=== PATIENT | male | born 1965 | race Caucasian/White ===

== ENCOUNTER 2020-04-14 08:56 | Emergency (ER) | payer BC, SELFPAY ==
[2020-04-14 08:56] VITALS: BP 153/114; PULSE 94; RESP 18; TEMP 36.4; O2SAT 100; BMI 37.0
--- NOTE | 2020-04-14 09:44 | ED.VISSUMM ---
- ER Visit Summary Date of Service: 04/14/20 Chief Complaint: Left thumb pain and swelling History of Present Illness: The patient is a 55 M who presents with left thumb pain and swelling that has been getting worse over the last week. Patient thinks he may have smashed it between carts while at work 1 week ago. Patient states he noted increasing swelling and throbbing yesterday. Patient denies any paresthesias or weakness. Patient states his pain is worse with any movement. Patient denies any discharge or drainage. Patient denies any fevers or chills. Physical Examination: Vital signs are stable. Patient is afebrile. Patient is in no acute distress. Skin is warm dry. There is an abscess noted over the left thumb along the nail margin. There is some mild fluctuance. There is edema and tenderness. Range of motion was limited in the IP joint secondary to pain. Sensation was intact light touch in all digits. There is no tenderness along the flexor tendon. Capillary refill was less than 2 seconds in all digits. Radial pulses are equal bilaterally. Test Results: X-rays of the left thumb were obtained. There is no acute fracture or evidence of osteomyelitis. This was interpreted by the radiologist and reviewed by myself. Emergency Department Course and Treatment: The area was cleaned with chlorhexidine prep. A small linear incision was made using the tip of an 18-gauge needle. A moderate amount of purulent drainage was expressed. The wound was left open. Bacitracin dressing was applied. Patient tolerated the procedure well. Patient was given a dose of Keflex here and was given a prescription for Keflex. Patient was instructed to use warm compresses. Patient was instructed to follow-up with his primary care physician in 5 to 7 days. Patient understood and was agreeable with the plan. All questions were answered. Disposition: Discharge home Impression: Paronychia left thumb This note was generated with [employer] dictation software. It may contain incorrect words, spelling, and punctuation that were not noted in review of the chart prior to signing ED Disposition - Plan for ED Patient: Disposition: Home or Assisted Living Diagnosis: Paronychia of left thumb Instructions: ED FINGERNAIL INFECTION Prescriptions: Cephalexin [Keflex] 500 mg PO Q6 #40 cap Prescription Printed Referrals: Lou Davis [employer], [employer] [NON-STAFF] - 5-7 Days
--- NOTE | 2020-04-14 09:55 | RAD_ITS ---
STUDY: X-RAY - LEFT HAND, ATTENTION LEFT THUMB. REASON FOR EXAM: Male, 55 years old. Wound to Left Thumb x several weeks. Unknown injury. Swelling around nail bed. Distal Thumb. TECHNIQUE: 3 view(s) of the finger were obtained. COMPARISON: None. FINDINGS: Normal metacarpal head. Normal metacarpophalangeal joint. Normal proximal phalanx. Normal distal phalanx. Normal distal interphalangeal joint. RAD/Finger(s) Min 2 Views IMPRESSION: Normal x-ray examination of the finger. Electronically Signed: Dominik Rai, at 10:10 EDT , Service support ,
[2020-04-14 11:28] VITALS: PULSE 81; RESP 18; O2SAT 98
[2020-04-14] MEDS: Cephalexin 500 MG Capsule PO (11:28)
[2020-04-14] MEDS: BACITRACIN 15 GM Tube 1 APPLIC TOPICAL (11:28)
--- NOTE | 2020-04-14 11:29 | ED.RN ---
THIS NURSE REVIEWED D/C INSTRUCTIONS WITH PT. PT VERBALIZED UNDERSTANDING OF INSTRUCTIONS. PT DENIES FURTHER NEEDS OR QUESTIONS AT THIS TIME. PT AMBULATES FROM ROOM ON OWN WITHOUT ASSISTANCE FROM STAFF
== END 2020-04-14 11:30 | disposition home or self-care (01) ==
PROVIDERS: Emergency Provider Emergency Medicine
DX: L03.012 Cellulitis of left finger (principal)
CPT/HCPCS: 73140; 99283

== ENCOUNTER 2021-01-16 21:25 | Emergency (ER) | payer BC, SELFPAY ==
[2021-01-16 21:26] VITALS: BP 132/84; PULSE 107; RESP 18; TEMP 36.7; O2SAT 91; BMI 35.4
--- NOTE | 2021-01-16 22:12 | CT_ITS ---
STUDY: CT ABDOMEN AND PELVIS WITHOUT CONTRAST REASON FOR EXAM: Male, 55 years old. Pain RADIATION DOSAGE (If Supplied By Facility): CTDIvol = ( 21.60 ) mGy, DLP = ( 1073.81 ) mGycm TECHNIQUE: Transaxial images were obtained from the dome of the diaphragm to the symphysis pubis without oral contrast, and without intravenous contrast. Sagittal and coronal images were reconstructed. Individualized dose optimization techniques were used for this CT. COMPARISON: None. FINDINGS: The visualized lung bases are unremarkable. The visualized portions of the heart are within normal limits. There is decreased attenuation of the liver consistent with steatosis. Normal gallbladder and extrahepatic biliary system. Normal spleen. Normal pancreas. Normal bilateral adrenal glands. Normal right kidney. Normal left kidney. Normal visualized stomach. Normal small intestine. There are multiple colonic diverticula consistent with diverticulosis. There is non-visualization of the appendix. Normal abdominal aorta. Normal inferior vena cava. Normal retroperitoneum. Normal urinary bladder. There are prostatic calcifications. There is a small umbilical hernia containing fat. There are diffuse degenerative changes of the visualized lumbar spine. CT/Abdomen/Pelvis without Cont IMPRESSION: No acute findings. Small fat-containing umbilical hernia. Significant fatty steatosis of the liver Electronically Signed: Kyler Tiwari DO at 0:27 EDT Tel , Service support ,
[2021-01-16] MEDS: Ondansetron 4 MG/2 ML Vial IV (22:29)
[2021-01-16] MEDS: Dicyclomine 20 MG/2 ML Vial IM (22:29)
[2021-01-16] MEDS: 0.9% Normal Saline 1,000 ML 1000 ML IV (22:29)
[2021-01-16 22:33] LABS: Absolute Lymphocyte Count 1.53 X10^3/uL (0.83-4.51); Absolute Neutrophil Count 3.9 X10^3/uL (2.0-7.7); Basophil# 0.08 X10^3/uL; Basophil% 1.2 % (0-1); Eosinophils% 3.1 % (0-5); Hematocrit 46.2 % (40-54); Hemoglobin 15.3 g/dL (13.0-16.5); Lymphocyte # 1.53 X10^3/ul (0.83-4.51); Lymphocyte % 23.7 % (19-41); Mean Corp Hgb Conc 33.1 g/dL (32-36); Mean Corpuscular Hgb 28.5 pg (27.0-32.0); Mean Platelet Vol. 11.1 fl (6.2-12.0); Monocyte# 0.71 X10^3/uL; NRBC Flagged by Analyzer 0 % (0-5); Neutrophil # 3.91 X10^3/uL (2.7-7.7); Neutrophil % 60.7 % (47-70); Platelet Count 186 K/mm3 (150-450); RBC Distribution Width CV 12.7 % (11.6-14.6); RBC Distribution Width SD 39.6 fl (35.1-43.9); Red Blood Count 5.37 M/mm3 (4.6-6.2); White Blood Count 6.5 K/mm3 (4.4-11.0)
[2021-01-16 22:34] LABS: Bacteria 0 SEEN /hpf (None Seen); Mucous, Urine 0 SEEN /hpf (<or=2+); Red Blood Cells-Urine 0 SEEN /hpf (0-5); Squamous Epithelial Cells - UA 0 SEEN /hpf (0-5); White Blood Cells 0 SEEN /hpf (0-5)
[2021-01-16 22:35] LABS: Color, Urine Yellow (Yellow); Glucose, Dipstick 1000 mg/dl (Normal); Ketone-Dipstick 5 mg/dl (Negative); Leukocyte Esterase-Dipstick Negative /ul (Negative); Nitrite-Dipstick Negative (Negative); Occult Blood-Urine Negative /ul (Negative); Protein-Dipstick Negative (Negative); Specific Gravity, Urine 1.015 (1.002-1.030); Urine Bilirubin Dipstick Negative (Negative); Urine Clarity Sl. Cloudy (Clear); Urine Urobilinogen Normal (Normal)
[2021-01-16 22:41] LABS: Amorphous Sediment 1+
[2021-01-16 22:46] LABS: ALB/GLOB Ratio 0.8 RATIO (0.9-2.4); AST(SGOT) 19 U/L (15-37); Alanine Aminotransfer ALT/SGPT 60 U/L (16-61); Albumin, Serum 3.4 g/dL (3.2-5.0); Alkaline Phosphatase 67 U/L (45-117); Anion Gap 3 (5-15); BUN 22 mg/dL (7-18); BUN/Creat Ratio 22.4 RATIO (10-20); Calcium,Total 9.1 mg/dL (8.5-10.1); Chloride 99 mmol/L (98-107); Creatinine, Serum 0.98 mg/dL (0.70-1.30); EST Glomerular Filtration Rate 85 mL/min (>60); Est Glom Filt Rate - Afr Amer 102 mL/min (>60); Estimated Creatinine Clearance 84.34 ml/min; Glucose 372 mg/dL (74-106); Protein, Total 7.4 g/dL (6.4-8.2); Sodium Level 134 mmol/L (136-145)
[2021-01-16 23:03] LABS: Lactic Acid 2.1 mmol/L (0.4-1.9)
--- NOTE | 2021-01-16 23:33 | ED.VIS.GI ---
HPI HPI - GI History of Present Illness Chief Complaint: Abd Pain Narrative Narrative: Patient presenting for evaluation secondary abdominal pain. Patient states that since yesterday evening he has been dealing with abdominal pain. He states that it predominantly is in his lower abdomen and occasionally predicate to the left side. Patient states that its been a relatively continuous pain and has been associated with some loose watery diarrhea over the course that time. He does endorse some nausea and some dry heaves but no vomiting. He denies any objective fevers associated with this. He is status post appendectomy in the past. He does state that when he wipes occasionally there will be a small amount of blood but he denies that there is any mucus associated with this. States that he is never really had any prior similar episodes in the past he denies any sick contacts. Review of systems otherwise negative. [facility] Medical History Asthma Diabetes HTN (hypertension) Hyperlipemia Home Medications gabapentin 600 mg PO BID 01/16/21 [History Last Taken Unknown] hydrochlorothiazide 25 mg PO DAILY 01/16/21 [History Last Taken Unknown] insulin glargine [Basaglar KwikPen U-100 Insulin] 25 unit SUBCUT BID 01/16/21 [History Last Taken Unknown] lovastatin 20 mg PO QHS 01/16/21 [History Last Taken Unknown] metformin 1,000 mg PO BID 01/16/21 [History Last Taken Unknown] dicyclomine 20 mg PO TID #14 tab 01/17/21 [Rx Last Taken Unknown] ondansetron 4 mg PO Q8H PRN PRN #10 tab 01/17/21 [Rx Last Taken Unknown] Allergy/AdvReac Type Severity Reaction Status Date / Time No Known Allergies Allergy Verified 01/16/21 21:27 Social History Smoking Status: Never smoker ROS ROS ED Constitutional Constitutional ED: Denies chills or fever(s) ENT ENT ED: Denies sore throat Cardiovascular Cardiovascular: Denies chest pain Respiratory/Chest Respiratory/Chest: Denies cough or dyspnea Gastrointestinal Gastrointestinal: Reports abdominal pain, diarrhea and nausea; Denies vomiting Genitourinary Genitourinary ED: Denies dysuria, hematuria or urinary frequency Musculoskeletal Musculoskeletal: Denies myalgias Integumentary Denies rash Neurologic Neurologic: Denies paresthesias or weakness Psychiatric Psychiatric: Denies depression Endocrine Endocrinology: Denies polyuria Hematologic/Lymphatic Hematologic/Lymphatic: Denies easy bleeding or easy bruising Allergic/Immunologic Allergic/Immunologic ED: Denies urticaria EXAM Physical Exam Const Vital Signs: 01/16/21 21:26 01/17/21 00:45 Temperature 98.1 F Temperature Source Temporal Pulse Rate 107 H Respiratory Rate 18 16 Blood Pressure 132/84 H Blood Pressure Mean 100 Pulse Ox 91 Oxygen Delivery Method Room Air Positive well nourished and well developed General Appearance ED: well developed and NAD HEENT normocephalic and atraumatic Eyes EOMs intact bilaterally General Eye ED: Negative for pale conjunctiva or scleral icterus Neck no lymphadenopathy and supple Resp normal respiratory effort and clear to auscultation bilaterally Cardio regular rate, regular rhythm, no murmurs and peripheral pulses 2+ throughout GI non-tender, non-distended and no masses GI Narrative: Patient does report some abdominal pain in the lower abdomen it seems more reproducible in the left upper quadrant and epigastrium there is no guarding or rebound tenderness noted Palpation: soft and tender; Negative for guarding, rigid or rebound tenderness present Back/Spine no CVA tenderness Extremity full ROM General Extremety ED: Negative for edema General Extremity: Negative for edema Neuro moves all extremities and no sensory deficits noted Sensorium / Orientation: alert, oriented to person, oriented to place and oriented to time Motor Exam: strength 5/5 throughout Psych mental status grossly normal Skin Rashes: no rashes MDM MDM MDM Narrative Medical decision making narrative: Patient presented with abdominal pain and diarrhea. IV was established laboratory studies were obtained patient was given Zofran and Bentyl and a liter of fluid. He was noted to have a modest elevation of his lactic acid likely secondary to a mild dehydration. CBC was unremarkable, chemistry shows no significant electrolyte derangements or dehydration liver panel was also found to be unremarkable. Urinalysis shows no signs of infection. CT abdomen and pelvis was performed and per radiology shows a fatty liver, small hernia, but no evidence of acute intra-abdominal process. Repeat evaluation of the patient at 0045 shows him to have symptomatic improvement. Patient's symptoms likely are secondary to an element of enteritis. Patient will be discharged with a course of Zofran and Bentyl for symptom control. He was recommended other conservative management measures. Patient was discharged in stable condition. Lab Data Labs: Laboratory Results - last 24 hr 01/16/21 01/16/21 01/16/21 21:35 21:35 22:05 WBC 6.5 RBC 5.37 Hgb 15.3 Hct 46.2 MCV 86.0 MCH 28.5 MCHC 33.1 RDW Std Deviation 39.6 RDW Coeff of Yanira 12.7 Plt Count 186 MPV 11.1 Immature Gran % (Auto) 0.300 Neut % (Auto) 60.7 Lymph % (Auto) 23.7 [place] % (Auto) 11.0 H Eos % (Auto) 3.1 Baso % (Auto) 1.2 H Absolute Neuts (auto) 3.9 Absolute Lymphs (auto) 1.53 Nucleated RBC % 0 Sodium 134 L Potassium 4.0 Chloride 99 Carbon Dioxide 32.0 Anion Gap 3 L BUN 22 H Creatinine 0.98 Estim Creat Clear Calc 84.34 Est GFR (MDRD) Af Amer 102 Est GFR (MDRD) Non-Af 85 BUN/Creatinine Ratio 22.4 H Glucose 372 H Lactic Acid Calcium 9.1 Total Bilirubin 0.30 AST 19 ALT 60 Alkaline Phosphatase 67 Total Protein 7.4 Albumin 3.4 Globulin 4.0 Albumin/Globulin Ratio 0.8 L Urine Color Yellow Urine Clarity Sl. Cloudy Urine pH 8.0 Ur Specific [place] 1.015 Urine Protein Negative Urine Glucose (UA) 1000 H Urine Ketones 5 H Urine Occult Blood Negative Urine Nitrite Negative Urine Bilirubin Negative Urine Urobilinogen Normal Ur Leukocyte Esterase Negative Urine RBC 0 SEEN Urine WBC 0 SEEN Ur Squamous Epith Cells 0 SEEN Amorphous Sediment 1+ Urine Bacteria 0 SEEN Urine Mucus 0 SEEN 01/16/21 22:25 WBC RBC Hgb Hct MCV MCH MCHC RDW Std Deviation RDW Coeff of Yanira Plt Count MPV Immature Gran % (Auto) Neut % (Auto) Lymph % (Auto) [place] % (Auto) Eos % (Auto) Baso % (Auto) Absolute Neuts (auto) Absolute Lymphs (auto) Nucleated RBC % Sodium Potassium Chloride Carbon Dioxide Anion Gap BUN Creatinine Estim Creat Clear Calc Est GFR (MDRD) Af Amer Est GFR (MDRD) Non-Af BUN/Creatinine Ratio Glucose Lactic Acid 2.1 H* Calcium Total Bilirubin AST ALT Alkaline Phosphatase Total Protein Albumin Globulin Albumin/Globulin Ratio Urine Color Urine Clarity Urine pH Ur Specific [place] Urine Protein Urine Glucose (UA) Urine Ketones Urine Occult Blood Urine Nitrite Urine Bilirubin Urine Urobilinogen Ur Leukocyte Esterase Urine RBC Urine WBC Ur Squamous Epith Cells Amorphous Sediment Urine Bacteria Urine Mucus Radiography Diagnostic Testing: Radiology Impression Abdomen/Pelvis CT 01/16/21 22:12 IMPRESSION: No acute findings. Small fat-containing umbilical hernia. Significant fatty steatosis of the liver Electronically Signed: Kyler Tiwari DO at 0:27 EDT Tel , Service support , Discharge Plan Triage Chief Complaint: Abd Pain ED Provider: Rodolfo Eid Dx/Rx/DC Orders Clinical Impression: Enteritis Instructions: ED Diarrhea, Viral (Adult) Prescriptions: New dicyclomine 20 mg tablet 20 mg PO TID Qty: 14 RF: 0 ondansetron 4 mg tablet,disintegrating 4 mg PO Q8H PRN PRN (Reason: Nausea) Qty: 10 RF: 0 No Action metformin 1,000 mg tablet 1,000 mg PO BID RF: 0 gabapentin 300 mg capsule 600 mg PO BID RF: 0 hydrochlorothiazide 25 mg tablet 25 mg PO DAILY RF: 0 lovastatin 20 mg tablet 20 mg PO QHS RF: 0 Basaglar KwikPen U-100 Insulin 100 unit/mL (3 mL) Insulin Pen 25 unit SUBCUT BID RF: 0 Primary Care Provider: Care Physician,No Primary Referrals: Care Physician,No Primary [Primary Care Provider] - Disposition Disposition: Home, Self Care
[2021-01-17 00:45] VITALS: RESP 16
[2021-01-17 00:59] VITALS: BP 118/74; PULSE 85; RESP 16
[2021-01-17 02:29] LABS: Reflex Lactate? Y
== END 2021-01-17 00:59 | disposition home or self-care (01) ==
PROVIDERS: Emergency Provider Emergency Medicine
DX: K52.9 Noninfective gastroenteritis and colitis, unspecified (principal); E11.9 Type 2 diabetes mellitus without complications; E78.5 Hyperlipidemia, unspecified; Z79.4 Long term (current) use of insulin; Z79.899 Other long term (current) drug therapy
CPT/HCPCS: 74176; 80053; 81001; 83605; 85025; 96372; 96374; 99284; J7030; A4216; J2405

== ENCOUNTER 2023-03-15 13:52 | Emergency (ER) | payer BC, SELFPAY ==
[2023-03-15 13:53] VITALS: BP 170/121; PULSE 95; RESP 14; TEMP 36.6; O2SAT 98; BMI 36.1
--- NOTE | 2023-03-15 14:07 | EDS_ITS ---
<Statement entered by Chacho Nichols MD - 03/15/23 14:55> I have personally performed a face to face assessment of the patient and have reviewed the CARMEN Note. Dr. Nichols: I have personally performed a face to face assessment of the patient and have reviewed the CARMEN Note. I performed a substantive portion of the visit including all aspects of the following. My klein findings include: History is right lower jaw swelling. Exam is afebrile. Vital signs noted. Poor dentition with large cavity in right lower jaw. Positive swelling of face. No gingival swelling. No drooling or trismus. No Jm angina. Medical Decision Making: I do not feel that any imaging or laboratory work is indicated. Patient will be placed on antibiotics and follow-up with a dentist as soon as possible. I do not feel he requires narcotic pain medication or observation. Disposition is discharged home in stable condition. Other additions or changes: [None] HPI <MC Pruett - Last Filed: 03/15/23 15:23> History of Present Illness Chief Complaint: Dental Narrative Narrative: Patient presenting today with swelling to his right lower mandible that he has had since waking up this morning. He reports that he has had right mandibular dental pain for the past 2 months. He did try to see a dentist who told him that he could not be seen until he had his A1c checked by his PCP. He saw his PCP yesterday who prescribed him naproxen but did not put him on an antibiotic. He does not currently have a dentist that he sees regularly. He denies any fever and chills. [facility] <MC Pruett - Last Filed: 03/15/23 15:23> [facility] Medical History Asthma Diabetes HTN (hypertension) Hyperlipemia Home Medications gabapentin 300 mg capsule 600 mg PO BID 01/16/21 [History Last Taken Unknown] hydrochlorothiazide 25 mg tablet 25 mg PO DAILY 01/16/21 [History Last Taken Unknown] insulin glargine 100 unit/mL (3 mL) subcutaneous pen (Basaglar KwikPen U-100 Insulin) 25 unit subcut BID 01/16/21 [History Last Taken Unknown] lovastatin 20 mg tablet 20 mg PO QHS 01/16/21 [History Last Taken Unknown] metformin 1,000 mg tablet 1,000 mg PO BID 01/16/21 [History Last Taken Unknown] dicyclomine 20 mg tablet 20 mg PO TID Abdominal cramping #14 tabs 01/17/21 [Rx Last Taken Unknown] ondansetron 4 mg disintegrating tablet 4 mg PO Q8H PRN PRN Nausea #10 tabs 01/17/21 [Rx Last Taken Unknown] penicillin V potassium 500 mg tablet 500 mg PO 4X/DAY #39 tabs 03/15/23 [Rx Last Taken Unknown] Allergy/AdvReac Type Severity Reaction Status Date / Time No Known Allergies Allergy Verified 03/15/23 13:52 Social History Smoking Status: Never smoker ROS <MC Pruett - Last Filed: 03/15/23 15:23> ROS ED Constitutional Constitutional ED: Denies chills or fever(s) Cardiovascular Cardiovascular: Denies chest pain Respiratory/Chest Respiratory/Chest: Denies cough or dyspnea Gastrointestinal Gastrointestinal: Denies abdominal pain, nausea or vomiting Musculoskeletal Musculoskeletal: Denies arthralgias or myalgias Integumentary Denies rash Neurologic Neurologic: Denies weakness Allergic/Immunologic Allergic/Immunologic ED: Denies lip swelling or tongue swelling EXAM <MC Pruett - Last Filed: 03/15/23 15:23> Physical Exam Const Vital Signs: 03/15/23 13:53 03/15/23 14:38 Temperature 98 F Temperature Source Temporal Pulse Rate 95 101 H Respiratory Rate 14 Blood Pressure 170/121 H 166/98 H Blood Pressure Mean 137 Pulse Ox 98 95 Oxygen Delivery Method Room Air Positive well nourished, well developed and no apparent distress General Appearance ED: well developed HEENT Reports normocephalic and head/scalp atraumatic HEENT Narrative: Right-sided facial swelling to the lower mandible. Multiple dental caries with pain to the right first and second molars. No dental abscess. Patient is tolerating secretions, no trismus, no drooling, no evidence of Ludewig's angina. Mouth ED: Yes moist mucous membranes normal Throat: posterior oropharynx normal Eyes PERRL and EOMs intact bilaterally Neck full ROM and supple Chest Wall inspection of chest normal Resp normal respiratory effort and clear to auscultation bilaterally Cardio regular rate and regular rhythm GI soft to palpation, non-tender, non-distended and no masses Back/Spine normal ROM and normal to inspection Extremity normal to inspection and full ROM Neuro oriented x3, CN's II-XII intact bilaterally, moves all extremities, no focal motor deficits and no sensory deficits noted Sensorium / Orientation: awake and alert Psych mental status grossly normal and thought process normal Skin no rashes or lesions noted and no wounds <Chacho Nichols MD - Last Filed: 03/15/23 16:01> Physical Exam Const Vital Signs: 03/15/23 13:53 03/15/23 14:38 Temperature 98 F Temperature Source Temporal Pulse Rate 95 101 H Respiratory Rate 14 Blood Pressure 170/121 H 166/98 H Blood Pressure Mean 137 Pulse Ox 98 95 Oxygen Delivery Method Room Air MDM <MC Pruett - Last Filed: 03/15/23 15:23> [facility] Narrative Medical decision making narrative: Patient presenting today with right-sided facial swelling to the right mandible that he has had since waking up this morning. He is well-appearing and in no acute distress, vitals are unremarkable aside from elevated blood pressure. Patient has had dental pain for the past 2 months but was told by dentist that he could not be seen until he saw his PCP, he then saw his PCP yesterday who prescribed him naproxen without any antibiotic. Patient does have multiple dental caries and pain to the right mandibular first and second molar. There are no signs of dental abscess, no signs of Ludewig's angina. Patient does not have any trismus or stridor and is tolerating secretions. He will be started on penicillin with first dose here. He will be given a dental referral sheet. He has been given return instructions and will be discharged home in stable condition. He is comfortable with plan. <Chacho Nichols MD - Last Filed: 03/15/23 16:01> [facility] Narrative Medical decision making narrative: Patient presenting today with right-sided facial swelling to the right mandible that he has had since waking up this morning. He is well-appearing and in no acute distress, vitals are unremarkable aside from elevated blood pressure. Patient has had dental pain for the past 2 months but was told by dentist that he could not be seen until he saw his PCP, he then saw his PCP yesterday who prescribed him naproxen without any antibiotic. Patient does have multiple dental caries and pain to the right mandibular first and second molar. There are no signs of dental abscess, no signs of Ludewig's angina. Patient does not have any trismus or stridor and is tolerating secretions. He will be started on penicillin with first dose here. He will be given a dental referral sheet. He has been given return instructions and will be discharged home in stable condition. He is comfortable with plan. Discharge Plan Triage Chief Complaint: Dental ED Midlevel Provider: Chelsi Harris ED Provider: Chacho Nichols Dx/Rx/DC Orders Clinical Impression: Dental caries, Right facial swelling, Pain, dental Instructions: ED Dental Pain Prescriptions: New penicillin V potassium 500 mg tablet 500 mg PO 4X/DAY Qty: 39 0RF No Action metformin 1,000 mg tablet 1,000 mg PO BID gabapentin 300 mg capsule 600 mg PO BID hydrochlorothiazide 25 mg tablet 25 mg PO DAILY lovastatin 20 mg tablet 20 mg PO QHS Nadiragldionicio Cohen U-100 Insulin 100 unit/mL (3 mL) Insulin Pen 25 unit SUBCUT BID dicyclomine 20 mg tablet 20 mg PO TID Qty: 14 0RF ondansetron 4 mg tablet,disintegrating 4 mg PO Q8H PRN PRN (Reason: Nausea) Qty: 10 0RF Primary Care Provider: Care Physician,No Primary Referrals: Care Physician,No Primary [Primary Care Provider] - Activity Restrictions/Additional Instructions: Take antibiotics as directed, please follow-up with one of the dentist I have referred you to. Return for any worsening of your symptoms. Disposition Disposition: Home, Self Care Discharge Date/Time: 03/15/23 14:42
[2023-03-15 14:38] VITALS: BP 166/98; PULSE 101; O2SAT 95
--- NOTE | 2023-03-15 14:40 | ED.RN ---
Patient d/c by cellars supervisor, Alessandro, patient states to him that he is hungry and will get prescription filled prior to medication being given by his nurse.
== END 2023-03-15 14:42 | disposition home or self-care (01) ==
LOC: ED 14:21
PROVIDERS: Emergency Provider Emergency Medicine; Visit Provider Emergency Medicine
DX: K02.9 Dental caries, unspecified (principal); K08.89 Other specified disorders of teeth and supporting structures
CPT/HCPCS: 99282

== ENCOUNTER 2023-03-18 10:14 | Emergency (ER) | payer BC, SELFPAY ==
--- NOTE | 2023-03-18 10:17 | ED.RN ---
I CAN'T MISS ANY MORE WORK OR I'LL GET FIRED, THEN WHO'S GONNA PAY MY BILLS!
[2023-03-18 10:20] VITALS: BP 154/99; PULSE 97; RESP 16; TEMP 36.8; O2SAT 97; BMI 35.1
[2023-03-18 10:21] VITALS: BP 152/90; PULSE 95; RESP 16; TEMP 36.6; O2SAT 98
--- NOTE | 2023-03-18 11:24 | EDS_ITS ---
HPI History of Present Illness Chief Complaint: Dental Informant: patient and spouse/S.O. Narrative Narrative: Persistent right lower jaw swelling. History of dental caries. Was seen few days ago in the ED. Put on penicillin. After taking it he came nauseated having headache. He stopped taking it 3 days ago. Called [facility] today. Wait for callback. He is concerned for reaction to penicillin therefore stopped taking it. Prior similar symptoms: Yes PFSH PFSH Medical History Asthma Diabetes HTN (hypertension) Hyperlipemia Home Medications gabapentin 300 mg capsule 600 mg PO BID 01/16/21 [History Last Taken Unknown] hydrochlorothiazide 25 mg tablet 25 mg PO DAILY 01/16/21 [History Last Taken Unknown] insulin glargine 100 unit/mL (3 mL) subcutaneous pen (Basaglar KwikPen U-100 Insulin) 25 unit subcut BID 01/16/21 [History Last Taken Unknown] lovastatin 20 mg tablet 20 mg PO QHS 01/16/21 [History Last Taken Unknown] metformin 1,000 mg tablet 1,000 mg PO BID 01/16/21 [History Last Taken Unknown] dicyclomine 20 mg tablet 20 mg PO TID Abdominal cramping #14 tabs 01/17/21 [Rx Last Taken Unknown] ondansetron 4 mg disintegrating tablet 4 mg PO Q8H PRN PRN Nausea #10 tabs 01/17/21 [Rx Last Taken Unknown] penicillin V potassium 500 mg tablet 500 mg PO 4X/DAY #39 tabs 03/15/23 [Rx Last Taken Unknown] clindamycin HCl 300 mg capsule 300 mg PO TID #30 caps 03/18/23 [Rx Last Taken Unknown] ondansetron 4 mg disintegrating tablet 4 mg PO Q8H PRN PRN Nausea #10 tabs 03/18/23 [Rx Last Taken Unknown] Allergy/AdvReac Type Severity Reaction Status Date / Time No Known Allergies Allergy Verified 03/18/23 10:19 Social History Smoking Status: Never smoker ROS ROS ED Constitutional Constitutional ED: Denies chills, fever(s) or sweats Eyes Eyes: Denies change in vision ENT ENT ED: Reports other Details: Dental cavity with facial swelling ; Denies dysphagia or sore throat Cardiovascular Cardiovascular: Denies chest pain, leg edema, palpitations or racing heartbeat Respiratory/Chest Respiratory/Chest: Denies cough, dyspnea or dyspnea on exertion Gastrointestinal Gastrointestinal: Denies abdominal pain, diarrhea, nausea or vomiting Genitourinary Genitourinary ED: Denies dysuria, hematuria or urinary frequency Musculoskeletal Musculoskeletal: Denies back pain, extremity pain or neck pain Integumentary Denies rash or wounds Neurologic Neurologic: Denies headache(s), paresthesias or weakness EXAM Physical Exam Const Vital Signs: 03/18/23 10:20 03/18/23 10:21 Temperature 98.3 F 98 F Temperature Source Temporal Temporal Pulse Rate 97 95 Respiratory Rate 16 16 Blood Pressure 154/99 H 152/90 H Blood Pressure Mean 117 110 Pulse Ox 97 98 Oxygen Delivery Method Room Air Room Air Positive well nourished and well developed General Appearance ED: well developed and NAD HEENT Reports moist mucous membranes HEENT Narrative: Dental cavity tooth #29 and the lower canine. No sublingual edema. No fluctuance of the gumline. There is swelling at the right mandibular. No crepitus at the neck. normocephalic and atraumatic Eyes PERRL, EOMs intact bilaterally and conjunctivae normal General Eye ED: Yes normal appearance of both eyes Neck no lymphadenopathy and supple General: Negative for tenderness Chest Wall Chest: Negative for tenderness Resp normal respiratory effort and normal air movement Effort and Inspection: symmetric chest movement; Negative for respiratory distress Cardio regular rate, regular rhythm and no murmurs Peripheral Pulses: pulses 2+ throughout GI normal to inspection, nondistended, normoactive bowel sounds and non-tender Palpation: Negative for guarding or rebound tenderness present Back/Spine no CVA tenderness and no thoracic nor lumbar tenderness Extremity normal to inspection General Extremety ED: Negative for edema or tenderness General Extremity: Negative for edema Neuro oriented x3 and no sensory deficits noted Sensorium / Orientation: awake and alert Skin no rashes or lesions noted and no wounds MDM MDM MDM Narrative Medical decision making narrative: Interventions / MDM: Differential diagnosis: Dental cavity, dental abscess Diagnosis considered but do not suspect: No clinical Jm's angina My EKG interpretation: N/A Imaging independently reviewed and interpreted by myself: N/A External documents reviewed: N/A Test considered but not ordered:N/A ED course: Patient presents with swelling right lower jaw. Nontoxic. He stopped penicillin due to concerning reactions. He started on clindamycin and additional prescription for Zofran to use as needed. Dental list given along with discussing dental follow-up needed for definitive treatment. All questions were answered. Re-evaluation: stable Disposition discussed with patient/family/significant other: Patient and significant other Case discussed with consulting clinician: N/A This note was generated with [employer] dictation software. It may contain incorrect words, spelling, and punctuation that were not noted in checking the note before signing. Discharge Plan Triage Chief Complaint: Dental ED Provider: Jules Chu Dx/Rx/DC Orders Clinical Impression: Dental caries, Right facial swelling Instructions: Dental Abscess Prescriptions: New clindamycin HCl 300 mg capsule 300 mg PO TID Qty: 30 0RF ondansetron [ondansetron] 4 mg tablet,disintegrating 4 mg PO Q8H PRN PRN (Reason: Nausea) Qty: 10 0RF No Action metformin 1,000 mg tablet 1,000 mg PO BID gabapentin 300 mg capsule 600 mg PO BID hydrochlorothiazide 25 mg tablet 25 mg PO DAILY lovastatin 20 mg tablet 20 mg PO QHS Basaglar KwikPen U-100 Insulin 100 unit/mL (3 mL) Insulin Pen 25 unit SUBCUT BID dicyclomine 20 mg tablet 20 mg PO TID Qty: 14 0RF ondansetron 4 mg tablet,disintegrating 4 mg PO Q8H PRN PRN (Reason: Nausea) Qty: 10 0RF penicillin V potassium 500 mg tablet 500 mg PO 4X/DAY Qty: 39 0RF Stand Alone Forms: ED Work / School Excuse Primary Care Provider: Shahana Murray COLLISION TECHNICIAN Referrals: Care Physician,No Primary [Non-Staff] - Activity Restrictions/Additional Instructions: Take anabiotic as prescribed nausea medicine as needed. Follow-up with your dentist or dental list for outpatient evaluation for definitive treatment. Disposition Disposition: Home, Self Care Discharge Date/Time: 03/18/23 11:47
[2023-03-18] MEDS: Clindamycin HCl 150 MG Capsule 300 MG PO (11:25)
== END 2023-03-18 11:47 | disposition home or self-care (01) ==
LOC: ED 11:33
PROVIDERS: Emergency Provider Emergency Medicine; PCP Nurse Practitioner; Visit Provider Emergency Medicine
DX: E11.638 Type 2 diabetes mellitus with other oral complications (principal)
CPT/HCPCS: 99283

== ENCOUNTER 2023-03-30 19:28 | Emergency (ER) | payer BC, SELFPAY ==
[2023-03-30 19:32] VITALS: BP 128/87; PULSE 104; RESP 18; TEMP 35.8; O2SAT 95; BMI 35.0
[2023-03-30 19:35] VITALS: BP 128/87; PULSE 104; RESP 18; TEMP 35.8; O2SAT 95
[2023-03-30 19:41] VITALS: O2SAT 91
--- NOTE | 2023-03-30 20:10 | EDS_ITS ---
HPI History of Present Illness Chief Complaint: Shortness of Breath Onset/Context/Timing Onset: Days (3) Context: sudden Timing: Continuous Quality: Positive for Dyspnea on exertion Worsened by: Nothing Relieved by: Nothing Associated Symptoms Chest Pain: Positive for None Narrative Narrative: Patient presents with shortness of breath, cough, headache, dizziness, and weakness that has been getting worse over the past 3 days. Patient describes his dizziness as a spinning sensation. Patient states he started with a headache in his occipital area 3 days ago. Patient states this has been constant. Patient admits to some subjective chills. Patient admits to inte rmittent blurred vision. Patient also admits to a sore throat. Patient states nothing makes his symptoms better and nothing makes them worse. Patient denies any fevers. PE Risk Factors: Negative for Cancer, OCP + Smoking + > 35, Prior DVT or PE, Recent immobilization, Recent surgery or Recent travel [facility] Medical History Asthma Diabetes HTN (hypertension) Hyperlipemia Home Medications gabapentin 300 mg capsule 600 mg PO BID 01/16/21 [History Last Taken Unknown] hydrochlorothiazide 25 mg tablet 25 mg PO DAILY 01/16/21 [History Last Taken Unknown] insulin glargine 100 unit/mL (3 mL) subcutaneous pen (Basaglar KwikPen U-100 Insulin) 25 unit subcut BID 01/16/21 [History Last Taken Unknown] lovastatin 20 mg tablet 20 mg PO QHS 01/16/21 [History Last Taken Unknown] metformin 1,000 mg tablet 1,000 mg PO BID 01/16/21 [History Last Taken Unknown] dicyclomine 20 mg tablet 20 mg PO TID Abdominal cramping #14 tabs 01/17/21 [Rx Last Taken Unknown] ondansetron 4 mg disintegrating tablet 4 mg PO Q8H PRN PRN Nausea #10 tabs 01/17/21 [Rx Last Taken Unknown] penicillin V potassium 500 mg tablet 500 mg PO 4X/DAY #39 tabs 03/15/23 [Rx Last Taken Unknown] clindamycin HCl 300 mg capsule 300 mg PO TID #30 caps 03/18/23 [Rx Last Taken Unknown] ondansetron 4 mg disintegrating tablet 4 mg PO Q8H PRN PRN Nausea #10 tabs 03/18/23 [Rx Last Taken Unknown] Allergy/AdvReac Type Severity Reaction Status Date / Time PCN AdvReac Intermediate FACE Uncoded 03/30/23 19:32 TURNED RED Surgical History no surgical history no surgical history Social History Smoking Status: Never smoker ROS ROS ED Constitutional Constitutional ED: Reports chills; Denies fever(s) Eyes Eyes: Reports blurry vision; Denies diplopia ENT ENT ED: Reports sore throat; Denies rhinorrhea Cardiovascular Cardiovascular: Reports racing heartbeat; Denies chest pain Respiratory/Chest Respiratory/Chest: Reports cough and dyspnea Gastrointestinal Gastrointestinal: Reports nausea; Denies vomiting Genitourinary Genitourinary ED: Denies dysuria or hematuria Musculoskeletal Musculoskeletal: Reports back pain; Denies neck pain Integumentary Denies abscess or rash Neurologic Neurologic: Reports headache(s); Denies weakness Allergic/Immunologic Allergic/Immunologic ED: Denies mouth swelling or urticaria EXAM Physical Exam Const Vital Signs: 03/30/23 19:32 03/30/23 19:35 03/30/23 19:41 Temperature 96.4 F L 96.4 F L Temperature Source Temporal Temporal Pulse Rate 104 H 104 H Pulse Rate [Lying] Pulse Rate [Sitting (for 1 minute prior to obtaining)] Pulse Rate [Standing (for 1 minute prior to obtaining)] Respiratory Rate 18 18 Respiratory Effort Short of Breath Respiratory Depth Normal Respiratory Pattern Normal Blood Pressure 128/87 H 128/87 H Blood Pressure [Lying] Blood Pressure [Sitting (for 1 minute prior to obtaining)] Blood Pressure [Standing (for 1 minute prior to obtaining)] Blood Pressure Mean 100 100 Blood Pressure Mean [Lying] Blood Pressure Mean [Sitting (for 1 minute prior to obtaining)] Blood Pressure Mean [Standing (for 1 minute prior to obtaining)] Pulse Ox 95 95 Oxygen Delivery Method Room Air Room Air Nasal Cannula Oxygen Flow Rate (L/min) 2 03/30/23 20:24 03/30/23 21:45 Temperature Temperature Source Pulse Rate 94 Pulse Rate [Lying] 85 Pulse Rate [Sitting (for 1 minute prior to obtaining)] 90 Pulse Rate [Standing (for 1 minute prior to obtaining)] 98 Respiratory Rate 12 Respiratory Effort Respiratory Depth Respiratory Pattern Blood Pressure Blood Pressure [Lying] 151/85 H Blood Pressure [Sitting (for 1 minute prior to obtaining)] 134/87 H Blood Pressure [Standing (for 1 minute prior to obtaining)] 125/91 H Blood Pressure Mean Blood Pressure Mean [Lying] 107 Blood Pressure Mean [Sitting (for 1 minute prior to obtaining)] 102 Blood Pressure Mean [Standing (for 1 minute prior to obtaining)] 102 Pulse Ox Oxygen Delivery Method Oxygen Flow Rate (L/min) Positive well nourished and well developed General Appearance ED: well developed and NAD HEENT Reports moist mucous membranes Neck supple and no JVD Resp normal respiratory effort Auscultation: wheezes expiratory wheezes and throughout Cardio regular rate and regular rhythm GI normal to inspection, nondistended, normoactive bowel sounds and non-tender Palpation: soft Extremity normal to inspection General Extremety ED: Negative for edema or tenderness General Extremity: Negative for edema Neuro oriented x3, CN's II-XII intact bilaterally and no sensory deficits noted Sensorium / Orientation: alert Motor Exam: strength 5/5 throughout Psych mental status grossly normal Skin no rashes or lesions noted MDM MDM MDM Narrative Medical decision making narrative: Differential diagnosis includes pneumonia, pneumothorax, viral upper respiratory infection, COVID-19 infection, vertigo, labyrinthitis, stroke, intracranial bleeding, COPD exacerbation, and anxiety. CT scan of the brain will be obtained to assess for intracranial bleeding. Chest x-ray will be obtained to assess for pneumonia and pneumothorax. CBC will be obtained to assess for leukocytosis and anemia. Basic metabolic profile will be obtained to assess for electrolyte abnormality and renal function. COVID-19 rapid antigen will be obtained to assess for COVID-19 infection. Influenza A and influenza B antigens will be obtained to assess for influenza infection. Lab Data Attestation: I reviewed the patient's lab results. Lab results narrative: CBC was reviewed and was within normal limits. Basic metabolic profile was reviewed. Glucose was slightly elevated at 268. Anion gap was normal. Influenza A and influenza B antigens were reviewed and were negative. COVID-19 rapid antigen was reviewed and was positive. Labs: Laboratory Results - last 24 hr 03/30/23 20:01 WBC 5.2 RBC 5.49 Hgb 15.5 Hct 47.5 MCV 86.5 MCH 28.2 MCHC 32.6 RDW Std Deviation 39.8 RDW Coeff of Yanira 12.5 Plt Count 155 MPV 10.8 Immature Gran % (Auto) 0.200 Neut % (Auto) 57.6 Lymph % (Auto) 26.8 Letcher % (Auto) 9.2 Eos % (Auto) 5.2 H Baso % (Auto) 1.0 Absolute Neuts (auto) 3.0 Absolute Lymphs (auto) 1.40 Nucleated RBC % 0 Sodium 136 Potassium 3.7 Chloride 104 Carbon Dioxide 29.0 Anion Gap 3 L BUN 16 Creatinine 0.93 Estim Creat Clear Calc 85.81 Est GFR (MDRD) Af Amer 108 Est GFR (MDRD) Non-Af 89 BUN/Creatinine Ratio 17.2 Glucose 260 H Calcium 8.1 L Radiography Chest X-Ray - ED: 2 View, Read by ED Physician, Read by Radiologist and No Acute Disease Diagnostic Testing: Clinical Impression(s) from Imaging Studies Brain CT 03/30/23 20:16 IMPRESSION: Normal unenhanced CT scan of the brain. Electronically Signed: Sofia Elam MD at 20:54 EDT Reading Location ID and State: [email or web address] , Service support , Chest X-Ray 03/30/23 20:42 IMPRESSION: No acute cardiopulmonary disease. Electronically Signed: Sofia Elam MD at 20:55 EDT , CT scan of the brain was obtained. There is no acute intracranial abnormality. This was interpreted by the radiologist and was also independently reviewed by myself. PA and lateral chest x-ray was obtained. There are 2 views. On my independent interpretation, lung wayne are clear. There is normal cardiac silhouette. Bony thorax is normal. There is no acute process noted. Radiologist also interpreted the x-ray and agrees. Treatment and Re-Evaluation :: Patient was given a DuoNeb aerosol here. Patient was feeling better on reevaluation. Patient was advised of his findings. Patient was instructed to drink plenty of fluids. Patient was instructed to take Tylenol or ibuprofen as needed for any fevers. Patient was instructed to follow-up with his primary care physician in 5 to 7 days. Patient was given a note for work. Patient understood and was agreeable with the plan. All questions were answered. Discharge Plan Triage Chief Complaint: Shortness of Breath ED Provider: Vimal Wang Dx/Rx/DC Orders Clinical Impression: COVID-19, Viral illness Instructions: Coronavirus Disease 2019 (COVID-19): Caring for Yourself or Others Prescriptions: No Action metformin 1,000 mg tablet 1,000 mg PO BID gabapentin 300 mg capsule 600 mg PO BID hydrochlorothiazide 25 mg tablet 25 mg PO DAILY lovastatin 20 mg tablet 20 mg PO QHS Basaglar NidhiikPen U-100 Insulin 100 unit/mL (3 mL) Insulin Pen 25 unit SUBCUT BID dicyclomine 20 mg tablet 20 mg PO TID Qty: 14 0RF ondansetron 4 mg tablet,disintegrating 4 mg PO Q8H PRN PRN (Reason: Nausea) Qty: 10 0RF penicillin V potassium 500 mg tablet 500 mg PO 4X/DAY Qty: 39 0RF clindamycin HCl 300 mg capsule 300 mg PO TID Qty: 30 0RF ondansetron [ondansetron] 4 mg tablet,disintegrating 4 mg PO Q8H PRN PRN (Reason: Nausea) Qty: 10 0RF Stand Alone Forms: ED Work / School Excuse Primary Care Provider: Shahana Murray PARENT PARTNER Referrals: Shahana Murray PARENT PARTNER, PARENT PARTNER-C [Primary Care Provider] - 3-5 Days Disposition Disposition: Home, Self Care
--- NOTE | 2023-03-30 20:16 | CT_ITS ---
STUDY: CT BRAIN WITHOUT CONTRAST REASON FOR EXAM: Male, 58 years old. Headache RADIATION DOSAGE (If Supplied By Facility): CTDIvol = ( 44.99 ) mGy, DLP = ( 796.11 ) mGycm TECHNIQUE: Transaxial CT imaging of the brain was performed without administration of intravenous contrast material. Individualized dose optimization techniques were used for this CT. COMPARISON: No relevant priors. FINDINGS: Small fatty attenuation overlying the right anterolateral frontal bone measuring approximately 4.6 mm in thickness, most compatible with right scalp lipoma. Otherwise normal soft tissue structures. Normal calvarium. Normal size ventricles and extra-axial spaces for the patient''s age. Normal white matter tracts of the cerebral hemispheres. Normal basal ganglia and thalami. Normal brainstem. Normal cerebellum. There is no intracranial hemorrhage. There are no findings of an acute ischemic infarction. Mild mucosal thickening of the bilateral maxillary sinuses, sphenoid, ethmoid and frontal sinuses, most compatible with sequela of chronic sinusitis. Otherwise remainder of the visualized paranasal sinuses and bilateral mastoids are clear. CT/Brain/Head without Contrast IMPRESSION: Normal unenhanced CT scan of the brain. Electronically Signed: Sofia Elam MD at 20:54 EDT ,
[2023-03-30] MEDS: Ipratropium/Albuterol Sulfate 3 ML AMPUL.NEB INHALATION (20:23)
[2023-03-30 20:24] VITALS: PULSE 94; RESP 12
[2023-03-30] MEDS: 0.9% Normal Saline (1000mL) 1,000 ML 1000 ML IV (20:30)
[2023-03-30 20:40] LABS: Basophil# 0.05 X10^3/uL; Eosinophil# 0.27 X10^3/uL; Eosinophils% 5.2 % (0-5); Hematocrit 47.5 % (40-54); Hemoglobin 15.5 g/dL (13.0-16.5); Lymphocyte % 26.8 % (19-41); Mean Corp Hgb Conc 32.6 g/dL (32-36); Mean Corpuscular Hgb 28.2 pg (27.0-32.0); Mean Corpuscular Volume 86.5 fL (80-94); Mean Platelet Vol. 10.8 fl (6.2-12.0); Monocyte# 0.48 X10^3/uL; Monocyte% 9.2 % (0-10); NRBC Flagged by Analyzer 0 % (0-5); Neutrophil # 3.01 X10^3/uL (2.7-7.7); Neutrophil % 57.6 % (47-70); Platelet Count 155 K/mm3 (150-450); RBC Distribution Width CV 12.5 % (11.6-14.6); RBC Distribution Width SD 39.8 fl (35.1-43.9); Red Blood Count 5.49 M/mm3 (4.6-6.2); White Blood Count 5.2 K/mm3 (4.4-11.0)
--- NOTE | 2023-03-30 20:42 | RAD_ITS ---
STUDY: X-RAY CHEST REASON FOR EXAM: Male, 58 years old. Cough TECHNIQUE: PA and lateral views of the chest. COMPARISON: None. FINDINGS: The lungs are clear and expanded. There is no demonstrated pleural abnormality. Normal size heart. Normal mediastinum and alicja. Normal visualized pulmonary arteries. Normal visualized aortic arch and descending thoracic aorta. There is an increased kyphosis of the thoracic spine. Normal visualized ribs, clavicles, and shoulders. There is no demonstrated abnormality of the visualized soft tissue structures of the upper abdomen. RAD/Chest PA and Lateral IMPRESSION: No acute cardiopulmonary disease. Electronically Signed: Sofia Elam MD at 20:55 EDT ,
[2023-03-30 20:55] LABS: Anion Gap 3 (5-15); BUN 16 mg/dL (7-18); BUN/Creat Ratio 17.2 RATIO (10-20); Calcium,Total 8.1 mg/dL (8.5-10.1); Chloride 104 mmol/L (98-107); Creatinine, Serum 0.93 mg/dL (0.70-1.30); EST Glomerular Filtration Rate 89 mL/min (>60); Est Glom Filt Rate - Afr Amer 108 mL/min (>60); Estimated Creatinine Clearance 85.81 ml/min; Glucose 260 mg/dL (74-106); Potassium 3.7 mmol/L (3.5-5.1); Sodium Level 136 mmol/L (136-145)
[2023-03-30 21:45] VITALS: BP 125/91; BP 134/87; BP 151/85; PULSE 85; PULSE 90; PULSE 98
[2023-03-30 22:41] VITALS: PULSE 90; RESP 18; O2SAT 96
== END 2023-03-30 22:47 | disposition home or self-care (01) ==
PROVIDERS: Emergency Provider Emergency Medicine; PCP Nurse Practitioner; Visit Provider Emergency Medicine
DX: U07.1 COVID-19 (principal); B34.9 Viral infection, unspecified
CPT/HCPCS: 70450; 71046; 80048; 85025; 87428; 94640; 96360; 99285; J7030; A4216

== ENCOUNTER 2024-02-06 21:26 | Emergency (ER) | payer BC, SELFPAY ==
[2024-02-06 21:26] VITALS: BP 188/115; BP 190/120; PULSE 111; PULSE 120; RESP 14; RESP 16; TEMP 36.4; O2SAT 94; O2SAT 98; BMI 35.0
--- NOTE | 2024-02-06 22:14 | EX.ED.DYSGE1 ---
HPI History of Present Illness Chief Complaint: Other, Pain/Inj Informant: patient Narrative Narrative: . Patient is a 58-year-old male with past medical history of hypertension hyperlipidemia asthma and diabetes. He states that he lifts objects at work repeatedly. He states over the past week he has noticed pain in the right side of his neck that is worse if he tries to turn his head. He denies any trauma. He states has been no fevers or chills he denies any change in vision or headache he denies any difficulty breathing or swallowing. He states however he is tried [id number] medications with minimal symptom improvement and secondary to this comes in for evaluation. [facility] Medical History HTN (hypertension) Hyperlipemia Diabetes Asthma Home Medications ?Medication ?Instructions ?Recorded ?Last Taken ?Type gabapentin 300 mg capsule 600 mg PO BID 01/16/21 Unknown History hydrochlorothiazide 25 mg tablet 25 mg PO DAILY 01/16/21 Unknown History insulin glargine 100 unit/mL (3 25 unit subcut BID 01/16/21 Unknown History mL) subcutaneous pen (Basaglar KwikPen U-100 Insulin) lovastatin 20 mg tablet 20 mg PO QHS 01/16/21 Unknown History metformin 1,000 mg tablet 1,000 mg PO BID 01/16/21 Unknown History dicyclomine 20 mg tablet 20 mg PO TID Abdominal cramping 01/17/21 Unknown Rx #14 tabs ondansetron 4 mg disintegrating 4 mg PO Q8H PRN PRN Nausea #10 tabs 01/17/21 Unknown Rx tablet penicillin V potassium 500 mg 500 mg PO 4X/DAY #39 tabs 03/15/23 Unknown Rx tablet clindamycin HCl 300 mg capsule 300 mg PO TID #30 caps 03/18/23 Unknown Rx ondansetron 4 mg disintegrating 4 mg PO Q8H PRN PRN Nausea #10 tabs 03/18/23 Unknown Rx tablet diazepam 5 mg tablet (Valium) 5 mg PO TID PRN muscle spasm 5 02/06/24 Unknown Rx days #15 tabs oxycodone-acetaminophen 5 mg-325 1 tab PO Q6H PRN pain 3 days #12 02/06/24 Unknown Rx mg tablet (Percocet) tabs Allergy/AdvReac Type Severity Reaction Status Date / Time No Known Allergies Allergy Verified 02/06/24 21:27 Social History Smoking Status: Never smoker ROS ROS ED Constitutional Constitutional ED: Denies chills or fever(s) Eyes Eyes: Denies blurry vision or change in vision ENT ENT ED: Denies ear pain or sore throat Cardiovascular Cardiovascular: Denies chest pain Respiratory/Chest Respiratory/Chest: Denies cough or dyspnea Gastrointestinal Gastrointestinal: Denies abdominal pain, diarrhea, nausea or vomiting Genitourinary Genitourinary ED: Denies dysuria Musculoskeletal Musculoskeletal: Reports neck pain Integumentary Denies Abrasions or rash Neurologic Neurologic: Denies headache(s), paresthesias or weakness Hematologic/Lymphatic Hematologic/Lymphatic: Denies easy bleeding or easy bruising EXAM Physical Exam Const Vital Signs: 02/06/24 21:26 02/06/24 21:26 Temperature 97.6 F L Temperature Source Temporal Pulse Rate 111 H 120 H Respiratory Rate 16 14 Blood Pressure 188/115 H 190/120 H Blood Pressure Mean 139 143 Pulse Ox 94 98 Oxygen Delivery Method Room Air Room Air Positive well nourished and well developed General Appearance ED: well developed; Negative for pallor HEENT Reports moist mucous membranes HEENT Narrative: No tongue or lip swelling no oral lesions no airway edema or compromise No signs of infection noted in the posterior pharynx Eyes PERRL and EOMs intact bilaterally General Eye ED: Negative for scleral icterus Neck Neck Narrative: No bony deformity or step-off of the cervical spine no midline tenderness to palpation Patient has right-sided paracervical tenderness and muscular spasm mainly over top of the SCM that worsens with sidebending and rotation No carotid bruit Resp normal respiratory effort and clear to auscultation bilaterally Cardio regular rhythm Rate: tachycardic and other Other Details: Tachycardic rate with regular rhythm No murmurs rubs or gallops Radial and carotid pulses are equal and symmetric GI normal to inspection, nondistended, normoactive bowel sounds, non-tender, non-distended and no masses GI Narrative: No pulsatile mass Auscultation: normoactive bowel sounds Palpation: soft Back/Spine Back/Spine Narrative: No bony deformity or step-off of the thoracic or lumbar spine no midline tenderness to palpation Extremity normal to inspection Extremity Narrative: No asymmetric edema no pitting edema negative Homans' sign bilaterally Neuro oriented x3, CN's II-XII intact bilaterally and no sensory deficits noted Sensorium / Orientation: alert Motor Exam: strength 5/5 throughout Psych mental status grossly normal Skin no rashes or lesions noted and no wounds General Skin Exam: Negative for jaundice or pallor MDM MDM MDM Narrative Medical decision making narrative: Patient arrived to ER hypertensive but has a past medical history of this and does report being in pain. He denied any recent trauma and this goes against cervical compression fracture or spondylolisthesis. Patient also has no midline pain which goes against bony injury. He denies any recent sick symptoms such as fevers chills sore throat or difficulty breathing or swallowing and on physical exam there is no signs of infection of the posterior pharynx such as strep throat or peritonsillar abscess. Also he does have tenderness and spasm over top of the sternocleidomastoid muscle that worsens with sidebending and rotation which does indicate this is musculoskeletal in nature. There is no swelling or pain over top of the insertion of the mastoid going against mastoiditis. Also he does not have any neurologic findings going against cervical radiculopathy and he does not have any true nuchal rigidity going against meningitis. We discussed potential x-ray or CT scan of the neck but as his exam and history indicates this is most likely musculoskeletal we will simply treat the muscular spasm at this time and patient be discharged home and agrees to return if symptoms fail to improve or worsen. History & Record Review Discussion w/independent historian: Patient Discharge Plan Triage Chief Complaint: Other, Pain/Inj ED Provider: Ramon Smith Dx/Rx/DC Orders Clinical Impression: Spasm of cervical paraspinous muscle, Hypertension, Type 2 diabetes mellitus, Asthma Instructions: ED Neck Spasm, No Trauma Prescriptions: New diazepam [Valium] 5 mg tablet 5 mg PO TID PRN (Reason: muscle spasm) 5 Days Qty: 15 0RF oxycodone-acetaminophen [Percocet] 5-325 mg tablet 1 tab PO Q6H PRN (Reason: pain) 3 Days Qty: 12 0RF No Action metformin 1,000 mg tablet 1,000 mg PO BID gabapentin 300 mg capsule 600 mg PO BID hydrochlorothiazide 25 mg tablet 25 mg PO DAILY lovastatin 20 mg tablet 20 mg PO QHS Basaglar KwikPen U-100 Insulin 100 unit/mL (3 mL) Insulin Pen 25 unit SUBCUT BID dicyclomine 20 mg tablet 20 mg PO TID Qty: 14 0RF ondansetron 4 mg tablet,disintegrating 4 mg PO Q8H PRN PRN (Reason: Nausea) Qty: 10 0RF penicillin V potassium 500 mg tablet 500 mg PO 4X/DAY Qty: 39 0RF clindamycin HCl 300 mg capsule 300 mg PO TID Qty: 30 0RF ondansetron [ondansetron] 4 mg tablet,disintegrating 4 mg PO Q8H PRN PRN (Reason: Nausea) Qty: 10 0RF Primary Care Provider: Shahana Ge NP Referrals: Shahana Ge NP, [facility] [Primary Care Provider] - Activity Restrictions/Additional Instructions: Your exam and history is consistent with a spasm and strain to your sternocleidomastoid muscle. Continue to stretch and heat the area to reduce pain and speed healing. Take the prescribed medication as directed to control symptoms and return to the ER should you have any further concerns. Print Language: Iranian Disposition Disposition: Home, Self Care
[2024-02-06] MEDS: Orphenadrine 60 MG/2 ML Ampul IM (22:36)
[2024-02-06] MEDS: Ketorolac 30 MG/ML Syringe IM (22:36)
== END 2024-02-06 23:01 | disposition home or self-care (01) ==
PROVIDERS: Emergency Provider Emergency Medicine; PCP Nurse Practitioner; Visit Provider Emergency Medicine
DX: M62.838 Other muscle spasm (principal); E11.9 Type 2 diabetes mellitus without complications; M54.2 Cervicalgia; J45.909 Unspecified asthma, uncomplicated; I10 Essential (primary) hypertension
CPT/HCPCS: 96372; 99282

== ENCOUNTER 2024-04-05 09:33 | Observation (INO) | payer BC, SELFPAY ==
[2024-04-05] VITALS (9 sets, daily range): BP systolic 88–142; BP diastolic 54–96; PULSE 70–110; RESP 16–18; TEMP 36.1–36.8; O2SAT 93–97; BMI 33.4; BMI 34.0
--- NOTE | 2024-04-05 10:50 | ED.RN ---
checked glucose in waiting room. 309
[2024-04-05 11:13] LABS: Bedside Glucose 309 mg/dL (74-106)
--- NOTE | 2024-04-05 11:15 | RAD_ITS ---
STUDY: X-RAY CHEST REASON FOR EXAM: Male, 59 years old. Stroke TECHNIQUE: Single AP portable view of the chest. COMPARISON: Comparison is made with prior study March 30, 2023. FINDINGS: The lungs are clear and expanded. There is no demonstrated pleural abnormality. Normal size heart. Normal mediastinum and alicja. Normal visualized pulmonary arteries. Normal visualized aortic arch and descending thoracic aorta. There are diffuse degenerative changes of the visualized thoracic spine. Normal visualized ribs, clavicles, and shoulders. There is no demonstrated abnormality of the visualized soft tissue structures of the upper abdomen. RAD/Chest 1 View (Portable) IMPRESSION: No acute abnormality is seen. Electronically Signed: Dominik Rai MD at 11:27 EDT ,
--- NOTE | 2024-04-05 11:16 | EKG12_ITS ---
Test Reason : Blood Pressure : / mmHG Vent. Rate : 093 BPM Atrial Rate : 093 BPM P-R Int : 162 ms QRS Dur : 120 ms QT Int : 408 ms P-R-T Axes : 056 -36 078 degrees QTc Int : 507 ms Normal sinus rhythm Left axis deviation Right bundle branch block Abnormal ECG Confirmed by Rodolfo Barcenas ([id number]), legal editor ANAMARIA MCDUFFIE ([id number]) on 04/06/2024 10:11:58 AM Referred By: Confirmed By:Rodolfo Barcenas
--- NOTE | 2024-04-05 11:18 | NURSING ---
NO OLD EKGS
[2024-04-05 11:26] LABS: Absolute Lymphocyte Count 1.31 X10^3/uL (0.83-4.51); Absolute Neutrophil Count 5.1 X10^3/uL (2.0-7.7); Basophil# 0.11 X10^3/uL; Basophil% 1.5 % (0-1); Eosinophil# 0.15 X10^3/uL; Eosinophils% 2.1 % (0-5); Hematocrit 55.4 % (40-54); Lymphocyte # 1.31 X10^3/ul (0.83-4.51); Lymphocyte % 18.1 % (19-41); Mean Corpuscular Hgb 28.3 pg (27.0-32.0); Mean Corpuscular Volume 85.6 fL (80-94); Mean Platelet Vol. 10.2 fl (6.2-12.0); Monocyte# 0.56 X10^3/uL; Monocyte% 7.7 % (0-10); NRBC Flagged by Analyzer 0 % (0-5); Neutrophil % 70.3 % (47-70); Platelet Count 197 K/mm3 (150-450); RBC Distribution Width CV 13.1 % (11.6-14.6); RBC Distribution Width SD 40.1 fl (35.1-43.9); Red Blood Count 6.47 M/mm3 (4.6-6.2); White Blood Count 7.3 K/mm3 (4.4-11.0)
[2024-04-05 11:30] LABS: Differential Indicated SCAN CRITERIA MET
[2024-04-05 11:31] LABS: Hemoglobin 18.3 g/dL (13.0-16.5)
[2024-04-05 11:38] LABS: International Normalized Ratio 1.3; Prothrombin Time (Protime)PT. 15.8 SECONDS (11.7-14.9)
[2024-04-05 11:39] LABS: Partial Thromboplast Time 25.7 Seconds (24.1-36.2)
[2024-04-05 11:40] LABS: Anion Gap 6 (5-15); BUN 21 mg/dL (7-18); BUN/Creat Ratio 19.8 RATIO (10-20); Calcium,Total 9.5 mg/dL (8.5-10.1); Chloride 99 mmol/L (98-107); Creatinine, Serum 1.06 mg/dL (0.70-1.30); EST Glomerular Filtration Rate 77 mL/min (>60); Est Glom Filt Rate - Afr Amer 93 mL/min (>60); Estimated Creatinine Clearance 88.06 ml/min; Glucose 328 mg/dL (74-106); Potassium 4.2 mmol/L (3.5-5.1); Sodium Level 136 mmol/L (136-145)
--- NOTE | 2024-04-05 13:52 | EX.ED.DYSGE1 ---
HPI History of Present Illness Chief Complaint: Fatigue Narrative Narrative: Patient is a 59-year-old male past medical history of diabetes, hypertension, asthma who presented to the emergency department the chief complaint of fatigue and generalized not feeling well. According to his family member at bedside they noted that he is not compliant with his diabetes medication and takes that more as needed when he is not feeling well. He states that he will take his medication and start to feel well then he will discontinue this again. Yesterday per the family member at bedside noted that he slept all day and did not eat or drink anything and was hard to arouse she figured that his glucose was elevated and gave him insulin. She noted that his glucose was elevated again and gave him more insulin today prior to him coming here further evaluation management. Patient states that he just does not feel well overall denies any infectious type symptoms. [facility] Medical History HTN (hypertension) Hyperlipemia Diabetes Asthma Home Medications ?Medication ?Instructions ?Recorded ?Last Taken ?Type gabapentin 300 mg capsule 600 mg PO BID 01/16/21 Unknown History hydrochlorothiazide 25 mg tablet 25 mg PO DAILY 01/16/21 Unknown History insulin glargine 100 unit/mL (3 25 unit subcut BID 01/16/21 Unknown History mL) subcutaneous pen (Basaglar KwikPen U-100 Insulin) lovastatin 20 mg tablet 20 mg PO QHS 01/16/21 Unknown History metformin 1,000 mg tablet 1,000 mg PO BID 01/16/21 Unknown History dicyclomine 20 mg tablet 20 mg PO TID Abdominal cramping 01/17/21 Unknown Rx #14 tabs diazepam 5 mg tablet (Valium) 5 mg PO TID PRN muscle spasm 5 02/06/24 Unknown Rx days #15 tabs Allergy/AdvReac Type Severity Reaction Status Date / Time No Known Allergies Allergy Verified 04/05/24 09:37 Social History Smoking Status: Never smoker ROS ROS ED ROS Narrative Constitutional: Denies any fevers, chills, headaches, lightheadedness, dizziness Eyes: Denies double vision blurry vision change in vision Cardiovascular: Denies chest pain or palpitations Respiratory: Denies coughing wheezing shortness of breath Abdomen: Denies any abdominal pain vomiting diarrhea : Denies painful urination, hematuria, polyuria Neurological: Denies numbness, weakness, tingling Musculoskeletal: Denies back pain Skin: Denies rashes or lesions EXAM Physical Exam Narrative Exam Narrative: General: Patient lying in bed rest comfortably did not appear to be in acute distress Head: Atraumatic, normocephalic Eyes: PERRL bilateral, EOMI bilateral, no conjunctival injection noted Neck: Soft, supple, trachea midline Cardiovascular: Regular rate and rhythm no murmurs gallops rubs noted Respiratory: Clear to auscultation bilaterally no rales rhonchi or wheezes noted Abdomen: Soft, nondistended, no tenderness palpation, bowel sounds present x 4 Extremities: +5/5 strength noted in the bilateral upper and lower extremities, no pedal edema neuroexam Neurological: Patient following commands knew that he was at [facility] years 2023 Skin: Warm, dry, tact Const Vital Signs: 04/05/24 09:34 04/05/24 13:36 04/05/24 13:36 Temperature 98 F Temperature Source Oral Pulse Rate 110 H 82 Respiratory Rate 18 16 Blood Pressure 108/89 H 121/88 H Blood Pressure Mean 95 99 Pulse Ox 97 95 Oxygen Delivery Method Room Air Room Air Room Air 04/05/24 15:37 04/05/24 17:00 04/05/24 19:00 Temperature Temperature Source Pulse Rate 76 Respiratory Rate 18 Blood Pressure 88/54 L 135/88 H 139/92 H Blood Pressure Mean 65 103 107 Pulse Ox 94 Oxygen Delivery Method Room Air [facility] MDM Narrative Medical decision making narrative: Patient is a 59-year-old male who presented to the emerged part with chief complaint of hyperglycemia and generalized not feeling well. Once again prior to arrival the patient did take insulin. Patient will have a workup performed here on the differential diagnose includes but not limited to DKA, hypoglycemia, ACS, pneumonia. Once workup is obtained reviewed he will be reevaluated. Patient be given 2 L of IV fluid for hydration. Patient CBC reviewed and showed a white blood cell count of 7.3 hemoglobin was elevated and concentrated 18.3, MCV normal at 85.6, patient's INR normal 1.3, sodium normal 136, potassium normal at 4.2, anion gap normal at 6. Patient's creatinine normal at 1.06. Patient's troponin was noted to be elevated 88 with a delta troponin obtained noted be elevated at 91. Patient's EKG reviewed and showed sinus rhythm rate of [address] changes noted in his anterior and lateral leads. Patient was given aspirin. Patient's glucose was noted be 309. Patient's chest x-ray reviewed and was reviewed by myself and by radiology showed no acute cardiopulmonary processes. At this point time given his depressions noted on his EKG and rising troponin do believe that he will warrant admission for further cardiac workup. Will discuss case with hospitalist. Patient is agreeable with plan. Discussed case with hospitalist Dr. Montalvo who will accept the patient for admission. Patient notified all question concerns answered bedside. Patient was given 325 mg aspirin. Lab Data Labs: Laboratory Results - last 24 hr 04/05/24 04/05/24 04/05/24 10:50 11:15 17:12 WBC 7.3 RBC 6.47 H Hgb 18.3 H* Hct 55.4 H MCV 85.6 MCH 28.3 MCHC 33.0 RDW Std Deviation 40.1 RDW Coeff of Yanira 13.1 Plt Count 197 MPV 10.2 Immature Gran % (Auto) 0.300 Neut % (Auto) 70.3 H Lymph % (Auto) 18.1 L [place] % (Auto) 7.7 Eos % (Auto) 2.1 Baso % (Auto) 1.5 H Absolute Neuts (auto) 5.1 Absolute Lymphs (auto) 1.31 Nucleated RBC % 0 Differential Comment COMMENT Diff Path Review May foll PT 15.8 H INR 1.3 APTT 25.7 Sodium 136 Potassium 4.2 Chloride 99 Carbon Dioxide 31.0 Anion Gap 6 BUN 21 H Creatinine 1.06 Estim Creat Clear Calc 88.06 Est GFR (MDRD) Af Amer 93 Est GFR (MDRD) Non-Af 77 BUN/Creatinine Ratio 19.8 Glucose 328 H Calcium 9.5 Troponin I High Sens 88 H POC Glucose 309 H 04/05/24 18:30 WBC RBC Hgb Hct MCV MCH MCHC RDW Std Deviation RDW Coeff of Yanira Plt Count MPV Immature Gran % (Auto) Neut % (Auto) Lymph % (Auto) [place] % (Auto) Eos % (Auto) Baso % (Auto) Absolute Neuts (auto) Absolute Lymphs (auto) Nucleated RBC % Differential Comment Diff Path Review PT INR APTT Sodium Potassium Chloride Carbon Dioxide Anion Gap BUN Creatinine Estim Creat Clear Calc Est GFR (MDRD) Af Amer Est GFR (MDRD) Non-Af BUN/Creatinine Ratio Glucose Calcium Troponin I High Sens 91 H POC Glucose Radiography Diagnostic Testing: Clinical Impression(s) from Imaging Studies Chest X-Ray 04/05/24 11:15 IMPRESSION: No acute abnormality is seen. Electronically Signed: Dominik Rai MD at 11:27 EDT , Discharge Plan Triage Chief Complaint: Fatigue ED Provider: Carroll Lindsay Dx/Rx/DC Orders Clinical Impression: Hyperglycemia, Elevated troponin Primary Care Provider: Shahana Ge NP
[2024-04-05] MEDS: 0.9% Normal Saline (1000mL) 1,000 ML 999 ML IV ×2 (14:29→16:10)
[2024-04-05 18:03] LABS: Troponin-I HS 88 pg/mL (3.0-78.0)
[2024-04-05 18:56] LABS: Troponin-I HS 91 pg/mL (3.0-78.0)
[2024-04-05] MEDS: Aspirin 325 MG Tablet PO (19:39)
--- NOTE | 2024-04-05 20:06 | HP.PCM.HOS_ITS ---
[facility] - General General Date of Admission: 04/05/24 Date of Service: 04/05/24 Chief Complaint: Chest Pain with Activity and Fatigue. HPI Narrative PHILIP MARIE, is a 59 M with a past medical history of essential hypertension, hyperlipidemia, obesity; with BMI of 33.5 this admission, DM-2; uncontrolled with hyperglycemia due to medical noncompliance, Jardiance, Ozempic and Lantus 25 units sq BID, diabetic neuropathy, Asthma and OA who presents to [facility] ER complaining of chest pain with activity and fatigue. Mr. Marie is a tangential historian with a relatively poor recollection of recent events but he states his problems began more than a week prior to admission with the consistent onset of chest pain with activity that was pressure-like, feeling like heart burn, precordial, nonradiating and moderate with rest improving his symptoms. His family member informed the ER physician that he does not take his diabetic medications as prescribed and when he feels poorly he takes more than he is prescribed. Yesterday his family stated that he basically slept all day and did not eat or drink very much so they gave him a dose of insulin because they figured his blood glucose was elevated. Then earlier today they noticed his blood glucose was still elevated in the 308 mg/dL range so they gave more insulin again prior to bringing him in for further evaluation and treatment. There is no report of fever, chills, nausea, vomiting, diaphoresis, SOB, palpitations, heart racing, headache or focal neurologic symptoms. In the ER he was noted to have an elevated initial troponin of 88 pg/mL present on admission with an EKG that revealed T-wave inversions suspicious for underlying cardiac ischemia (but no STEMI) complicated by DM-2; uncontrolled with hyperglycemia of 308 mg/dL present on admission in the setting of known chronic medical noncompliance and severe fatigue and he was then admitted to the PCU under observation status for ongoing care for a stay that is expected to be less than 2 midnights. [facility] Medical History HTN (hypertension) Hyperlipemia Diabetes Asthma Home Medications ?Medication ?Instructions ?Recorded ?Last Taken ?Type gabapentin 300 mg capsule 600 mg PO BID 01/16/21 Unknown History hydrochlorothiazide 25 mg tablet 25 mg PO DAILY 07/06/21 Unknown History insulin glargine 100 unit/mL (3 25 unit subcut BID 01/16/21 Unknown History mL) subcutaneous pen (Basaglar KwikPen U-100 Insulin) lovastatin 20 mg tablet 20 mg PO QHS 01/16/21 Unknown History metformin 1,000 mg tablet 1,000 mg PO BID 01/16/21 Unknown History dicyclomine 20 mg tablet 20 mg PO TID Abdominal cramping 01/17/21 Unknown Rx #14 tabs diazepam 5 mg tablet (Valium) 5 mg PO TID PRN muscle spasm 5 02/06/24 Unknown Rx days #15 tabs Allergy/AdvReac Type Severity Reaction Status Date / Time No Known Allergies Allergy Verified 04/05/24 09:37 Social History household members: significant other and other housing: house current occupational status: employed current occupation: [employer] Smoking Status: Never smoker ROS ROS Narrative Review of Systems: Constitutional: Patient admits to fatigue but he denies fever or chills. Eyes: Patient denies changes in vision or discharge from eyes. ENT: Patient denies runny nose, sore throat or ear pain. Resp: Patient denies SOB or cough. CV: Patient admits to chest pain with activity but he denies palpitations or heart racing. GI: Patient denies abdominal pain, nausea, vomiting, diarrhea or constipation. : Patient denies dysuria or hematuria. MSK: Patient admits to severe fatigue but he denies arthralgias or myalgias. Skin: Patient denies rash, abscess or jaundice. Psych: Patient denies symptoms of uncontrolled depression or anxiety. Neuro: Patient denies headache, paresthesias or focal neurologic deficits. Allergy: Patient denies lip swelling, tongue swelling or urticaria. Hematology: Patient denies easy bleeding or easy bruisability. Endocrinology: Patient admits to polyuria and polydipsia. 14 point ROS otherwise negative except for positives noted above in HPI. Vital Signs Vital Signs Vital Signs: 04/05/24 09:34 04/05/24 13:36 04/05/24 13:36 Temperature 98 F Temperature Source Oral Pulse Rate 110 H 82 Respiratory Rate 18 16 Blood Pressure 108/89 H 121/88 H Blood Pressure Mean 95 99 Pulse Ox 97 95 Oxygen Delivery Method Room Air Room Air Room Air 04/05/24 15:37 04/05/24 17:00 04/05/24 19:00 Temperature Temperature Source Pulse Rate 76 Respiratory Rate 18 Blood Pressure 88/54 L 135/88 H 139/92 H Blood Pressure Mean 65 103 107 Pulse Ox 94 Oxygen Delivery Method Room Air Weight Weight: 220 lb 1.6 oz Body Mass Index (BMI) 33.4 Physical Exam Const alert, oriented x3 and no apparent distress Constitutional Narrative: Obese. General Appearance: cooperative HEENT normocephalic, head/scalp atraumatic, hearing grossly normal bilaterally and moist oral mucous membranes Eyes PERRL and EOMs intact bilaterally Neck no lymphadenopathy and supple Resp normal respiratory effort, no retractions, no use of accessory muscles and clear to auscultation bilaterally Cardio regular rate and regular rhythm GI normal to inspection, nondistended, normoactive bowel sounds, soft to palpation, non-tender and non-distended GI Narrative: Obese. Extremity normal to inspection, full ROM and no clubbing, cyanosis or edema Skin Skin Narrative: Patient has no evidence of rash, abscess or jaundice. Neuro oriented x3, CN's II-XII intact bilaterally, moves all extremities and no focal motor deficits Sensorium / Orientation: awake, alert, oriented to person, oriented to place and oriented to time Speech: speech normal Psych affect normal Results Medical Records Data Attestation: I reviewed the patient's medical records Lab / Micro Data Attestation: I reviewed the patient's lab results. 04/05/24 11:15 04/05/24 11:15 Labs: Laboratory Results - last 24 hr 04/05/24 10:50: POC Glucose 309 H 04/05/24 11:15: WBC 7.3, RBC 6.47 H, Hgb 18.3 H*, Hct 55.4 H, MCV 85.6, MCH 28.3, MCHC 33.0, RDW Std Deviation 40.1, RDW Coeff of Yanira 13.1, Plt Count 197, MPV 10.2, Immature Gran % (Auto) 0.300, Neut % (Auto) 70.3 H, Lymph % (Auto) 18.1 L, Churchill % (Auto) 7.7, Eos % (Auto) 2.1, Baso % (Auto) 1.5 H, Absolute Neuts (auto) 5.1, Absolute Lymphs (auto) 1.31, Nucleated RBC % 0, Differential Comment COMMENT, Diff Path Review November foll, PT 15.8 H, INR 1.3, APTT 25.7, Sodium 136, Potassium 4.2, Chloride 99, Carbon Dioxide 31.0, Anion Gap 6, BUN 21 H, Creatinine 1.06, Estim Creat Clear Calc 88.06, Est GFR (MDRD) Af Amer 93, Est GFR (MDRD) Non-Af 77, BUN/Creatinine Ratio 19.8, Glucose 328 H, Calcium 9.5 04/05/24 17:12: Troponin I High Sens 88 H 04/05/24 18:30: Troponin I High Sens 91 H Imaging Radiology Impression Chest X-Ray 04/05/24 11:15 IMPRESSION: No acute abnormality is seen. Electronically Signed: Dominik Rai MD at 11:27 EDT , Assessment & Plan Assessment/Plan (1) Elevated troponin: (2) Abnormal EKG: (3) Stable angina pectoris: (4) Uncontrolled type 2 diabetes mellitus with hyperglycemia: (5) Polycythemia: (6) Essential hypertension: (7) Obesity (BMI 30.0-34.9): PLAN: Plan 1. Elevated troponin of 88 pg/mL present on admission with complaint of chest pain with activity and severe fatigue with abnormal EKG showing new T-wave inversions worrisome for possible underlying ischemia in uncontrolled diabetic patient - Admit to PCU under observation status. Serialize troponin. Check echocardiogram to evaluate LVEF. Check Lexiscan NST in the AM to evaluate for ischemia. Check TSH in light of severe fatigue. 2. DM-2; uncontrolled with hyperglycemia due to medical noncompliance, Jardiance, Ozempic and Lantus 25 units sq BID complicating #1 - Decreased Lantus and start FSBS q. AC/HS plus SSI. Check HgbA1c to objectively evaluate quality of diabetic control. 3. Polycythemia; with hemoglobin of 18.3 g/dL present on admission compounding #1 & #2 - Give IVF and recheck CBC in the AM to follow trend. Check RAPHAEL-2 mutation to evaluate for potential underlying PCV. 4. Diabetic neuropathy - Resume Gabapentin as previous. 5. Essential hypertension - Maintain home regimen plus give prn IV Hydralazine for systolic blood pressure > 160 mmHg. 6. Hyperlipidemia - Continue statin and check Lipid Profile in light of #1. 7. Obesity; with BMI of 33.5 this admission - Weight loss will be recommended. 8. History of Asthma - Stable with no evidence of acute flare. Give nebulizers prn. 9. OA - Stable. Give Tylenol prn. 10. DVT prophylaxis - Lovenox 40 mg sq daily. Total time: Approximately 70 minutes. Charges/Coding Visit Charges OBSV E&M: 22153 Observ/hosp same date L2
--- NOTE | 2024-04-05 20:18 | ECHOD_ITS ---
Reason For Study: ELEVATED TROPONIN Procedure This was a 2D Doppler, Color Flow transthoracic echocardiogram. Exam performed in department. Left Ventricle Normal LV size. The estimated ejection fraction is 60 %. No evidence for diastolic dysfunction. No regional wall motion abnormalities noted. Right Ventricle Normal RV size. Normal systolic function. Atria The left and right atria are normal. No doppler evidence for ASD. Mitral Valve There is no mitral valve stenosis. No mitral valve insufficiency. Tricuspid Valve There is no tricuspid stenosis. Unable to estimate RV systolic pressure due to inadequate jet, pulmonary artery pressure probably normal. Aortic Valve Trisinus/trileaflet aortic valve. There is no aortic stenosis. No aortic valve insufficiency. Pulmonic Valve There is no pulmonic valvular stenosis. No pulmonic valve insufficiency. Great Vessels Normal aortic root. Pericardium/Pleural No pericardial effusion. MMode/2D Measurements & Calculations LVIDd: 4.7 cm IVSd: 1.9 cm Ao root diam: 3.4 cm LVIDs: 3.0 cm LVPWd: 1.4 cm RVDd: 3.2 cm FS: 36.3 % LAV(MOD-bp): 38.5 ml LVAd ap4: 33.2 cm2 LVAd ap2: 27.5 cm2 LAV(MOD-sp2): 45.8 ml LVLd ap4: 8.9 cm LVLd ap2: 8.5 cm LAV(MOD-sp4): 31.9 ml EDV(MOD-sp4): 103.4 ml EDV(MOD-sp2): 79.5 ml EDV(sp4-el): 105.6 ml EDV(sp2-el): 75.8 ml LVAs ap4: 21.5 cm2 LVAs ap2: 13.9 cm2 LVLs ap4: 8.9 cm LVLs ap2: 6.5 cm ESV(MOD-sp4): 46.9 ml ESV(MOD-sp2): 26.8 ml ESV(sp4-el): 44.1 ml ESV(sp2-el): 25.3 ml EF(MOD-sp4): 54.6 % EF(MOD-sp2): 66.3 % EF(sp4-el): 58.3 % SV(MOD-sp4): 56.5 ml SV(MOD-sp2): 52.7 ml SV(sp4-el): 61.6 ml LA dimension(2D): 3.5 cm LA A4 area: 13.6 cm2 RA A4 area: 14.4 cm2 TAPSE: 2.6 cm Time Measurements MV dec time: 0.24 sec Doppler Measurements & Calculations MV E max farhan: 56.1 cm/sec Lat Peak E' Farhan: 9.4 cm/sec Med Peak E' Farhan: 7.3 cm/sec MV A max farhan: 78.1 cm/sec E/E' lat: 6.0 E/E' med: 7.7 MV E/A: 0.72 MV V2 max: 81.6 cm/sec MV P1/2t max farhan: 54.6 cm/sec Ao V2 max: 144.4 cm/sec MV max P.7 mmHg MV P1/2t: 69.9 msec Ao max P.3 mmHg MV V2 mean: 44.5 cm/sec MV dec slope: 228.6 cm/sec2 Ao V2 mean: 106.6 cm/sec MV mean P.91 mmHg Ao mean P.9 mmHg MV V2 VTI: 20.2 cm MVA(P1/2t): 3.1 cm2 Ao V2 VTI: 26.4 cm AV (velocity ratio): 0.90 LV V1 max: 129.2 cm/sec PA V2 max: 105.7 cm/sec LV V1 max P.7 mmHg PA V2 mean: 73.8 cm/sec LV V1 mean P.5 mmHg LV V1 mean: 87.7 cm/sec LV V1 VTI: 23.8 cm ECHO/Echo Complete Interpretation Summary The estimated ejection fraction is 60 %. No evidence for diastolic dysfunction. Ordering Physician: Damon Montalvo Referring Physician: Shahana Murray Performed By: Mariajose Harris RVT, RDCS and Student
[2024-04-05 21:02] LABS: Hemoglobin A1c 11.5 % (3.8-5.6)
--- NOTE | 2024-04-05 23:36 | EKG12_ITS ---
Test Reason : CP ADMISSION Blood Pressure : / mmHG Vent. Rate : 071 BPM Atrial Rate : 071 BPM P-R Int : 150 ms QRS Dur : 130 ms QT Int : 432 ms P-R-T Axes : 062 -11 126 degrees QTc Int : 469 ms Normal sinus rhythm Right bundle branch block T wave abnormality, consider lateral ischemia Abnormal ECG When compared with ECG of 05-APR-2024 13:46, MANUAL COMPARISON REQUIRED, DATA IS UNCONFIRMED Confirmed by Rodolfo Barcenas ([id number]), continuity editor ASTON LYNCH ([id number]) on 04/07/2024 5:27:00 AM Referred By: TEAGUE Confirmed By:Rodolfo Barcenas
[2024-04-06] VITALS (10 sets, daily range): BP systolic 116–157; BP diastolic 82–129; PULSE 60–100; RESP 16–18; TEMP 36.4–36.8; O2SAT 94–98
[2024-04-06] MEDS: Gabapentin 600 MG Tablet PO ×2 (00:35→11:13)
[2024-04-06] MEDS: Insulin Glargine-YFGN 100 UNIT/ML Pen 15 UNIT SC (00:35)
[2024-04-06 00:36] LABS: Troponin-I HS 91 pg/mL (3.0-78.0)
[2024-04-06] MEDS: 0.9% Saline Lock 10 ML Syringe IV (00:36)
[2024-04-06 00:48] LABS: Bedside Glucose 190 mg/dL (74-106)
[2024-04-06 06:14] LABS: Absolute Lymphocyte Count 1.54 X10^3/uL (0.83-4.51); Absolute Neutrophil Count 3.3 X10^3/uL (2.0-7.7); Basophil# 0.09 X10^3/uL; Basophil% 1.6 % (0-1); Eosinophil# 0.23 X10^3/uL; Hematocrit 46.6 % (40-54); Hemoglobin 15.1 g/dL (13.0-16.5); Lymphocyte # 1.54 X10^3/ul (0.83-4.51); Lymphocyte % 26.9 % (19-41); Mean Corp Hgb Conc 32.4 g/dL (32-36); Mean Corpuscular Volume 86.3 fL (80-94); Mean Platelet Vol. 10.8 fl (6.2-12.0); Monocyte# 0.58 X10^3/uL; Monocyte% 10.1 % (0-10); NRBC Flagged by Analyzer 0 % (0-5); Neutrophil # 3.26 X10^3/uL (2.7-7.7); Neutrophil % 57.1 % (47-70); Platelet Count 151 K/mm3 (150-450); RBC Distribution Width CV 12.9 % (11.6-14.6); RBC Distribution Width SD 40.2 fl (35.1-43.9); White Blood Count 5.7 K/mm3 (4.4-11.0)
[2024-04-06 06:24] LABS: Cholesterol 160 mg/dL (200); High Density Lipoprotein 45 mg/dL; Triglycerides 167 mg/dL; Very Low Density Lipoprotein 33 mg/dL (5-40)
[2024-04-06] MEDS: Aspirin E.C. 81 MG Tablet PO (06:33)
[2024-04-06 06:34] LABS: Anion Gap 3 (5-15); BUN 20 mg/dL (7-18); BUN/Creat Ratio 20.3 RATIO (10-20); Calcium,Total 8.5 mg/dL (8.5-10.1); Chloride 106 mmol/L (98-107); Creatinine, Serum 0.98 mg/dL (0.70-1.30); EST Glomerular Filtration Rate 84 mL/min (>60); Est Glom Filt Rate - Afr Amer 101 mL/min (>60); Estimated Creatinine Clearance 95.99 ml/min; Glucose 277 mg/dL (74-106); Magnesium 1.7 mg/dL (1.6-2.6); Potassium 4.1 mmol/L (3.5-5.1); Sodium Level 137 mmol/L (136-145)
[2024-04-06 07:34] LABS: Bedside Glucose 261 mg/dL (74-106)
[2024-04-06] MEDS: FLU VACC 2024-25(6MOS UP)/PF 45 MCG/0.5 ML SYRINGE IM (11:13)
[2024-04-06] MEDS: Insulin Glargine-YFGN 100 UNIT/ML Pen 25 UNIT SC (11:15)
[2024-04-06] MEDS: Insulin Lispro 100 UNIT/ML INSULN.PEN 10 UNIT SC ×2 (11:16→16:59)
[2024-04-06] MEDS: Glucerna Shake 120 ML LIQUID PO ×3 (11:18→16:58)
[2024-04-06 11:41] LABS: Pathologist Review Reviewed
--- NOTE | 2024-04-06 11:53 | STRESSREP_ITS ---
Stress Test Report Date: 04/06/2024 Procedure: Pharmacologic stress nuclear imaging study Indications: Chest pain Consent: Per the patient Procedure: The patient underwent pharmacologic (Regadenoson) evaluation with a peak heart rate of 106 beats per minute (65%predicted maximal heart rate) and a peak blood pressure of 131/83 mmHg. The baseline ECG demonstrated normal sinus rhythm, right bundle branch block, nonspecific ST-T changes. EKG during lexiscan infusion revealed no significant ischemic changes. EKG post infusion revealed no significant ischemic changes [There were no cardiac dysrhythmias pretest, during pharmacologic infusion, or recovery]. [There was no complaint of chest discomfort during pharmacologic infusion or recovery]. The examination was discontinued secondary to completion of protocol. Impression: 1. Lexiscan stress test test is negative for Lexiscan infusion induced EKG changes of ischemia. 2. Lexiscan stress test test is negative for Lexiscan infusion induced chest pain. 3. Results of the nuclear portion of the test is as below Myocardial perfusion imaging study: Technique: The patient was injected with 13 millicuries of technetium 99m Cardiolite and subsequently rest SPECT Cardiolite nuclear imaging was obtained in the horizontal long, vertical long, and short axis views. The patient underwent pharmacologic [Regadenoson 0.4mg] evaluation. Please see above for details. The patient was injected with 41.4 millicuries of technetium 99m Cardiolite and subsequently stress SPECT Cardiolite nuclear imaging was obtained in the horizontal long, vertical long, and short axis views. A gated Cardiolite study at peak stress was obtained. Interpretation: Rest and stress SPECT Cardiolite nuclear imaging status post realignment, normalization, and attenuation correction demonstrate no evidence of significant ischemia or infarction. Gated images reveal no significant regional wall motion abnormalities. The reported LVEF is 53%. Impression: 1. There is no evidence of significant ischemia or infarction. 2. Estimated ejection fraction is 53%. This note was generated with [employer] software. It may contain incorrect words, spelling, and punctuation that were not noted in checking the note before signing.
[2024-04-06 12:41] LABS: Bedside Glucose 256 mg/dL (74-106)
[2024-04-06 12:47] LABS: Amphetamine Urine VISTA NEGATIVE (<1000 ng/mL); Barbiturate Urine VISTA NEGATIVE (< 200 ng/mL); Benzodiazepine Urine VISTA NEGATIVE (< 200 ng/mL); Cocaine Urine VISTA NEGATIVE (< 300 ng/mL); Ecstacy Urine VISTA NEGATIVE (< 500 ng/mL); Methadone Urine VISTA NEGATIVE (< 300 ng/mL); PCP Urine VISTA NEGATIVE (< 25 ng/mL); THC Urine VISTA NEGATIVE (< 50 ng/mL); Vista UDS pH Range 6
--- NOTE | 2024-04-06 17:00 | PCM.DC.SUM ---
Providers Date of Admission: 04/05/24 Primary Care Physician: CARLOS Espinoza Reason For Visit: ELEVATED TROPONIN & POLYCYTHEMIA WITH Diagnosis Discharge Diagnosis (1) Elevated troponin: Status: Acute Code(s): R79.89 - Other specified abnormal findings of blood chemistry (2) Abnormal EKG: Status: Acute Code(s): R94.31 - Abnormal electrocardiogram [ECG] [EKG] (3) Stable angina pectoris: Status: Acute Code(s): I20.89 - Other forms of angina pectoris (4) Uncontrolled type 2 diabetes mellitus with hyperglycemia: Status: Acute Code(s): E11.65 - Type 2 diabetes mellitus with hyperglycemia (5) Polycythemia: Status: Acute Code(s): D75.1 - Secondary polycythemia (6) Essential hypertension: Status: Acute Code(s): I10 - Essential (primary) hypertension (7) Obesity (BMI 30.0-34.9): Status: Acute Code(s): E66.9 - Obesity, unspecified Medications at Discharge Home Medications gabapentin 300 mg capsule 600 mg PO BID nerve pain 01/16/21 hydrochlorothiazide 25 mg tablet 25 mg PO DAILY diruetic 01/16/21 insulin glargine 100 unit/mL (3 mL) subcutaneous pen (Basaglar KwikPen U-100 Insulin) 25 unit subcut BID 01/16/21 lovastatin 20 mg tablet 20 mg PO QHS cholesterol 01/16/21 metformin 1,000 mg tablet 1,000 mg PO BID diabetes 01/16/21 dicyclomine 20 mg tablet 20 mg PO TID Abdominal cramping #14 tabs 01/17/21 diazepam 5 mg tablet (Valium) 5 mg PO TID PRN muscle spasm 5 days #15 tabs 02/06/24 Hospital Course Operations None Procedures 2-D Echocardiogram, EKG and Nuclear stress test Summary of Care Provided Minutes Spent on Discharge: 37 Hospital Course: Patient is a 59-year-old male with a history of essential hypertension, hyperlipidemia and uncontrolled DM-2 and chronic medical noncompliance who presented to the emergency department at [facility] on 04/06/2024 with chest pain during exertion and fatigue. The patient is a poor historian but reported on presentation that his symptoms started about a week prior to presentation with constant chest pain with activity that was pressure-like and felt like heartburn. It was precordial and nonradiating. He reported symptoms did not improve with rest. He is very noncompliant with his medication and only takes his insulin when he feels like it. He has had no signs or symptoms consistent with infection. Vital signs on presentation showed a temperature of 98, heart rate 110, blood pressure was 108/89, respiratory was 18 and sat was 97% on room air. EKG showed RBBB and LAD. CBC showed only erythrocytosis and JAK2 was ordered and pending at the time of discharge. Coags are WNL. BMP was unremarkable except for hyperglycemia at 277. A1c was 11.5. Troponin was elevated 88-91 and 91. Given these findings he was admitted to the telemetry floor and monitored on telemetry overnight. Stress test and echocardiogram were performed given insignificant trend up on his troponin. Echocardiogram showed an EF with no evidence of diastolic dysfunction and no wall motion abnormality. Valves were normal. Stress test was unremarkable for any inducible ischemia. Given his unremarkable workup we were able to discharge him home in stable condition. He was chest pain-free and felt well at the time of discharge. I have asked him to follow-up with his primary care physician and if he has any further symptoms he needs to return to the emergency department or discussed with his primary care physician. The neck step would be for cardiac catheterization. We also discussed his hemoglobin A1c being markedly elevated and him not being compliant with his home insulin. We did discuss the importance and long-term complications related to untreated or undertreated diabetes. I have made a referral to Dr. Gamble for him to follow-up for his diabetes as an outpatient. We did not alter his insulin at all despite his elevated hemoglobin A1c due to his noncompliance and inconsistent use of his insulin and diabetic medications. He was discharged home in stable condition on 04/06/2024. I have also asked him to follow-up with his primary care physician within the next week. JAK2 again was pending at the time of discharge. Discharge diagnoses: Chest pain Troponin elevation Erythrocytosis/polycythemia-resolved Uncontrolled DM-2 Essential hypertension Diabetic neuropathy Hyperlipidemia History of asthma History of tobacco abuse Ongoing nicotine abuse with chewing tobacco Osteoarthritis Obesity Medication noncompliance Physical Exam Narrative Patient denies any chest pain and states he is feeling well and wants to go home. Const alert, oriented x3, no apparent distress, no limitations and well nourished; Negative for average body habitus or healthy appearing Constitutional Narrative: Obese, middle-aged, white male, sitting up in a chair at the bedside, appears comfortable, nontoxic, anxious to go home, appears older than stated age General Appearance: cooperative, comfortable, well kempt and well developed Orientation / Consciousness: awake, oriented to person, oriented to place and oriented to time Exam Limitations: no limitations Nutritional Appearance: obese HEENT normocephalic, head/scalp atraumatic, hearing grossly normal bilaterally and moist oral mucous membranes HEENT Narrative: Dentition is poor, Mallampati is 3, no thrush Eyes PERRL, EOMs intact bilaterally and conjunctivae normal Eyes Narrative: No scleral icterus Neck no lymphadenopathy and supple Neck Narrative: Trachea midline, no thyroid enlargement, neck is short and thick Resp normal respiratory effort, no retractions, no use of accessory muscles and clear to auscultation bilaterally Auscultation: Negative for rales, rhonchi or wheezes Cardio regular rate, regular rhythm, S1 normal heart sound, S2 normal heart sound, no murmurs, no rub, no gallops and no clicks GI normal to inspection, nondistended, normoactive bowel sounds, soft to palpation and non-tender GI Narrative: Large protuberant abdomen Extremity no clubbing, cyanosis or edema Extremity Narrative: Pedal and radial pulses are 2+ Skin no rashes or lesions noted, no wounds, skin turgor normal and no jaundice Neuro oriented x3, moves all extremities and no focal motor deficits Speech: speech normal Psych affect normal Psych Narrative: Eye contact is good and patient interacts appropriately Weight / BMI Weight Weight: 101.4 kg Body Mass Index (BMI) 34.0 ABG / Lab / Microbiology Data 04/06/24 05:28 04/06/24 05:28 Laboratory: Laboratory Results - last 24 hr 04/05/24 11:15: Diff Path Review Reviewed 04/05/24 12:29: Urine Opiates Screen NEGATIVE, Urine Methadone Screen NEGATIVE, Ur Barbiturates Screen NEGATIVE, Ur Phencyclidine Scrn NEGATIVE, Ur Amphetamines Screen NEGATIVE, MDMA (Ecstasy) Screen NEGATIVE, U Benzodiazepines Scrn NEGATIVE, Urine Cocaine Screen NEGATIVE, U Cannabinoids Screen NEGATIVE, Ur Drug Screen Comment 04/05/24 17:12: Troponin I High Sens 88 H 04/05/24 18:30: Troponin I High Sens 91 H 04/05/24 20:18: Hemoglobin A1c 11.5 H 04/05/24 20:40: Ethyl Alcohol 5.0 04/06/24 00:10: Troponin I High Sens 91 H 04/06/24 00:29: POC Glucose 190 H 04/06/24 05:28: WBC 5.7, RBC 5.40, Hgb 15.1, Hct 46.6, MCV 86.3, MCH 28.0, MCHC 32.4, RDW Std Deviation 40.2, RDW Coeff of Yanira 12.9, Plt Count 151, MPV 10.8, Immature Gran % (Auto) 0.300, Neut % (Auto) 57.1, Lymph % (Auto) 26.9, [place] % (Auto) 10.1 H, Eos % (Auto) 4.0, Baso % (Auto) 1.6 H, Absolute Neuts (auto) 3.3, Absolute Lymphs (auto) 1.54, Nucleated RBC % 0, Sodium 137, Potassium 4.1, Chloride 106, Carbon Dioxide 28.0, Anion Gap 3 L, BUN 20 H, Creatinine 0.98, Estim Creat Clear Calc 95.99, Est GFR (MDRD) Af Amer 101, Est GFR (MDRD) Non-Af 84, BUN/Creatinine Ratio 20.3 H, Glucose 277 H, Calcium 8.5, Phosphorus 3.0, Magnesium 1.7, Triglycerides 167, Cholesterol 160, LDL Cholesterol 82, VLDL Cholesterol 33, HDL Cholesterol 45 04/06/24 06:27: POC Glucose 261 H 04/06/24 11:11: POC Glucose 256 H Radiography Diagnostic Testing: Radiology Impression Echocardiogram 04/05/24 20:18 Interpretation Summary The estimated ejection fraction is 60 %. No evidence for diastolic dysfunction. Ordering Physician: Damon Montalvo Referring Physician: Shahana Murray Performed By: Mariajose Harris RVT, RDCS and Student D/C Instructions Discharge Diet: Low fat / Low cholesterol and 1800 Calorie Control Diet Discharge Activity: Return to Normal Activity Return to work on: 04/08/24 Meaningful Use Info Meaningful Use Meaningful Use Diagnoses (Choose all that apply): None applicable Ischemic Stroke Statin Dosing Therapy Reference: STATIN DOSE THERAPY REFERENCE: * Patients > 75 years receive moderate or high dose statin therapy. * Patients 75 years or YOUNGER should receive HIGH intensity statin dose unless contraindicated. You will be required to document reason for non-treatment if statin daily dose does not meet guidelines. HIGH DOSE STATIN THERAPY DAILY Atorvastatin > than or = to 40 mg Rosuvastatin > than or = to 20 mg Amlodipine + Atorvastatin > than or = to 2.5/40 mg Ezetimibe + Simvastatin 10/80 mg Simvastatin 80mg Discharge Plan Admission Admit Date/Time: 04/05/24 20:14 Primary Reason for Your Visit: Chest pain Attending Provider: Ofelia Donaldson Primary Care Provider: Shahana Ge NP Consulting Providers: Damon Montalvo Instructions Forms: Work Excuse Additional Instructions / Restrictions: 1. Please return to the emergency department if you experience any more chest pain Discharge Orders/Prescriptions Prescriptions: Continued metformin 1,000 mg tablet 1,000 mg PO BID gabapentin 300 mg capsule 600 mg PO BID hydrochlorothiazide 25 mg tablet 25 mg PO DAILY lovastatin 20 mg tablet 20 mg PO QHS Basaglar KelvinPen U-100 Insulin 100 unit/mL (3 mL) Insulin Pen 25 unit SUBCUT BID dicyclomine 20 mg tablet 20 mg PO TID Qty: 14 0RF diazepam [Valium] 5 mg tablet 5 mg PO TID PRN (Reason: muscle spasm) 5 Days Qty: 15 0RF Referrals / Follow Up: Lloyd Gamble MD [Med Staff - Courtesy Staff] - Within 1 Month (Please call office tomorrow and schedule appointment to be seen as able) Shahana Ge NP, WELDER ASSISTANT-C [Primary Care Provider] - Within 1 Week Disposition Disposition (needs filled in before D/C Order can be placed): Home, Self Care Charges/Coding Visit Charges Inpatient E&M: 61978 Disch Hosp >30min
[2024-04-06 17:39] LABS: Bedside Glucose 347 mg/dL (74-106)
== END 2024-04-06 17:06 | disposition home or self-care (01) ==
LOC: ED 13:48 → PCU 20:39
PROVIDERS: Admitting Provider Internal Medicine; Emergency Provider Emergency Medicine; PCP Nurse Practitioner; Visit Provider Internal Medicine
DX: R07.2 Precordial pain (principal); E11.65 Type 2 diabetes mellitus with hyperglycemia; E11.40 Type 2 diabetes mellitus with diabetic neuropathy, unspecified; Z79.4 Long term (current) use of insulin; R79.89 Other specified abnormal findings of blood chemistry; Z91.148 Patient's other noncompliance with medication regimen for other reason; E66.9 Obesity, unspecified; Z68.33 Body mass index [BMI] 33.0-33.9, adult; F17.220 Nicotine dependence, chewing tobacco, uncomplicated; D75.1 Secondary polycythemia; E78.5 Hyperlipidemia, unspecified; R53.83 Other fatigue; Z79.84 Long term (current) use of oral hypoglycemic drugs; I10 Essential (primary) hypertension; Z23 Encounter for immunization; R94.31 Abnormal electrocardiogram [ECG] [EKG]; J45.909 Unspecified asthma, uncomplicated; Z79.899 Other long term (current) drug therapy; M19.90 Unspecified osteoarthritis, unspecified site
CPT/HCPCS: 36415; 71045; 78452; 80048; 80061; 80307; 81270; 82077; 82962; 83036; 83735; 84100; 84484; 85025; 85610; 85730; 90656; 93005; 93017; 93306; 96360; 96361; 97802; 99221; 99283; A9500; J7030; A4216; G0378; J2785

== ENCOUNTER 2025-07-09 11:14 | Emergency (ER) | payer BC, SELFPAY ==
[2025-07-09 11:15] VITALS: BP 160/103; PULSE 90; RESP 16; TEMP 36.9; O2SAT 96; BMI 34.2
--- NOTE | 2025-07-09 11:38 | ED.VIS.DENTA ---
HPI History of Present Illness Chief Complaint: Dental Detail of Chief Complaint: Dental pain and swelling. Informant: patient Onset/Context/Timing Onset: Weeks Context: Gradual Onset Timing: Continuous Current Severity: Moderate Maximum Severity: Moderate Associated Symptoms Assocated Symptom - Dental: jaw swelling Narrative Narrative: 60-year-old male history of hypertension diabetes. Takes insulin. States his right lower jaw has been uncomfortable and swelling for the last several weeks. He has not gone into see a dentist. He has not had this evaluated. Denies any fever or chills. Denies systemic symptoms. Prior similar symptoms: Yes Recent Illness/Hospitalization: No [facility] Medical History Abnormal EKG Elevated troponin HTN (hypertension) Hyperlipemia Diabetes Asthma Home Medications ?Medication ?Instructions ?Recorded ?Last Taken ?Type gabapentin 300 mg capsule 600 mg PO BID nerve pain 01/16/21 Unknown History hydrochlorothiazide 25 mg tablet 25 mg PO DAILY diruetic 01/16/21 Unknown History insulin glargine 100 unit/mL (3 25 unit subcut BID 01/16/21 Unknown History mL) subcutaneous pen (Basaglar KwikPen U-100 Insulin) lovastatin 20 mg tablet 20 mg PO QHS cholesterol 01/16/21 Unknown History metformin 1,000 mg tablet 1,000 mg PO BID diabetes 01/16/21 Unknown History dicyclomine 20 mg tablet 20 mg PO TID Abdominal cramping 01/17/21 Unknown Rx #14 tabs diazepam 5 mg tablet (Valium) 5 mg PO TID PRN muscle spasm 5 02/06/24 Unknown Rx days #15 tabs penicillin V potassium 500 mg 500 mg PO 4X/DAY #40 tabs 07/09/25 Unknown Rx tablet Allergy/AdvReac Type Severity Reaction Status Date / Time No Known Allergies Allergy Verified 07/09/25 11:16 Social History household members: significant other and other housing: house current occupational status: employed current occupation: [employer] works in [employer] Smoking Status: Never smoker ROS ROS ED ROS Narrative Denies recent illness other than his dentition. Constitutional Constitutional ED: Denies chills or fever(s) Eyes Eyes: Denies blurry vision ENT ENT ED: Denies ear pain Cardiovascular Cardiovascular: Denies chest pain Respiratory/Chest Respiratory/Chest: Denies cough or dyspnea Gastrointestinal Gastrointestinal: Denies abdominal pain Genitourinary Genitourinary ED: Denies dysuria or hematuria Musculoskeletal Musculoskeletal: Denies arthralgias or back pain Integumentary Denies abscess Neurologic Neurologic: Denies headache(s) Psychiatric Psychiatric: Denies anxiety or depression Endocrine Endocrinology: Denies cold intolerance Hematologic/Lymphatic Hematologic/Lymphatic: Denies easy bleeding Allergic/Immunologic Allergic/Immunologic ED: Denies mouth swelling EXAM Physical Exam Narrative Exam Narrative: Well-appearing 60-year-old male vital signs are stable afebrile initial blood pressure 160/103 he is treated for hypertension. No distress. H EENT exam pupils round react light. Moist extremities. No trouble swallowing or breathing. Right lower jaw has poor dentition and inflammation of the gums along the molars and previous molars consistent with dental infection and gingivitis. No drainable abscess. No trismus. Mild swelling along his right cheek. Tenderness along the teeth. He can open and close his mouth difficulty. No trismus. Neck nontender no lymphadenopathy. Lungs clear to auscultation bilaterally. Heart regular rhythm rate about 90 no murmur. Chest wall ribs nontender. Abdomen soft nontender. Moving all 4 extremities. Neurologically is awake alert. Answering questions following commands. Const Vital Signs: 07/09/25 11:15 Temperature 98.4 F Temperature Source Oral Pulse Rate 90 Respiratory Rate 16 Blood Pressure 160/103 H Blood Pressure Mean 122 Pulse Ox 96 Oxygen Delivery Method Room Air MDM MDM MDM Narrative Medical decision making narrative: 52-year-old diabetic male has infected dentition and gingivitis. Will be started on Pen-Vee K 500 4 times daily for 10 days. First dose given in the ER. There is nothing to drain at this time. I will give be given a referral to [facility]. Tylenol and Motrin for pain. Patient is comfortable with the plan. History & Record Review Discussion w/independent historian: Patient Additional record(s) reviewed:: Prior outpatient record, Prior ED visit and Prior labs Discharge Plan Triage Chief Complaint: Dental ED Provider: Wellington Miranda Dx/Rx/DC Orders Clinical Impression: Dental infection, Pain, dental, Gingivitis, History of diabetes mellitus Instructions: ED Dental Pain, ED Dental Abscess Prescriptions: New penicillin V potassium 500 mg tablet 500 mg PO 4X/DAY Qty: 40 0RF No Action metformin 1,000 mg tablet 1,000 mg PO BID gabapentin 300 mg capsule 600 mg PO BID hydrochlorothiazide 25 mg tablet 25 mg PO DAILY lovastatin 20 mg tablet 20 mg PO QHS insulin glargine [Basaglar KwikPen U-100 Insulin] 100 unit/mL (3 mL) Insulin Pen 25 unit SUBCUT BID dicyclomine 20 mg tablet 20 mg PO TID Qty: 14 0RF diazepam [Valium] 5 mg tablet 5 mg PO TID PRN (Reason: muscle spasm) 5 Days Qty: 15 0RF Primary Care Provider: Shahana Ge SPECIAL TAX AUDITOR Referrals: Shahana Ge NP, SPECIAL TAX AUDITOR-C [Primary Care Provider, Medical] - As Needed Florence Castillo NP-C [[facility]] - As soon as possible Referral Note: When you call them tell them you need to get into see their dentist. Activity Restrictions/Additional Instructions: You have an infected gum and teeth. The antibiotic penicillin 4 times a day till gone for 10 days. Motrin and Tylenol for pain. Warm salt water rinses. Call and follow-up with the [facility] in clinic to get into see their dentist. They are across the street from the hospital. Print Language: Pakistani Disposition Disposition: Home, Self Care
[2025-07-09 11:44] VITALS: BP 153/102; PULSE 91; RESP 16; TEMP 37.1; O2SAT 97
--- OUTSIDE RECORDS SUMMARY | 2025-07-09 11:44 | XMS RPT_ITS | CCD ---
Author Organization [facility] Care Team Providers Care Spar Finisher Name Role Phone DEREJE, NATHANAEL Unavailable Unavailable DEREJE, NATHANAEL Unavailable Unavailable DEREJE, NATHANAEL Unavailable Unavailable DEREJE, NATHANAEL Unavailable Unavailable PROVIDER, UNKNOWN Unavailable Unavailable Uday Rowe MD Primary Care Provider [facility], Keti Unavailable [facility], Steffany Unavailable Uday Rowe MD Primary Care Provider [facility], Keti Unavailable [facility], Steffany Unavailable [facility], Keti Unavailable [facility], Steffany Unavailable Uday Rowe MD Primary Care Provider Care Physician, No Primary Primary Care Provider Unavailable Care Physician, No Primary Referring Provider Un available [facility] Spann Attending Provider [phone] Uday Rowe MD Primary Care Provider [facility], Keti Unavailable [facility], Steffany Unavailable Older, Shahana Primary Care Unavailable Ofelia Donaldson Attending Unavailable Adiel Teague Consulting Unavailable Adiel Teague Admitting Unavailable Ofelia Donaldson Consulting Unavailable Ramon Smith Attending Unavailable Older, Shahana Primary Care Unavailable Ofelia Donaldson Attending Unavailable Older, Shahana Primary Care Unavailable Adiel Teague Admitting Unavailable Adiel Teague Consulting Unavailable Adiel Teague Attending Unavailable Mary Altamirano Attending Unavailabl e Bianca PIGMENT SUPPLIER.GOLD LAYER, Shahana M Unavailable [phone] Unavailable Primary Care Provider Unavailshorty e ROWE, JUAN JOSÉ Primary Care Unavailable AMAIRANI YOUSSEF Attending Unavailable BIANCA, SHAHANA M Referring Unavailable ROWE, JUAN JOSÉ Primary Care Unavailable VINCE JOHNSON Attending Unavailable BIANCA, SHAHANA M Referring Unavailable ROWE, JUAN JOSÉ Primary Care Unavailable BIANCA, SHAHANA M Attending Unavailable ROWE, JUAN JOSÉ Primary Care Unavailable BIANCA, SHAHANA M Referring Unavailable ROWE, JUAN JOSÉ Primary Care Unavailable BIANCA, SHAHANA M Attending Unavailable ROWE, JUAN JOSÉ Primary Care Unavailable SELF Referring Unavailable TREMAYNE MILLER Attending Unavailable ROWE, JUANJ OSÉ Primary Care Unavailable AMAIRANI YOUSSEF Referring Unavailable ROWE, JUAN JOSÉ Primary Care Unavailable AMAIRANI YOUSSEF Referring Unavailable BIANCA, SHAHANA M Referring Unavailable ROWE, JUAN JOSÉ Primary Care Unavailable Allergies Allergy Classification Reported Allergen(s) Allergy Type Date of Onset Reaction(s) Facility (20 sources) Penicillin; Translations: [PENICILLIN] Drug Allergy 03-21-2023 GI Upset [facility] Medications Current Medications Medication Drug Class(es) Dates Sig (Normalized) Sig (Original) atorvastatin 10 mg oral tablet (20 sources) HMG-CoA Reductase Inhibitor Start: 09-24-2021 End: 04-14-2024 take 1 tablet by mouth once daily at bedtime for hyperlipidemia atorvastatin (LIPITOR) 10 mg tablet Indications: Hyperlipidemia, unspecified hyperlipidemia type Take 1 tablet by mouth daily at bedtime. For cholesterol. 30 tablet 5 04/14/2024 Active Comment on above: Take 1 tablet by catherine th daily at bedtime. For cholesterol. Blood-Glucose Meter monitoring kit (1 source) Start: 03-14-2023 End: 03-15-2023 Blood-Glucose Meter monitoring kit Glucose Meter of Choice - Kit - Dx: Type 2 DM - Uncontrolled E11.65 1 Each 0 03/14/2023 03/15/2023 Active Comment on above: Glucose Meter of Cho ice - Kit - Dx: Type 2 DM - Uncontrolled E11.65 Blood-Glucose Sensor (DEXCOM G7 SENSOR) tai (10 sources) Start: 06-30-2024 Blood-Glucose Sensor (DEXCOM G7 SENSOR) tai CHANGE SENSOR EVERY 10 days USE FOR CONTINUOUS GLUCOSE MONITORING. MULTIPLE INSULIN INJECTIONS. E11.9 9 Each 3 06/30/2024 Active clindamycin 300 mg oral capsule (2 sources) Lincosamide Antibacterial Start: 03-18-2023 take 300 mg by mouth three times daily Clindamycin Hcl Active 300 MG PO THREE TIMES A DAY March 18, 2023 12:00am dicyclomine hydrochloride 20 mg oral tablet (3 sources) Anticholinergic Start: 01-17-2021 take 20 mg by mouth three times daily Dicyclomine Active 20 MG PO THREE TIMES A DAY January 17, 2021 12:00am gabapentin 300 mg oral capsule (20 sources) Anti-epileptic Agent Start: 03-14-2023 End: 10-11-2024 take 1 capsule by mouth once daily at bedtime gabapentin (NEURONTIN) 300 mg capsule Indications: Diabetic neuropathy, painful (HCC) Take 1 capsule by mouth daily at bedtime for 180 days. 30 capsule 5 04/14/2024 Active Start: 09-24-2021 End: 03-14-2023 take 1 capsule by mouth three times daily gabapentin (NEURONTIN) 300 mg capsule Indications: Diabetic neuropathy, painful (HCC) Take 1 capsule by mouth three times daily for 90 days. 90 capsule 2 09/24/2021 03/14/2023 Discontinued Start: 01-16-2021 take 600 mg by mouth twice daily Gabapentin Active 600 MG PO TWICE A DAY January 16, 2021 12:00am Comment on above: Take 1 capsule by [facility] three times daily for 90 days. Take 1 capsule by [facility] daily at bedtime for 90 days. hydroCHLOROthiazide 25 mg oral tablet (3 sources) Thiazide Diuretic Start: 2020 take 25 mg by mouth once daily Hydrochlorothiazide Active 25 MG PO DAILY January 16, 2021 12:00am hydroCHLOROthiazide 12.5 mg / lisinopril 10 mg oral tablet (20 sources) Thiazide Diuretic, Angiotensin Converting Enzyme Inhibitor Start: 2021 End: 2023 take 10-12.5 mg by mouth once in the morning lisinopril-hydroCHLOROth iazide (ZESTORETIC) 10-12.5 mg per tablet Indications: Essential hypertension Take 2 tablets by mouth every morning. 180 tablet 1 05/26/2024 Active Comment on above: Take 1 tablet by catherine th every morning. 3 ml insulin aspart, human 100 unt/ml pen injector (10 sources) Insulin Analog Start: 2023 insulin aspart, niacinamide, (FIASP FLEXTOUCH U-100 INSULIN) 100 unit/mL (3 mL) pen Inject 10 units with breakfast, 10 units with lunch, 10 units with dinner (TDD) 30 ) 30 mL 3 06/30/2024 Active 3 ml insulin glargine 100 unt/ml pen injector (20 sources) Insulin Analog Start: 2023 End: 2024 insulin glargine (LANTUS SOLOSTAR U-100 INSULIN) 100 unit/mL (3 mL) Indications: Poorly controlled diabetes mellitus (HCC) , Diabetic neuropathy, painful (HCC) Inject 36 Units subcutaneously daily at bedtime. 15 mL 2 07/22/2024 Active Start: 04-16-2024 End: 06-30-2024 insulin glargine (LANTUS BIANCA OSTAR U-100 INSULIN) 100 unit/mL (3 mL) Indications: Poorly controlled diabetes mellitus (HCC) , Diabetic neuropathy, painful (HCC) Inject 30 Units subcutaneously daily at bedtime. 15 mL 2 04/16/2024 06/30/2024 Discontinued Start: 09-24-2021 End: 03-14-2023 insulin glargine (BASAGLAR K AMANDOKPEN U-100 INSULIN) 100 unit/mL (3 mL) Indications: diabetes mellitus Inject 44 Units subcutaneously daily at bedtime. 5 Pen 5 09/24/2021 03/14/2023 Discontinued (Duplicate Entry) Start: 01-16-2021 Insulin Glargi ne (Basaglar Nidhiikpen U-100 Insulin) 100 unit/mL (3 mL) Insulin Pen Active 25 UNIT SC TWICE A DAY January 16, 2021 12:00am Comment on above: Inject 44 Units subc utaneously daily at bedtime. lovastatin 20 mg oral tablet (3 sources) HMG-CoA Reductase Inhibitor Start: 01-17-20 21 take 20 mg by mouth at bedtime Lovastatin Active 20 MG PO AT BEDTIME January 16, 2021 12:00am 24 hr metFORMIN hydrochloride 500 mg extended release oral tablet (20 sources) Biguanide Start: 09-25-19 22 End: 07-22-19 take 1 tablet by mouth twice daily at mealtime metFORMIN ER (GLUCOPHAGE XR) 500 mg 24 hr tablet Indications: Diabetic neuropathy, painful (HCC) Take 1 tablet by mouth two times a day with meals. 60 tablet 5 07/22/2024 Active Start: 01-16-2021 take 1000 mg by mout h twice daily Metformin Active 1000 MG PO TWICE A DAY January 16, 2021 12:00am Comment on above: Take 2 tablets by mo uth twice daily. naproxen 500 mg oral tablet (20 sources) Nonsteroidal Anti-inflammatory Drug Start: 10-02-19 22 End: 04-14-20 take 1 tablet by mouth every twelve hours as needed naproxen (NAPROSYN) 500 mg tablet Take 1 tablet by mouth two times a day as needed (for pain/inflammation). Take with food. 60 tablet 1 04/14/2024 Active Comment on above: Take 1 tablet by catherine twice daily as needed (for pain/inflammation). Take with food. ondansetron 4 mg disintegrating oral tablet (20 sources) Serotonin-3 Receptor Antagonist Start: 01-18-20 21 ondansetron orally disintegrating (ZOFRAN ODT) 4 mg disintegrating tablet 03/18/2023 Active penicillin v potassium 500 mg oral tablet (3 sources) Start: 03-15-20 23 take 500 mg by mouth four times daily Penicillin V Potassium Active 500 MG PO 4 TIMES DAILY 39 March 15, 2023 12:00am phenylephrine hydrochloride 25 mg/ml ophthalmic solution (3 sources) alpha-1 Adrenergic Agonist Start: 06-25-20 End: 06-25-20 PHENYLephrine 2.5 % 1 Drop (AK-DILATE, JAS-SYNEPHRINE) Start: 06-25-2024 End: 06-25-2024 1 Drop, BOTH EYES, DIRECT ED, Starting on Fri06/25/24 at 1000, Until Fri06/25/24 at 2159, Administer for dilation PROTECT FROM LIGHT Start: 03-21-2023 End: 03-21-2023 PHENYLephrine 2.5 % 1 Drop ( AK-DILATE, JAS-SYNEPHRINE) proparacaine hydrochloride 5 mg/ml ophthalmic solution (3 sources) Local Anesthetic Start: 06-25-2024 End: 06-25-2024 proparacaine 0.5 % 1 Drop (ALCAINE) Start: 06-25-2024 End: 06-25-2024 1 Drop, BOTH EYES, DIRECT ED, Starting on Fri06/25/24 at 1000, Until Fri06/25/24 at 2159, Administer for pneumo tonometry, tonopen tonometry, or pachymetry. In the event of a proparacaine shortage, administer tetracaine 0.5% ophthalmic drops 1 drop in the left eye as directed for pneumo tonometry, tonopen tonometry, or pachymetry Start: 03-21-2023 End: 03-21-2023 proparacaine 0.5 % 1 Drop (A LCAINE) tropicamide 10 mg/ml ophthalmic solution (3 sources) Anticholinergic Start: 06-25-2024 End: 06-25-2024 tropicamide 1 % 1 Drop (MYDRIACYL) Start: 06-25-2024 End: 06-25-2024 1 Drop, BOTH EYES, DIRECT ED, Starting on Fri06/25/24 at 1000, Until Fri06/25/24 at 2159, Administer for dilation Start: 03-21-2023 End: 03-21-2023 tropicamide 1 % 1 Drop (MYDR IACYL) Completed/Discontinued Medications Medication Drug Class(es) Dates Sig (Normalized) Sig (Original) 3 ml insulin detemir 100 unt/ml pen injector (11 sources) Insulin Analog Start: 03-14-2023 End: 04-16-2024 insulin detemir U-100 (LEVEMIR FLEXPEN) 100 unit/mL (3 mL) injection pen Inject 25 Units subcutaneously daily at bedtime. 15 mL 2 04/14/2024 04/16/2024 Discontinued (.All criteria met for discontinuation) Comment on above: Inject 25 Units subc utaneously daily at bedtime. 0.25 mg, 0.5 mg dose 1.5 ml semaglutide 1.34 mg/ml pen injector (7 sources) Start: 09-24-2021 End: 03-14-2023 inject 0.5 mg by subcutaneous injection every week, then inject 0.5 mg by subcutaneous injection every week semaglutide (OZEMPIC) 0.25 mg or 0.5 mg(2 mg/1.5 mL) pen injector Indications: Diabetic neuropathy, painful (HCC) Inject 0.5 mg subcutaneously one time a week. Inject 0.5 mg weekly 1 Each 5 09/24/2021 03/14/2023 Discontinued (Duplicate Entry) Comment on above: Inject 0.5 mg subcut aneously one time a week. Inject 0.5 mg weekly semaglutide (OZEMPIC) 0.25 mg or 0.5 mg (2 mg/3 mL) pen (12 sources) Start: 03-14-2023 End: 05-26-2024 semaglutide (OZEMPIC) 0.25 mg or 0.5 mg (2 mg/3 mL) pen Inject 0.25 mg subcutaneously one time a week. 3 mL 2 03/14/2023 05/26/2024 Discontinued (Cost of medication) Start: 03-14-2023 semaglutide (O ZEMPIC) 0.25 mg or 0.5 mg (2 mg/3 mL) pen Inject 0.25 mg subcutaneously one time a week. 3 mL 2 03/14/2023 Active Comment on above: Inject 0.25 mg subcu taneously one time a week. Problems Active Problems Problem Classification Problem Date Documented Date Episodic/Chronic Asthma (20 sources) Asthma; Translations: [Unspecified asthma, uncomplicated] Onset: 12-21-2015 12-21-2015 Chronic Blindness and vision defects (4 sources) Bilateral regular astigmatism; Translations: [Regular astigmatism, bilateral] 03-21-2023 Episodic Cardiac dysrhythmias (1 source) Palpitations; Translations: [Palpitations] 04-14-2024 Episodic Cataract (2 sources) Bilateral senile combined form cataracts of eyes; Translations: [Combined forms of age-related cataract, bilateral] 03-21-2023 Chronic Coronary atherosclerosis and other heart disease (1 source) Other forms of angina pectoris; Translations: [Other forms of angina pectoris] Onset: 04-14-2024 Chronic Diabetes mellitus with complications (20 sources) Type 2 diabetes mellitus; Translations: [Uncontrolled type 2 diabetes mellitus with neurologic complication, with long-term current use of insulin] Onset: 12-21-2015 Resolved: 04-29-2023 12-21-2015 Chronic Diabetes mellitus without complication (2 sources) Diabetes mellitus type 2 without retinopathy; Translations: [Type 2 diabetes mellitus without complications] 03-21-2023 Chronic Disorders of lipid metabolism (20 sources) Hyperlipidemia; Translations: [Hyperlipidemia, unspecified] Onset: 12-21-2015 12-21-2015 Chronic Disorders of teeth and jaw (6 sources) Dental caries; Translations: [Dental caries, unspecified] 03-15-2023 Episodic Essential hypertension (20 sources) Essential hypertension; Translations: [Essential (primary) hypertension] Onset: 12-21-2015 12-21-2015 Chronic Immunizations and screening for infectious disease (6 sources) Patient encounter status; Translations: [Encounter for immunization] 04-14-2024 Episodic Mycoses (1 source) Onychomycosis; Translations: [Tinea unguium] 03-19-2023 Episodic Noninfectious gastroenteritis (3 sources) Enteritis of small intestine; Translations: [Noninfective gastroenteritis and colitis, unspecified] 01-17-2021 Episodic Nonspecific chest pain (2 sources) Chest pain; Translations: [Chest pain, unspecified] Onset: 04-21-2024 04-14-2024 Episodic Osteoarthritis (20 sources) Traumatic arthropathy of the shoulder region; Translations: [Post-traumatic osteoarthritis, right shoulder] Onset: 04-24-2016 04-24-2016 Chronic Other circulatory disease (1 source) Abnormal peripheral pulse; Translations: [Other specified symptoms and signs involving the circulatory and respiratory systems] 03-19-2023 Episodic Other connective tissue disease (1 source) Pain of toe of left foot; Translations: [Pain in left toe(s)] 03-19-2023 Episodic Other connective tissue disease (1 source) Pain of toe of right foot; Translations: [Pain in right toe(s)] 03-19-2023 Episodic Other hematologic conditions (1 source) Erythrocytosis; Translations: [Secondary polycythemia] 04-14-2024 Episodic Other nutritional; endocrine; and metabolic disorders (20 sources) Obese class II; Translations: [Obesity, unspecified] Onset: 09-24-2021 09-24-2021 Chronic Other nutritional; endocrine; and metabolic disorders (1 source) Obesity, unspecified; Translations: [Obesity, unspecified] Onset: 04-14-2024 Chronic Other skin disorders (3 sources) Facial swelling ; Translations: [Localized swelling, mass and lump, head] 03-15-2023 Episodic Other skin disorders (1 source) Callosity; Translations: [Corns and callosities] 03-19-2023 Episodic Skin and subcutaneous tissue infections (3 sources) Paronychia of thumb; Translations: [Cellulitis of left finger] 04-15-2020 Episodic Spondylosis; intervertebral disc disorders; other back problems (1 source) Cervicalgia; Translations: [Cervicalgia] Onset: 02-26-2024 Episodic Viral infection (2 sources) Disease caused by 2019-nCoV; Translations: [COVID-19] 03-30-2023 Episodic Past or Other Problems Problem Classification Problem Date Documented Date Episodic/Chronic Anxiety disorders (19 sources) Mixed anxiety and depressive disorder; Translations: [Anxiety disorder, unspecified] Onset: 12-21-2015 Resolved: 12-26-2020 07-09-2021 Chronic Other hematologic conditions (2 sources) Secondary polycythemia; Translations: [Secondary polycythemia] Onset: 04-14-2024 Episodic Other inflammatory condition of skin (19 sources) Psoriasis; Translations: [Psoriasis, unspecified] Onset: 12-21-2015 Resolved: 12-26-2020 12-26-2020 Chronic Other screening for suspected conditions (not mental disorders or infectious disease) (4 sources) Other specified abnormal findings of blood chemistry; Translations: [Abnormal electrocardiogram [ECG] [EKG]] Onset: 04-14-2024 Episodic Screening and history of mental health and substance abuse codes (2 sources) Encounter for screening examination for other mental health and behavioral disorders; Translations: [Encounter for screening for depression] Onset: 05-26-2024 Episodic Results Test Name Value Interpretation Reference Range Facility [facility] 07-22-2024 [facility] Office Visit (PHMEWO ) PHILIP ARNDT ([id number]) 1965 M Date Time Provider Department 07/22/24 3:00 PM [facility] During your visit today, we recorded the following information about you: Dona Feng Dinh 07/22/2024 3:39 PM Signed Primary Care Pharmacy Visit CC (Reason for Consult): (E11.65) Poorly controlled diabetes mellitus (HCC) (primary encounter diagnosis) Goal(s): A1c <8% Last Collaborating Provider Visit: 06/30/24 with Amairani Youssef CNP Philip Arndt is a 59 year old male presenting for initial visit: This initial consult was conducted in person with the patient where the consult agreement was explained. The patient may decline or cancel the agreement at any time. After consideration, the patient consented to the pharmacy consult agreement and agreed to allow medications be collaboratively managed by a pharmacist. Last Pharmacy Visit: previously followed with Steffany (NELA 06/22/21) Interim Events: - 06/30/24 endo visit (DM educator) - CGM set up (Dexcom G7) HPI: Reports doing well Recently got set up with Dexcom sensors, just got refill on insulin Did not bring Dexcom reader with him today Reports BGs have been up and down lately Denies any BGs <70 Reports he has been taking his insulin three times a day, not sure of name but says its a blue pen. States that he does not think he has been taking the Lantus daily, not sure if he has any of this at home. Reports he does remember being on this awhile ago Current DM Medications: Metformin ER 500 mg twice daily - taking 1 tablet once daily Lantus 36 units once daily - not sure if taking ? Fiasp 10 units three times daily with meals - taking 14-12-14 as prescribed by endo Previously Trialed DM Meds: Ozempic - cost GLYCEMIC CONTROL: Glucometer present at visit: No - did not bring Dexcom reader today Hypoglycemia: No Past medical history reviewed. ALLERGIES Allergen Reactions Penicillin GI Upset Current Outpatient Medications Medication Sig Dispense Refill insulin aspart, niacinamide, (FIASP FLEXTOUCH U-100 INSULIN) 100 unit/mL (3 mL) pen Inject 10 units with breakfast, 10 units with lunch, 10 units with dinner (TDD) 30 ) 30 mL 3 Blood-Glucose Sensor (DEXCOM G7 SENSOR) tai CHANGE SENSOR EVERY 10 days USE FOR CONTINUOUS GLUCOSE MONITORING. MULTIPLE INSULIN INJECTIONS. E11.9 9 Each 3 insulin glargine (LANTUS SOLOSTAR U-100 INSULIN) 100 unit/mL (3 mL) Inject 36 Units subcutaneously daily at bedtime. 15 mL 2 lisinopril-hydroCHLOROthiaz dario (ZESTORETIC) 10-12.5 mg per tablet Take 2 tablets by mouth every morning. 180 tablet 1 atorvastatin (LIPITOR) 10 mg tablet Take 1 tablet by mouth daily at bedtime. For cholesterol. 30 tablet 5 blood sugar diagnostic (BLOOD GLUCOSE TEST) test strip Test blood sugar(s) 2 times daily. Dx: Type 2 DM - Uncontrolled E11.65 Insulin: Yes 200 Strip 3 gabapentin (NEURONTIN) 300 mg capsule Take 1 capsule by mouth daily at bedtime for 180 days. 30 capsule 5 Insulin [place], Disposable, (BD ULTRA-FINE DERRELL PEN NEEDLE) 32 gauge x 5/32 Use one needle for each dose. 1/day. 50 Each 5 Lancets Test blood sugar(s) 2 times daily. Dx: Type 2 DM - Uncontrolled E11.65 Insulin: Yes 200 Each 3 naproxen (NAPROSYN) 500 mg tablet Take 1 tablet by mouth two times a day as needed (for pain/inflammation). Take with food. 60 tablet 1 metFORMIN ER (GLUCOPHAGE XR) 500 mg 24 hr tablet Take 1 tablet by mouth two times a day with meals. 60 tablet 5 ondansetron orally disintegrating (ZOFRAN ODT) 4 mg disintegrating tablet No current facility-administered medications for this visit. Pill bottles are not present. Adherence: reports missed doses. Rx coverage: Payor: ANTHEM / Plan: BLUE ACCESS PPO / Product Type: PPO / Medications affordable? Yes PHARMACOTHERAPY PREVENTATIVE MEDS: On KAPIL/ARB: Yes On Statin: Yes On ASA: No EXAM: There were no vitals taken for this visit. Last 3 Encounter BP Readings: Date: BP: 06/30/2024 132/76 05/26/2024 148/86 04/14/2024 118/70 Wt: 103.8 kg (228 lb 12.8 oz) BMI: 34.79 kg/(m2) LABS: Lab Results Component Value Date HBA1C 12.9 04/14/2024 HBA1C 12.6 03/14/2023 HBA1C 13.0 04/19/2022 HBA1C 12.9 09/24/2021 HBA1C 12.2 12/26/2020 HBA1C 12.0 09/12/2017 HBA1C 13.4 02/13/2017 Glucose 342 04/14/2024 BUN 31 04/14/2024 Creatinine 0.91 04/14/2024 Sodium 131 04/14/2024 Potassium 4.5 04/14/2024 Chloride 94 04/14/2024 CO2 27 04/14/2024 Protein, Total 7.4 04/14/2024 Albumin 4.0 04/14/2024 Calcium 10.3 04/14/2024 Alkaline Phosphatase 80 04/14/2024 Bilirubin, Total 0.2 04/14/2024 AST 26 04/14/2024 ALT 47 04/14/2024 Lab Results Component Value Date CHOL 203 04/14/2024 CHOL 225 04/19/2022 CHOL 233 12/26/2020 LDL 102 04/14/2024 LDL 139 12/26/2020 HDL 53 04/14/2024 HDL 55 04/19/2022 HDL 58 12/26/2020 TG 238 (more content not included)... [facility] PHILIP ARNDT ([id number]) 1965 M Date Time Provider Department 06/30/24 9:00 AM ADIEL PEDRAZA During your visit today, we recorded the following information about you: Adiel Pedraza RN 06/30/2024 8:46 AM Signed DIABETES CARE AND EDUCATION VISIT Location: [place] Type of visit: In person individual PATIENT'S MAIN CONCERN TODAY: Learn more about CGM Support person present for education today: none Cognitive ability: Alert and oriented Difficulty with processing Motivation to learn: Interested Learning barriers identified by educator: none Method of instruction: written, verbal, and demonstration DIABETES FINDINGS: Monitoring: Reviewed the Dexcom CGM with career consultant. I don't know how to do nothing on the phone, my girlfriend has to do that stuff for me. Medications: Reviewed medication changes today. The patient started the following personal CGM today: Dexcom G7 Patient-provided sensor expiration date: 11/05 Sensor insertion location: back of right upper arm Insertion performed by: This nurse Patient response to insertion: no redness/bleeding noted and patient denies discomfort. Is the sensor at least 2 inches away from any pump infusion sites? n/a (patient does not use an insulin pump) CGM linked to insulin pump: none-patient is not using an insulin pump -Rationale for CGM use -CGM maintenance -Sensor insertion: site selection and rotation and operation of insertion device -Sensor start: pairing transmitter and sensor and warm-up time -Display screen overview: sensor glucose reading, trend arrows, trend graph , and alert messages -System settings: high alert level set at 250 mg/dL and low alert level set at 70 mg/dL -Use of sensor glucose in treatment decisions: no fingerstick confirmation required -If symptoms do not match sensor glucose: check glucose with fingerstick -Calibration fingerstick minimum requirements: none - factory calibrated -Changing sensor every 10 days -Ending a sensor session: disposal of sensor -Options for device upload, data review, and data sharing: Dexcom Clarity -Other topics taught: OK to shower/bathe, avoid hot tubs/saunas, remove sensor/transmitter for CT scans/MRIs, and do not administer insulin less than 2 inches from sensor sites HANDOUTS: Dexcom information reviewed LEARNING RESPONSE: Monitoring glucose: Needs further review on follow up visit with OPTICAL WORKER to see how much is retained DIABETES CARE AND EDUCATION PLAN: Individual follow-up Time Spent (Minutes): 30 This visit note will be communicated to the healthcare provider via access to shared medical record. SIGNATURE: Adiel Pedraza RN PATIENT NAME: Philip Arndt DATE: June 30, 2024 TIME: 8:40 AM Referring Provider: SHAHANA VALENZUELA [[id number]] Allergies As of Date: 06/30/2024 Noted Allergy Reaction PENICILLIN 03/21/2023 8 - GI Upset Date Reviewed: 06/30/2024 Reviewed by: Flavia Wolf MA - Fully Assessed Primary Visit Diagnosis:Diabetic neuropathy, painful (HCC) [E11.40] Prescriptions as of 06/30/2024 - insulin aspart, niacinamide, (FIASP FLEXTOUCH U-100 INSULIN) 100 unit/mL (3 mL) pen Inject 10 units with breakfast, 10 units with lunch, 10 units with dinner (TDD) 30 ) - Blood-Glucose Sensor (Zhaogang G7 SENSOR) tai CHANGE SENSOR EVERY 10 days USE FOR CONTINUOUS GLUCOSE MONITORING. MULTIPLE INSULIN INJECTIONS. E11.9 - insulin glargine (LANTUS SOLOSTAR U-100 INSULIN) 100 unit/mL (3 mL) Inject 36 Units subcutaneously daily at bedtime. - lisinopril-hydroCHLOROthiaz dario (ZESTORETIC) 10-12.5 mg per tablet Take 2 tablets by mouth every morning. - atorvastatin (LIPITOR) 10 mg tablet Take 1 tablet by mouth daily at bedtime. For cholesterol. - blood sugar diagnostic (BLOOD GLUCOSE TEST) test strip Test blood sugar(s) 2 times daily. Dx: Type 2 DM - Uncontrolled E11.65 Insulin: Yes - gabapentin (NEURONTIN) 300 mg capsule Take 1 capsule by mouth daily at bedtime for 180 days. - Insulin [place], Disposable, (BD ULTRA-FINE DERRELL PEN NEEDLE) 32 gauge x 532 Use one needle for each dose. 1/day. - Lancets Test blood sugar(s) 2 times daily. Dx: Type 2 DM - Uncontrolled E11.65 Insulin: Yes - naproxen (NAPROSYN) 500 mg tablet Take 1 tablet by mouth two times a day as needed (for pain/inflammation). Take with food. - metFORMIN ER (GLUCOPHAGE XR) 500 mg 24 hr tablet Take 1 tablet by mouth two times a day with meals. - ondansetron orally disintegrating (ZOFRAN ODT) 4 mg disintegrating tablet Problem List As Of Date 06/30/2024 Noted Resolved Poorly controlled diabetes mellitus (HCC) [E11.*12/21/2015 Essential hypertension [I10] 12/21/2015 Anxiety and depression [F41.9, F32.A] 12/21/2015 12/26/2020 Diabetic neuropathy, painful (HCC) [E11.40] 12/21/2015 Hyperlipidemia [E78.5] 12/21/2015 Asthma (more content not included)... Normal [facility] CNOVon 06-30-2024 CNOV Office Visit (ENWSTR ) PHILIP ARNDT ([id number]) 1965 M Date Time Provider Department 06/30/24 8:00 AM AMAIRANI YOUSSEF During your visit today, we recorded the following information about you: Temperature Pulse Blood pressure Weight 99.1 degrees 102/minute 132/76 103.8 kg Height 1.727 m Amairani Youssef APRN.GOLD LAYER 06/30/2024 8:31 AM Signed NEW CONSULT OFFICE PROGRESS NOTE Reason for Consultation: DM Type 2 Referring Physician: SELF My final recommendations will be communicated back to the requesting physician by way of shared Medical record or letter via US mail. HISTORY OF PRESENT ILLNESS; Philip Arndt is a 59 year old MALE is presenting as a new patient to me regarding DM Type 2. He was initially diagnosed with diabetes in 'I don't know (per lab A1Cs, ~10 years) He does have a family history of diabetes mellitus in his Father. The patient has no known microvascular complications of diabetes. Philip has no know macrovascular complications of diabetes.. 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 Lunch sub sandwich OR 'marcella chips' and milk OR fries (orders out during work) milk to drink (drinks about 4 large glasses of milk daily) Dinner pork chop/mashed potatoes with vegetable OR pizza OR eat out or take - most of time eating in, cooking at home Snacks chocolate chip cookies OR cheetos OR chips Drinks milk, sometimes regular pop, water Exercise: work - on feet all day long CURRENT DM MEDS LANTUS 30 units daily METFORMIN 500 BID PREVIOUS MEDS OZempic, d/c'd by patient Randi 14-14-14 - pt does not know what happened to his meal insulin does not know why dc'd SMBG Type of Monitor: Other Frequency of Monitorin times a day Rarely checks blood sugar BG Values: Breakfast: when arrives home from work 200, rarely checks Lunch: Dinner: Bed-time: Values over past week: Highest ; Lowest Hypoglycemia: no Diet: as per above Exercise: as per above DM REVIEW OF SYSTEMS Last Eye Exam : 04/2024 Last Podiatry Exam: 04/2024 Cardiorespiratory: negative, denies chest pain, pressure Claudication: no Dyslipidemia: Yes, controlled on medication High Blood Pressure: Yes, controlled on medication CURRENT LABS HEMOGLOBIN A1C Component Ref Range AND Units 3 wk ago (04/14/24) 2 yr ago (04/19/22) 3 yr ago (12/26/20) 6 yr ago (09/12/17) 7 yr ago (02/13/17) 8 yr ago (04/16/16) 8 yr ago (12/28/15) Hemoglobin A1C 4.3 - 5.6 % 12.9 High 13.0 High CM 12.2 High CM 12.0 High 13.4 High CM 11.1 High CM Recent Labs 12/28/15 0820 02/21/16 1606 02/13/17 1046 02/13/17 1230 09/12/17 0826 12/26/20 1354 12/26/20 1357 09/24/21 1751 04/19/22 0909 04/19/22 1530 03/14/23 0903 04/14/24 1044 ALT 38 < > -- -- -- 51 -- -- 45 -- -- 47 AST 26 < > -- -- -- 25 -- -- 26 -- -- 26 UCRR -- < > -- 63.5 -- -- 45.7 -- -- 44.5 -- -- UALBR -- < > -- <12.0 -- -- <12.0 -- -- <12.0 -- -- UALBCR -- < > -- Not calculated -- -- Not calculated -- -- <27 -- -- TSH 1.970 -- -- -- -- -- -- -- -- -- -- -- TPROT 6.9 < > -- -- -- 7.1 -- -- 6.9 -- -- 7.4 ALB 3.7 < > -- -- -- 4.4 -- -- 4.0 -- -- 4.0 CA 8.9 < > -- -- < > 9.5 -- -- 9.3 -- -- 10.3* TBILI <0.2 < > -- -- -- 0.2 -- -- 0.2 -- -- 0.2 ALKPHOS 62 < > -- -- -- 58 -- -- 65 -- -- 80 GLUC 130* < > -- -- < > 478* -- -- 340* -- -- 342* BUN 17 < > -- -- < > 20 -- -- 16 -- -- 31* CREAT 0.87 < > -- -- < > 0.72* -- -- 0.68* -- -- 0.91 NA 139 < > -- -- < > 135* -- -- 137 -- -- 131* K 4.1 < > -- -- < > 4.5 -- -- 4.3 -- -- 4.5 CHLOR 101 < > -- -- < > 97 -- -- 100 -- -- 94* CO2 25 < > -- -- < > 26 -- -- 27 -- -- 27 ANION 13 < > -- -- < > 12 -- -- 10 -- -- 10 EGFROTH >60 < > -- -- < > >60 -- -- 110 -- -- 98 GLUCFAST -- -- 298* -- -- -- -- -- -- -- -- -- HBA1C 7.4* < > -- -- < > 12.2* -- < > 13.0* -- 12.6* 12.9* B12 459 -- -- -- -- -- -- -- -- -- -- -- < > = values in this interval not displayed. Recent Labs 12/28/15 0820 04/16/16 0758 09/12/17 0826 12/26/20 1354 09/24/21 1751 04/19/22 0909 03/14/23 0903 04/14/24 1044 TG 160* < > 262* 179* -- 112 -- 238* CHOL 220* < > 197 233* -- 225* -- 203* HDL 39* < > 46 58 -- 55 -- 53 VLDL 32 < > 52* 36* -- 22 -- 48* LDL 149* < > 99 139* -- 148* -- 102* FASTTIME fasting < > 9 12 -- 12 -- -- TCHDL 5.64* < > 4.28 4.02 -- 4.09 -- 3.83 LDLHDL 3.82* < > 2.15 2.40 -- 2.69* -- 1.92 NONHDL 181* < > 151* 175* -- 170* -- 150* HBA1C 7.4* < > 12.0* 12.2* < > 13.0* 12.6* 12.9* HBA0 166 < > 298 303 -- 326 -- 324 B12 459 -- -- -- -- -- -- -- < > = values in this interval not displayed. PAST MEDICAL HISTORY Diagnosis Date Anxiety and depression 12/21/2015 Dr. 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/21/2015 (more content not included)... Normal [facility] OCT MACULA CIRRUS OU (BOTH E YES)on 06-25-2024 [facility] Radiology Study observation (narrative) [facility] CNNURSEon 06-01-2024 CNNURSE Nurse Visit (ENDIMT) PHILIP ARNDT ([id number]) 1965 M Date Time Provider Department 06/01/24 2:00 PM ADIEL PEDRAZA During your visit today, we recorded the following information about you: Adiel Pedraza, RN 06/01/2024 2:39 PM Signed DIABETES CARE AND EDUCATION VISIT Location: [place] Type of visit: In person individual PATIENT'S MAIN CONCERN TODAY: Diabetes Support person present for education today: SO Cognitive ability: Alert and oriented Motivation to learn: Interested Learning barriers identified by educator: none Method of instruction: written, verbal, and demonstration DIABETES FINDINGS: Checks rarely using his GF's meter, reports lower 200s. Reviewed when to report sugars to PCP for additional advice. Discussed basic plate method for planning meals. HANDOUTS: Healthy You: Survival Skills and Healthy You: Planning Healthy Meals LEARNING RESPONSE: Healthy eating: Demonstrated understanding/competency today or at previous visit Being active: Demonstrated understanding/competency today or at previous visit Taking medications: Demonstrated understanding/competency today or at previous visit Monitoring glucose: Demonstrated understanding/competency today or at previous visit POSSIBLE FUTURE TOPICS: 1. DIABETES CARE AND EDUCATION PLAN: Education completed and annual diabetes education follow-up visit recommended Time Spent (Minutes): 30 This visit note will be communicated to the healthcare provider via access to shared medical record. SIGNATURE: Adiel Pedraza RN PATIENT NAME: Philip Arndt DATE: June 01, 2024 TIME: 2:05 PM Referring Provider: SHAHANA VALENZUELA [[id number]] Allergies As of Date: 06/01/2024 Noted Allergy Reaction PENICILLIN 03/21/2023 8 - GI Upset Date Reviewed: 05/26/2024 Reviewed by: Shahana Valenzuela, PIGMENT SUPPLIER.GOLD LAYER - Fully Assessed Visit Diagnosis:Poorly controlled diabetes mellitus (HCC) [E11.65] Order(s):CONSULT TO DIABETES EDUCATION DSME [[id number]] Order #: [id number]: 2 Prescriptions as of 06/01/2024 - lisinopril-hydroCHLOROthiaz dario (ZESTORETIC) 10-12.5 mg per tablet Take 2 tablets by mouth every morning. - insulin glargine (LANTUS SOLOSTAR U-100 INSULIN) 100 unit/mL (3 mL) Inject 30 Units subcutaneously daily at bedtime. - atorvastatin (LIPITOR) 10 mg tablet Take 1 tablet by mouth daily at bedtime. For cholesterol. - blood sugar diagnostic (BLOOD GLUCOSE TEST) test strip Test blood sugar(s) 2 times daily. Dx: Type 2 DM - Uncontrolled E11.65 Insulin: Yes - gabapentin (NEURONTIN) 300 mg capsule Take 1 capsule by mouth daily at bedtime for 180 days. - Insulin [place], Disposable, (BD ULTRA-FINE DERRELL PEN NEEDLE) 32 gauge x 532 Use one needle for each dose. 1/day. - Lancets Test blood sugar(s) 2 times daily. Dx: Type 2 DM - Uncontrolled E11.65 Insulin: Yes - naproxen (NAPROSYN) 500 mg tablet Take 1 tablet by mouth two times a day as needed (for pain/inflammation). Take with food. - metFORMIN ER (GLUCOPHAGE XR) 500 mg 24 hr tablet Take 1 tablet by mouth two times a day with meals. - ondansetron orally disintegrating (ZOFRAN ODT) 4 mg disintegrating tablet Problem List As Of Date 06/01/2024 Noted Resolved Poorly controlled diabetes mellitus (HCC) [E11.*12/21/2015 Essential hypertension [I10] 12/21/2015 Anxiety and depression [F41.9, F32.A] 12/21/2015 12/26/2020 Diabetic neuropathy, painful (HCC) [E11.40] 12/21/2015 Hyperlipidemia [E78.5] 12/21/2015 Asthma [J45.909] 12/21/2015 Psoriasis [L40.9] 12/21/2015 12/26/2020 Post-traumatic osteoarthritis of right shoulder*04/24/2016 Obesity, Class II, BMI 35-39.9 [E66.812] 09/24/2021 Uncontrolled type 2 diabetes mellitus with hype*03/14/2023 04/29/2023 Encounter Status:Closed by ADIEL PEDRAZA on 06/01/24 [facility] CNOVon 05-26-2024 CNOV Office Visit (INTMWS ) PHILIP ARNDT ([id number]) 1965 M Date Time Provider Department 05/26/24 6:20 PM SHAHANA VALENZUELA INTMWS During your visit today, we recorded the following information about you: Pulse Respiration Blood pressure Weight 86/minute 16/minute 148/86 101.9 kg Height 1.73 m Shahana Valenzuela, PIGMENT SUPPLIER.GOLD LAYER 05/26/2024 6:37 PM Signed CC: Patient presents with: Physical HPI Philip Arndt is a 59 year old male who presents today for above. Diabetes: Home blood sugar readings: only checks a couple times a week, unable to afford test strips so he uses his girlfriend's. Most recent reading was one week ago, in the low 200's Hypoglycemia: No He is compliant with medication(s) and is tolerating med(s) without any side effects. IPatient's last HgA1C : Hemoglobin A1C (%) Date Value 04/14/2024 12.9 04/19/2022 13.0 12/26/2020 12.2 09/12/2017 12.0 Hemoglobin A1C (POCT) (%) Date Value 03/14/2023 12.6 09/24/2021 12.9 HTN-Medication changes:No Taking all medications as prescribed: Yes Side effects: No Home BP's: No Denies: headache, chest pain, palpitations, dyspnea, and peripheral edema. Last 3 Encounter BP Readings: Date: BP: 05/26/2024 148/86 04/14/2024 118/70 03/14/2023 142/80 Review of Systems See HPI PAST MEDICAL HISTORY Diagnosis Date Anxiety and depression 12/21/2015 Dr. 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/21/2015 Diabetic neuropathy, painful (HCC) 12/21/2015 Essential hypertension 12/21/2015 Post-traumatic osteoarthritis of right shoulder 04/24/2016 Psoriasis 12/21/2015 Psychosis (HCC) 2014 [facility] Uncontrolled type 2 diabetes mellitus with neurologic complication, with long-term current use of insulin 12/21/20152013 PAST SURGICAL HISTORY Procedure Laterality Date APPENDECTOMY 2012 ALLERGIES Penicillin MEDICATIONS insulin glargine (LANTUS SOLOSTAR U-100 INSULIN) 100 unit/mL (3 mL) Inject 30 Units subcutaneously daily at bedtime. atorvastatin (LIPITOR) 10 mg tablet Take 1 tablet by mouth daily at bedtime. For cholesterol. blood sugar diagnostic (BLOOD GLUCOSE TEST) test strip Test blood sugar(s) 2 times daily. Dx: Type 2 DM - Uncontrolled E11.65 Insulin: Yes gabapentin (NEURONTIN) 300 mg capsule Take 1 capsule by mouth daily at bedtime for 180 days. Insulin [place]unnel[place], Disposable, (BD ULTRA-FINE DERRELL PEN NEEDLE) 32 gauge x 5/32 Use one needle for each dose. 1/day. Lancets Test blood sugar(s) 2 times daily. Dx: Type 2 DM - Uncontrolled E11.65 Insulin: Yes lisinopril-hydroCHLOROthiaz dario (ZESTORETIC) 10-12.5 mg per tablet Take 1 tablet by mouth every morning. naproxen (NAPROSYN) 500 mg tablet Take 1 tablet by mouth two times a day as needed (for pain/inflammation). Take with food. metFORMIN ER (GLUCOPHAGE XR) 500 mg 24 hr tablet Take 1 tablet by mouth two times a day with meals. ondansetron orally disintegrating (ZOFRAN ODT) 4 mg disintegrating tablet semaglutide (OZEMPIC) 0.25 mg or 0.5 mg (2 mg/3 mL) pen Inject 0.25 mg subcutaneously one time a week. (Patient not taking: Reported on 05/26/2024) FAMILY HISTORY Problem Relation Age of Onset Diabetes Father No Ocular Disease No Family History Social History Tobacco Use Smoking status: Former Types: Cigarettes Smokeless tobacco: Current Types: Chew Vaping Use Vaping status: Never Used Substance Use Topics Alcohol use: Yes Comment: occasional Drug use: No BP 148/86 (BP Site: Left Arm, BP Position: Sitting, BP Cuff Size: Regular Adult) Pulse 86 Resp 16 Ht 173 cm (5' 8.11) Wt 101.9 kg (224 lb 10.4 oz) SpO2 96% BMI 34.05 kg/m? Physical Exam Vitals reviewed. Constitutional: Appearance: Normal appearance. Cardiovascular: Rate and Rhythm: Normal rate. Heart sounds: Normal heart sounds. No murmur heard. Pulmonary: Effort: Pulmonary effort is normal. Breath sounds: Normal breath sounds. No wheezing, rhonchi or rales. Neurological: Mental Status: He is alert. Psychiatric: Mood and Affect: Mood normal. Health maintenance reviewed with patient: Spirometry Never done Depression Screening Never done Anxiety Screening Never done Colorectal Cancer Screening Never done Urine Albumin:Creatinine Ratio due on 04/19/2023 Dilated Retinal Exam due on 03/21/2024 Hepatitis B Vaccine(1 of 3 - 19+ 3-dose series) due on 04/14/2025 Shingrix Vaccine(1 of 2) due on 04/14/2025 HbA1C due on 07/15/2024 LDL Cholesterol due on 04/14/2025 Diabetic Foot Exam due on 04/14/2025 BP Controlled (<130/80) due on 04/14/2025 Annual PCP Team Chronic Disease Visit due on 05/26/2025 DTaP,Tdap,Td Vaccine(2 - Td or Tdap) due on 09/13/2027 Prostate Cancer Screening Discussion due on 04/14/2029 Influenza Vaccine Completed Hepatitis C Screening Completed HIV Screening Completed Covid-19 Vaccine Completed Pneumococcal Vaccine (more content not included)... [facility] PHILIP ARNDT ([id number]) 1965 M Date Time Provider Department 05/04/24 SHAHANA VALENZUELA INTMWS During your visit today, we recorded the following information about you: Shahana Valenzuela, EVER[facility] 05/04/2024 9:26 AM Signed I received FMLA papers for this patient. What is this in reference to? Shahana Valenzuela APRN.[employer]OLD LAYER Srinivasa Garrison MA 05/04/2024 9:35 AM Signed Left message to call office. 05/04/2024 9:35 AM Srinivasa Garrison MA 05/07/2024 9:08 AM Signed Left message to call office. 05/07/2024 9:07 AM Srinivasa Garrison MA 05/12/2024 9:45 AM Signed Pt notified via [employer] to contact office. Allergies As of Date: 05/04/2024 Noted Allergy Reaction PENICILLIN 03/21/2023 8 - GI Upset Date Reviewed: 04/14/2024 Reviewed by: Shahana Valenzuela, PIGMENT SUPPLIER.GOLD LAYER - Fully Assessed Reason for Visit: FMLA forms [Other] Prescriptions as of 05/12/2024 - insulin glargine (LANTUS SOLOSTAR U-100 INSULIN) 100 unit/mL (3 mL) Inject 30 Units subcutaneously daily at bedtime. - atorvastatin (LIPITOR) 10 mg tablet Take 1 tablet by mouth daily at bedtime. For cholesterol. - blood sugar diagnostic (BLOOD GLUCOSE TEST) test strip Test blood sugar(s) 2 times daily. Dx: Type 2 DM - Uncontrolled 67 Insulin: Yes - gabapentin (NEURONTIN) 300 mg capsule Take 1 capsule by mouth daily at bedtime for 180 days. - Insulin Tunnel[place], Disposable, (BD ULTRA-FINE DERRELL PEN NEEDLE) 32 gauge x 532 Use one needle for each dose. 1/day. - Lancets Test blood sugar(s) 2 times daily. Dx: Type 2 DM - Uncontrolled Insulin: Yes - lisinopril-hydroCHLOROthiaz dario (ZESTORETIC) 10-12.5 mg per tablet Take 1 tablet by mouth every morning. - naproxen (NAPROSYN) 500 mg tablet Take 1 tablet by mouth two times a day as needed (for pain/inflammation). Take with food. - metFORMIN ER (GLUCOPHAGE XR) 500 mg 24 hr tablet Take 1 tablet by mouth two times a day with meals. - ondansetron orally disintegrating (ZOFRAN ODT) 4 mg disintegrating tablet - semaglutide (OZEMPIC) 0.25 mg or 0.5 mg (2 mg/3 mL) pen Inject 0.25 mg subcutaneously one time a week. Problem List As Of Date 05/04/2024 Noted Resolved Poorly controlled diabetes mellitus (HCC) [E11.*12/21/2015 Essential hypertension [I10] 12/21/2015 Anxiety and depression [F41.9, F32.A] 12/21/2015 12/26/2020 Diabetic neuropathy, painful (HCC) [E11.40] 12/21/2015 Hyperlipidemia [E78.5] 12/21/2015 Asthma [J45.909] 12/21/2015 Psoriasis [L40.9] 12/21/2015 12/26/2020 Post-traumatic osteoarthritis of right shoulder*04/24/2016 Obesity, Class II, BMI 35-39.9 [E66.812] 09/24/2021 Uncontrolled type 2 diabetes mellitus with hype*03/14/2023 04/29/2023 Encounter Status:Closed by SRINIVASA GARRISON on 05/12/24 [facility] [place] 04-16-2024 DAPHNIEN Telephone (INTMWS) PHILIP ARNDT ([id number]) 1965 M Date Time Provider Department 04/16/24 UDAY ROWE INTMWS During your visit today, we recorded the following information about you: Dolores Briones LPN 04/16/2024 8:54 AM Signed ----- Message from Shahana Valenzuela APRN.GOLD LAYER sent at 04/16/2024 7:08 AM EDT ----- Please let the patient know PSA slightly elevated but normal for age. Recheck in one year. HgbA1c was 12.9, it is very important he keeps appointment with endocrinology next month. Shahana Valenzuela APRN.Dolores Ortega LPN 04/16/2024 8:55 AM Signed Left a message for pt to call the office and ask to speak to a nurse. QUENTIN Gardner Toni, MA 04/16/2024 11:08 AM Signed Notified via [employer]. Allergies As of Date: 04/16/2024 Noted Allergy Reaction PENICILLIN 03/21/2023 8 - GI Upset Date Reviewed: 04/14/2024 Reviewed by: Shahana Valenzuela APRN.GOLD LAYER - Fully Assessed Reason for Visit: Results [95] Prescriptions as of 04/16/2024 - atorvastatin (LIPITOR) 10 mg tablet Take 1 tablet by mouth daily at bedtime. For cholesterol. - blood sugar diagnostic (BLOOD GLUCOSE TEST) test strip Test blood sugar(s) 2 times daily. Dx: Type 2 DM - Uncontrolled E11.65 Insulin: Yes - gabapentin (NEURONTIN) 300 mg capsule Take 1 capsule by mouth daily at bedtime for 180 days. - insulin detemir U-100 (LEVEMIR FLEXPEN) 100 unit/mL (3 mL) injection pen Inject 25 Units subcutaneously daily at bedtime. - Insulin Tunnel[place], Disposable, (BD ULTRA-FINE DERRELL PEN NEEDLE) 32 gauge x Use one needle for each dose. 1/day. - Lancets Test blood sugar(s) 2 times daily. Dx: Type 2 DM - Uncontrolled E11.65 Insulin: Yes - lisinopril-hydroCHLOROthiaz dario (ZESTORETIC) 10-12.5 mg per tablet Take 1 tablet by mouth every morning. - naproxen (NAPROSYN) 500 mg tablet Take 1 tablet by mouth two times a day as needed (for pain/inflammation). Take with food. - metFORMIN ER (GLUCOPHAGE XR) 500 mg 24 hr tablet Take 1 tablet by mouth two times a day with meals. - ondansetron orally disintegrating (ZOFRAN ODT) 4 mg disintegrating tablet - semaglutide (OZEMPIC) 0.25 mg or 0.5 mg (2 mg/3 mL) pen Inject 0.25 mg subcutaneously one time a week. Problem List As Of Date 04/16/2024 Noted Resolved Poorly controlled diabetes mellitus (HCC) [E11.*12/21/2015 Essential hypertension [I10] 12/21/2015 Anxiety and depression [F41.9, F32.A] 12/21/2015 12/26/2020 Diabetic neuropathy, painful (HCC) [E11.40] 12/21/2015 Hyperlipidemia [E78.5] 12/21/2015 Asthma [J45.909] 12/21/2015 Psoriasis [L40.9] 12/21/2015 12/26/2020 Post-traumatic osteoarthritis of right shoulder*04/24/2016 Obesity, Class II, BMI 35-39.9 [E66.812] 09/24/2021 Uncontrolled type 2 diabetes mellitus with hype*03/14/2023 04/29/2023 Encounter Status:Closed by SRINIVASA GARRISON on 04/16/24 Normal [facility] CBC panel Auto (Bld)on 04-14 Erythrocyte distribution width (RBC) [Ratio] 12.5 % Normal 11.5-15.0 [facility] Comment on above: Order Comment: Speci men Type: BLOOD SPECIMENOrdering Facility: [facility] Address: [address] [place] [address] Performed By: #### 5 8410-2 ####[facility] LABCLIA [id number] [place] [address] [place] Hematocrit (Bld) [Volume fraction] 49.2 % Normal 39.0-51.0 [facility] Comment on above: Order Comment: Speci men Type: BLOOD SPECIMENOrdering Facility: [facility] Address: [address] [place] [address] Performed By: #### 5 8410-2 ####[facility] LABCLIA [id number] [place] [address] [place] Hemoglobin (Bld) [Mass/Vol] 16.6 g/dL Normal 13.0-17.0 [facility] Comment on above: Order Comment: Speci men Type: BLOOD SPECIMENOrdering Facility: [facility] Address: [address] [place] [address] Performed By: #### 5 8410-2 ####[facility] LABCLIA [id number] [place] [address] [place] MCH (RBC) [Entitic mass] 28.7 pg Normal 26.0-34.0 [facility] Comment on above: Order Comment: Speci men Type: BLOOD SPECIMENOrdering Facility: [facility] Address: [address] [place] [address] Performed By: #### 5 8410-2 ####[facility] LABCLIA [id number] [place] [address] [place] MCHC (RBC) [Mass/Vol] 33.7 g/dL Normal 30.5-36.0 [facility] Comment on above: Order Comment: Speci men Type: BLOOD SPECIMENOrdering Facility: [facility] Address: [address] [place] [address] Performed By: #### 5 8410-2 ####[facility] LABCLIA [id number] [place] [address] [place] MCV (RBC) [Entitic vol] 85.0 fL Normal 80.0-100.0 [facility] Comment on above: Order Comment: Speci men Type: BLOOD SPECIMENOrdering Facility: [facility] Address: [address] [place] [address] Performed By: #### 5 8410-2 ####[facility] LABIA [id number] [place] [address] [place] Nucleated RBC (Bld) [#/Vol] 10*3/uL Normal <0.01 [facility] Comment on above: Order Comment: Speci men Type: BLOOD SPECIMENOrdering Facility: [facility] Address: [address] [place] [address] Performed By: #### 5 8410-2 ####[facility] LABIA [id number] [place] [address] [place] Platelet mean volume (Bld) [Entitic vol] 11.4 fL Normal 9.0-12.7 [facility] Comment on above: Order Comment: Speci men Type: BLOOD SPECIMENOrdering Facility: [facility] Address: [address] [place] [address] Performed By: #### 5 8410-2 ####[facility] LABIA [id number] [place] [address] [place] Platelets (Bld) [#/Vol] 184 10*3/uL Normal 150-400 [facility] Comment on above: Order Comment: Speci men Type: BLOOD SPECIMENOrdering Facility: [facility] Address: [address] [place] [address] Performed By: #### 5 8410-2 ####[facility] LABCLIA [id number] [place] [address] [place] RBC (Bld) [#/Vol] 5.79 10*6/uL Normal 4.20-6.00 [facility] Comment on above: Order Comment: Speci men Type: BLOOD SPECIMENOrdering Facility: [facility] Address: [address] [place] [address] Performed By: #### 5 8410-2 ####[facility] LABCLIA [id number] [place] [address] [place] WBC (Bld) [#/Vol] 6.75 10*3/uL Normal 3.70-11.00 [facility] Comment on above: Order Comment: Speci men Type: BLOOD SPECIMENOrdering Facility: [facility] Address: [address] [place] [address] Performed By: #### 5 8410-2 ####[facility] LABCLIA [id number] [address] [place] CNOVon 04-14-2024 CNOV Office Visit (INTMWS ) TAMMYPHILIP BETANCUR ([id number]) 1965 M Date Time Provider Department 04/14/24 10:00 AM SHAHANA VALENZUELA INTMWS During your visit today, we recorded the following information about you: Pulse Blood pressure Weight 90/minute 118/70 101.1 kg Shahana Valenzuela, PIGMENT SUPPLIER.[employer] 04/14/2024 10:52 AM Signed CC: Patient presents with: Diabetes: follow up Hospital F/U: [facility] follow up 04/04/24 for cardiac work up that was negative HPI Philip Thomas Yris is a 59 year old male who presents today for above. He is overdue for follow-up and historically non-compliant. He has been out of all of his medications for 6 months or more. He presented to [facility] ER on 04/05 with exertional chest pain and fatigue x 1 week. EKG showed RBBB and LAD. Troponin was elevated at 88 and then 91. He was admitted for observation. Stress test and echocardiogram were unremarkable. He was discharged jose l on 04/06, no medication changes. There was an incidental finding of erythrocytosis and JAK2 ordered but not resulted at time of discharge. Today patient reports he continues to have episodes of exertional chest pain that resolves with rest. Associated with SOB and palpitations. Denies edema, PND, orthopnea, dizziness, lightheadedness, syncope or feeling faint. No new or worsening symptoms. Diabetes: Home blood sugar readings: does not check, ran out of test strips Increased thirst: Yes Urinary frequency: Yes Nocturia: Yes Fatigue: Yes Unintentional weight loss: Yes Blurred vision: Yes Numbness, tingling or pain in extremities: Yes Ulcers or sores on feet: No Last Ophthalmology exam: over one year ago Patient's last HgA1C : Hemoglobin A1C (%) Date Value 04/19/2022 13.0 12/26/2020 12.2 09/12/2017 12.0 Hemoglobin A1C (POCT) (%) Date Value 03/14/2023 12.6 09/24/2021 12.9 Review of Systems Constitutional: Negative for chills, diaphoresis and fever. Respiratory: Negative for cough and wheezing. Gastrointestinal: Negative for abdominal pain. Genitourinary: Negative for decreased urine volume, dysuria, hematuria and urgency. Neurological: Positive for headaches. Negative for weakness. Hematological: Negative for adenopathy. Does not bruise/bleed easily. PAST MEDICAL HISTORY Diagnosis Date Anxiety and depression 12/21/2015 Dr. 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/21/2015 Diabetic neuropathy, painful (HCC) 12/21/2015 Essential hypertension 12/21/2015 Post-traumatic osteoarthritis of right shoulder 04/24/2016 Psoriasis 12/21/2015 Psychosis (HCC) 2013 [facility] Uncontrolled type 2 diabetes mellitus with neurologic complication, with long-term current use of insulin 12/21/20152013 PAST SURGICAL HISTORY Procedure Laterality Date APPENDECTOMY 2012 ALLERGIES Penicillin MEDICATIONS ondansetron orally disintegrating (ZOFRAN ODT) 4 mg disintegrating tablet semaglutide (OZEMPIC) 0.25 mg or 0.5 mg (2 mg/3 mL) pen Inject 0.25 mg subcutaneously one time a week. insulin detemir U-100 (LEVEMIR FLEXPEN) 100 unit/mL (3 mL) injection pen Inject 25 Units subcutaneously daily at bedtime. lisinopril-hydroCHLOROthiaz dario (ZESTORETIC) 10-12.5 mg per tablet Take 1 tablet by mouth every morning. gabapentin (NEURONTIN) 300 mg capsule Take 1 capsule by mouth daily at bedtime for 90 days. atorvastatin (LIPITOR) 10 mg tablet Take 1 tablet by mouth daily at bedtime. For cholesterol. naproxen (NAPROSYN) 500 mg tablet Take 1 tablet by mouth twice daily as needed (for pain/inflammation). Take with food. metFORMIN ER (GLUCOPHAGE XR) 500 mg 24 hr tablet Take 2 tablets by mouth twice daily. blood sugar diagnostic (BLOOD GLUCOSE TEST) test strip Test blood sugar(s) 2 times daily. Dx: Type 2 DM - Uncontrolled E11.65 Insulin: Yes Lancets lancets Test blood sugar(s) 2 times daily. Dx: Type 2 DM - Uncontrolled E11.65 Insulin: Yes Insulin [place], Disposable, (BD ULTRA-FINE DERRELL PEN NEEDLE) 32 gauge x 5/32 Use one needle for each dose. 1/day. FAMILY HISTORY Problem Relation Age of Onset Diabetes Father No Ocular Disease No Family History Social History Tobacco Use Smoking status: Former Types: Cigarettes Smokeless tobacco: Current Types: Chew Vaping Use Vaping status: Never Used Substance Use Topics Alcohol use: Yes Comment: occasional Drug use: No BP 118/70 Pulse 90 Wt 101.1 kg (222 lb 14.2 oz) SpO2 97% BMI 34.91 kg/m? Physical Exam Vitals reviewed. Constitutional: Appearance: Normal appearance. HENT: Mouth/Throat: Mouth: Mucous membranes are moist. Pharynx: Oropharynx is clear. Eyes: Conjunctiva/sclera: Conjunctivae normal. Cardiovascular: Rate and Rhythm: Normal rate and regular rhythm. Pulses: Normal pulses. Dorsalis pedis pulses are 2+ on the right side and 2+ on the left side. Heart sounds: Normal heart sounds. No murmur heard. Pulmona (more content not included)... Normal [facility] Comprehensive metabolic 2000 panelon 04-14-2024 Albumin [Mass/Vol] 4.0 g/dL Normal 3.9-4.9 [facility] Comment on above: Order Comment: Speci men Type: BLOOD SPECIMENOrdering Facility: [facility] Address: [address] [place] [address] Performed By: #### 2 4323-8, LIPNF ####[facility] LABCLIA [id number] [place] [address] [place] ALP [Catalytic activity/Vol] 80 U/L Normal 38-113 [facility] Comment on above: Order Comment: Speci men Type: BLOOD SPECIMENOrdering Facility: [facility] Address: [address] [place] [address] Performed By: #### 2 4323-8, LIPNF ####[facility] LABCLIA [id number] [place] [address] [place] ALT [Catalytic activity/Vol] 47 U/L Normal 10-54 [facility] Comment on above: Order Comment: Speci men Type: BLOOD SPECIMENOrdering Facility: [facility] Address: [address] [place] [address] Performed By: #### 2 4323-8, LIPNF ####[facility] LABCLIA [id number] [place] [address] [place] Anion gap [Moles/Vol] 10 mmol/L Normal 8-15 [facility] Comment on above: Order Comment: Speci men Type: BLOOD SPECIMENOrdering Facility: [facility] Address: [address] [place], [place] [address] Performed By: #### 2 4323-8, LIPNF ####[facility] LABCLIA [id number] [place] [id number] [place] AST [Catalytic activity/Vol] 26 U/L Normal 14-40 [facility] Comment on above: Order Comment: Speci men Type: BLOOD SPECIMENOrdering Facility: [facility] Address: [address] [place], [place] [address] Performed By: #### 2 4323-8, LIPNF ####[facility] LABCLIA [id number] [place] [address] [place] Bilirubin [Mass/Vol] 0.2 mg/dL Normal 0.2-1.3 [facility] Comment on above: Order Comment: Speci men Type: BLOOD SPECIMENOrdering Facility: [facility] Address: [address] [place] [address] Performed By: #### 2 4323-8, LIPNF ####[facility] LABCLIA [id number] [place] [address] [place] Calcium [Mass/Vol] 10.3 mg/dL High 8.5-10.2 [facility] Comment on above: Order Comment: Speci men Type: BLOOD SPECIMENOrdering Facility: [facility] Address: [address] [place] [address] Performed By: #### 2 4323-8, LIPNF ####[facility] LABCLIA [id number] [place] [address] [place] Chloride [Moles/Vol] 94 mmol/L Low 98-107 [facility] Comment on above: Order Comment: Speci men Type: BLOOD SPECIMENOrdering Facility: [facility] Address: [address] [place] [address] Performed By: #### 2 4323-8, LIPNF ####[facility] LABCLIA [id number] [place] [address] [place] CO2 [Moles/Vol] 27 mmol/L Normal 22-30 [facility] Comment on above: Order Comment: Speci men Type: BLOOD SPECIMENOrdering Facility: [facility] Address: [address] [place] [address] Performed By: #### 2 4323-8, LIPNF ####[facility] LABCLIA [id number] [place] [address] [place] Creatinine [Mass/Vol] 0.91 mg/dL Normal 0.73-1.22 [facility] Comment on above: Order Comment: Carolina cancino Type: BLOOD SPECIMENOrdering Facility: [facility] Address: [address] [place] [address] Performed By: #### 2 4323-8, LIPNF ####[facility] LABCLIA [id number] [place] [address] [place] Creatinine and Glomerular filtration rate.predicted panel (S/P/Bld) 98 mL/min/1.73m??? Normal >=60 [facility] Comment on above: Order Comment: Carolina cancino Type: BLOOD SPECIMENOrdering Facility: [facility] Address: [address] [place] [address] Result Comment: Bernice mated Glomerular Filtration Rate (eGFR) is calculated using the 2020 CKD-EPI creatinine equation. This equation utilizes serum creatinine, sex, and age as parameters. The creatinine assay has traceable calibration to isotope dilution-mass spectrometry. Refer to KDIGO guidelines for clinical interpretation. In patients with unstable renal function, e.g. those with acute kidney injury, the eGFR may not accurately reflect actual GFR. Performed By: #### 2 4323-8, LIPNF ####[facility] LABCLIA [id number] [place] [address] [place] Glucose [Mass/Vol] 342 mg/dL High 74-99 [facility] Comment on above: Order Comment: Carolina cancino Type: BLOOD SPECIMENOrdering Facility: [facility] Address: [address] [place] [address] Result Comment: The [place] Diabetes Association (ADA) provides guidance for cutoff values for fasting glucose and random glucose. The ADA defines fasting as no caloric intake for at least 8 hours. Fasting plasma glucose results between 100 to 125 mg/dL indicate increased risk for diabetes (prediabetes). Fasting plasma glucose results greater than or equal to 126 mg/dL meet the criteria for diagnosis of diabetes. In the absence of unequivocal hyperglycemia, results should be confirmed by repeat testing. In a patient with classic symptoms of hyperglycemia or hyperglycemic crisis, random plasma glucose results greater than or equal to 200 mg/dL meet the criteria for diagnosis of diabetes. Reference: Standards of Medical Care in Diabetes 2016, [place] Diabetes Association. Diabetes Care. 2016.39(Suppl 1). Performed By: #### 2 4323-8, LIPNF ####[facility] LABCLIA [id number] [place] [address] [place] Potassium [Moles/Vol] 4.5 mmol/L Normal 3.7-5.1 [facility] Comment on above: Order Comment: Speci men Type: BLOOD SPECIMENOrdering Facility: [facility] Address: [address] [place] [address] Performed By: #### 2 4323-8, LIPNF ####[facility] LABCLIA [id number] [place] [address] [place] Protein [Mass/Vol] 7.4 g/dL Normal 6.3-8.0 [facility] Comment on above: Order Comment: Speci men Type: BLOOD SPECIMENOrdering Facility: [facility] Address: [address] [place] [address] Performed By: #### 2 4323-8, LIPNF ####[facility] LABCLIA [id number] [place] [address] [place] Sodium [Moles/Vol] 131 mmol/L Low 136-144 [facility] Comment on above: Order Comment: Speci men Type: BLOOD SPECIMENOrdering Facility: [facility] Address: [address] [place] [address] Performed By: #### 2 4323-8, LIPNF ####[facility] LABCLIA [id number] [place] [address] [place] Urea nitrogen [Mass/Vol] 31 mg/dL High 9-24 [facility] Comment on above: Order Comment: Speci men Type: BLOOD SPECIMENOrdering Facility: [facility] Address: [address] [place] [address] Performed By: #### 2 4323-8, LIPNF ####[facility] LABCLIA [id number] [place] [address] [place] EPO SerPl-aCncon 04-14-2024 Erythropoietin (EPO) Qn 8.1 mIU/mL Normal 2.6-18.5 [facility] Comment on above: Order Comment: Carolina cancino Type: BLOOD SPECIMENOrdering Facility: [facility] Address: [address] [place] [address] Performed By: #### 1 5061-5 ####[facility] LABCLIA [id number] [place] [address] [place] HbA1c (Bld)on 04-14-2024 Average glucose Estimated from glycated hemoglobin (Bld) [Mass/Vol] 324 mg/dL Normal [facility] Comment on above: Order Comment: Carolina cancino Type: BLOOD SPECIMENOrdering Facility: [facility] Address: [address] [place] [address] Result Comment: eAG: (Estimated average glucose) is a calculated value from HgbA1c and is surgical sales representative of the average blood glucose level in the last 2-3 month period. Performed By: #### 5 5454-3 ####[facility] LABIA [id number] [place] [address] [place] HbA1c (Bld) [Mass fraction] 12.9 % High 4.3-5.6 [facility] Comment on above: Order Comment: Carolina cancino Type: BLOOD SPECIMENOrdering Facility: [facility] Address: [address] [place] [address] Result Comment: [place] Diabetes Association guidelines indicate that patients with HgbA1c in the range 5.7-6.4% are at increased risk for development of diabetes, and intervention by lifestyle modification may be beneficial. HgbA1c greater or equal to 6.5% is considered diagnostic of diabetes. Performed By: #### 5 5454-3 ####[facility] LABCLIA [id number] [place] [address] [place] LIPID PANEL, NONFASTINGon Cholesterol [Mass/Vol] 203 mg/dL High <200 [facility] Comment on above: Order Comment: Speci men Type: BLOOD SPECIMENOrdering Facility: [facility] Address: [address] [place] [address] Result Comment: <200 mg/dL, Desirable 200-239 mg/dL, Borderline high >239 mg/dL, High Performed By: #### 2 4323-8, LIPNF ####[facility] LABCLIA [id number] [place] [address] [place] HDL CHOLESTEROL, NF 53 mg/dL Normal >39 [facility] Comment on above: Order Comment: Speci men Type: BLOOD SPECIMENOrdering Facility: [facility] Address: [address] [place] [address] Result Comment: 40-5 9 mg/dL, Acceptable >59 mg/dL, High: Negative risk factor for coronary heart disease <40 mg/dL, Low: Positive risk factor for coronary heart disease Performed By: #### 2 4323-8, LIPNF ####[facility] LABCLIA [id number] [place] [address] [place] LDL CHOLESTEROL, NF 102 mg/dL High <100 [facility] Comment on above: Order Comment: Speci men Type: BLOOD SPECIMENOrdering Facility: [facility] Address: [address] [place] [address] Result Comment: <100 mg/dL, Optimal 100-129 mg/dL, Near optimal/above optimal 130-159 mg/dL, Borderline high 160-189 mg/dL, High >189 mg/dL, Very high Secondary prevention optimal LDL Cholesterol levels are recommended to be < 70 mg/dL Performed By: #### 2 4323-8, LIPNF ####[facility] LABCLIA [id number] [place] [address] [place] LDL/HDL RATIO, NF 1.92 mg/dL Normal <2.54 [facility] Comment on above: Order Comment: Speci men Type: BLOOD SPECIMENOrdering Facility: [facility] Address: [address] [place] [address] Result Comment: Aristides maza: 1. National Cholesterol Education Program ATP III Guideline At-A-Glance Quick Desk Reference: National Heart, Lung, and Blood [place]. National Institutes of Health. 2001: NIH Publication No. 01-3305. 2. An International Atherosclerosis Society position paper: global recommendations for the management of dyslipidemia: executive summary, Atherosclerosis. 2014: 232(2):410-413. Performed By: #### 2 4323-8, LIPNF ####[facility] LABCLIA [id number] [place] [address] [place] NON HDL CHOL, NF 150 mg/dL High <130 [facility] Comment on above: Order Comment: Speci men Type: BLOOD SPECIMENOrdering Facility: [facility] Address: [address] [place] [address] Result Comment: <130 mg/dL, Optimal 130-159 mg/dL, Near optimal/above optimal 160-189 mg/dL, Borderline high 190-219 mg/dL, High >219 mg/dL, Very high Secondary prevention optimal non HDL Cholesterol levels are recommended to be <100 mg/dL Performed By: #### 2 4323-8, LIPNF ####[facility] LABCLIA [id number] [place] [address] [place] T CHOL/HDL RATIO NF 3.83 mg/dL Normal <5.10 [facility] Comment on above: Order Comment: Speci men Type: BLOOD SPECIMENOrdering Facility: [facility] Address: [address] [place] [address] Performed By: #### 2 4323-8, LIPNF ####[facility] LABCLIA [id number] [place] [address] [place] TRIGLYCERIDES, NF 238 mg/dL High <150 [facility] Comment on above: Order Comment: Speci men Type: BLOOD SPECIMENOrdering Facility: [facility] Address: [address], [place] [address] Result Comment: <150 mg/dL, Normal 150-199 mg/dL, Borderline high 200-499 mg/dL, High >499 mg/dL, Very high Performed By: #### 2 4323-8, LIPNF ####[facility] LABCLIA [id number] [place] [address] [place] VLDL CHOLESTEROL, NF 48 mg/dL High <30 [facility] Comment on above: Order Comment: Speci men Type: BLOOD SPECIMENOrdering Facility: [facility] Address: [address] [place] [address] Performed By: #### 2 4323-8, LIPNF ####[facility] LABIA [id number] [address] STATES OF [facility] PSA/PROSTATE SPECIFIC ANTIGE N SCREENINGon 04-14-2024 Prostate specific Ag [Mass/Vol] 2.96 ng/mL High <2.60 [facility] Comment on above: Order Comment: Speci men Type: BLOOD SPECIMENOrdering Facility: [facility] Address: [address] [place] [address] Result Comment: Tota l PSA test methodology used is the Electrochemiluminescence Immunoassay by [employer]. Total PSA values by differing methodologies cannot be interchanged. For an individual patient, the significance of a PSA level should be interpreted in a broad clinical context, including age, race, family history, digital rectal exam, prostate size, results of prior testing (prostate biopsy, free PSA, PCA3), and use of 5-alpha reductase inhibitors. Considering the high incidence of asymptomatic cancer in the general population that may not pose an ultimate risk to a patient, the decision to recommend urological evaluation or prostate biopsy should be individualized after consideration of all these factors. REFERENCE: Malachi Valiente M.D., M.P.H., Luke Salazar M.D., Ph.D., Freddy Beckman M.D., Sylvie Lou, M.P.H., Kiah Coe Sc.D. Effect of Verification Bias on Screening for Prostate Cancer by Measurement of Prostatic Specific Antigen. N Engl J Med 2003,349:335-42. Performed By: #### P SAS1 ####[facility] LABCLIA [id number] [facility] [id number] [id number] [place] JAK2 Mutation Analysison JAK2 COMMENT Comment Normal . [facility] Comment on above: Result Comment: Bessie fuentes, PhD, [facility] Director, Molecular Oncology [facility] [place] [address] This test was developed and its performance characteristics determined by [facility]. It has not been cleared or approved by the Food and Drug Administration. Performed at: - [facility] [address] [facility], [place] [id number] Insurance Claims Processor: Giovany Bourgeois [facility], Phone: [phone] Performed at: - [facility] [address] [facility] [facility] [place] [place] [id number] Insurance Claims Processor: Giovany Bourgeois [facility], Phone: [phone] Performed By: #### L 500.2500, L100.0100, L300.3900, L300.4310 #### [facility] [address] [place], [address] JAK2 COMMENT 2 Comment Normal . [facility] Comment on above: Result Comment: JAK2 is a cytoplasmic tyrosine kinase with a klein role in signal transduction from multiple hematopoietic growth factor receptors. A point mutation within exon 14 of the JAK2 gene (R1917A) encoding a valine to phenylalanine substitution at position 617 of the JAK2 protein (V617F) has been identified in most patients with polycythemia vera, and in about half of those with either essential thrombocythemia or idiopathic myelofibrosis. The V617F has also been detected, although infrequently, in other myeloid disorders such as chronic myelomonocytic leukemia and chronic neutrophilic luekemia. V617F is an acquired mutation that alters a highly conserved valine present in the negative regulatory JH2 domain of the JAK2 protein and is predicted to dysregulate kinase activity. Methodology: Total genomic DNA was extracted and subjected to TaqMan real-time PCR amplification/detection. Two amplification products per sample were monitored by real-time PCR using primers/probes specific to JAK2 wild type (WT) and JAK2 mutant V617F. The [id number] Absolute Quantitation software will compare the patient specimen valuse to the standard curves and generate percent values for wild type and mutant type. In vitro studies have indicated that this assay has an analytical sensitivity of 1%. References: Daniel EJ, Ayo [place], Vargas PJ, et al. Acquired mutation of the tyrosine kinase JAK2 in human myeloproliferative disorders. Lancet. 2005 Sep 29; 365(2781):2123-9699. Henrry Solis, Albert V, Kimberley Wei JONES. A unique clonal JAK2 mutation leading to constitutive signaling causes polycythaemia vera. Nature. 2005 Nov 08; 434(7017):5580-9164. Kimi R, Nehemiah F, George , et al. A gain-of- function mutation of JAK2 in myeloproliferative disorders. N Engl J Med. 2005 Nov 08; 35217):0533-8988. Performed By: #### L 500.2500, L100.0100, L300.3900, L300.4310 #### [facility] [address] [place], [place], [id number] JAK2 MUT QUAL Comment Normal . [facility] Comment on above: Result Comment: Resu lt: NEGATIVE for the JAK2 V617F mutation. Interpretation: The G to T nucleotide change encoding the V617F mutation was not detected. This result does not rule out the presence of the JAK2 mutation at a level below the sensitivity of detection of this assay, or the presence of other mutations within JAK2 not detected by this assay. This result does not rule out a diagnosis of polycythemia vera, essential thrombocythemia or idiopathic myelofibrosis as the V617F mutation is not detected in all patients with these disorders. Performed By: #### L 500.2500, L100.0100, L300.3900, L300.4310 #### [facility] [address] [place], [address] Basic Metabolic Profile (BMP )on 04-06-2024 BUN/CRE 20.3 RATIO High 10-20 [facility] Comment on above: Performed By: #### L 501.5200, L501.2300, L500.2500 #### [facility] [address] [place], [address] CA,Total 8.5 mg/dL Normal 8.5-10.1 [facility] Comment on above: Performed By: #### L 501.5200, L501.2300, L500.2500 #### [facility] [address] [place], [address] Chloride [Moles/Vol] 106 mmol/L Normal 98-107 [facility] Comment on above: Performed By: #### L 501.5200, L501.2300, L500.2500 #### [facility] [address] [place], [address] CO2 [Moles/Vol] 28.0 mmol/L Normal 21.0-32.0 [facility] Comment on above: Performed By: #### L 501.5200, L501.2300, L500.2500 #### [facility] [address] [place], [address] Creatinine [Mass/Vol] 0.98 mg/dL Normal 0.70-1.30 [facility] Comment on above: Result Comment: The validity of the calculated GFR GFRAA in patients over 70 years has not been determined. Clinical correlation is essential. Performed By: #### L 501.5200, L501.2300, L500.2500 #### [facility] [address] [place], [address] ECRCL 95.99 ml/min Normal [facility] Comment on above: Performed By: #### L 501.5200, L501.2300, L500.2500 #### [facility] [address] [place], [address] EST GFR - AA 101 mL/min Normal >60 [facility] Comment on above: Result Comment: Afri can Portuguese GFR Calc Performed By: #### L 501.5200, L501.2300, L500.2500 #### [facility] [address] [place], [address] GAP 3 Low 5-15 [facility] Comment on above: Performed By: #### L 501.5200, L501.2300, L500.2500 #### [facility] [address] [place], [address] GFR/1.73 sq M.predicted among non-blacks MDRD (S/P/Bld) [Vol rate/Area] 84 mL/min/{1.73_m2} Normal >60 [facility] Comment on above: Result Comment: Non- GFR Calc Performed By: #### L 501.5200, L501.2300, L500.2500 #### [facility] [address] [place], [address] Glucose [Mass/Vol] 277 mg/dL High 74-106 [facility] Comment on above: Result Comment: Gluc ose result greater than or equal to 200 mg/dL suggests DIABETES MELLITUS per A.D.A. criteria. Performed By: #### L 501.5200, L501.2300, L500.2500 #### [facility] [address] [place], [address] Potassium [Moles/Vol] 4.1 mmol/L Normal 3.5-5.1 [facility] Comment on above: Performed By: #### L 501.5200, L501.2300, L500.2500 #### [facility] [address] [place], [address] Sodium [Moles/Vol] 137 mmol/L Normal 136-145 [facility] Comment on above: Performed By: #### L 501.5200, L501.2300, L500.2500 #### [facility] [address] [place], [address] Urea nitrogen [Mass/Vol] 20 mg/dL High 7-18 [facility] Comment on above: Performed By: #### L 501.5200, L501.2300, L500.2500 #### [facility] [address] [place], [address] Bedside Glucoseon 04-06-2024 FINGERSTICK GLU 347 mg/dL High 74-106 [facility] Comment on above: Result Comment: PHILLIP GEMENT OF PATIENT CARE PER NURSING PROTOCOL Performed By: #### L 500.2500, L100.0100, L300.3900, L300.4310 #### [facility] [address] [place], [address] FINGERSTICK GLU 256 mg/dL High -106 [facility] Comment on above: Result Comment: PHILLIP GEMENT OF PATIENT CARE PER NURSING PROTOCOL Performed By: #### L 500.2500, L100.0100, L300.3900, L300.4310 #### [facility] [address] [place], [address] FINGERSTICK GLU 261 mg/dL High -106 [facility] Comment on above: Result Comment: PHILLIP GEMENT OF PATIENT CARE PER NURSING PROTOCOL Performed By: #### L 501.4020 #### [facility] [address] [place], [address] FINGERSTICK GLU 190 mg/dL High 74-106 [facility] Comment on above: Result Comment: PHILLIP GEMENT OF PATIENT CARE PER NURSING PROTOCOL Performed By: #### L 501.080 #### [facility] [address] [place], [address] CBC W/Diff, Automatedon 03-15 PATH REV Reviewed Normal [facility] Comment on above: Result Comment: Poly cythemia Clinical correlation necessary. Jackson Herzog M.D. 04/06/24 AMENDED REPORT 04/06/24 1141 PATH REV previously reported as: November stiven Performed By: #### L 500.2500, L100.0100, L300.3900, L300.4310 #### [facility] [address] [place], [address] Absolute Lymph 1.54 X10 3/uL Normal 0.83-4.51 [facility] Comment on above: Performed By: #### L 501.4020 #### [facility] [address] [place], [address] Absolute Neut 3.3 X10 3/uL Normal 2.0-7.7 [facility] Comment on above: Performed By: #### L 501.4020 #### [facility] [address] [place], [address] Basophils/100 WBC (Bld) 1.6 % High 0-1 [facility] Comment on above: Performed By: #### L 501.4020 #### [facility] [address] [place], [address] Eosinophils/100 WBC (Bld) 4.0 % Normal 0-5 [facility] Comment on above: Performed By: #### L 501.4020 #### [facility] [address] [place], [address] Erythrocyte distribution width (RBC) [Ratio] 12.9 % Normal 11.6-14.6 [facility] Comment on above: Performed By: #### L 501.4020 #### [facility] [address] [place], [address] Hematocrit (Bld) [Volume fraction] 46.6 % Normal 40-54 [facility] Comment on above: Performed By: #### L 501.4020 #### [facility] [address] [place], [address] Hemoglobin (Bld) [Mass/Vol] 15.1 g/dL Normal 13.0-16.5 [facility] Comment on above: Performed By: #### L 501.4020 #### [facility] [address] [place], [address] IG% 0.300 Normal 0.0-0.9 [facility] Comment on above: Result Comment: IG% - Immature Granulocytes (promyelocytes, myelocytes and metamyelocytes) > 1% indicates that a LEFT SHIFT is Present. Performed By: #### L 501.4020 #### [facility] [address] [place], [address] Lymphocytes/100 WBC (Bld) 26.9 % Normal 19-41 [facility] Comment on above: Performed By: #### L 501.4020 #### [facility] [address] [place], [address] MCH (RBC) [Entitic mass] 28.0 pg Normal 27.0-32.0 [facility] Comment on above: Performed By: #### L 501.4020 #### [facility] [address] [place], [address] MCHC (RBC) [Mass/Vol] 32.4 g/dL Normal 32-36 [facility] Comment on above: Performed By: #### L 501.4020 #### [facility] [address] [place], [address] MCV (RBC) [Entitic vol] 86.3 fL Normal 80-94 [facility] Comment on above: Performed By: #### L 501.4020 #### [facility] [address] [place], [address] Monocytes/100 WBC (Bld) 10.1 % High 0-10 [facility] Comment on above: Performed By: #### L 501.4020 #### [facility] [address] [place], [address] Neutrophils/100 WBC (Bld) 57.1 % Normal 47-70 [facility] Comment on above: Performed By: #### L 501.4020 #### [facility] [address] [place], [address] Nucleated RBC (Bld) [#/Vol] 0 10*3/uL Normal 0-5 [facility] Comment on above: Performed By: #### L 501.4020 #### [facility] [address] [place], [address] Platelet mean volume (Bld) [Entitic vol] 10.8 fL Normal 6.2-12.0 [facility] Comment on above: Performed By: #### L 501.4020 #### [facility] [address] [place], [address] Platelets (Bld) [#/Vol] 151 10*3/uL Normal 150-450 [facility] Comment on above: Performed By: #### L 501.4020 #### [facility] [address] [place], [address] RBC (Bld) [#/Vol] 5.40 10*6/uL Normal 4.6-6.2 [facility] Comment on above: Performed By: #### L 501.4020 #### [facility] [address] [place], [address] RDW SD 40.2 fl Normal 35.1-43.9 [facility] Comment on above: Performed By: #### L 501.4020 #### [facility] [address] [place], [address] WBC (Bld) [#/Vol] 5.7 10*3/uL Normal 4.4-11.0 [facility] Comment on above: Performed By: #### L 501.4020 #### [facility] [address] [place], [address] L501.4020on 04-06-2024 TROPONIN-I HS 91 pg/mL High 3.0-78.0 [facility] Comment on above: Order Comment: 'TROP ' Serial specimen #1, #2 or #3: 3 Result Comment: Carol cash Note: New Test Units and Gender Specific Reference Ranges. For more information see Policy Stat Procedure Santa [place] High Sensitivity Troponin (TNIH) and attachments. Performed By: #### L 501.4020 #### [facility] [address] [place], [address] Lipid Profileon 04-06-2024 Cholesterol [Mass/Vol] 160 mg/dL Normal 200 [facility] Comment on above: Result Comment: <200 mg/dL Desirable 200-240 mg/dL Borderline >240 mg/dL High Risk Performed By: #### L 501.4020 #### [facility] [address] [place], [address] Cholesterol in HDL [Mass/Vol] 45 mg/dL Normal [facility] Comment on above: Result Comment: The drugs N-Acetylcysteine and Metamizole may falsely depress this assay. Reference Range HDL <40 mg/dL Low HDL Cholesterol HDL >or= 60 mg/dL High HDL Cholesterol Performed By: #### L 501.4020 #### [facility] [address] [place], [address] Cholesterol in LDL [Mass/Vol] 82 mg/dL Normal 0-130 [facility] Comment on above: Performed By: #### L 501.4020 #### [facility] [address] [place], [address] Cholesterol in VLDL [Mass/Vol] 33 mg/dL Normal 5-40 [facility] Comment on above: Performed By: #### L 501.4020 #### [facility] [address] [place], [address] Triglyceride [Mass/Vol] 167 mg/dL Normal [facility] Comment on above: Result Comment: The drugs N-Acetylcysteine and Metamizole may falsely depress this assay. Serum Triglycerides Reference Interval Normal <150 mg/dL Borderline high 150 - 199 mg/dL High 200 - 499 mg/dL Very High > or = 500 mg/dL Performed By: #### L 501.4020 #### [facility] [address] [place], [address] Magnesiumon 04-06-2024 Magnesium [Mass/Vol] 1.7 mg/dL Normal 1.6-2.6 [facility] Comment on above: Performed By: #### L 501.5200, L501.2300, L500.2500 #### [facility] [address] [place], [address] Phosphoruson 04-06-2024 Phosphate [Mass/Vol] 3.0 mg/dL Normal 2.5-4.9 [facility] Comment on above: Performed By: #### L 501.5200, L501.2300, L500.2500 #### [facility] [address] [place], [address] Stress Reporton 04-06-2024 Stress Report [facility] [address] [place] [address] MR#: [id number] Acct: [id number] Name: PHILIP ARNDT Rep #: [id number] : 1965 59 From: Mary Altamirano MD Primary Care: Shahana Older, PERFORMANCE ARCHITECT-C Status: ADM BORIS Referring Dr: Sex: M C Stress Test Report Date: 04/06/2024 Procedure: Pharmacologic stress nuclear imaging study Indications: Chest pain Consent: Per the patient Procedure: The patient underwent pharmacologic (Regadenoson) evaluation with a peak heart rate of 106 beats per minute (65%predicted maximal heart rate) and a peak blood pressure of 131/83 mmHg. The baseline ECG demonstrated normal sinus rhythm, right bundle branch block, nonspecific ST-T changes. EKG during lexiscan infusion revealed no significant ischemic changes. EKG post infusion revealed no significant ischemic changes [There were no cardiac dysrhythmias pretest, during pharmacologic infusion, or recovery]. [There was no complaint of chest discomfort during pharmacologic infusion or recovery]. The examination was discontinued secondary to completion of protocol. Impression: 1. Lexiscan stress test test is negative for Lexiscan infusion induced EKG changes of ischemia. 2. Lexiscan stress test test is negative for Lexiscan infusion induced chest pain. 3. Results of the nuclear portion of the test is as below Myocardial perfusion imaging study: Technique: The patient was injected with 13 millicuries of technetium 99m Cardiolite and subsequently rest SPECT Cardiolite nuclear imaging was obtained in the horizontal long, vertical long, and short axis views. The patient underwent pharmacologic [Regadenoson 0.4mg] evaluation. Please see above for details. The patient was injected with 41.4 millicuries of technetium 99m Cardiolite and subsequently stress SPECT Cardiolite nuclear imaging was obtained in the horizontal long, vertical long, and short axis views. A gated Cardiolite study at peak stress was obtained. Interpretation: Rest and stress SPECT Cardiolite nuclear imaging status post realignment, normalization, and attenuation correction demonstrate no evidence of significant ischemia or infarction. Gated images reveal no significant regional wall motion abnormalities. The reported LVEF is 53%. Impression: 1. There is no evidence of significant ischemia or infarction. 2. Estimated ejection fraction is 53%. This note was generated with [employer] software. It may contain incorrect words, spelling, and punctuation that were not noted in checking the note before signing. 04/06/24 1156 Date Mary Altamirano MD CC: CARLOS Murray; Dr. Adiel Teague, DO; Dr. Ofelia Donaldson, DO; Dr. Carroll Lindsay, DO Date Dictated: 04/06/241152 Date Transcribed: 04/06/241152 First Assistant: NN Signed Normal [facility] Urine Drug Screen (VISTA)on 04-06-2024 AMPHETAMINES Negative Normal <1000 ng/mL [facility] Comment on above: Order Comment: 'TROP ' Serial specimen #1, #2 or #3: 1 Performed By: #### L 501.4020 #### [facility] [address] [place], [address] BARBITIURATES Negative Normal < 200 ng/mL [facility] Comment on above: Order Comment: 'TROP ' Serial specimen #1, #2 or #3: 1 Performed By: #### L 501.4020 #### [facility] [address] [place], [address] BENZODIAZIPINE Negative Normal < 200 ng/mL [facility] Comment on above: Order Comment: 'TROP ' Serial specimen #1, #2 or #3: 1 Performed By: #### L 501.4020 #### [facility] [address] [place], [address] COCAINE Negative Normal < 300 ng/mL [facility] Comment on above: Order Comment: 'TROP ' Serial specimen #1, #2 or #3: 1 Performed By: #### L 501.4020 #### [facility] [address] [place], [address] ECSTACY Negative Normal < 500 ng/mL [facility] Comment on above: Order Comment: 'TROP ' Serial specimen #1, #2 or #3: 1 Performed By: #### L 501.4020 #### [facility] [address] [place], [address] METHADONE Negative Normal < 300 ng/mL [facility] Comment on above: Order Comment: 'TROP ' Serial specimen #1, #2 or #3: 1 Performed By: #### L 501.4020 #### [facility] [address] [place], [address] OPIATES Negative Normal < 300 ng/mL [facility] Comment on above: Order Comment: 'TROP ' Serial specimen #1, #2 or #3: 1 Performed By: #### L 501.4020 #### [facility] [address] [place], [address] PCP Negative Normal < 25 ng/mL [facility] Comment on above: Order Comment: 'TROP ' Serial specimen #1, #2 or #3: 1 Performed By: #### L 501.4020 #### [facility] [address] [place], [address] THC Negative Normal < 50 ng/mL [facility] Comment on above: Order Comment: 'TROP ' Serial specimen #1, #2 or #3: 1 Performed By: #### L 501.4020 #### [facility] [address] [place], [address] VISTA UDS PH 6 Normal [facility] Comment on above: Order Comment: 'TROP ' Serial specimen #1, #2 or #3: 1 Performed By: #### L 501.4020 #### [facility] [address] [place], [address] 12 Lead EKGon 04-05-2024 12 Lead EKG [facility] [address] [place] [address] 12 Lead EKG 04/06/24 0007 MR#: [id number] Acct: [id number] Name: PHILIP ARNDT Rep #: [id number] : 1965 59 From: Rodolfo Barcenas MD Attending Dr: Dr. Ofelia Donaldson, Status: DIS I NO Ordering Dr: Adiel Teague DO Date: 04/05/24 Location: [facility] Sex: M C Admitted: 04/05/24 Test Reason : CP ADMISSION Blood Pressure : / mmHG Vent. Rate : 071 BPM Atrial Rate : 071 BPM P-R Int : 150 ms QRS Dur : 130 ms QT Int : 432 ms P-R-T Axes : 062 -11 126 degrees QTc Int : 469 ms Normal sinus rhythm Right bundle branch block T wave abnormality, consider lateral ischemia Abnormal ECG When compared with ECG of 05-APR-2024 13:46, MANUAL COMPARISON REQUIRED, DATA IS UNCONFIRMED Confirmed by Rodolfo Barcenas ([id number]), web content editor BREANNA LYNCH ([id number]) on 04/07/2024 5:27:00 AM Referred By: TEAGUE Confirmed By:Rodolfo Barcenas 04/07/24 0527 Date Rodolfo Barcenas MD CC: CARLOS Murray; Dr. Adiel Teague DO; Dr. Ofelia Donaldson DO Signed [facility] 12 Lead EKG [facility] [address] [place] [address] 12 Lead EKG 04/05/24 1346 MR#: [id number] Acct: [id number] Name: PHILIP ARNDT Rep #: [id number] : 1965 59 From: Rodolfo Barcenas MD Attending Dr: Dr. Ofelia Donaldson DO Status: ADM I NO Ordering Dr: Carroll Lindsay DO Date: 04/05/24 Location: [facility] Sex: M C Admitted: 04/05/24 Test Reason : Blood Pressure : / mmHG Vent. Rate : 093 BPM Atrial Rate : 093 BPM P-R Int : 162 ms QRS Dur : 120 ms QT Int : 408 ms P-R-T Axes : 056 -36 078 degrees QTc Int : 507 ms Normal sinus rhythm Left axis deviation Right bundle branch block Abnormal ECG Confirmed by Rodolfo Barcenas ([id number]), web content editor ANAMARIA MCDUFFIE ([id number]) on 04/06/2024 10:11:58 AM Referred By: Confirmed By:Rodolfo Barcenas 04/06/24 1012 Date Rodolfo Barcenas MD CC: CARLOS Murray; Dr. Ofelia Donaldson DO; Dr. Carroll Lindsay DO Signed [facility] Alcohol, Blood (Medical)-Ser umon 04-05-2024 SERUM ETOH 5.0 mg/dL [facility] Comment on above: Result Comment: The serum:whole blood ethanol ratio is approximately 1.14 and varies slightly with hematocrit. Medical Alcohol reference interval and critical value in non-tolerant individuals; 50 - 100 Impairment 100 Intoxication 100 - 250 Severe Poisoning 250 - 400 Deep/possible fatal coma Performed By: #### L 501.4020 #### [facility] [address], [address] Basic Metabolic Profile (BMP )on 04-05-2024 BUN/CRE 19.8 RATIO Normal 10-20 [facility] Comment on above: Performed By: #### L 500.2500, L100.0100, L300.3900, L300.4310 #### [facility] [address] [place], [address] CA,Total 9.5 mg/dL Normal 8.5-10.1 [facility] Comment on above: Performed By: #### L 500.2500, L100.0100, L300.3900, L300.4310 #### [facility] [address] [place], [address] Chloride [Moles/Vol] 99 mmol/L Normal 98-107 [facility] Comment on above: Performed By: #### L 500.2500, L100.0100, L300.3900, L300.4310 #### [facility] [address] [place], [address] CO2 [Moles/Vol] 31.0 mmol/L Normal 21.0-32.0 [facility] Comment on above: Performed By: #### L 500.2500, L100.0100, L300.3900, L300.4310 #### [facility] [address] [place], [address] Creatinine [Mass/Vol] 1.06 mg/dL Normal 0.70-1.30 [facility] Comment on above: Result Comment: The validity of the calculated GFR GFRAA in patients over 70 years has not been determined. Clinical correlation is essential. Performed By: #### L 500.2500, L100.0100, L300.3900, L300.4310 #### [facility] [address] [place], [address] ECRCL 88.06 ml/min Normal [facility] Comment on above: Performed By: #### L 500.2500, L100.0100, L300.3900, L300.4310 #### [facility] [address] [place], [address] EST GFR - AA 93 mL/min Normal >60 [facility] Comment on above: Result Comment: Afri can Portuguese GFR Calc Performed By: #### L 500.2500, L100.0100, L300.3900, L300.4310 #### [facility] [address] [place], [address] GAP 6 Normal 5-15 [facility] Comment on above: Performed By: #### L 500.2500, L100.0100, L300.3900, L300.4310 #### [facility] [address] [place], [address] GFR/1.73 sq M.predicted among non-blacks MDRD (S/P/Bld) [Vol rate/Area] 77 mL/min/{1.73_m2} Normal >60 [facility] Comment on above: Result Comment: Non- GFR Calc Performed By: #### L 500.2500, L100.0100, L300.3900, L300.4310 #### [facility] [address] [place], [address] Glucose [Mass/Vol] 328 mg/dL High 74-106 [facility] Comment on above: Result Comment: Gluc ose result greater than or equal to 200 mg/dL suggests DIABETES MELLITUS per A.D.A. criteria. Performed By: #### L 500.2500, L100.0100, L300.3900, L300.4310 #### [facility] [address] [place], [address] Potassium [Moles/Vol] 4.2 mmol/L Normal 3.5-5.1 [facility] Comment on above: Performed By: #### L 500.2500, L100.0100, L300.3900, L300.4310 #### [facility] [address] [place], [address] Sodium [Moles/Vol] 136 mmol/L Normal 136-145 [facility] Comment on above: Performed By: #### L 500.2500, L100.0100, L300.3900, L300.4310 #### [facility] [address] [place], [address] Urea nitrogen [Mass/Vol] 21 mg/dL High 7-18 [facility] Comment on above: Performed By: #### L 500.2500, L100.0100, L300.3900, L300.4310 #### [facility] [address] [place], [address] Bedside Glucoseon 04-05-2024 FINGERSTICK GLU 309 mg/dL High 74-106 [facility] Comment on above: Result Comment: PHILLIP NASH OF PATIENT CARE PER NURSING PROTOCOL Performed By: #### L 501.4020 #### [facility] [address] [place], [address] Chest 1 View (Portable)on Chest 1 View (Portable) [facility] Imaging Services [address] [place] [address] Chest 1 View (Portable) MR#: [id number] Acct: [id number] Name: PHILIP ARNDT Rep #: [id number] : 1965 M 59 From: Dominik huntley MD PCP: Shahana Murray, PERFORMANCE ARCHITECT-C Status: PRE ER Study: Chest 1 View (Portable) Date of Exam: 04/05/24 Exam# [id number] Ordering Dr: Kevin Madrid PAnton [id number] STUDY: X-RAY CHEST REASON FOR EXAM: Male, 59 years old. Stroke TECHNIQUE: Single AP portable view of the chest. COMPARISON: Comparison is made with prior study March 30, 2023. FINDINGS: The lungs are clear and expanded. There is no demonstrated pleural abnormality. Normal size heart. Normal mediastinum and alicja. Normal visualized pulmonary arteries. Normal visualized aortic arch and descending thoracic aorta. There are diffuse degenerative changes of the visualized thoracic spine. Normal visualized ribs, clavicles, and shoulders. There is no demonstrated abnormality of the visualized soft tissue structures of the upper abdomen. RAD/Chest 1 View (Portable) IMPRESSION: No acute abnormality is seen. Electronically Signed: Dominik Rai MD at 11:27 EDT Reading Location ID and State: [address] [place] [address] , Service support , CC: CARLOS Murray; ED PHYSICIAN PROVIDER First Assistant: Signed Normal [facility] Echo Completeon 04-05-2024 Echo Complete [facility] Cardi[facility] Services [address] [place] [address] Echo Complete 04/06/24 1000 MR#: [id number] Acct: [id number] Name: PHILIP ARNDT Rep #: [id number] : 1965 59 From: Mary Altamirano MD Attending Dr: Dr. Ofelia Donaldson, Status: ADM I NO Ordering Dr: Adiel Teague DO Date: 04/05/24 Location: [facility] Sex: M C Admitted: 04/05/24 Reason For Study: ELEVATED TROPONIN Procedure This was a 2D Doppler, Color Flow transthoracic echocardiogram. Exam performed in department. Left Ventricle Normal LV size. The estimated ejection fraction is 60 %. No evidence for diastolic dysfunction. No regional wall motion abnormalities noted. Right Ventricle Normal RV size. Normal systolic function. Atria The left and right atria are normal. No doppler evidence for ASD. Mitral Valve There is no mitral valve stenosis. No mitral valve insufficiency. Tricuspid Valve There is no tricuspid stenosis. Unable to estimate RV systolic pressure due to inadequate jet, pulmonary artery pressure probably normal. Aortic Valve Trisinus/trileaflet aortic valve. There is no aortic stenosis. No aortic valve insufficiency. Pulmonic Valve There is no pulmonic valvular stenosis. No pulmonic valve insufficiency. Great Vessels Normal aortic root. Pericardium/Pleural No pericardial effusion. MMode/2D Measurements Calculations LVIDd: 4.7 cm IVSd: 1.9 cm Ao root diam: 3.4 cm LVIDs: 3.0 cm LVPWd: 1.4 cm RVDd: 3.2 cm FS: 36.3 % LAV(MOD-bp): 38.5 ml LVAd ap4: 33.2 cm2 LVAd ap2: 27.5 cm2 LAV(MOD-sp2): 45.8 ml LVLd ap4: 8.9 cm LVLd ap2: 8.5 cm LAV(MOD-sp4): 31.9 ml EDV(MOD-sp4): 103.4 ml EDV(MOD-sp2): 79.5 ml EDV(sp4-el): 105.6 ml EDV(sp2-el): 75.8 ml LVAs ap4: 21.5 cm2 LVAs ap2: 13.9 cm2 LVLs ap4: 8.9 cm LVLs ap2: 6.5 cm ESV(MOD-sp4): 46.9 ml ESV(MOD-sp2): 26.8 ml ESV(sp4-el): 44.1 ml ESV(sp2-el): 25.3 ml EF(MOD-sp4): 54.6 % EF(MOD-sp2): 66.3 % EF(sp4-el): 58.3 % SV(MOD-sp4): 56.5 ml SV(MOD-sp2): 52.7 ml SV(sp4-el): 61.6 ml LA dimension(2D): 3.5 cm LA A4 area: 13.6 cm2 RA A4 area: 14.4 cm2 TAPSE: 2.6 cm Time Measurements MV dec time: 0.24 sec Doppler Measurements Calculations MV E max paddy: 56.1 cm/sec Lat Peak E' Paddy: 9.4 cm/sec Med Peak E' Paddy: 7.3 cm/sec MV A max paddy: 78.1 cm/sec E/E' lat: 6.0 E/E' med: 7.7 MV E/A: 0.72 MV V2 max: 81.6 cm/sec MV P1/2t max paddy: 54.6 cm/sec Ao V2 max: 144.4 cm/sec MV max P.7 mmHg MV P1/2t: 69.9 msec Ao max P.3 mmHg MV V2 mean: 44.5 cm/sec MV dec slope: 228.6 cm/sec2 Ao V2 mean: 106.6 cm/sec MV mean P.91 mmHg Ao mean P.9 mmHg MV V2 VTI: 20.2 cm MVA(P1/2t): 3.1 cm2 Ao V2 VTI: 26.4 cm AV (velocity ratio): 0.90 LV V1 max: 129.2 cm/sec PA V2 max: 105.7 cm/sec LV V1 max P.7 mmHg PA V2 mean: 73.8 cm/sec LV V1 mean P.5 mmHg LV V1 mean: 87.7 cm/sec LV V1 VTI: 23.8 cm ECHO/Echo Complete Interpretation Summary The estimated ejection fraction is 60 %. No evidence for diastolic dysfunction. Ordering Physician: Adiel Teague Referring Physician: Shahana Murray Performed By: Mariajose Harris RVT, RDCS and Student 04/06/24 2861 Date Mary Altamirano MD CC: PERFORMANCE ARCHITECT-C Shahana Murray; Dr. Adiel Teague DO; Dr. Ofelia Donaldson DO Date Dictated: 04/06/24 1000 Date Transcribed: 04/06/24 1455 First Assistant: Signed Normal [facility] Emergency Department Summary on 04-05-2024 Emergency Department Summary [facility] Medical Records Department [address] [place] [address] Emergency Department Summary 04/05/24 MR#: [id number] Acct: [id number] Name: PHILIP ARNDT Rep #: [id number] : 1965 59 From: Carroll Lindsay DO PCP: Shahana Murray, PERFORMANCE ARCHITECT-C Status:ADM BORIS Location: [address] History of Present Illness Chief Complaint: Fatigue Narrative Narrative: Patient is a 59-year-old male past medical history of diabetes, hypertension, asthma who presented to the emergency department the chief complaint of fatigue and generalized not feeling well. According to his family member at bedside they noted that he is not compliant with his diabetes medication and takes that more as needed when he is not feeling well. He states that he will take his medication and start to feel well then he will discontinue this again. Yesterday per the family member at bedside noted that he slept all day and did not eat or drink anything and was hard to arouse she figured that his glucose was elevated and gave him insulin. She noted that his glucose was elevated again and gave him more insulin today prior to him coming here further evaluation management. Patient states that he just does not feel well overall denies any infectious type symptoms. [facility] Medical History HTN (hypertension) Hyperlipemia Diabetes Asthma Home Medications ???Medication ???Instructions ???Recorded ???Last Taken ???Type gabapentin 300 mg capsule 600 mg PO BID 01/16/21 Unknown History hydrochlorothiazide 25 mg tablet 25 mg PO DAILY 01/16/21 Unknown History insulin glargine 100 unit/mL (3 25 unit subcut BID 01/16/21 Unknown History mL) subcutaneous pen (Basaglar KwikPen U-100 Insulin) lovastatin 20 mg tablet 20 mg PO QHS 01/16/21 Unknown History metformin 1,000 mg tablet 1,000 mg PO BID 01/16/21 Unknown History dicyclomine 20 mg tablet 20 mg PO TID Abdominal cramping 01/17/21 Unknown Rx #14 tabs diazepam 5 mg tablet (Valium) 5 mg PO TID PRN muscle spasm 5 02/06/24 Unknown Rx days #15 tabs Allergy/AdvReac Type Severity Reaction Status Date / Time No Known Allergies Allergy Verified 04/05/24 09:37 Social History Smoking Status: Never smoker ROS ROS ED ROS Narrative Constitutional: Denies any fevers, chills, headaches, lightheadedness, dizziness Eyes: Denies double vision blurry vision change in vision Cardiovascular: Denies chest pain or palpitations Respiratory: Denies coughing wheezing shortness of breath Abdomen: Denies any abdominal pain vomiting diarrhea : Denies painful urination, hematuria, polyuria Neurological: Denies numbness, weakness, tingling Musculoskeletal: Denies back pain Skin: Denies rashes or lesions EXAM Physical Exam Narrative Exam Narrative: General: Patient lying in bed rest comfortably did not appear to be in acute distress Head: Atraumatic, normocephalic Eyes: PERRL bilateral, EOMI bilateral, no conjunctival injection noted Neck: Soft, supple, trachea midline Cardiovascular: Regular rate and rhythm no murmurs gallops rubs noted Respiratory: Clear to auscultation bilaterally no rales rhonchi or wheezes noted Abdomen: Soft, nondistended, no tenderness palpation, bowel sounds present x 4 Extremities: +5/5 strength noted in the bilateral upper and lower extremities, no pedal edema neuroexam Neurological: Patient following commands knew that he was at [facility] years 2023 Skin: Warm, dry, tact Const Vital Signs: 04/05/24 09:34 04/05/24 13:36 04/05/24 13:36 Temperature 98 F Temperature Source Oral Pulse Rate 110 H 82 Respiratory Rate 18 16 Blood Pressure 108/89 H 121/88 H Blood Pressure Mean 95 99 Pulse Ox 97 95 Oxygen Delivery Method Room Air Room Air Room Air 04/05/24 15:37 04/05/24 17:00 04/05/24 19:00 Temperature Temperature Source Pulse Rate 76 Respiratory Rate 18 Blood Pressure 88/54 L 135/88 H 139/92 H Blood Pressure Mean 65 103 107 Pulse Ox 94 Oxygen Delivery Method Room Air MDM MDM MDM Narrative Medical decision making narrative: Patient is a 59-year-old male who presented to the emerged part with chief complaint of hyperglycemia and generalized not feeling well. Once again prior to arrival the patient did take insulin. Patient will have a workup performed here on the differential diagnose includes but not limited to DKA, hypoglycemia, ACS, pneumonia. Once workup is obtained reviewed he will be reevaluated. Patient be given 2 L of IV fluid for hydration. Patient CBC reviewed and showed a white blood cell count of 7.3 hemoglobin was elevated and concentrated 18.3, MCV normal at 85.6, patient's INR normal 1.3, sodium no (more content not included)... Normal [facility] H AND P Exam - Hospitaliston 04-05-2024 H&P Exam - Hospitalist [facility] Medical Records Department [address] [place] [address] H P Exam - Hospitalist 04/05/242005 MR#: [id number] Acct: [id number] Name: PHILIP ARNDT Rep #: [id number] : 1965 59 From: Adiel Teague DO PCP: Shahana Murray, PERFORMANCE ARCHITECT-C Status:ADM BORIS Location: [place] [address] HPI - General General Date of Admission: 04/05/24 Date of Service: 04/05/24 Chief Complaint: Chest Pain with Activity and Fatigue. HPI Narrative PHILIP ARNDT, is a 59 M with a past medical history of essential hypertension, hyperlipidemia, obesity; with BMI of 33.5 this admission, DM-2; uncontrolled with hyperglycemia due to medical noncompliance, Jardiance, Ozempic and Lantus 25 units sq BID, diabetic neuropathy, Asthma and OA who presents to [facility] ER complaining of chest pain with activity and fatigue. Mr. Arndt is a tangential historian with a relatively poor recollection of recent events but he states his problems began more than a week prior to admission with the consistent onset of chest pain with activity that was pressure-like, feeling like heart burn, precordial, nonradiating and moderate with rest improving his symptoms. His family member informed the ER physician that he does not take his diabetic medications as prescribed and when he feels poorly he takes more than he is prescribed. Yesterday his family stated that he basically slept all day and did not eat or drink very much so they gave him a dose of insulin because they figured his blood glucose was elevated. Then earlier today they noticed his blood glucose was still elevated in the 308 mg/dL range so they gave more insulin again prior to bringing him in for further evaluation and treatment. There is no report of fever, chills, nausea, vomiting, diaphoresis, SOB, palpitations, heart racing, headache or focal neurologic symptoms. In the ER he was noted to have an elevated initial troponin of 88 pg/mL present on admission with an EKG that revealed T-wave inversions suspicious for underlying cardiac ischemia (but no STEMI) complicated by DM-2; uncontrolled with hyperglycemia of 308 mg/dL present on admission in the setting of known chronic medical noncompliance and severe fatigue and he was then admitted to the PCU under observation status for ongoing care for a stay that is expected to be less than 2 midnights. [facility] Medical History HTN (hypertension) Hyperlipemia Diabetes Asthma Home Medications ???Medication ???Instructions ???Recorded ???Last Taken ???Type gabapentin 300 mg capsule 600 mg PO BID 01/16/21 Unknown History hydrochlorothiazide 25 mg tablet 25 mg PO DAILY 01/16/21 Unknown History insulin glargine 100 unit/mL (3 25 unit subcut BID 01/16/21 Unknown History mL) subcutaneous pen (Basaglar KwikPen U-100 Insulin) lovastatin 20 mg tablet 20 mg PO QHS 01/16/21 Unknown History metformin 1,000 mg tablet 1,000 mg PO BID 01/16/21 Unknown History dicyclomine 20 mg tablet 20 mg PO TID Abdominal cramping 01/17/21 Unknown Rx #14 tabs diazepam 5 mg tablet (Valium) 5 mg PO TID PRN muscle spasm 5 02/06/24 Unknown Rx days #15 tabs Allergy/AdvReac Type Severity Reaction Status Date / Time No Known Allergies Allergy Verified 04/05/24 09:37 Social History household members: significant other and other housing: house current occupational status: employed current occupation: [employer] works in [employer] Smoking Status: Never smoker ROS ROS Narrative Review of Systems: Constitutional: Patient admits to fatigue but he denies fever or chills. Eyes: Patient denies changes in vision or discharge from eyes. ENT: Patient denies runny nose, sore throat or ear pain. Resp: Patient denies SOB or cough. CV: Patient admits to chest pain with activity but he denies palpitations or heart racing. GI: Patient denies abdominal pain, nausea, vomiting, diarrhea or constipation. : Patient denies dysuria or hematuria. MSK: Patient admits to severe fatigue but he denies arthralgias or myalgias. Skin: Patient denies rash, abscess or jaundice. Psych: Patient denies symptoms of uncontrolled depression or anxiety. Neuro: Patient denies headache, paresthesias or focal neurologic deficits. Allergy: Patient denies lip swelling, tongue swelling or urticaria. Hematology: Patient denies easy bleeding or easy bruisability. Endocrinology: Patient admits to polyuria and polydipsia. 14 point ROS otherwise negative except for positives noted above in HPI. Vital Signs Vital Signs Vital Signs: 04/05/24 09:34 04/05/24 13:36 04/05/24 13:36 Temperature 98 F Temperature Source Oral Pulse Rate 110 H 82 Respiratory Rate 18 16 Blood Pressure 108/89 H 121/88 H (more content not included)... Normal [facility] Hemoglobin A1con 04-05-2024 HbA1c (Bld) [Mass fraction] 11.5 % High 3.8-5.6 [facility] Comment on above: Result Comment: Norm al < 5.7 % Prediabetic 5.7 - 6.4 % Diabetic >or= 6.5 % Please note range changes. Performed By: #### L 501.4020 #### [facility] [address] [place], [address] L501.4020on 04-05-2024 TROPONIN-I HS 91 pg/mL High 3.0-78.0 [facility] Comment on above: Order Comment: 'TROP ' Serial specimen #1, #2 or #3: 1 Result Comment: Carol cash Note: New Test Units and Gender Specific Reference Ranges. For more information see Policy Stat Procedure [place] High Sensitivity Troponin (TNIH) and attachments. Performed By: #### L 501.4020 #### [facility] [address], [address] TROPONIN-I HS 88 pg/mL High 3.0-78.0 [facility] Comment on above: Order Comment: 'TROP ' Serial specimen #1, #2 or #3: 1 Result Comment: Plea se Note: New Test Units and Gender Specific Reference Ranges. For more information see Policy Stat Procedure [place] High Sensitivity Troponin (TNIH) and attachments. Performed By: #### L 501.4020 #### [facility] [address] [place], [address] Partial Thromboplast Timeon 04-05-2024 aPTT Coag (Bld) [Time] 25.7 s Normal 24.1-36.2 [facility] Comment on above: Performed By: #### L 500.2500, L100.0100, L300.3900, L300.4310 #### [facility] [address] [place], [address] Prothrombin Time w/INRon INR Coag (PPP) [Relative time] 1.3 {INR} Normal [facility] Comment on above: Performed By: #### L 500.2500, L100.0100, L300.3900, L300.4310 #### [facility] [address] [place], [address] PT Coag (PPP) [Time] 15.8 s High 11.7-14.9 [facility] Comment on above: Performed By: #### L 500.2500, L100.0100, L300.3900, L300.4310 #### [facility] [address] [place], [address] Emergency Department Summary on 02-06-2024 Emergency Department Summary [facility] Medical Records Department [address] [place] [address] Emergency Department Summary 02/06/24 MR#: [id number] Acct: [id number] Name: PHILIP ARNDT Rep #: [id number] : 1965 58 From: Ramon Smith DO PCP: Shahana Murray, PERFORMANCE ARCHITECT-C Status:REG ER Location: ED HPI History of Present Illness Chief Complaint: Other, Pain/Inj Informant: patient Narrative Narrative: . Patient is a 58-year-old male with past medical history of hypertension hyperlipidemia asthma and diabetes. He states that he lifts objects at work repeatedly. He states over the past week he has noticed pain in the right side of his neck that is worse if he tries to turn his head. He denies any trauma. He states has been no fevers or chills he denies any change in vision or headache he denies any difficulty breathing or swallowing. He states however he is tried [id number] medications with minimal symptom improvement and secondary to this comes in for evaluation. [facility] Medical History HTN (hypertension) Hyperlipemia Diabetes Asthma Home Medications ???Medication ???Instructions ???Recorded ???Last Taken ???Type gabapentin 300 mg capsule 600 mg PO BID 01/16/21 Unknown History hydrochlorothiazide 25 mg tablet 25 mg PO DAILY 01/16/21 Unknown History insulin glargine 100 unit/mL (3 25 unit subcut BID 01/16/21 Unknown History mL) subcutaneous pen (Basaglar KwikPen U-100 Insulin) lovastatin 20 mg tablet 20 mg PO QHS 01/16/21 Unknown History metformin 1,000 mg tablet 1,000 mg PO BID 01/16/21 Unknown History dicyclomine 20 mg tablet 20 mg PO TID Abdominal cramping 01/17/21 Unknown Rx #14 tabs ondansetron 4 mg disintegrating 4 mg PO Q8H PRN PRN Nausea #10 tabs 01/17/21 Unknown Rx tablet penicillin V potassium 500 mg 500 mg PO 4X/DAY #39 tabs 03/15/23 Unknown Rx tablet clindamycin HCl 300 mg capsule 300 mg PO TID #30 caps 03/18/23 Unknown Rx ondansetron 4 mg disintegrating 4 mg PO Q8H PRN PRN Nausea #10 tabs 03/18/23 Unknown Rx tablet diazepam 5 mg tablet (Valium) 5 mg PO TID PRN muscle spasm 5 02/06/24 Unknown Rx days #15 tabs oxycodone-acetaminophen 5 mg-325 1 tab PO Q6H PRN pain 3 days #12 02/06/24 Unknown Rx mg tablet (Percocet) tabs Allergy/AdvReac Type Severity Reaction Status Date / Time No Known Allergies Allergy Verified 02/06/24 21:27 Social History Smoking Status: Never smoker ROS ROS ED Constitutional Constitutional ED: Denies chills or fever(s) Eyes Eyes: Denies blurry vision or change in vision ENT ENT ED: Denies ear pain or sore throat Cardiovascular Cardiovascular: Denies chest pain Respiratory/Chest Respiratory/Chest: Denies cough or dyspnea Gastrointestinal Gastrointestinal: Denies abdominal pain, diarrhea, nausea or vomiting Genitourinary Genitourinary ED: Denies dysuria Musculoskeletal Musculoskeletal: Reports neck pain Integumentary Denies Abrasions or rash Neurologic Neurologic: Denies headache(s), paresthesias or weakness Hematologic/Lymphatic Hematologic/Lymphatic: Denies easy bleeding or easy bruising EXAM Physical Exam Const Vital Signs: 02/06/24 21:26 02/06/24 21:26 Temperature 97.6 F L Temperature Source Temporal Pulse Rate 111 H 120 H Respiratory Rate 16 14 Blood Pressure 188/115 H 190/120 H Blood Pressure Mean 139 143 Pulse Ox 94 98 Oxygen Delivery Method Room Air Room Air Positive well nourished and well developed General Appearance ED: well developed; Negative for pallor HEENT Reports moist mucous membranes HEENT Narrative: No tongue or lip swelling no oral lesions no airway edema or compromise No signs of infection noted in the posterior pharynx Eyes PERRL and EOMs intact bilaterally General Eye ED: Negative for scleral icterus Neck Neck Narrative: No bony deformity or step-off of the cervical spine no midline tenderness to palpation Patient has right-sided paracervical tenderness and muscular spasm mainly over top of the SCM that worsens with sidebending and rotation No carotid bruit Resp normal respiratory effort and clear to auscultation bilaterally Cardio regular rhythm Rate: tachycardic and other Other Details: Tachycardic rate with regular rhythm No murmurs rubs or gallops Radial and carotid pulses are equal and symmetric GI normal to inspection, nondistended, normoactive bowel sounds, non-tender, non-distended and no masses GI Narrative: No pulsatile mass Auscultation: normoactive bowel sounds Palpation: soft Back/Spine Back/Spine Narrative: No bony deformity or step-off of the thoracic or lumbar spine no midline tenderness to palpation Extremity normal to inspection (more content not included)... Normal [facility] Absolute lymphocyte countOrd ered By: Vimal Wang on 03-30-2023 Lymphocytes Auto (Unsp spec) [#/Vol] 1.40 10*3/uL 0.83-4.51 [facility] Basophil percentageOrdered B y: Vimal Wang on 03-30-2023 Basophils/100 WBC (Bld) 1.0 % 0-1 [facility] Chloride [Moles/Vol] 104 mmol/L 98-107 [facility] Eosinophils/100 WBC (Bld) 5.2 % 0-5 [facility] Glucose [Mass/Vol] 260 mg/dL 74-106 [facility] Comment on above: Glucose result great er than or equal to 200 mg/dLsuggests DIABETES MELLITUS per A.D.A. criteria. Neutrophils (Bld) [#/Vol] 3.0 10*3/uL 2.0-7.7 [facility] Neutrophils/100 WBC (Bld) 57.6 % 47-70 [facility] Potassium [Moles/Vol] 3.7 mmol/L 3.5-5.1 [facility] Sodium [Moles/Vol] 136 mmol/L 136-145 [facility] WBC (Bld) [#/Vol] 5.2 10*3/uL 4.4-11.0 [facility] Blood erythrocytes count (nu mber/volume)Ordered By: Vimal Wang on 03-30-2023 RBC (Bld) [#/Vol] 5.49 10*6/uL 4.6-6.2 [facility] Blood hemoglobin measurement (mass/volume)Ordered By: Vimal Wang on 03-30-2023 Hemoglobin (Bld) [Mass/Vol] 15.5 g/dL 13.0-16.5 [facility] Blood lymphocytes/100 leukoc ytesOrdered By: Vimal Wang on 03-30-2023 Lymphocytes/100 WBC (Bld) 26.8 % 19-41 [facility] Blood monocytes/100 leukocyt esOrdered By: Vimal Wang on 03-30-2023 Monocytes/100 WBC (Bld) 9.2 % 0-10 [facility] Blood platelet mean volumeOr dered By: Vimal Wang on 03-30-2023 Platelet mean volume (Bld) [Entitic vol] 10.8 fL 6.2-12.0 [facility] Determination of erythrocyte mean corpuscular volume (MCV)Ordered By: Vimal Wang on 03-30-2023 MCV (RBC) [Entitic vol] 86.5 fL 80-94 [facility] Hematocrit Auto (Bld) [Volum e fraction]Ordered By: Vimal Wang on 03-30-2023 Hematocrit (Bld) [Volume fraction] 47.5 % 40-54 [facility] Influenza virus A and B and SARS-CoV-2 (COVID-19) Ag panel - Upper respiratory specimOrdered By: Vimal Wang on 03-30-2023 SARS-CoV-2 & FLU Antigen (Rapid) SARS-CoV-2 (COVID 19) [facility] - Chemistry and C hemistry - challengeOrdered By: Vimal Wang on 03-30-2023 CO2 [Moles/Vol] 29.0 mmol/L 21.0-32.0 [facility] Urea nitrogen/Creatinine [Mass ratio] 17.2 mg/mg 10-20 [facility] - Hematology and Cell countsOrdered By: Vimal Wang on 03-30-2023 Erythrocyte distribution width (RBC) [Entitic vol] 39.8 fL 35.1-43.9 [facility] Erythrocyte distribution width (RBC) [Ratio] 12.5 % 11.6-14.6 [facility] Immature granulocytes/100 WBC (Bld) 0.200 % 0.0-0.9 [facility] Comment on above: IG% - Immature Granu locytes (promyelocytes, myelocytes and metamyelocytes) > 1% indicates that a LEFT SHIFT is Present. MCH (RBC) [Entitic mass] 28.2 pg 27.0-32.0 [facility] Nucleated RBC/100 WBC (Bld) [Ratio] 0 % 0-5 [facility] [Mass/Vol]Or dered By: Vimal Wang on 03-30-2023 MCHC (RBC) [Mass/Vol] 32.6 g/dL 32-36 [facility] No Panel InformationOrdered By: Vimal Wang on 03-30-2023 Estimated Creatinine Clearance Calc 85.81 ml/min [facility] Estimated GFR (MDRD) Amer 108 mL/min >60 [facility] Comment on above: GFR Calc Estimated GFR (MDRD) Non-Af Amer 89 mL/min >60 [facility] Comment on above: Non- GFR Calc Platelets bldOrdered By: Dedra Wang on 03-30-2023 Platelets (Bld) [#/Vol] 155 10*3/uL 150-450 [facility] Serum or plasma calcium leyda urement (mass/volume)Ordered By: Vimal Wang on 03-30-2023 Calcium [Mass/Vol] 8.1 mg/dL 8.5-10.1 [facility] Serum or plasma creatinine m easurement (mass/volume)Ordered By: Vimal Wang on 03-30-2023 Creatinine [Mass/Vol] 0.93 mg/dL 0.70-1.30 [facility] Comment on above: The validity of the calculated GFR & GFRAA in patients over 70 years has not been determined. Clinical correlation is essential. Serum or plasma urea nitroge n measurement (mass/volume)Ordered By: Vimal Wang on 03-30-2023 Urea nitrogen [Mass/Vol] 16 mg/dL 7-18 [facility] Thin prep Papanicolaou smear with manual screeningOrdered By: Vimal Wang on 03-30-2023 Thin prep Papanicolaou smear with manual screening 3 -15 [facility] HEMOGLOBIN A1C (POC)on 03-14 HbA1c (Bld) [Mass fraction] 12.6 % Abnormal 4.2 - 5.6 % [facility] XR Shoulder - right 3 Viewso n 09-25-2021 IMPRESSION: Acromioclavicular degenerative changes. Findings suggesting chronic rotator cuff tear. First Assistant[facility] Transcribe Date/Time: Sep 25 2021 6:50A Dictated by : JG DE LEON MD This examination was interpreted and the report reviewed and electronically signed by: JG DE LEON MD on Sep 25 2021 6:54AM [facility] DIVISION OF RADIOLOGY * * *Final Report* * * DATE OF EXAM: Sep 24 2021 6:26PM WOX 5253 - XR SHLDR >/=3V AP/KEERTHI AP/OTHR RT / PROCEDURE REASON: Post-traumatic osteoarthritis of right shoulder * * * * Physician Interpretation * * * * HISTORY: right shoulder pain after falling on the ice in july. Post-traumatic osteoarthritis of right shoulder . TECHNIQUE: XR SHLDR >/=3V AP/KEERTHI AP/OTHR RT Laterality: RIGHT Number of different views (projections): 3 COMPARISON: None RESULT: No fracture identified. Subacromial space is mildly narrowed. Degenerative change in the AC joint. Glenohumeral articulation is maintained. DIVISION OF RADIOLOGY Provider, [facility] - 09/25/2021 * * *Final Report* * * DATE OF EXAM: Sep 24 2021 6:26PM WOX 5253 - XR SHLDR >/=3V AP/KEERTHI AP/OTHR RT / PROCEDURE REASON: Post-traumatic osteoarthritis of right shoulder * * * * Physician Interpretation * * * * HISTORY: right shoulder pain after falling on the ice in july. Post-traumatic osteoarthritis of right shoulder . TECHNIQUE: XR SHLDR >/=3V AP/KEERTHI AP/OTHR RT Laterality: RIGHT Number of different views (projections): 3 COMPARISON: None RESULT: No fracture identified. Subacromial space is mildly narrowed. Degenerative change in the AC joint. Glenohumeral articulation is maintained. IMPRESSION IMPRESSION: Acromioclavicular degenerative changes. Findings suggesting chronic rotator cuff tear. First [facility] Trans[facility] Date/Time: Sep 25 2021 6:50A Dictated by : JG DE LEON MD This examination was interpreted and the report reviewed and electronically signed by: JG DE LEON MD on Sep 25 2021 6:54AM [facility] XR Shoulder - right 3 ViewsO rdered By: [facility] Provider on 09-25-2021 [facility] XR Shoulder - right 3 Viewso n 09-24-2021 Radiology Study observation (narrative) [facility] Vital Signs Date Time Vital Sign Value Performing Clinician Elvis smith 06-30-2024 08:04-0500 Body height 172.7 cm Amairani Cioce PIGMENT SUPPLIER.[employer] Work Phone: [facility] 06-30-2024 08:04-0500 Body mass index (BMI) [Ratio] 34.79 kg/m2 Amairani Cioce PIGMENT SUPPLIER.GOLD L[employer]ER Work Phone: [facility] 06-30-2024 08:04-0500 Body temperature 99.1 [degF] Amairani Cioce PIGMENT SUPPLIER.GOLD L[employer]ER Work Phone: [facility] 06-30-2024 08:04-0500 Body weight 103.78 kg Amairani Cioce PIGMENT SUPPLIER.[employer]OLD L[employer]ER Work Phone: [facility] 06-30-2024 08:04-0500 Diastolic blood pressure 76 mm[Hg] Amairani Cioce PIGMENT SUPPLIER.GOLD LAYER Work Phone: [facility] 06-30-2024 08:04-0500 Heart rate 102 /min Amairani Cioce PIGMENT SUPPLIER.GOLD L[employer]ER Work Phone: [facility] 06-30-2024 08:04-0500 SaO2% (BldA) [Mass fraction] 98 % Amairani Cioce PIGMENT SUPPLIER.[employer]OLD L[employer]ER Work Phone: [facility] 06-30-2024 08:04-0500 Systolic blood pressure 132 mm[Hg] Amairani Cioce PIGMENT SUPPLIER.GOLD L[employer]ER Work Phone: [facility] 05-26-2024 17:55-0500 Body height 173 cm Shahana Valenzuela PIGMENT SUPPLIER.GOLD L[employer]ER Work Phone: [facility] 05-26-2024 17:55-0500 Body mass index (BMI) [Ratio] 34.05 kg/m2 Shahana Valenzuela PIGMENT SUPPLIER.GOLD LAYER Work Phone: [facility] 05-26-2024 17:55-0500 Body weight 101.9 kg Shahana Bianca PIGMENT SUPPLIER.GOLD L[employer]ER Work Phone: [facility] 05-26-2024 17:55-0500 Diastolic blood pressure 86 mm[Hg] Shahana Bianca PIGMENT SUPPLIER.GOLD LAYER Work Phone: [facility] 05-26-2024 17:55-0500 Heart rate 86 /min Shahana Bianca PIGMENT SUPPLIER.GOLD LAYER Work Phone: [facility] 05-26-2024 17:55-0500 Respiratory rate 16 /min Shahana Bianca PIGMENT SUPPLIER.GOLD L[employer]ER Work Phone: [facility] 05-26-2024 17:55-0500 SaO2% (BldA) [Mass fraction] 96 % Shahana Bianca PIGMENT SUPPLIER.GOLD LAYER Work Phone: [facility] 05-26-2024 17:55-0500 Systolic blood pressure 148 mm[Hg] Shahana Bianca PIGMENT SUPPLIER.GOLD LAYER Work Phone: [facility] 04-14-2024 09:50-0400 Body mass index (BMI) [Ratio] 34.91 kg/m2 Shahana Bianca PIGMENT SUPPLIER.GOLD L[employer]ER Work Phone: [facility] 04-14-2024 09:50-0400 Body weight 101.1 kg Shahana Bianca PIGMENT SUPPLIER.GOLD L[employer]ER Work Phone: [facility] 04-14-2024 09:50-0400 Diastolic blood pressure 70 mm[Hg] Shahana Bianca PIGMENT SUPPLIER.GOLD LAYER Work Phone: [facility] 04-14-2024 09:50-0400 Heart rate 90 /min Shahana Bianca PIGMENT SUPPLIER.GOLD LAYER Work Phone: [facility] 04-14-2024 09:50-0400 SaO2% (BldA) [Mass fraction] 97 % Shahana Bianca PIGMENT SUPPLIER.GOLD LAYER Work Phone: [facility] 04-14-2024 09:50-0400 Systolic blood pressure 118 mm[Hg] Shahana ZhangBiancafrantz MILIANGOLD LAYER Work Phone: [facility] 03-30-2023 22:41-0400 Heart rate 90 /min No Primary Care Physician [facility] 03-30-2023 22:41-0400 Respiratory rate 18 /min No Primary Care Physician [facility] 03-30-2023 22:41-0400 SaO2% (BldA) [Mass fraction] 96 % No Primary Care Physician [facility] 03-30-2023 21:45-0400 Diastolic blood pressure 91 mm[Hg] No Primary Care Physician [facility] 03-30-2023 21:45-0400 Systolic blood pressure 125 mm[Hg] No Primary Care Physician [facility] 03-30-2023 19:41-0400 Inhaled oxygen flow rate 2 L/min No Primary Care Physician [facility] 03-30-2023 19:35-0400 Body temperature 96.4 [degF] No Primary Care Physician [facility] 03-30-2023 19:32-0400 Body height 172.72 cm No Primary Care Physician [facility] 03-30-2023 19:32-0400 Body mass index (BMI) [Ratio] 35 kg/m2 No Primary Care Physician [facility] 03-30-2023 19:32-0400 Body weight 104.6 kg No Primary Care Physician [facility] 03-18-2023 10:21-0400 Body temperature 98 [degF] No Primary Care Physician [facility] 03-18-2023 10:21-0400 Diastolic blood pressure 90 mm[Hg] No Primary Care Physician [facility] 03-18-2023 10:21-0400 Heart rate 95 /min No Primary Care Physician [facility] 03-18-2023 10:21-0400 Respiratory rate 16 /min No Primary Care Physician [facility] 03-18-2023 10:21-0400 SaO2% (BldA) [Mass fraction] 98 % No Primary Care Physician [facility] 03-18-2023 10:21-0400 Systolic blood pressure 152 mm[Hg] No Primary Care Physician [facility] 03-18-2023 10:20-0400 Body height 172.72 cm No Primary Care Physician [facility] 03-18-2023 10:20-0400 Body mass index (BMI) [Ratio] 35.1 kg/m2 No Primary Care Physician [facility] 03-18-2023 10:20-0400 Body weight 104.8 kg No Primary Care Physician [facility] 03-15-2023 14:38-0400 Diastolic blood pressure 98 mm[Hg] No Primary Care Physician [facility] 03-15-2023 14:38-0400 Heart rate 101 /min No Primary Care Physician [facility] 03-15-2023 14:38-0400 SaO2% (BldA) [Mass fraction] 95 % No Primary Care Physician [facility] 03-15-2023 14:38-0400 Systolic blood pressure 166 mm[Hg] No Primary Care Physician [facility] 03-15-2023 13:53-0400 Body height 172.72 cm No Primary Care Physician [facility] 03-15-2023 13:53-0400 Body mass index (BMI) [Ratio] 36.1 kg/m2 No Primary Care Physician [facility] 03-15-2023 13:53-0400 Body temperature 98 [degF] No Primary Care Physician [facility] 03-15-2023 13:53-0400 Body weight 108 kg No Primary Care Physician [facility] 03-15-2023 13:53-0400 Respiratory rate 14 /min No Primary Care Physician [facility] 03-14-2023 09:25-0400 Diastolic blood pressure 80 mm[Hg] Shahana Older PIGMENT SUPPLIER.GOLD LAYER Work Phone: [facility] 03-14-2023 09:25-0400 Systolic blood pressure 142 mm[Hg] Shahana Older PIGMENT SUPPLIER.GOLD LAYER Work Phone: [facility] 03-14-2023 08:56-0400 Body weight 107.96 kg Shahana Older PIGMENT SUPPLIER.GOLD LAYER Work Phone: [facility] 03-14-2023 08:56-0400 Heart rate 92 /min Shahana Older PIGMENT SUPPLIER.GOLD LAYER Work Phone: [facility] 03-14-2023 08:56-0400 Respiratory rate 18 /min Shahana Older PIGMENT SUPPLIER.GOLD LAYER Work Phone: [facility] 03-14-2023 08:56-0400 SaO2% (BldA) [Mass fraction] 96 % Shahana Older PIGMENT SUPPLIER.GOLD LAYER Work Phone: [facility] Encounters Encounter Date Encounter Type Care Provider Facility Start: 03-02-2025 End: 03-02-2025 ambulatory Juanita E Lamin [employer]ET[employer] TECHNICIAN [facility] Start: 01-12-2025 End: 01-12-2025 ambulatory Juanita E Lamin PL[employer]ETAR[employer] TECHNICIAN [facility] [place] Start: 12-15-2024 End: 12-15-2024 ambulatory Juanita E Lamin PLANETARI[employer] SKY SHOW TECHNICIAN [facility] [place] Start: 11-10-2024 End: 11-10-2024 ambulatory Uday Rowe MD Work Phone: [facility] [place] Comment on above: PHMA/Care Gap Outrea ch (DM, HTN) Start: 09-21-2024 End: 09-21-2024 ambulatory Juanita E Lamin PLANETAR[employer] SKY SH[employer] TECHNICIAN [facility] Start: 08-10-2024 End: 08-10-2024 ambulatory Juanita E Lamin PLANETARIUM SKY SH[employer] TECHNICIAN [facility] Start: 07-26-2024 End: 07-26-[address] Work Phone: Endocrinology Start: 07-26-2024 End: 07-26-2024 Nutrition therapy Tremayne Miller RD Work Phone: Endocrinology Comment on above: Medical Nutrition Th juan (Type 2 Diabetes) Start: 07-22-2024 End: 07-22-2024 ambulatory UDAY ROWE Facility:[facility] Start: 07-22-2024 End: 07-22-2024 Patient encounter procedure Dona Feng [facility] Work Phone: [facility] Comment on above: Poorly controlled di abetes mellitus (HCC) (Primary Dx); Diabetic neuropathy, painful (HCC) Start: 06-30-2024 End: 06-30-2024 Nursing evaluation of patient and report Adiel Pedraza RN Work Phone: Endocrinology Comment on above: Diabetic neuropathy, painful (HCC) (Primary Dx); Poorly controlled diabetes mellitus (HCC) Start: 06-30-2024 End: 06-30-2024 ambulatory SHAHANA Ijeoma BIANCA Facility:[facility] Start: 06-30-2024 End: 06-30-2024 Patient encounter procedure Amairani Youssef APRN.GOLD LAYER Work Phone: Endocrinology Comment on above: Poorly controlled di abetes mellitus (HCC) (Primary Dx); Diabetic neuropathy, painful (HCC) Start: 06-25-2024 End: 06-25-2024 ambulatory UDAY ROWE Facility:[facility] Start: 06-25-2024 End: 06-25-2024 Patient encounter procedure Vince Johnson OD Work Phone: Ophthalmology Comment on above: Type 2 diabetes genny itus without retinopathy (HCC) (Primary Dx); Combined forms of age-related cataract of both eyes; Regular astigmatism of both eyes; Presbyopia Start: 06-01-2024 End: 06-01-2024 ambulatory SHAHANA VALENZUELA Facility:[facility] Start: 06-01-2024 End: 06-01-2024 Nursing evaluation of patient and report Adiel Pedraza RN Work Phone: Endocrinology Comment on above: Poorly controlled di abetes mellitus (HCC) Start: 05-26-2024 End: 05-26-2024 Patient encounter procedure Shahana Valenzuela APRN.GOLD LAYER Work Phone: [facility] [place] Comment on above: Poorly controlled di abetes mellitus (HCC) (Primary Dx); Essential hypertension; Encounter for screening examination for other mental health and behavioral disorders; Screening for depression; Screening for colon cancer Start: 05-26-2024 End: 05-26-2024 ambulatory SHAHANA VALENZUELA Facility:[facility] Start: 05-04-2024 End: 05-12-2024 Telephone encounter Shahana Valenzuela APRN.GOLD LAYER Work Phone: [facility] Comment on above: FMLA forms Start: 04-16-2024 End: 04-16-2024 ambulatory [facility] Work Phone: [facility] Comment on above: Philip Arndt Start: 04-16-2024 End: 04-16-2024 Patient encounter procedure Steffany Wisdom [facility] Work Phone: [facility] Comment on above: Philip Arndt Start: 04-16-2024 End: 04-16-2024 Telephone encounter Uday Rowe MD Work Phone: [facility] [place] Comment on above: Results Start: 04-14-2024 End: 04-14-2024 ambulatory SHAHANA VALENZUELA Facility:[facility] Start: 04-14-2024 End: 04-14-2024 Patient encounter procedure Shahana Valenzuela PIGMENT SUPPLIER.GOLD LAYER Work Phone: [facility] [place] Comment on above: Poorly controlled di abetes mellitus (HCC) (Primary Dx); Chest pain, unspecified type; Diabetic neuropathy, painful (HCC); Erythrocytosis; Palpitations; Essential hypertension; Hyperlipidemia, unspecified hyperlipidemia type; Screening PSA (prostate specific antigen); Encounter for immunization; Screening for diabetic retinopathy Start: 04-05-2024 End: 04-06-2024 ambulatory Ofelia Donaldson Facility:[facility] Start: 02-06-2024 End: 02-06-2024 Emergency department patient visit Ramon Smith Facility:[facility] Start: 09-23-2023 [facility]ulatory [facility] [place] Start: 09-17-2023 Telephone encounter Sirisha Hurtado Start: 05-15-2023 Telephone encounter Dona Feng [facility] Work Phone: [facility] Comment on above: Missed Appointment ( Pharmacy Visit Rescheduling) Start: 03-30-2023 End: 03-30-2023 Emergency department patient visit No Primary Care Physician [facility] Work Phone: Start: 03-21-2023 End: 03-21-2023 Patient encounter procedure Vince Johnson OD Work Phone: Ophthalmology Comment on above: Type 2 diabetes genny itus without retinopathy (HCC) (Primary Dx); Combined forms of age-related cataract of both eyes; Regular astigmatism of both eyes; Presbyopia Start: 03-19-2023 End: 03-19-2023 Patient encounter procedure Murray Thomas Work Phone: Podiatry Comment on above: Onychomycosis (Prima ry Dx); Diabetic neuropathy, painful (HCC); Pain in toe of left foot; Pain in toe of right foot; Callus; Diminished pulses in lower extremity Start: 03-18-2023 End: 03-18-2023 Emergency department patient visit No Primary Care Physician [facility] Work Phone: Start: 03-15-2023 End: 03-15-2023 Emergency department patient visit No Primary Care Physician [facility] Work Phone: Start: 03-14-2023 End: 03-14-2023 Patient encounter procedure Shahana Murray APRN.CNP Work Phone: [facility] Comment on above: Uncontrolled type 2 diabetes mellitus with hyperglycemia (HCC) (Primary Dx); Essential hypertension; Diabetic neuropathy, painful (HCC); Hyperlipidemia, unspecified hyperlipidemia type Start: 01-13-2023 End: 01-13-2023 Patient encounter procedure No Primary Care Physician [facility] Work Phone: Start: 11-12-2022 ambulatory Srinivasa Garrison MA [facility] Start: 11-12-2022 Patient encounter procedure Srinivasa Garrison MA [facility] [place] Comment on above: Appointment ([facility]/a1c) Start: 04-22-2022 ambulatory Steffany Caalgo [facility] Work Phone: [facility] Comment on above: A1c result Start: 04-22-2022 E-mail encounter fro m caregiver Steffany Caalgo [facility] Work Phone: [facility] Start: 04-17-2022 Telephone encounter Uday ballard MD Work Phone: [facility] [place] Comment on above: Patient Update Start: 02-22-2022 Telephone encounter Uday ballard MD Work Phone: [facility] [place] Comment on above: Patient Update Start: 02-06-2022 Telephone encounter Sirisha Raphael Navigation Comment on above: diabetes ed follow u p Start: 10-04-2021 Telephone encounter Steffanyronal Caaljuan chaudhary [facility] Work Phone: [facility] Comment on above: Missed Appointment Start: 09-24-2021 End: 09-24-2021 Subsequent hospital visit by physician Bisi [facility] Work Phone: Radiology Comment on above: Post-traumatic osteo arthritis of right shoulder [M19.111] Start: 03-17-2018 End: 03-17-2018 Patient [facility] Procedures Date Procedure Procedure Detail Performing Clinician Start: 06-25-2024 Computerized ophthal jay imaging retina Vince Johnson OD Work Phone: Start: 05-26-2024 Adult depression scr eening assessment Shahana Valenzuela PIGMENT SUPPLIER.GOLD LAYER Work Phone: Start: 04-14-2024 [employer] COVI D-19 VACCINE AGE 12+ YR (COMIRNATY) Shahana Valenzuela PIGMENT SUPPLIER.GOLD LAYER Work Phone: Start: 03-30-2023 Plain chest X-ray No Pr imary Care Physician Start: 03-30-2023 CT of head without contrast No Primary Care Physician Start: 03-30-2023 SARS-CoV-2 & FLU Ant igen (Rapid) No Primary Care Physician Start: 03-14-2023 Hemoglobin A1c/Hemoglobin.total in Blood Shahana Murray APRN.GOLD LAYER Work Phone: Start: 09-24-2021 Radex shoulder compl ete minimum 2 views Uday Rowe MD Work Phone: Start: 01-19-2021 Adult depression scr eening assessment Steffany Wisdom [facility] Work Phone: Plan of Treatment Date Care Activity Detail Author Start: 04-14-2029 Prostate specific antigen measurement Prostate Cancer Screening Discussion [facility] Start: 09-13-2027 Urine microalbumin profile [facility] Start: 06-27-2025 End: 06-27-2025 Patient encounter procedure 06/27/2025 8:15 AM EST Office Visit [facility] [address] [place] [address] Vince Johnson, OD [address] [place] [address] diabetic eye exam Ophthalmology Comment on above: diabetic eye exam Start: 06-25-2025 Glaucoma screening Dilated Retinal E xam [facility] Start: 05-26-2025 Annual PCP Team Medart Operator alfredito Disease Visit Annual PCP Team Chronic Disease Visit [facility] Start: 05-26-2025 Anxiety Screening Anxiety Screening [facility] Start: 05-26-2025 Depression Screening Depression Scre ening [facility] Start: 04-14-2025 Annual PCP Team Medart Operator alfredito Disease Visit Annual PCP Team Chronic Disease Visit [facility] Start: 04-14-2025 BP Controlled (<130/80) BP Con trolled (<130/80) [facility] Start: 04-14-2025 Diabetic foot examination Diabetic Foot Exam [facility] Start: 04-14-2025 Hepatitis B surface antibody level LDL Cholesterol [facility] Start: 04-14-2025 Hepatitis B Vaccine (1 of 3 - 19+ 3-dose series) Hepatitis B Vaccine (1 of 3 - 19+ 3-dose series) [facility] Comment on above: Postponed from 03/04 (Declined at this time) Start: 04-14-2025 Shingrix Vaccine (1 of 2) Shingrix Vaccine (1 of 2) [facility] Comment on above: Postponed from 03/04 (Declined at this time) Start: 03-14-2025 Influenza vaccination Influenza Vacc ine (#1) [facility] Start: 12-12-2024 End: 03-13-2025 Comprehensive metabolic 2000 panel - Serum or Plasma COMPREHENSIVE METABOLIC PANEL Lab Routine Poorly controlled diabetes mellitus (HCC) Expected: 12/12/2024, Expires: 03/13/2025 [facility] Work Phone: Comment on above: Expected: 12/12/2024 , Expires: 03/13/2025 Start: 12-12-2024 End: 03-13-2025 Hemoglobin A1c in Blood HEMOGLOBIN A1C Lab Routine Poorly controlled diabetes mellitus (HCC) Expected: 12/12/2024, Expires: 03/13/2025 [facility] Comment on above: Expected: 12/12/2024 , Expires: 03/13/2025 Start: 12-12-2024 End: 03-13-2025 LIPID PANEL, NONFASTING LIPID PANEL, NONFASTING Lab Routine Poorly controlled diabetes mellitus (HCC) Expected: 12/12/2024, Expires: 03/13/2025 [facility] Comment on above: Expected: 12/12/2024 , Expires: 03/13/2025 Start: 12-12-2024 End: 03-13-2025 Microalbumin/Creatinine [Mass Ratio] in Urine ALBUMIN/CREATININE RATIO, URINE Lab Routine Poorly controlled diabetes mellitus (HCC) Expected: 12/12/2024, Expires: 03/13/2025 [facility] Comment on above: Expected: 12/12/2024 , Expires: 03/13/2025 Start: 10-25-2024 End: 10-25-2024 Patient encounter procedure Cardiology Comment on above: Chest pain, unspecif ied type [R07.9]; Palpitations [R00.2 Start: 09-15-2024 End: 09-15-2024 Patient encounter procedure 09/15/2024 2:45 PM EST Office Visit Endocrinology [address] [place] [address] Amairani Youssef, PIGMENT SUPPLIER.GOLD LAYER [address] [place] [address] 3 month follow up Endocrinology Comment on above: 3 month follow up Start: 08-26-2024 End: 08-26-2024 Patient encounter procedure 08/26/2024 3:00 PM EST Office Visit [facility] [address] [place] [address] Dona Feng, [facility] [address] [place] [address] DM f/up [facility] Comment on above: DM f/up Start: 07-26-2024 End: 07-26-2024 ambulatory 07/26/2024 11:00 AM EST Education [facility] [address] [facility] [place] [address] Tremayne Miller, RD [address] [address] Poorly controlled diabetes mellitus (HCC) [E11.65] Endocrinology Comment on above: Poorly controlled di abetes mellitus (HCC) [E11.65] Start: 07-22-2024 End: 07-22-2024 Patient encounter procedure 07/22/2024 3:00 PM EST Office Visit [facility] [address] [place] [address] Dona Feng, [facility] [address] [id number] Poorly controlled diabetes mellitus (HCC) [E11.65] [facility] Comment on above: Poorly controlled di abetes mellitus (HCC) [E11.65] Start: 07-15-2024 Hemoglobin A1c measurement HbA1C [facility] Start: 06-30-2024 End: 06-30-2024 Patient encounter procedure 06/30/2024 8:00 AM EST Office Visit Endocrinology [address] [place] [address] Amairani Yousesf, PIGMENT SUPPLIER.GOLD LAYER [address] [place] [address] Poorly controlled diabetes mellitus (HCC) [E11.65] Endocrinology Comment on above: Poorly controlled di abetes mellitus (HCC) [E11.65] Start: 06-25-2024 End: 06-25-2024 Patient encounter procedure 06/25/2024 10:00 AM EST Office Visit [facility] [address] [place] [address] Vince Johnson, OD [address] [place] [address] DIABETIC DILATED RETINA EXAM / LVM TO CONFIRM APPT TIME & DATE Ophthalmology Comment on above: DIABETIC DILATED RET MUMTAZ EXAM / LVM TO CONFIRM APPT TIME & DATE Start: 06-01-2024 End: 06-01-2024 Nursing evaluation of patient and report 06/01/2024 2:00 PM EST Nurse Visit Endocrinology [address] [place] [address] Adiel Pedraza, RN [address] [address] Poorly controlled diabetes mellitus (HCC) [E11.65] Endocrinology Comment on above: Poorly controlled di abetes mellitus (HCC) [E11.65] Start: 05-26-2024 End: 05-26-2024 Patient encounter procedure 05/26/2024 6:20 PM EST Office Visit [facility] [address] [place], [place] [id number] Shahana Valenzuela, PIGMENT SUPPLIER.GOLD LAYER [address] [place], [place] [id number] Yearly physical and vaccinations [facility] [place] Comment on above: Yearly physical and vaccinations Start: 05-26-2024 End: 08-25-2024 COLOGUARD COLOGUARD Lab Routine Screening for colon cancer Expected: 05/26/2024, Expires: 08/25/2024 [facility] Work Phone: Comment on above: Expected: 05/26/2024 , Expires: 08/25/2024 Start: 05-19-2024 End: 05-19-2024 Patient encounter procedure 05/19/2024 10:15 AM EST Office Visit Endocrinology [address] [place] [address] Amairani Youssef, PIGMENT SUPPLIER.[employer] [address] [place] [address] Poorly controlled diabetes mellitus (HCC) [E11.65] Endocrinology Comment on above: Poorly controlled di abetes mellitus (HCC) [E11.65] Start: 05-14-2024 Screening for malign ant neoplasm of colon Colorectal Cancer Screening [facility] Comment on above: Postponed from 03/04 (Declined at this time) Start: 04-15-2024 End: 04-15-2024 Patient encounter procedure 04/15/2024 10:30 AM EDT Office Visit OPHT Ophthalmology [address] [place], [place] [address] Vince Johnson, OD [address] [place] [address] DIABETIC DILATED RETINA EXAM Ophthalmology Comment on above: DIABETIC DILATED RET MUMTAZ EXAM Start: 04-14-2024 End: 07-14-2024 CBC panel - Blood by Automated count [facility] Comment on above: Expected: 04/14/2024 , Expires: 07/14/2024 Start: 04-14-2024 End: 07-14-2024 Comprehensive metabolic 2000 panel - Serum or Plasma [facility] Comment on above: Expected: 04/14/2024 , Expires: 07/14/2024 Start: 04-14-2024 End: 07-14-2024 Erythropoietin (EPO) [Units/volume] in Serum or Plasma [facility] Comment on above: Expected: 04/14/2024 , Expires: 07/14/2024 Start: 04-14-2024 End: 07-14-2024 Hemoglobin A1c in Blood [facility] Comment on above: Expected: 04/14/2024 , Expires: 07/14/2024 Start: 04-14-2024 End: 07-14-2024 LIPID PANEL, NONFASTING [facility] Work Phone: Comment on above: Expected: 04/14/2024 , Expires: 07/14/2024 Start: 04-14-2024 End: 07-14-2024 Microalbumin/Creatinine [Mass Ratio] in Urine ALBUMIN/CREATININE RATIO, URINE Lab Routine Poorly controlled diabetes mellitus (HCC) Expected: 04/14/2024, Expires: 07/14/2024 [facility] Comment on above: Expected: 04/14/2024 , Expires: 07/14/2024 Start: 04-14-2024 End: 07-14-2024 PSA/PROSTATE SPECIFIC ANTIGEN SCREENING [facility] Comment on above: Expected: 04/14/2024 , Expires: 07/14/2024 Start: 03-21-2024 Glaucoma screening Dilated Retinal E xam [facility] Start: 03-21-2024 Hepatitis C antibody , confirmatory test DILATED RETINAL EXAM [facility] Start: 03-19-2024 3 comp foot exam completed DIABETIC FOOT EXAM [facility] Start: 03-19-2024 Diabetic foot examination Diabetic Foot Exam [facility] Start: 03-14-2024 ANNUAL PCP TEAM MEDICAL SUPPLY TECHNICIAN ALFREDITO DISEASE VISIT ANNUAL PCP TEAM CHRONIC DISEASE VISIT [facility] Start: 03-14-2024 Covid-19 Vaccine ( season) Covid-19 Vaccine ( season) [facility] Start: 03-14-2024 Influenza vaccination Influenza Vacc ine (#1) [facility] Start: 07-14-2023 [facility] Start: 06-13-2023 Hemoglobin A1c measurement HbA1C [facility] Start: 06-13-2023 Hemoglobin A1c/Hemoglobin.total in Blood HBA1C [facility] Start: 04-19-2023 Hepatitis B screening URINE ALBUMIN:CREATININE RATIO [facility] Start: 04-19-2023 Hepatitis B surface antibody level LDL CHOLESTEROL [facility] Start: 03-30-2023 [facility] Start: 03-14-2023 Covid-19 Vaccine ( season) Covid-19 Vaccine () [facility] Start: 03-14-2023 [facility]: 09-24-[facility]22 ANNUAL PCP TEAM MEDICAL SUPPLY TECHNICIAN ALFREDITO DISEASE VISIT ANNUAL PCP TEAM CHRONIC DISEASE VISIT [facility] Start: 09-12-2022 PROSTATE CANCER SCREENING DISCUSSION PROSTATE CANCER SCREENING DISCUSSION [facility] Start: 09-12-2022 Prostate specific antigen measurement Prostate Cancer Screening Discussion [facility] Start: 07-20-2022 Hemoglobin A1c/Hemoglobin.total in Blood HBA1C [facility] Start: 07-14-2022 DEPRESSION ASSESSMENT DEPRESSION ASS ESSMENT [facility] Start: 04-17-2022 End: 06-17-2022 ALBUMIN/CREAT RATIO RND UR ALBUMIN/CREAT RATIO RND UR Lab Routine Uncontrolled type 2 diabetes mellitus with hyperglycemia (HCC) Expected: 04/17/2022, Expires: 06/17/2022 [facility] Work Phone: Comment on above: Expected: 04/17/2022 , Expires: 06/17/2022 Start: 04-17-2022 End: 06-17-2022 CBC panel - Blood by Automated count CBC Lab Routine Uncontrolled type 2 diabetes mellitus with hyperglycemia (HCC) Expected: 04/17/2022, Expires: 06/17/2022 [facility] Work Phone: Comment on above: Expected: 04/17/2022 , Expires: 06/17/2022 Start: 04-17-2022 End: 06-17-2022 Comprehensive metabolic 2000 panel - Serum or Plasma COMP METABOLIC PANEL Lab Routine Uncontrolled type 2 diabetes mellitus with hyperglycemia (HCC) Expected: 04/17/2022, Expires: 06/17/2022 [facility] Work Phone: Comment on above: Expected: 04/17/2022 , Expires: 06/17/2022 Start: 04-17-2022 End: 06-17-2022 Hemoglobin A1c in Blood HGB A1C Lab Routine Diabetic neuropathy, painful (HCC) Uncontrolled type 2 diabetes mellitus with hyperglycemia (HCC) Expected: 04/17/2022, Expires: 06/17/2022 [facility] Work Phone: Comment on above: Expected: 04/17/2022 , Expires: 06/17/2022 Start: 04-17-2022 End: 06-17-2022 Lipid 1996 panel - Serum or Plasma LIPID PANEL BASIC Lab Routine Uncontrolled type 2 diabetes mellitus with hyperglycemia (HCC) Expected: 04/17/2022, Expires: 06/17/2022 [facility] Work Phone: Comment on above: Expected: 04/17/2022 , Expires: 06/17/2022 Start: 03-14-2022 Influenza vaccination INFLUENZA (#1) [facility] Start: 01-19-2022 3 comp foot exam completed DIABETIC FOOT EXAM [facility] Start: 01-19-2022 Adult depression screening assessment DEPRESSION SCREENING [facility] Start: 12-26-2021 Hepatitis B screening URINE ALBUMIN:CREATININE RATIO [facility] Start: 12-26-2021 Hepatitis B surface antibody level LDL CHOLESTEROL [facility] Start: 12-26-2021 SHINGRIX VACCINE (1 of 2) SHINGRIX VACCINE (1 of 2) [facility] Comment on above: Postponed from 03/04 (Declined at this time) Start: 12-25-2021 Hemoglobin A1c/Hemoglobin.total in Blood HBA1C [facility] Start: 07-14-2021 DEPRESSION ASSESSMENT DEPRESSION ASS ESSMENT [facility] Start: 03-14-2021 Influenza vaccination INFLUENZA (#1) [facility] Start: 02-20-2021 COVID-19 VACCINE (2 - Booster for Alexandra series) COVID-19 VACCINE (2 - Booster for Alexandra series) [facility] Start: 09-12-2018 PNEUMOCOCCAL (2 - PCV) PNEUMOCOCCAL (2 - PCV) [facility] Start: 09-12-2018 Pneumococcal vaccination [facility] Start: 02-18-2018 Hepatitis C antibody , confirmatory test DILATED RETINAL EXAM [facility] Start: 2017 SHINGRIX VACCINE (1 of 2) SHINGRIX VACCINE (1 of 2) [facility] Start: 2012 COLOGUARD (FIT-DNA) COLOGUARD (FIT-D NA) [facility] Start: 2012 Colonoscopy COLONOSCOPY [facility] Start: 2012 COLORECTAL CANCER SCREENING COLORECTAL CANCER SCREENING [facility] Start: [address] COLONOGRAPHY [facility] Start: 2012 FECAL OCCULT BLOOD FECAL OCCULT BLOO D [facility] Start: 2012 Screening for malign ant neoplasm of colon [facility] Start: 2012 SIGMOIDOSCOPY SIGMOIDOSCOPY [facility] Start: 1986 HEPATITIS B (1 of 3 - Risk 3-dose series) HEPATITIS B (1 of 3 - Risk 3-dose series) [facility] Start: 1986 Hepatitis B Vaccine (1 of 3 - 19+ 3-dose series) Hepatitis B Vaccine (1 of 3 - 19+ 3-dose series) [facility] Start: 1985 Anxiety Screening Anxiety Screening [facility] Start: 1985 BP CONTROLLED (<130/80) BP CON TROLLED (<130/80) [facility] Start: 1985 Depression Screening Depression Scre ening [facility] Start: 1985 SPIROMETRY SPIROMETRY [facility] Start: 1967 HEPATITIS B (1 of 3 - 3-dose series) HEPATITIS B (1 of 3 - 3-dose series) [facility] Start: 1967 Hepatitis B Vaccine (1 of 3 - 3-dose series) Hepatitis B Vaccine (1 of 3 - 3-dose series) [facility] Patient Education [facility] Work Phone: Patient referral [facility] Work Phone: End: 03-19-2024 [facility]VR ANK [facility]ESS [facility] V[facility] Lab Routine Onychomycosis Diminished pulses in lower extremity 1 Occurrences starting 03/19/2023 until 03/19/2024 [facility] Work Phone: Comment on above: 1 Occurrences starti ng 03/19/2023 until 03/19/2024 [facility] Immunizations Immunization Date Immunization Notes Care Provider Fa gracia 04-14-2024 COVID-19 vaccine, ag e 12+ yr (PFIZER-BIOZynga [facility]) Shahana Valenzuela [facility] Work Phone: [facility] 04-14-2024 pneumococcal conjuga te (PCV20) vaccine, 20 valent (PREVNAR 20) Shahana Valenzuela [facility] Work Phone: [facility] 04-14-2024 pneumococcal Conjuga te, unspecified formulation Shahana Valenzuela [facility] Work Phone: [facility] 04-06-2024 influenza virus vacc ine, unspecified formulation Juanita Kimble [facility] 12-26-2020 COVID-19 vaccine (ALEXANDRA) Steffany Wisdom [facility] Work Phone: [facility] 03-16-2020 influenza virus vacc ine, unspecified formulation Dona Feng [facility] Work Phone: [facility] 09-12-2017 influenza, injectabl e, quadrivalent, contains preservative Steffany Wisdom [facility] Work Phone: [facility] 09-12-2017 pneumococcal polysaccharide vaccine, 23 valent Steffany Wisdom [facility] Work Phone: [facility] 09-12-2017 tetanus toxoid, redu nancy diphtheria toxoid, and acellular pertussis vaccine, adsorbed [facility] 04-24-2016 influenza, injectabl e, quadrivalent, contains preservative [facility] 08-24-2009 pneumococcal polysaccharide vaccine, 23 valent Shahana Older PIGMENT SUPPLIER[employer] Work Phone: [facility] Payers Date Payer Category Payer Self-pay [id number] 2023 [employer] BLUE ACCE PPO [id number] 2023 Unknown [id number] 2019 Unknown ADAIR BLUE CARD PPO OOS [id number] 2019-Present [phone] [address] [place] [address] PPO [id number] 2019 Unknown [id number] Private Health Insurance [id number] Unknown [id number] Unknown [id number] Unknown [id number] Unknown [id number] Unknown [id number] Social History Date Type Detail Facility Start: 12-26-2020 End: 03-14-2023 Tobacco smoking status NHIS Ex-smoker [facility] Work Phone: History of tobacco use Cigarette Smoker [facility] Work Phone: Start: 12-26-2020 End: 03-14-2023 Tobacco use and exposure User of smokeless tobacco [facility] Work Phone: History of tobacco use Chews Tobacco [facility] Work Phone: Start: 09-24-2021 End: 06-30-2024 Alcohol intake Current drinker of alcohol (finding) [facility] Start: 01-19-2021 History SDOH Alcohol Frequency 1 [facility] Start: 01-19-2021 History SDOH Alcohol Std Drinks 98 [facility] Start: 12-26-2020 History SDOH Alcohol Comment occasional [facility] Start: 01-19-2021 History SDOH Social Connections Phone 2 [facility] Start: 01-19-2021 History SDOH Social Connections Living 8 [facility] Start: 01-19-2021 History SDOH Physical Activity DPW 5 [facility] Start: 01-19-2021 History SDOH Physical Activity MPS 15 [facility] Start: 01-19-2021 History SDOH Stress 3 [facility] Start: 01-19-2021 History SDOH Financial 4 [facility] Start: 01-19-2021 Education 14 [facility] Start: 1965 Sex Assigned At Male [facility] Start: 09-14-2021 End: 09-27-2021 Exposure to SARS-CoV-2 (event) Not sure [facility] History of tobacco use Current smoker [facility] Work Phone: Start: 03-13-2023 End: 05-26-2024 History of Social function [facility] Start: 03-13-2023 End: 05-26-2024 Social connection and isolation panel [facility] Do you belong to any clubs or organizations such as adventist groups, unions, fraternal or athletic groups, or school groups? No [facility] Are you now , , , , never or living with a partner? Living with partner [facility] How often to you hav e a drink containing alcohol? Never [facility] Start: 06-14-2012 How many standard drinks containing alcohol do you have on a typical day? Patient does not drink [facility] How hard is it for y ou to pay for the very basics like food, housing, medical care, and heating Not very hard [facility] Do you feel stress - tense, restless, nervous, or anxious, or unable to sleep at night because your mind is troubled all the time - these days [OSQ] Only a little [facility] (I/We) worried sayra er (my/our) food would run out before (I/we) got money to buy more. Never true [facility] At any time in the p ast 12 months, were you homeless or living in senior care [including now]? Yes [facility] Start: 01-10-2021 Gender identity Identifies as male gender (finding) [facility] Start: 01-10-2021 Sexual orientation Heterosexual (finding) [facility] Start: 03-15-2023 End: 03-30-2023 Tobacco smoking status NHIS Unknown if ever smoked [facility] Start: 04-14-2020 Cigarettes [facility] Do you feel stress - tense, restless, nervous, or anxious, or unable to sleep at night because your mind is troubled all the time - these days [OSQ] To some extent [facility] Medical Equipment Procedure Code Equipment Code Equipment Original Text Equipment Identifier Dates [id number], [id number], [id number], [id number], [id number], [id number] Start: 01-01-2021 End: 04-14-2024 Comment on above: Test 2 times daily, Insulin Dep? Yes E11.9 DM 2 Use one needle for e ach dose. 1/day. Test blood sugar(s) 2 times daily. Dx: Type 2 DM - Uncontrolled E11.65 Insulin: Yes Clinical Notes 12-21-2015 to 03-02-2025 Juanita Kimble LPN - 03/02/2025 10:56 AM Juanita Gu LPN - 01/12/2025 3:07 PM Juanita Gu LPN - 12/15/2024 1:24 PM KEVINTCFern crow LPN - 11/10/2024 3:47 PM EDT Note Date & Type Note Facility 03-02-2025 Note HNO ID: [id number] Author: JUANITA KIMBLE LPN Service: ? Author Type: Licensed Nurse Type: Progress Notes Filed: 03/02/2025 10:59 Note Text: POPULATION HEALTH NAVIGATION OUTREACH Action/FYI Attempted to call, getting the person you have called is not able to accept calls at this time Attempted to reach out to Patient x5, no response, changing to No PCP' Reason for Outreach Care Gap/HCC or Scheduling Wellness Visits Care Gaps due: Follow-up Appointment Patient Contacted: Unable or unnecessary to reach patient: Unable to leave message Navigation Signature: Juanita Kimble LPN March 02, 2025 10:56 AM [facility] 03-02-2025 History of Presen t illness Narrative POPULATION HEALTH NAVIGATION OUTREACH Action/FYI Attempted to call, getting the person you have called is not able to accept calls at this time Attempted to reach out to Patient x5, no response, changing to No PCP' Reason for Outreach Care Gap/HCC or Scheduling Wellness Visits Care Gaps due: Follow-up Appointment Patient Contacted: Unable or unnecessary to reach patient: Unable to leave message Navigation Signature: Juanita Kimble LPN March 02, 2025 10:56 AM documented in this encounter [facility] 01-12-2025 Note HNO ID: [id number] Author: JUANITA KIMBLE LPN Service: ? Author Type: LICENSED NURSE Type: Progress Notes Filed: 01/12/2025 15:07 Note Text: POPULATION HEALTH NAVIGATION OUTREACH Action/FYI Reason for Outreach Care Gap/HCC or Scheduling Wellness Visits Care Gaps due: Follow-up Appointment Patient Contacted: Unable or unnecessary to reach patient: Left message Navigation Signature: Juanita Kimble LPN January 12, 2025 3:07 PM [facility] 01-12-2025 History of Presen t illness Narrative POPULATION HEALTH NAVIGATION OUTREACH Action/FYI Reason for Outreach Care Gap/HCC or Scheduling Wellness Visits Care Gaps due: Follow-up Appointment Patient Contacted: Unable or unnecessary to reach patient: Left message Navigation Signature: Juanita Kimble LPN January 12, 2025 3:07 PM documented in this encounter [facility] 12-15-2024 Note HNO ID: [id number] Author: JUANITA KIMBLE LPN Service: ? Author Type: LICENSED NURSE Type: Progress Notes Filed: 12/15/2024 13:26 Note Text: POPULATION HEALTH NAVIGATION OUTREACH Action/FYI Left message to call AND schedule appt Reason for Outreach Care Gap/HCC or Scheduling Wellness Visits Care Gaps due: Follow-up Appointment Patient Contacted: Unable or unnecessary to reach patient: Left message Navigation Signature: Juanita Kimble LPN December 15, 2024 1:24 PM [facility] 12-15-2024 History of Presen t illness Narrative POPULATION HEALTH NAVIGATION OUTREACH Action/FYI Left message to call & schedule appt Reason for Outreach Care Gap/HCC or Scheduling Wellness Visits Care Gaps due: Follow-up Appointment Patient Contacted: Unable or unnecessary to reach patient: Left message Navigation Signature: Juanita Kimble LPN December 15, 2024 1:24 PM documented in this encounter [facility] 11-10-2024 Note HNO ID: [id number] Author: FERN ARRIAGA LPN Service: ? Author Type: LICENSED NURSE Type: Progress Notes Filed: 11/10/2024 16:01 Note Text: Phoned patient and left message to contact our office for a follow up appointment. Also, sent a my chart message to set up an appointment. Fern Arriaga LPN [facility] 11-10-2024 History of Presen t illness Narrative Phoned patient and left message to contact our office for a follow up appointment. Also, sent a my chart message to set up an appointment. Fern Arriaga LPN documented in this encounter [facility] 11-10-2024 Note Patient Outreach (IN TMWS) PHILIP ARNDT ([id number]) 1965 M Date Time Provider Department 11/10/24 UDAY ROWE During your visit today, we recorded the following information about you: Fern Arriaga LPN 11/10/2024 4:01 PM Signed Phoned patient and left message to contact our office for a follow up appointment. Also, sent a my chart message to set up an appointment. Fern Arriaga LPN Allergies As of Date: 11/10/2024 Noted Allergy Reaction PENICILLIN 03/21/2023 8 - GI Upset Date Reviewed: 07/22/2024 Reviewed by: Dona Feng [facility] - Fully Assessed Reason for Visit: PHMA/Care Gap Outreach [7890] Cmt: DM, HTN Prescriptions as of 11/10/2024 - insulin glargine (LANTUS SOLOSTAR U-100 INSULIN) 100 unit/mL (3 mL) Inject 36 Units subcutaneously daily at bedtime. - metFORMIN ER (GLUCOPHAGE XR) 500 mg 24 hr tablet Take 1 tablet by mouth two times a day with meals. - insulin aspart, niacinamide, (FIASP FLEXTOUCH U-100 INSULIN) 100 unit/mL (3 mL) pen Inject 10 units with breakfast, 10 units with lunch, 10 units with dinner (TDD) 30 ) - Blood-Glucose Sensor (DEXCOM G7 SENSOR) tai CHANGE SENSOR EVERY 10 days USE FOR CONTINUOUS GLUCOSE MONITORING. MULTIPLE INSULIN INJECTIONS. E11.9 - lisinopril-hydroCHLOROthiazide (ZESTORETIC) 10-12.5 mg per tablet Take 2 tablets by mouth every morning. - atorvastatin (LIPITOR) 10 mg tablet Take 1 tablet by mouth daily at bedtime. For cholesterol. - blood sugar diagnostic (BLOOD GLUCOSE TEST) test strip Test blood sugar(s) 2 times daily. Dx: Type 2 DM - Uncontrolled E11.65 Insulin: Yes - gabapentin (NEURONTIN) 300 mg capsule Take 1 capsule by mouth daily at bedtime for 180 days. - Insulin [place], Disposable, (BD ULTRA-FINE DERRELL PEN NEEDLE) 32 gauge x Use one needle for each dose. 1/day. - Lancets Test blood sugar(s) 2 times daily. Dx: Type 2 DM - Uncontrolled E1165 Insulin: Yes - naproxen (NAPROSYN) 500 mg tablet Take 1 tablet by mouth two times a day as needed (for pain/inflammation). Take with food. - ondansetron orally disintegrating (ZOFRAN ODT) 4 mg disintegrating tablet Problem List As Of Date 11/10/2024 Noted Resolved Poorly controlled diabetes mellitus (HCC) [E11.*12/21/2015 Essential hypertension [I10] 12/21/2015 Anxiety and depression [F41.9, F32.A] 12/21/2015 12/26/2020 Diabetic neuropathy, painful (HCC) [E11.40] 12/21/2015 Hyperlipidemia [E78.5] 12/21/2015 Asthma [J45.909] 12/21/2015 Psoriasis [L40.9] 12/21/2015 12/26/2020 Post-traumatic osteoarthritis of right shoulder*04/24/2016 Obesity, Class II, BMI 35-39.9 [E66.812] 09/24/2021 Uncontrolled type 2 diabetes mellitus with hype*03/14/2023 04/29/2023 Encounter Status:Closed by FERN ARRIAGA on 11/10/24 [facility] 09-21-2024 Note HNO ID: [id number] Author: JUANITA KIMBLE LPN Service: ? Author Type: LICENSED NURSE Type: Progress Notes Filed: 09/21/2024 09:10 Note Text: POPULATION HEALTH NAVIGATION OUTREACH Action/FYI Last seen by Shahana JUNIOR 05/26/2024, advised to f/u in 6 weeks Reason for Outreach Care Gap/HCC or Scheduling Wellness Visits Care Gaps due: Follow-up Appointment Patient Contacted: Unable to reach Patient, left message to contact office. Overdue for an appt. Navigation Signature: Juanita Kimble LPN September 21, 2024 9:06 AM [facility] 09-21-2024 History of Presen t illness Narrative POPULATION HEALTH NAVIGATION OUTREACH Action/FYI Last seen by Shahana JUNIOR 05/26/2024, advised to f/u in 6 weeks Reason for Outreach Care Gap/HCC or Scheduling Wellness Visits Care Gaps due: Follow-up Appointment Patient Contacted: Unable to reach Patient, left message to contact office. Overdue for an appt. Navigation Signature: Juanita Kimble LPN September 21, 2024 9:06 AM documented in this encounter [facility] 08-10-2024 Note HNO ID: [id number] Author: JUANITA KIMBLE LPN Service: ? Author Type: LICENSED NURSE Type: Progress Notes Filed: 08/10/2024 15:06 Note Text: POPULATION HEALTH NAVIGATION OUTREACH Action/FYI Reason for Outreach Care Gap/HCC or Scheduling Wellness Visits Care Gaps due: Follow-up Appointment Patient Contacted: Unable or unnecessary to reach patient: Left message Navigation Signature: Juanita Kimble LPN August 10, 2024 3:06 PM [facility] 08-10-2024 History of Presen t illness Narrative POPULATION HEALTH NAVIGATION OUTREACH Action/FYI Reason for Outreach Care Gap/HCC or Scheduling Wellness Visits Care Gaps due: Follow-up Appointment Patient Contacted: Unable or unnecessary to reach patient: Left message Navigation Signature: Juanita Kimble LPN August 10, 2024 3:06 PM documented in this encounter [facility] 07-26-2024 History of Presen t illness Narrative [facility] Medical Nutrition Therapy Visit Type: In-Person (Face to Face): Patient states reason for visit: Type 2 Diabetes Management Initial DEMOGRAPHICS: Co-Morbidities: PAST MEDICAL HISTORY Diagnosis Date Anxiety and depression 12/21/2015 Dr. 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/21/2015 Diabetic neuropathy, painful (HCC) 12/21/2015 Essential hypertension 12/21/2015 Post-traumatic osteoarthritis of right shoulder 04/24/2016 Psoriasis 12/21/2015 Psychosis (HCC) 2013 [facility] Uncontrolled type 2 diabetes mellitus with neurologic complication, with long-term current use of insulin 12/21/20152013 Activity: Do you regularly exercise? No Symptoms: Patient's symptoms are as follows: Hyperglycemia How many hours of sleep on average? 6 hours - Relates difficulty falling asleep. Diet History: (Typically </=2 meals per day; rare snack), 24 hour recall Breakfast (5P): BBQ wings w/ salad (ranch dressing) and milk Snack: donut Dinner: BBQ wings w/ salad (ranch dressing) and milk Fluids: Coffee (cream/sugar/milk), Pop (regular or diet; occasional), Water Dining/eating out? Occasional, <1 x month Allergies: No Food Allergy Patient / Provider Comments: - Current DM medications: Fiasp (14 units w/ b-fast, 12 units w/lunch, 14 units w /dinner), Lantus (36 units at HS), Metformin ER - Does not have Dexcom G7 reciever. -- Relates readings have been running about 380 mg/dl after a meal, notes uncertain as to whether 380 mg/dl reading is 2 hours after eating or longer. Uncertain as to BG reading after waking up for the day. - Hypoglycemic events: denies experiences recently. Notes may feel shaky if BG low. States the lowest BG pt has seen is 185 mg/dl. - Hyperglycemic events: Pt notes maybe increased thurst if BG high and fatigue. - Initial DM dx: 2013. Denies nutrition education for diabetes in the past. - Recent A1C 12.9% 04/2024 - Working 5 days per week, third shift. Reports does not pack meal/snacks to bring to work. Has snacks available at work but states typically he does no eat during work shift. Medications: Current Outpatient Medications Medication Sig insulin aspart, niacinamide, (FIASP FLEXTOUCH U-100 INSULIN) 100 unit/mL (3 mL) pen Inject 10 units with breakfast, 10 units with lunch, 10 units with dinner (TDD) 30 ) Blood-Glucose Sensor (DEXWipebook G7 SENSOR) tai CHANGE SENSOR EVERY 10 days USE FOR CONTINUOUS GLUCOSE MONITORING. MULTIPLE INSULIN INJECTIONS. E11.9 insulin glargine (LANTUS SOLOSTAR U-100 INSULIN) 100 unit/mL (3 mL) Inject 36 Units subcutaneously daily at bedtime. lisinopril-hydroCHLOROthiazide (ZESTORETIC) 10-12.5 mg per tablet Take 2 tablets by mouth every morning. atorvastatin (LIPITOR) 10 mg tablet Take 1 tablet by mouth daily at bedtime. For cholesterol. blood sugar diagnostic (BLOOD GLUCOSE TEST) test strip Test blood sugar(s) 2 times daily. Dx: Type 2 DM - Uncontrolled E11.65 Insulin: Yes gabapentin (NEURONTIN) 300 mg capsule Take 1 capsule by mouth daily at bedtime for 180 days. Insulin [place], Disposable, (BD ULTRA-FINE DERRELL PEN NEEDLE) 32 gauge x 5/32 Use one needle for each dose. 1/day. Lancets Test blood sugar(s) 2 times daily. Dx: Type 2 DM - Uncontrolled E11.65 Insulin: Yes naproxen (NAPROSYN) 500 mg tablet Take 1 tablet by mouth two times a day as needed (for pain/inflammation). Take with food. metFORMIN ER (GLUCOPHAGE XR) 500 mg 24 hr tablet Take 1 tablet by mouth two times a day with meals. ondansetron orally disintegrating (ZOFRAN ODT) 4 mg disintegrating tablet No current facility-administered medications for this visit. Labs: Lab Results Component Value Date HBA1C 12.9 04/14/2024 HBA1C 12.6 03/14/2023 HBA1C 13.0 04/19/2022 HBA1C 12.9 09/24/2021 HBA1C 12.2 12/26/2020 HBA1C 12.0 09/12/2017 HBA1C 13.4 02/13/2017 Total Cholesterol, Nonfasting Date Value Ref Range Status 04/14/2024 203 (H) <200 mg/dL Final Comment: <200 mg/dL, Desirable 200-239 mg/dL, Borderline high >239 mg/dL, High HDL Cholesterol, Nonfasting Date Value Ref Range Status 04/14/2024 53 >39 mg/dL Final Comment: 40-59 mg/dL, Acceptable >59 mg/dL, High: Negative risk factor for coronary heart disease <40 mg/dL, Low: Positive risk factor for coronary heart disease LDL Cholesterol, Nonfasting Date Value Ref Range Status 04/14/2024 102 (H) <100 mg/dL Final Comment: <100 mg/dL, Optimal 100-129 mg/dL, Near optimal/above optimal 130-159 mg/dL, Borderline high 160-189 mg/dL, High >189 mg/dL, Very high Secondary prevention optimal LDL Cholesterol levels are recommended to be < 70 mg/dL Triglycerides, Nonfasting Date Value Ref Range Status 04/14/2024 238 (H) <150 mg/dL Final Comment: <150 mg/dL, Normal 150-199 mg/dL, Borderline high 200-499 mg/dL, High >499 mg/dL, Very high Glucose (mg/dL) Date Value 04/14/2024 342 12/26/2020 478 Potassium (mmol/L) Date Value 04/14/2024 4.5 12/26/2020 4.5 Sodium (mmol/L) Date Value 04/14/2024 131 12/26/2020 135 Chloride (mmol/L) Date Value 04/14/2024 94 12/26/2020 97 CO2 (mmol/L) Date Value 04/14/2024 27 12/26/2020 26 Creatinine (mg/dL) Date Value 04/14/2024 0.91 12/26/2020 0.72 BUN (mg/dL) Date Value 04/14/2024 31 12/26/2020 20 Anion Gap (mmol/L) Date Value 04/14/2024 10 12/26/2020 12 Calcium (mg/dL) Date Value 12/26/2020 9.5 Calcium, Total (mg/dL) Date Value 04/14/2024 10.3 Protein, Total (g/dL) Date Value 04/14/2024 7.4 12/26/2020 7.1 Albumin (g/dL) Date Value 04/14/2024 4.0 12/26/2020 4.4 Bilirubin, Total (mg/dL) Date Value 04/14/2024 0.2 12/26/2020 0.2 Alkaline Phosphatase (U/L) Date Value 04/14/2024 80 12/26/2020 58 AST (U/L) Date Value 04/14/2024 26 12/26/2020 25 ALT (U/L) Date Value 04/14/2024 47 12/26/2020 51 ANTHROPOMETRICS Height: Last 1 Encounter Ht Readings: Date: Ht: 06/30/2024 172.7 cm (5' 8) Current weight: Last 3 Encounter Wt Readings: Date: Wt: 06/30/2024 103.8 kg (228 lb 12.8 oz) 05/26/2024 101.9 kg (224 lb 10.4 oz) 04/14/2024 101.1 kg (222 lb 14.2 oz) BMI: 34.79 kg/m2 5% -10% Weight loss: 11-22 lbs Last Wt 06/30/24 : 103.8 kg (228 lb 12.8 oz) 5% weight loss = 217 lbs, 10% weight loss = 206 lbs [place] body weight: 68.4 kg (150 lb 12.7 oz) Adjusted ideal body weight: 82.6 kg (181 lb 15.9 oz) READINESS TO LEARN Cognitive ability: Alert and oriented Motivation to learn: Disinterested/ reluctant Family support: Unable to assess - Family not present Instruction provided to: Patient Patient learns best by: Multiple Methods Factors affecting learning: None Physical limitations affecting learning: None Stage of Change: Precontemplation Nutrition Diagnosis: Food and nutrition related knowledge deficit, related to; lack of prior exposure to information , as evidenced by client has no prior knowledge of need for food and nutrition - related information Calories Needed for Current Weight: Resting Metabolic Rate: 1840 Nutrition Intervention: -Diabetes Basics: insulin resistance and relationship of glucose and insulin in the body -Monitoring: A1c meaning and target <7%, BG targets, and CGM basics & daily use -Healthy Eating: -- Encouraged establishing meals consistency; regularly consume 3 meals per day and snacks as needed. -- Space meals and/or snacks a part by 3-5 hours. -- Plate Method:1/2 plate non-starchy vegetables, 1/4 plate protein, 1/4 plate starch/grain/fruit -- carbohydrate and protein sources and effect on blood sugar regulation and metabolism -- Encouraged to always pair protein and/or healthy fat with CHO sources. Do not consume naked CHO. -- concepts of the Mediterranean diet for healthy carb choices -- CHO counting and foods with carbs, portion sizes, choosing high fiber CHO sources, -- Recommendation for 45-60 grams carb per meal and 15 grams carb per snack. -- Recommendation for 30-35 grams protein per meal and 7 grams protein per snack. -- Portion sizes for commonly eaten carbohydrate foods -- Food label reading for serving size, total fat, total carbohydrate, fiber, and protein. -- Benefits of fiber in foods and effect on satiety and blood glucose regulation- discussed sources of high fiber foods. -- Importance of including lean protein sources at each meal and snack. -- Importance of including healthy fats such as olive oil, avocado, nuts and fish -- Using hands as portioning tools for carbohydrates, protein, and NS vegetables. --food label reading for serving size, total carbohydrate, and protein. --avoiding regular soda, juice, and fried foods --discussed mindful eating practices and hunger/fullness scale --reviewed a sample carb controlled Mediterranean style menu --Encouraged increased water/fluid consumption to promote healthy hydration to decrease food cravings- aim to consume water or SF beverages with goal 64 ounces per day. -- Provided and discussed free nutrition apps that can be useful on weight loss journey. -Medications: reviewed home DM meds, oral agents discussed: metformin ER, and injectable insulin discussed: aspart (Fiasp) and glargine (Lantus) -Physical Activity: benefits of exercise, impact of exercise on BG, types of exercise, and exercise safety -Problem Solving: hypoglycemia s/sx/tx, hyperglycemia s/sx/tx, and sick day rules Education Materials: Healthy You: Survival Skills Thriving with the Mediterranean Lifestyle Nutrition Monitoring & Evaluation: Dietitian Goals: Maintained OR Improved Blood Glucose Control by next A1C test Choose sugar free beverages in place of sugar containing beverages. Aim to not go longer than 5 hours without eating. Always pair CHO with protein and/or healthy fat. Criteria: Blood Glucose Values and A1C Food Recall Patient Stated Goals at today's visit: Pt states I'm doing the best I can. Does not identify nutrition change he would like to work on. Adherence Potential to Goals: N/A Need for Follow up: TBD Referred by: Amairani Youssef APRN.C* Tremayne Miller RD Consult Billing Type/Increments: Initial Assessment/15 minutes, 2 increment(s), 30 minutes Start time: 11:05 End time: 11:43 My final report will be communicated back to the requesting physician by way of shared medical record. Signed by: Tremayne Miller RD documented in this encounter [facility] 07-26-2024 Note Education (ENDIMT) PHILIP ARNDT ([id number]) 1965 M Date Time Provider Department 07/26/24 11:00 AM TREMAYNE MILLER [place] Reason for Visit: Medical Nutrition Therapy [1997] Cmt: Type 2 Diabetes Visit Diagnosis:Poorly controlled diabetes mellitus (HCC) [E11.65] Order(s):ENDOCRINOLOGY DIETITIAN VISIT (MNT) [[id number]] Order #: [id number]: 4 During your visit today, we recorded the following information about you: Allergies As of Date: 07/26/2024 Noted Allergy Reaction PENICILLIN 03/21/2023 8 - GI Upset Date Reviewed: 07/22/2024 Reviewed by: Dona Feng RPh - Fully Assessed Prescriptions as of 07/26/2024 - insulin glargine (LANTUS SOLOSTAR U-100 INSULIN) 100 unit/mL (3 mL) Inject 36 Units subcutaneously daily at bedtime. - metFORMIN ER (GLUCOPHAGE XR) 500 mg 24 hr tablet Take 1 tablet by mouth two times a day with meals. - insulin aspart, niacinamide, (FIASP FLEXTOUCH U-100 INSULIN) 100 unit/mL (3 mL) pen Inject 10 units with breakfast, 10 units with lunch, 10 units with dinner (TDD) 30 ) - Blood-Glucose Sensor (DEXCOM G7 SENSOR) tai CHANGE SENSOR EVERY 10 days USE FOR CONTINUOUS GLUCOSE MONITORING. MULTIPLE INSULIN INJECTIONS. E11.9 - lisinopril-hydroCHLOROthiazide (ZESTORETIC) 10-12.5 mg per tablet Take 2 tablets by mouth every morning. - atorvastatin (LIPITOR) 10 mg tablet Take 1 tablet by mouth daily at bedtime. For cholesterol. - blood sugar diagnostic (BLOOD GLUCOSE TEST) test strip Test blood sugar(s) 2 times daily. Dx: Type 2 DM - Uncontrolled E11.65 Insulin: Yes - gabapentin (NEURONTIN) 300 mg capsule Take 1 capsule by mouth daily at bedtime for 180 days. - Insulin [place], Disposable, (BD ULTRA-FINE DERRELL PEN NEEDLE) 32 gauge x Use one needle for each dose. 1/day. - Lancets Test blood sugar(s) 2 times daily. Dx: Type 2 DM - Uncontrolled E11.65 Insulin: Yes - naproxen (NAPROSYN) 500 mg tablet Take 1 tablet by mouth two times a day as needed (for pain/inflammation). Take with food. - ondansetron orally disintegrating (ZOFRAN ODT) 4 mg disintegrating tablet Encounter Status:Closed by TREMAYNE MILLER on 07/26/24 [facility] 07-26-2024 Note HNO ID: [id number] Author: TREMAYNE MILLER RD Service: ? Author Type: Registered Dietitian Type: Progress Notes Filed: 07/26/2024 11:49 Note Text: [facility] Medical Nutrition Therapy Visit Type: In-Person (Face to Face): Patient states reason for visit: Type 2 Diabetes Management Initial DEMOGRAPHICS: Co-Morbidities: PAST MEDICAL HISTORY Diagnosis Date Anxiety and depression 12/21/2015 Dr. 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/21/2015 Diabetic neuropathy, painful (HCC) 12/21/2015 Essential hypertension 12/21/2015 Post-traumatic osteoarthritis of right shoulder 04/24/2016 Psoriasis 12/21/2015 Psychosis (HCC) 2013 [facility] Uncontrolled type 2 diabetes mellitus with neurologic complication, with long-term current use of insulin 12/21/20152013 Activity: Do you regularly exercise? No Symptoms: Patient's symptoms are as follows: Hyperglycemia How many hours of sleep on average? 6 hours - Relates difficulty falling asleep. Diet History: (Typically Breakfast (5P): BBQ wings w/ salad (ranch dressing) and milk Snack: donut Dinner: BBQ wings w/ salad (ranch dressing) and milk Fluids: Coffee (cream/sugar/milk), Pop (regular or diet; occasional), Water Dining/eating out? Occasional, <1 x month Allergies: No Food Allergy Patient / Provider Comments: - Current DM medications: Fiasp (14 units w/ b-fast, 12 units w/lunch, 14 units w /dinner), Lantus (36 units at HS), Metformin ER - Does not have Dexcom G7 reciever. -- Relates readings have been running about 380 mg/dl after a meal, notes uncertain as to whether 380 mg/dl reading is 2 hours after eating or longer. Uncertain as to BG reading after waking up for the day. - Hypoglycemic events: denies experiences recently. Notes may feel shaky if BG low. States the lowest BG pt has seen is 185 mg/dl. - Hyperglycemic events: Pt notes maybe increased thurst if BG high and fatigue. - Initial DM dx: 2013. Denies nutrition education for diabetes in the past. - Recent A1C 12.9% 04/2024 - Working 5 days per week, third shift. Reports does not pack meal/snacks to bring to work. Has snacks available at work but states typically he does no eat during work shift. Medications: Current Outpatient Medications Medication Sig insulin aspart, niacinamide, (FIASP FLEXTOUCH U-100 INSULIN) 100 unit/mL (3 mL) pen Inject 10 units with breakfast, 10 units with lunch, 10 units with dinner (TDD) 30 ) Blood-Glucose Sensor (DEXCOM G7 SENSOR) tai CHANGE SENSOR EVERY 10 days USE FOR CONTINUOUS GLUCOSE MONITORING. MULTIPLE INSULIN INJECTIONS. E11.9 insulin glargine (LANTUS SOLOSTAR U-100 INSULIN) 100 unit/mL (3 mL) Inject 36 Units subcutaneously daily at bedtime. lisinopril-hydroCHLOROthiazide (ZESTORETIC) 10-12.5 mg per tablet Take 2 tablets by mouth every morning. atorvastatin (LIPITOR) 10 mg tablet Take 1 tablet by mouth daily at bedtime. For cholesterol. blood sugar diagnostic (BLOOD GLUCOSE TEST) test strip Test blood sugar(s) 2 times daily. Dx: Type 2 DM - Uncontrolled E11.65 Insulin: Yes gabapentin (NEURONTIN) 300 mg capsule Take 1 capsule by mouth daily at bedtime for 180 days. Insulin [place], Disposable, (BD ULTRA-FINE DERRELL PEN NEEDLE) 32 gauge x 5/32 Use one needle for each dose. 1/day. Lancets Test blood sugar(s) 2 times daily. Dx: Type 2 DM - Uncontrolled E11.65 Insulin: Yes naproxen (NAPROSYN) 500 mg tablet Take 1 tablet by mouth two times a day as needed (for pain/inflammation). Take with food. metFORMIN ER (GLUCOPHAGE XR) 500 mg 24 hr tablet Take 1 tablet by mouth two times a day with meals. ondansetron orally disintegrating (ZOFRAN ODT) 4 mg disintegrating tablet No current facility-administered medications for this visit. Labs: Lab Results Component Value Date HBA1C 12.9 04/14/2024 HBA1C 12.6 03/14/2023 HBA1C 13.0 04/19/2022 HBA1C 12.9 09/24/2021 HBA1C 12.2 12/26/2020 HBA1C 12.0 09/12/2017 HBA1C 13.4 02/13/2017 Total Cholesterol, Nonfasting Date Value Ref Range Status 04/14/2024 203 (H) <200 mg/dL Final Comment: <200 mg/dL, Desirable 200-239 mg/dL, Borderline high >239 mg/dL, High HDL Cholesterol, Nonfasting Date Value Ref Range Status 04/14/2024 53 >39 mg/dL Final Comment: 40-59 mg/dL, Acceptable >59 mg/dL, High: Negative risk factor for coronary heart disease <40 mg/dL, Low: Positive risk factor for coronary heart disease LDL Cholesterol, Nonfasting Date Value Ref Range Status 04/14/2024 102 (H) <100 mg/dL Final Comment: <100 mg/dL, Optimal 100-129 mg/dL, Near optimal/above optimal 130-159 mg/dL, Borderline high 160-189 mg/dL, High >189 mg/dL, Very high Secondary prevention optimal LDL Cholesterol levels are recommended to be < 70 mg/dL Triglycerides, Nonfasting Date Value Ref Range Status 04/14/2024 238 (H) <150 mg/dL Final Comment: <150 mg/dL, Normal 150-199 mg/dL, Borderline high 200-499 mg/dL, High (more content not included)... [facility] 07-22-2024 History of Presen t illness Narrative Primary Care Pharmacy Visit CC (Reason for Consult): (E11.65) Poorly controlled diabetes mellitus (HCC) (primary encounter diagnosis) Goal(s): A1c <8% Last Collaborating Provider Visit: 06/30/24 with Amairani Youssef, DAPHNIE Philip Arndt is a 59 year old male presenting for initial visit: This initial consult was conducted in person with the patient where the consult agreement was explained. The patient may decline or cancel the agreement at any time. After consideration, the patient consented to the pharmacy consult agreement and agreed to allow medications be collaboratively managed by a pharmacist. Last Pharmacy Visit: previously followed with Steffany (NELA 06/22/21) Interim Events: - 06/30/24 endo visit (DM educator) - CGM set up (Dexcom G7) HPI: Reports doing well Recently got set up with Dexcom sensors, just got refill on insulin Did not bring Dexcom reader with him today Reports BGs have been up and down lately Denies any BGs <70 Reports he has been taking his insulin three times a day, not sure of name but says its a blue pen. States that he does not think he has been taking the Lantus daily, not sure if he has any of this at home. Reports he does remember being on this awhile ago Current DM Medications: Metformin ER 500 mg twice daily - taking 1 tablet once daily Lantus 36 units once daily - not sure if taking ? Fiasp 10 units three times daily with meals - taking 14-12-14 as prescribed by endo Previously Trialed DM Meds: Ozempic - cost GLYCEMIC CONTROL: Glucometer present at visit: No - did not bring Dexcom reader today Hypoglycemia: No Past medical history reviewed. ALLERGIES Allergen Reactions Penicillin GI Upset Current Outpatient Medications Medication Sig Dispense Refill insulin aspart, niacinamide, (FIASP FLEXTOUCH U-100 INSULIN) 100 unit/mL (3 mL) pen Inject 10 units with breakfast, 10 units with lunch, 10 units with dinner (TDD) 30 ) 30 mL 3 Blood-Glucose Sensor (DEXCOM G7 SENSOR) tai CHANGE SENSOR EVERY 10 days USE FOR CONTINUOUS GLUCOSE MONITORING. MULTIPLE INSULIN INJECTIONS. E11.9 9 Each 3 insulin glargine (LANTUS SOLOSTAR U-100 INSULIN) 100 unit/mL (3 mL) Inject 36 Units subcutaneously daily at bedtime. 15 mL 2 lisinopril-hydroCHLOROthiazide (ZESTORETIC) 10-12.5 mg per tablet Take 2 tablets by mouth every morning. 180 tablet 1 atorvastatin (LIPITOR) 10 mg tablet Take 1 tablet by mouth daily at bedtime. For cholesterol. 30 tablet 5 blood sugar diagnostic (BLOOD GLUCOSE TEST) test strip Test blood sugar(s) 2 times daily. Dx: Type 2 DM - Uncontrolled E11.65 Insulin: Yes 200 Strip 3 gabapentin (NEURONTIN) 300 mg capsule Take 1 capsule by mouth daily at bedtime for 180 days. 30 capsule 5 Insulin [place], Disposable, (BD ULTRA-FINE DERRELL PEN NEEDLE) 32 gauge x 5/32 Use one needle for each dose. 1/day. 50 Each 5 Lancets Test blood sugar(s) 2 times daily. Dx: Type 2 DM - Uncontrolled E11.65 Insulin: Yes 200 Each 3 naproxen (NAPROSYN) 500 mg tablet Take 1 tablet by mouth two times a day as needed (for pain/inflammation). Take with food. 60 tablet 1 metFORMIN ER (GLUCOPHAGE XR) 500 mg 24 hr tablet Take 1 tablet by mouth two times a day with meals. 60 tablet 5 ondansetron orally disintegrating (ZOFRAN ODT) 4 mg disintegrating tablet No current facility-administered medications for this visit. Pill bottles are not present. Adherence: reports missed doses. Rx coverage: Payor: ANTHEM / Plan: BLUE ACCESS PPO / Product Type: PPO / Medications affordable? Yes PHARMACOTHERAPY PREVENTATIVE MEDS: On KAPIL/ARB: Yes On Statin: Yes On ASA: No EXAM: There were no vitals taken for this visit. Last 3 Encounter BP Readings: Date: BP: 06/30/2024 132/76 05/26/2024 148/86 04/14/2024 118/70 Wt: 103.8 kg (228 lb 12.8 oz) BMI: 34.79 kg/(m^2) LABS: Lab Results Component Value Date HBA1C 12.9 04/14/2024 HBA1C 12.6 03/14/2023 HBA1C 13.0 04/19/2022 HBA1C 12.9 09/24/2021 HBA1C 12.2 12/26/2020 HBA1C 12.0 09/12/2017 HBA1C 13.4 02/13/2017 Glucose 342 04/14/2024 BUN 31 04/14/2024 Creatinine 0.91 04/14/2024 Sodium 131 04/14/2024 Potassium 4.5 04/14/2024 Chloride 94 04/14/2024 CO2 27 04/14/2024 Protein, Total 7.4 04/14/2024 Albumin 4.0 04/14/2024 Calcium 10.3 04/14/2024 Alkaline Phosphatase 80 04/14/2024 Bilirubin, Total 0.2 04/14/2024 AST 26 04/14/2024 ALT 47 04/14/2024 Lab Results Component Value Date CHOL 203 04/14/2024 CHOL 225 04/19/2022 CHOL 233 12/26/2020 LDL 102 04/14/2024 LDL 139 12/26/2020 HDL 53 04/14/2024 HDL 55 04/19/2022 HDL 58 12/26/2020 TG 238 04/14/2024 TG 112 04/19/2022 TG 179 12/26/2020 Albumin/Creat Ratio (mg/g) Date Value 04/19/2022 <27 eGFR-All Other Races (.) Date Value 12/26/2020 >60 Estimated Glomerular Filtration Rate (mL/min/1.73m ) Date Value 04/14/2024 98 ASSESSMENT/PLAN: 1. Poorly controlled diabetes mellitus (HCC) - ICD9: 250.00, ICD10: E11.65 - Uncontrolled - Given lack of available CGM data and uncertainty if taking basal insulin recently, will not adjust insulin doses at this time - Increase metformin ER 500 mg to twice daily as previously prescribed - Advised patient to see if he has Lantus at home and to continue at prescribed dose - Continue current medications as prescribed - Statin prescribed - atorvastatin - Blood glucose monitoring on a continuous glucose monitoring schedule. Instructed patient to bring Dexcom reader to next visit for download - Counseled on healthy diet and regular exercise - Discussed diabetic education issues of diabetes complications and monitoring required and hypoglycemic/hyperglycemic symptoms - Follow up in 1 month, sooner should any other issues arise. - Advised patient to bring all medications to next visit for review Follow Up: Next PCP visit: not scheduled Next endo visit: 09/15/24 Next PharmD visit: 08/26/24 Dona Feng PharmD, BCACP Primary Care Clinical Systems Planner I spent a total of 35 minutes on the date of the service which included preparing to see the patient, [id number] patient care, completing clinical documentation, counseling and educating the patient/family/caregiver, and ordering medications, tests, or procedures. documented in this encounter [facility] 07-22-2024 Instructions Dona Feng RPh - 07/22/2024 3:00 PM EST Bring your Dexcom reader and medications to next visit Check to see if you have Lantus (silva insulin pen) - Lantus 36 units once a day Continue Fiasp (blue mealtime insulin pen) 14 units with breakfast, 12 units with lunch, 4 units with dinner documented in this encounter [facility] 07-22-2024 Note HNO ID: [id number] Author: DONA FENG RPh Service: ? Author Type: Pharmacist Type: Progress Notes Filed: 07/22/2024 15:39 Note Text: Primary Care Pharmacy Visit CC (Reason for Consult): (E11.65) Poorly controlled diabetes mellitus (HCC) (primary encounter diagnosis) Goal(s): A1c <8% Last Collaborating Provider Visit: 06/30/24 with Amairani Youssef, DAPHNIE Philip Arndt is a 59 year old male presenting for initial visit: This initial consult was conducted in person with the patient where the consult agreement was explained. The patient may decline or cancel the agreement at any time. After consideration, the patient consented to the pharmacy consult agreement and agreed to allow medications be collaboratively managed by a pharmacist. Last Pharmacy Visit: previously followed with Steffany (N[facility]A 06/22/21) Interim Events: - 06/30/24 endo visit (DM educator) - CGM set up (Dexcom G7) HPI: Reports doing well Recently got set up with Dexcom sensors, just got refill on insulin Did not bring Dexcom reader with him today Reports BGs have been up and down lately Denies any BGs <70 Reports he has been taking his insulin three times a day, not sure of name but says its a blue pen. States that he does not think he has been taking the Lantus daily, not sure if he has any of this at home. Reports he does remember being on this awhile ago Current DM Medications: Metformin ER 500 mg twice daily - taking 1 tablet once daily Lantus 36 units once daily - not sure if taking ? Fiasp 10 units three times daily with meals - taking 14-12-14 as prescribed by endo Previously Trialed DM Meds: Ozempic - cost GLYCEMIC CONTROL: Glucometer present at visit: No - did not bring Dexcom reader today Hypoglycemia: No Past medical history reviewed. ALLERGIES Allergen Reactions Penicillin GI Upset Current Outpatient Medications Medication Sig Dispense Refill insulin aspart, niacinamide, (FIASP FLEXTOUCH U-100 INSULIN) 100 unit/mL (3 mL) pen Inject 10 units with breakfast, 10 units with lunch, 10 units with dinner (TDD) 30 ) 30 mL 3 Blood-Glucose Sensor (DEXCOM G7 SENSOR) tai CHANGE SENSOR EVERY 10 days USE FOR CONTINUOUS GLUCOSE MONITORING. MULTIPLE INSULIN INJECTIONS. E11.9 9 Each 3 insulin glargine (LANTUS SOLOSTAR U-100 INSULIN) 100 unit/mL (3 mL) Inject 36 Units subcutaneously daily at bedtime. 15 mL 2 lisinopril-hydroCHLOROthiazide (ZESTORETIC) 10-12.5 mg per tablet Take 2 tablets by mouth every morning. 180 tablet 1 atorvastatin (LIPITOR) 10 mg tablet Take 1 tablet by mouth daily at bedtime. For cholesterol. 30 tablet 5 blood sugar diagnostic (BLOOD GLUCOSE TEST) test strip Test blood sugar(s) 2 times daily. Dx: Type 2 DM - Uncontrolled E11.65 Insulin: Yes 200 Strip 3 gabapentin (NEURONTIN) 300 mg capsule Take 1 capsule by mouth daily at bedtime for 180 days. 30 capsule 5 Insulin [place], Disposable, (BD ULTRA-FINE DERRELL PEN NEEDLE) 32 gauge x 5/32 Use one needle for each dose. 1/day. 50 Each 5 Lancets Test blood sugar(s) 2 times daily. Dx: Type 2 DM - Uncontrolled E11.65 Insulin: Yes 200 Each 3 naproxen (NAPROSYN) 500 mg tablet Take 1 tablet by mouth two times a day as needed (for pain/inflammation). Take with food. 60 tablet 1 metFORMIN ER (GLUCOPHAGE XR) 500 mg 24 hr tablet Take 1 tablet by mouth two times a day with meals. 60 tablet 5 ondansetron orally disintegrating (ZOFRAN ODT) 4 mg disintegrating tablet No current facility-administered medications for this visit. Pill bottles are not present. Adherence: reports missed doses. Rx coverage: Payor: ANTHEM / Plan: BLUE ACCESS PPO / Product Type: PPO / Medications affordable? Yes PHARMACOTHERAPY PREVENTATIVE MEDS: On KAPIL/ARB: Yes On Statin: Yes On ASA: No EXAM: There were no vitals taken for this visit. Last 3 Encounter BP Readings: Date: BP: 06/30/2024 132/76 05/26/2024 148/86 04/14/2024 118/70 Wt: 103.8 kg (228 lb 12.8 oz) BMI: 34.79 kg/(m2) LABS: Lab Results Component Value Date HBA1C 12.9 04/14/2024 HBA1C 12.6 03/14/2023 HBA1C 13.0 04/19/2022 HBA1C 12.9 09/24/2021 HBA1C 12.2 12/26/2020 HBA1C 12.0 09/12/2017 HBA1C 13.4 02/13/2017 Glucose 342 04/14/2024 BUN 31 04/14/2024 Creatinine 0.91 04/14/2024 Sodium 131 04/14/2024 Potassium 4.5 04/14/2024 Chloride 94 04/14/2024 CO2 27 04/14/2024 Protein, Total 7.4 04/14/2024 Albumin 4.0 04/14/2024 Calcium 10.3 04/14/2024 Alkaline Phosphatase 80 04/14/2024 Bilirubin, Total 0.2 04/14/2024 AST 26 04/14/2024 ALT 47 04/14/2024 Lab Results Component Value Date CHOL 203 04/14/2024 CHOL 225 04/19/2022 CHOL 233 12/26/2020 LDL 102 04/14/2024 LDL 139 12/26/2020 HDL 53 04/14/2024 HDL 55 04/19/2022 HDL 58 12/26/2020 TG 238 04/14/2024 TG 112 04/19/2022 TG 179 12/26/2020 Albumin/Creat Ratio (mg/g) Date Value 04/19/2022 <27 eGFR-All Other Races (.) Date Value 12/26/2020 >60 Estimated Glomerular Filtration Rate ( (more content not included)... [facility] 06-30-2024 Note HNO ID: [id number] Author: ADIEL PEDRAZA RN Service: ? Author Type: Registered Nurse Type: Progress Notes Filed: 06/30/2024 08:46 Note Text: DIABETES CARE AND EDUCATION VISIT Location: [place] Type of visit: In person individual PATIENT'S MAIN CONCERN TODAY: Learn more about CGM Support person present for education today: none Cognitive ability: Alert and oriented Difficulty with processing Motivation to learn: Interested Learning barriers identified by educator: none Method of instruction: written, verbal, and demonstration DIABETES FINDINGS: Monitoring: Reviewed the Dexcom CGM with career consultant. I don't know how to do nothing on the phone, my girlfriend has to do that stuff for me. Medications: Reviewed medication changes today. The patient started the following personal CGM today: Dexcom G7 Patient-provided sensor expiration date: 11/05 Sensor insertion location: back of right upper arm Insertion performed by: This nurse Patient response to insertion: no redness/bleeding noted and patient denies discomfort. Is the sensor at least 2 inches away from any pump infusion sites? n/a (patient does not use an insulin pump) CGM linked to insulin pump: none-patient is not using an insulin pump -Rationale for CGM use -CGM maintenance -Sensor insertion: site selection and rotation and operation of insertion device -Sensor start: pairing transmitter and sensor and warm-up time -Display screen overview: sensor glucose reading, trend arrows, trend graph , and alert messages -System settings: high alert level set at 250 mg/dL and low alert level set at 70 mg/dL -Use of sensor glucose in treatment decisions: no fingerstick confirmation required -If symptoms do not match sensor glucose: check glucose with fingerstick -Calibration fingerstick minimum requirements: none - factory calibrated -Changing sensor every 10 days -Ending a sensor session: disposal of sensor -Options for device upload, data review, and data sharing: [employer] Clarity -Other topics taught: OK to shower/bathe, avoid hot tubs/saunas, remove sensor/transmitter for CT scans/MRIs, and do not administer insulin less than 2 inches from sensor sites HANDOUTS: Dexcom information reviewed LEARNING RESPONSE: Monitoring glucose: Needs further review on follow up visit with OPTICAL WORKER to see how much is retained DIABETES CARE AND EDUCATION PLAN: Individual follow-up Time Spent (Minutes): 30 This visit note will be communicated to the healthcare provider via access to shared medical record. SIGNATURE: Adiel Pedraza RN PATIENT NAME: Philip Arndt DATE: June 30, 2024 TIME: 8:40 AM [facility] 06-30-2024 History of Presen t illness Narrative DIABETES CARE AND EDUCATION VISIT Location: [place] Type of visit: In person individual PATIENT'S MAIN CONCERN TODAY: Learn more about CGM Support person present for education today: none Cognitive ability: Alert and oriented Difficulty with processing Motivation to learn: Interested Learning barriers identified by educator: none Method of instruction: written, verbal, and demonstration DIABETES FINDINGS: Monitoring: Reviewed the Dexcom CGM with career consultant. I don't know how to do nothing on the phone, my girlfriend has to do that stuff for me. Medications: Reviewed medication changes today. The patient started the following personal CGM today: Dexcom G7 Patient-provided sensor expiration date: 11/05 Sensor insertion location: back of right upper arm Insertion performed by: This nurse Patient response to insertion: no redness/bleeding noted and patient denies discomfort. Is the sensor at least 2 inches away from any pump infusion sites? n/a (patient does not use an insulin pump) CGM linked to insulin pump: none-patient is not using an insulin pump -Rationale for CGM use -CGM maintenance -Sensor insertion: site selection and rotation and operation of insertion device -Sensor start: pairing transmitter and sensor and warm-up time -Display screen overview: sensor glucose reading, trend arrows, trend graph , and alert messages -System settings: high alert level set at 250 mg/dL and low alert level set at 70 mg/dL -Use of sensor glucose in treatment decisions: no fingerstick confirmation required -If symptoms do not match sensor glucose: check glucose with fingerstick -Calibration fingerstick minimum requirements: none - factory calibrated -Changing sensor every 10 days -Ending a sensor session: disposal of sensor -Options for device upload, data review, and data sharing: Dexcom Clarity -Other topics taught: OK to shower/bathe, avoid hot tubs/saunas, remove sensor/transmitter for CT scans/MRIs, and do not administer insulin less than 2 inches from sensor sites HANDOUTS: Dexcom information reviewed LEARNING RESPONSE: Monitoring glucose: Needs further review on follow up visit with OPTICAL WORKER to see how much is retained DIABETES CARE AND EDUCATION PLAN: Individual follow-up Time Spent (Minutes): 30 This visit note will be communicated to the healthcare provider via access to shared medical record. SIGNATURE: Adiel Pedraza RN PATIENT NAME: Philip Arndt DATE: June 30, 2024 TIME: 8:40 AM documented in this encounter [facility] 06-30-2024 Instructions Amairani Youssef APRN.DAPHNIE - 06/30/2024 8:21 AM EST LANTUS Inject 36 units daily HUMALOG INJECT 14 units with breakfast INJECT 12 units with lunch INJECT 14 with dinner CONTINUE METFORMIN documented in this encounter [facility] 06-30-2024 History of Presen t illness Narrative NEW CONSULT OFFICE PROGRESS NOTE Reason for Consultation: DM Type 2 Referring Physician: SELF My final recommendations will be communicated back to the requesting physician by way of shared Medical record or letter via US mail. HISTORY OF PRESENT ILLNESS; Philip Arndt is a 59 year old MALE is presenting as a new patient to me regarding DM Type 2. He was initially diagnosed with diabetes in 'I don't know (per lab A1Cs, ~10 years) He does have a family history of diabetes mellitus in his Father. The patient has no known microvascular complications of diabetes. Philip has no know macrovascular complications of diabetes.. 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 Lunch sub sandwich OR 'marcella chips' and milk OR fries (orders out during work) milk to drink (drinks about 4 large glasses of milk daily) Dinner pork chop/mashed potatoes with vegetable OR pizza OR eat out or take - most of time eating in, cooking at home Snacks chocolate chip cookies OR cheetos OR chips Drinks milk, sometimes regular pop, water Exercise: work - on feet all day long CURRENT DM MEDS LANTUS 30 units daily METFORMIN 500 BID PREVIOUS MEDS OZempic, d/c'd by patient Randi 14- - pt does not know what happened to his meal insulin does not know why dc'd SMBG Type of Monitor: Other Frequency of Monitorin times a day Rarely checks blood sugar BG Values: Breakfast: when arrives home from work 200, rarely checks Lunch: Dinner: Bed-time: Values over past week: Highest ; Lowest Hypoglycemia: no Diet: as per above Exercise: as per above DM REVIEW OF SYSTEMS Last Eye Exam : 04/2024 Last Podiatry Exam: 04/2024 Cardiorespiratory: negative, denies chest pain, pressure Claudication: no Dyslipidemia: Yes, controlled on medication High Blood Pressure: Yes, controlled on medication CURRENT LABS HEMOGLOBIN A1C Component Ref Range & Units 3 wk ago (04/14/24) 2 yr ago (04/19/22) 3 yr ago (12/26/20) 6 yr ago (09/12/17) 7 yr ago (02/13/17) 8 yr ago (04/16/16) 8 yr ago (12/28/15) Hemoglobin A1C 4.3 - 5.6 % 12.9 High 13.0 High CM 12.2 High CM 12.0 High 13.4 High CM 11.1 High CM Recent Labs 12/28/15 0820 02/21/16 1606 02/13/17 1046 02/13/17 1230 09/12/17 0826 12/26/20 1354 12/26/20 1357 09/24/21 1751 04/19/22 0909 04/19/22 1530 03/14/23 0903 04/14/24 1044 ALT 38 < > -- -- -- 51 -- -- 45 -- -- 47 AST 26 < > -- -- -- 25 -- -- 26 -- -- 26 UCRR -- < > -- 63.5 -- -- 45.7 -- -- 44.5 -- -- UALBR -- < > -- <12.0 -- -- <12.0 -- -- <12.0 -- -- UALBCR -- < > -- Not calculated -- -- Not calculated -- -- <27 -- -- TSH 1.970 -- -- -- -- -- -- -- -- -- -- -- TPROT 6.9 < > -- -- -- 7.1 -- -- 6.9 -- -- 7.4 ALB 3.7 < > -- -- -- 4.4 -- -- 4.0 -- -- 4.0 CA 8.9 < > -- -- < > 9.5 -- -- 9.3 -- -- 10.3* TBILI <0.2 < > -- -- -- 0.2 -- -- 0.2 -- -- 0.2 ALKPHOS 62 < > -- -- -- 58 -- -- 65 -- -- 80 GLUC 130* < > -- -- < > 478* -- -- 340* -- -- 342* BUN 17 < > -- -- < > 20 -- -- 16 -- -- 31* CREAT 0.87 < > -- -- < > 0.72* -- -- 0.68* -- -- 0.91 NA 139 < > -- -- < > 135* -- -- 137 -- -- 131* K 4.1 < > -- -- < > 4.5 -- -- 4.3 -- -- 4.5 CHLOR 101 < > -- -- < > 97 -- -- 100 -- -- 94* CO2 25 < > -- -- < > 26 -- -- 27 -- -- 27 ANION 13 < > -- -- < > 12 -- -- 10 -- -- 10 EGFROTH >60 < > -- -- < > >60 -- -- 110 -- -- 98 GLUCFAST -- -- 298* -- -- -- -- -- -- -- -- -- HBA1C 7.4* < > -- -- < > 12.2* -- < > 13.0* -- 12.6* 12.9* B12 459 -- -- -- -- -- -- -- -- -- -- -- < > = values in this interval not displayed. Recent Labs 12/28/15 0820 04/16/16 0758 09/12/17 0826 12/26/20 1354 09/24/21 1751 04/19/22 0909 03/14/23 0903 04/14/24 1044 TG 160* < > 262* 179* -- 112 -- 238* CHOL 220* < > 197 233* -- 225* -- 203* HDL 39* < > 46 58 -- 55 -- 53 VLDL 32 < > 52* 36* -- 22 -- 48* LDL 149* < > 99 139* -- 148* -- 102* FASTTIME fasting < > 9 12 -- 12 -- -- TCHDL 5.64* < > 4.28 4.02 -- 4.09 -- 3.83 LDLHDL 3.82* < > 2.15 2.40 -- 2.69* -- 1.92 NONHDL 181* < > 151* 175* -- 170* -- 150* HBA1C 7.4* < > 12.0* 12.2* < > 13.0* 12.6* 12.9* HBA0 166 < > 298 303 -- 326 -- 324 B12 459 -- -- -- -- -- -- -- < > = values in this interval not displayed. PAST MEDICAL HISTORY Diagnosis Date Anxiety and depression 12/21/2015 Dr. 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/21/2015 Diabetic neuropathy, painful (HCC) 12/21/2015 Essential hypertension 12/21/2015 Post-traumatic osteoarthritis of right shoulder 04/24/2016 Psoriasis 12/21/2015 Psychosis (HCC) 2013 [facility] Uncontrolled type 2 diabetes mellitus with neurologic complication, with long-term current use of insulin 12/21/20152013 PAST SURGICAL HISTORY Procedure Laterality Date APPENDECTOMY 2012 FAMILY HISTORY Problem Relation Age of Onset Diabetes Father No Ocular Disease No Family History Social History Tobacco Use Smoking status: Former Types: Cigarettes Smokeless tobacco: Current Types: Chew Vaping Use Vaping status: Never Used Substance Use Topics Alcohol use: Yes Comment: occasional Drug use: No Current Outpatient Medications Medication Sig lisinopril-hydroCHLOROthiazide (ZESTORETIC) 10-12.5 mg per tablet Take 2 tablets by mouth every morning. insulin glargine (LANTUS SOLOSTAR U-100 INSULIN) 100 unit/mL (3 mL) Inject 30 Units subcutaneously daily at bedtime. atorvastatin (LIPITOR) 10 mg tablet Take 1 tablet by mouth daily at bedtime. For cholesterol. blood sugar diagnostic (BLOOD GLUCOSE TEST) test strip Test blood sugar(s) 2 times daily. Dx: Type 2 DM - Uncontrolled E11.65 Insulin: Yes gabapentin (NEURONTIN) 300 mg capsule Take 1 capsule by mouth daily at bedtime for 180 days. Insulin [place], Disposable, (BD ULTRA-FINE DERRELL PEN NEEDLE) 32 gauge x 5/32 Use one needle for each dose. 1/day. Lancets Test blood sugar(s) 2 times daily. Dx: Type 2 DM - Uncontrolled E11.65 Insulin: Yes naproxen (NAPROSYN) 500 mg tablet Take 1 tablet by mouth two times a day as needed (for pain/inflammation). Take with food. metFORMIN ER (GLUCOPHAGE XR) 500 mg 24 hr tablet Take 1 tablet by mouth two times a day with meals. ondansetron orally disintegrating (ZOFRAN ODT) 4 mg disintegrating tablet No current facility-administered medications for this visit. ALLERGIES Allergen Reactions Penicillin GI Upset REVIEW OF SYSTEMS - POSITIVES IN BOLD GENERAL:No weight loss, malaise or fevers HEENT:Negative for frequent or significant headaches, No changes in hearing or vision, no nose bleeds or other nasal problems NECK:Negative for lumps, goiter, pain and significant neck swelling RESPIRATORY: Negative for cough, hemoptysis, wheezing, COPD, dyspnea or shortness of breath CARDIOVASCULAR: Negative for chest pain, leg swelling, hypertension, CHF or palpitations PHYSICAL EXAMINATION: BP 132/76 (BP Site: Right Arm, BP Position: Sitting, BP Cuff Size: Regular Adult) Pulse 102 Temp 37.3 C (99.1 F) (Temporal Artery) Ht 172.7 cm (5' 8) Wt 103.8 kg (228 lb 12.8 oz) SpO2 98% BMI 34.79 kg/m General appearance: Well appearing, alert, in no acute distress, well-hydrated, well nourished. Tired appearing Skin: Skin color, texture, turgor normal, no suspicious rashes or lesions Head: Normocephalic, no masses, lesions, tenderness or abnormalities Eyes: SIOBHAN Neck: thyroid symmetric to inspection Acanthosis: none noted Extremities: Edema: none noted Neuro: Negative., Oriented X 3 ASSESSMENT/PLAN (E11.65) Poorly controlled type 2 diabetes mellitus (HCC) (primary encounter diagnosis) Comment: Discussed with patient. Needs to have basal AND prandial insulin in addt to metformin STRONGLY RECOMMEND CGM for blood sugar monitoring to assist in further insulin titration CONSULT TO DM ED for CGM start CONSULT TO PHARMACY for blood sugar review/insulin titration in between endo visit Will follow up patient in ENDO in 2-3 months RECOMMEND THE FOLLOWING INSULIN use as based on current A1C of 12.9% LANTUS Inject 36 units daily HUMALOG INJECT 14 units with breakfast INJECT 12 units with lunch INJECT 14 with dinner CONTINUE METFORMIN Recommended diet: Low carbohydrate and Low saturated fat, low simple sugar, high fiber diet Exercise minimally 150 minutes per week, increase as tolerated. Adequate hydration - 1/2 body wgt in oz of water daily, unless fluid restriction applies. I instructed the patient to monitor blood sugars 4 times per day If blood sugars are persistently high or low, to call our office. Patient to continue to follow up with his PCP and with other consultants regarding his other medical problems. Plan: Amairani Youssef CNP documented in this encounter [facility] 06-30-2024 Note HNO ID: [id number] Author: AMAIRANI YOUSSEF APRN.CNP Service: ? Author Type: Nurse Practitioner Type: Progress Notes Filed: 06/30/2024 08:31 Note Text: NEW CONSULT OFFICE PROGRESS NOTE Reason for Consultation: DM Type 2 Referring Physician: SELF My final recommendations will be communicated back to the requesting physician by way of shared Medical record or letter via [place] mail. HISTORY OF PRESENT ILLNESS; Philip Arndt is a 59 year old MALE is presenting as a new patient to me regarding DM Type 2. He was initially diagnosed with diabetes in 'I don't know (per lab A1Cs, ~10 years) He does have a family history of diabetes mellitus in his Father. The patient has no known microvascular complications of diabetes. Philip has no know macrovascular complications of diabetes.. 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 Lunch sub sandwich OR 'marcella chips' and milk OR fries (orders out during work) milk to drink (drinks about 4 large glasses of milk daily) Dinner pork chop/mashed potatoes with vegetable OR pizza OR eat out or take - most of time eating in, cooking at home Snacks chocolate chip cookies OR cheetos OR chips Drinks milk, sometimes regular pop, water Exercise: work - on feet all day long CURRENT DM MEDS LANTUS 30 units daily METFORMIN 500 BID PREVIOUS MEDS OZempic, d/c'd by patient Randi [id number] - pt does not know what happened to his meal insulin does not know why dc'd SMBG Type of Monitor: Other Frequency of Monitorin times a day Rarely checks blood sugar BG Values: Breakfast: when arrives home from work 200, rarely checks Lunch: Dinner: Bed-time: Values over past week: Highest ; Lowest Hypoglycemia: no Diet: as per above Exercise: as per above DM REVIEW OF SYSTEMS Last Eye Exam : 04/2024 Last Podiatry Exam: 04/2024 Cardiorespiratory: negative, denies chest pain, pressure Claudication: no Dyslipidemia: Yes, controlled on medication High Blood Pressure: Yes, controlled on medication CURRENT LABS HEMOGLOBIN A1C Component Ref Range AND Units 3 wk ago (04/14/24) 2 yr ago (04/19/22) 3 yr ago (12/26/20) 6 yr ago (09/12/17) 7 yr ago (02/13/17) 8 yr ago (04/16/16) 8 yr ago (12/28/15) Hemoglobin A1C 4.3 - 5.6 % 12.9 High 13.0 High CM 12.2 High CM 12.0 High 13.4 High CM 11.1 High CM Recent Labs 12/28/15 0820 02/21/16 1606 02/13/17 1046 02/13/17 1230 09/12/17 0826 12/26/20 1354 12/26/20 1357 09/24/21 1751 04/19/22 0909 04/19/22 1530 03/14/23 0903 04/14/24 1044 ALT 38 < > -- -- -- 51 -- -- 45 -- -- 47 AST 26 < > -- -- -- 25 -- -- 26 -- -- 26 UCRR -- < > -- 63.5 -- -- 45.7 -- -- 44.5 -- -- UALBR -- < > -- <12.0 -- -- <12.0 -- -- <12.0 -- -- UALBCR -- < > -- Not calculated -- -- Not calculated -- -- <27 -- -- TSH 1.970 -- -- -- -- -- -- -- -- -- -- -- TPROT 6.9 < > -- -- -- 7.1 -- -- 6.9 -- -- 7.4 ALB 3.7 < > -- -- -- 4.4 -- -- 4.0 -- -- 4.0 CA 8.9 < > -- -- < > 9.5 -- -- 9.3 -- -- 10.3* TBILI <0.2 < > -- -- -- 0.2 -- -- 0.2 -- -- 0.2 ALKPHOS 62 < > -- -- -- 58 -- -- 65 -- -- 80 GLUC 130* < > -- -- < > 478* -- -- 340* -- -- 342* BUN 17 < > -- -- < > 20 -- -- 16 -- -- 31* CREAT 0.87 < > -- -- < > 0.72* -- -- 0.68* -- -- 0.91 NA 139 < > -- -- < > 135* -- -- 137 -- -- 131* K 4.1 < > -- -- < > 4.5 -- -- 4.3 -- -- 4.5 CHLOR 101 < > -- -- < > 97 -- -- 100 -- -- 94* CO2 25 < > -- -- < > 26 -- -- 27 -- -- 27 ANION 13 < > -- -- < > 12 -- -- 10 -- -- 10 EGFROTH >60 < > -- -- < > >60 -- -- 110 -- -- 98 GLUCFAST -- -- 298* -- -- -- -- -- -- -- -- -- HBA1C 7.4* < > -- -- < > 12.2* -- < > 13.0* -- 12.6* 12.9* B12 459 -- -- -- -- -- -- -- -- -- -- -- < > = values in this interval not displayed. Recent Labs 12/28/15 0820 04/16/16 0758 09/12/17 0826 12/26/20 1354 09/24/21 1751 04/19/22 0909 03/14/23 0903 04/14/24 1044 TG 160* < > 262* 179* -- 112 -- 238* CHOL 220* < > 197 233* -- 225* -- 203* HDL 39* < > 46 58 -- 55 -- 53 VLDL 32 < > 52* 36* -- 22 -- 48* LDL 149* < > 99 139* -- 148* -- 102* FASTTIME fasting < > 9 12 -- 12 -- -- TCHDL 5.64* < > 4.28 4.02 -- 4.09 -- 3.83 LDLHDL 3.82* < > 2.15 2.40 -- 2.69* -- 1.92 NONHDL 181* < > 151* 175* -- 170* -- 150* HBA1C 7.4* < > 12.0* 12.2* < > 13.0* 12.6* 12.9* HBA0 166 < > 298 303 -- 326 -- 324 B12 459 -- -- -- -- -- -- -- < > = values in this interval not displayed. PAST MEDICAL HISTORY Diagnosis Date Anxiety and depression 12/21/2015 Dr. 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/21/2015 Diabetic neuropathy, painful (HCC) 12/21/2015 Essential hypertension 12/21/2015 Post-traumatic osteoarthritis of right shoulder 04/24/2016 Psoriasis 12/21/2015 Psychosis (HCC) 2013 [facility] Uncontrolled type 2 diabetes mellitus with neurologic complication, with long-term c (more content not included)... [facility] 06-25-2024 Note Date of Procedure 06/25/2024. Electronic Warfare Officer Information Private Eye: BP. Start time: 10:08 AM. Stop time: 10:11 AM. Interpretation Right Eye Normal without fluid. Left Eye Normal without fluid. Interval Change Right Eye Stable. Left Eye Stable. [facility] 06-25-2024 Note HNO ID: [id number] Author: VINCE JOHNSON OD Service: ? Author Type: PAYROLL PROFESSIONAL Type: Progress Notes Filed: 06/25/2024 10:56 Note Text: 1. Type 2 diabetes mellitus without retinopathy (HCC) Risk of diabetic changes and vision loss can be minimized by tight control of blood sugar, blood pressure, and cholesterol levels. Educated patient to continue care with primary care doctor and/or label press operator to maintain optimum levels as they are important to avoid ocular complications. Encouraged patient to call the office immediately with any changes to vision or visual concerns. Advised to not wait until the next scheduled exam. 2. Combined forms of age-related cataract of both eyes Mild- monitor 3. Regular astigmatism of both eyes 4. Presbyopia Finalized spec rx with change- monitor Follow-up in 1 year for diabetic eye exam Vince Johnson, OD June 25, 2024 10:52 AM [facility] 06-25-2024 History of Presen t illness Narrative 1. Type 2 diabetes mellitus without retinopathy (HCC) Risk of diabetic changes and vision loss can be minimized by tight control of blood sugar, blood pressure, and cholesterol levels. Educated patient to continue care with primary care doctor and/or label press operator to maintain optimum levels as they are important to avoid ocular complications. Encouraged patient to call the office immediately with any changes to vision or visual concerns. Advised to not wait until the next scheduled exam. 2. Combined forms of age-related cataract of both eyes Mild- monitor 3. Regular astigmatism of both eyes 4. Presbyopia Finalized spec rx with change- monitor Follow-up in 1 year for diabetic eye exam Vince Johnson OD June 25, 2024 10:52 AM documented in this encounter [facility] 06-01-2024 Note HNO ID: [id number] Author: ADIEL PEDRAZA RN Service: ? Author Type: Registered Nurse Type: Progress Notes Filed: 06/01/2024 14:39 Note Text: DIABETES CARE AND EDUCATION VISIT Location: [place] Type of visit: In person individual PATIENT'S MAIN CONCERN TODAY: Diabetes Support person present for education today: SO Cognitive ability: Alert and oriented Motivation to learn: Interested Learning barriers identified by educator: none Method of instruction: written, verbal, and demonstration DIABETES FINDINGS: Checks rarely using his GF's meter, reports lower 200s. Reviewed when to report sugars to PCP for additional advice. Discussed basic plate method for planning meals. HANDOUTS: Healthy You: Survival Skills and Healthy You: Planning Healthy Meals LEARNING RESPONSE: Healthy eating: Demonstrated understanding/competency today or at previous visit Being active: Demonstrated understanding/competency today or at previous visit Taking medications: Demonstrated understanding/competency today or at previous visit Monitoring glucose: Demonstrated understanding/competency today or at previous visit POSSIBLE FUTURE TOPICS: 1. DIABETES CARE AND EDUCATION PLAN: Education completed and annual diabetes education follow-up visit recommended Time Spent (Minutes): 30 This visit note will be communicated to the healthcare provider via access to shared medical record. SIGNATURE: Adiel Pedraza RN PATIENT NAME: Philip Arndt DATE: June 01, 2024 TIME: 2:05 PM [facility] 06-01-2024 History of Presen t illness Narrative DIABETES CARE AND EDUCATION VISIT Location: [place] Type of visit: In person individual PATIENT'S MAIN CONCERN TODAY: Diabetes Support person present for education today: SO Cognitive ability: Alert and oriented Motivation to learn: Interested Learning barriers identified by educator: none Method of instruction: written, verbal, and demonstration DIABETES FINDINGS: Checks rarely using his GF's meter, reports lower 200s. Reviewed when to report sugars to PCP for additional advice. Discussed basic plate method for planning meals. HANDOUTS: Healthy You: Survival Skills and Healthy You: Planning Healthy Meals LEARNING RESPONSE: Healthy eating: Demonstrated understanding/competency today or at previous visit Being active: Demonstrated understanding/competency today or at previous visit Taking medications: Demonstrated understanding/competency today or at previous visit Monitoring glucose: Demonstrated understanding/competency today or at previous visit POSSIBLE FUTURE TOPICS: 1. DIABETES CARE AND EDUCATION PLAN: Education completed and annual diabetes education follow-up visit recommended Time Spent (Minutes): 30 This visit note will be communicated to the healthcare provider via access to shared medical record. SIGNATURE: Adiel Pedraza RN PATIENT NAME: Philip Arndt DATE: June 01, 2024 TIME: 2:05 PM documented in this encounter [facility] 05-26-2024 Instructions Shahana Valenzuela APRN.CNP - 05/26/2024 6:13 PM EST Increase Lisinopril to two tablets daily documented in this encounter [facility] 05-26-2024 Note HNO ID: [id number] Author: SHAHANA VALENZUELA APRN.CNP Service: ? Author Type: Nurse Practitioner Type: Progress Notes Filed: 05/26/2024 18:37 Note Text: CC: Patient presents with: Physical HPI Philip Arndt is a 59 year old male who presents today for above. Diabetes: Home blood sugar readings: only checks a couple times a week, unable to afford test strips so he uses his girlfriend's. Most recent reading was one week ago, in the low 200's Hypoglycemia: No He is compliant with medication(s) and is tolerating med(s) without any side effects. IPatient's last HgA1C : Hemoglobin A1C (%) Date Value 04/14/2024 12.9 04/19/2022 13.0 12/26/2020 12.2 09/12/2017 12.0 Hemoglobin A1C (POCT) (%) Date Value 03/14/2023 12.6 09/24/2021 12.9 HTN-Medication changes:No Taking all medications as prescribed: Yes Side effects: No Home BP's: No Denies: headache, chest pain, palpitations, dyspnea, and peripheral edema. Last 3 Encounter BP Readings: Date: BP: 05/26/2024 148/86 04/14/2024 118/70 03/14/2023 142/80 Review of Systems See HPI PAST MEDICAL HISTORY Diagnosis Date Anxiety and depression 12/21/2015 Dr. 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/21/2015 Diabetic neuropathy, painful (HCC) 12/21/2015 Essential hypertension 12/21/2015 Post-traumatic osteoarthritis of right shoulder 04/24/2016 Psoriasis 12/21/2015 Psychosis (HCC) 2013 [facility] Uncontrolled type 2 diabetes mellitus with neurologic complication, with long-term current use of insulin 12/21/20152013 PAST SURGICAL HISTORY Procedure Laterality Date APPENDECTOMY 2012 ALLERGIES Penicillin MEDICATIONS insulin glargine (LANTUS SOLOSTAR U-100 INSULIN) 100 unit/mL (3 mL) Inject 30 Units subcutaneously daily at bedtime. atorvastatin (LIPITOR) 10 mg tablet Take 1 tablet by mouth daily at bedtime. For cholesterol. blood sugar diagnostic (BLOOD GLUCOSE TEST) test strip Test blood sugar(s) 2 times daily. Dx: Type 2 DM - Uncontrolled E11.65 Insulin: Yes gabapentin (NEURONTIN) 300 mg capsule Take 1 capsule by mouth daily at bedtime for 180 days. Insulin [place], Disposable, (BD ULTRA-FINE DERRELL PEN NEEDLE) 32 gauge x 5/32 Use one needle for each dose. 1/day. Lancets Test blood sugar(s) 2 times daily. Dx: Type 2 DM - Uncontrolled E11.65 Insulin: Yes lisinopril-hydroCHLOROthiazide (ZESTORETIC) 10-12.5 mg per tablet Take 1 tablet by mouth every morning. naproxen (NAPROSYN) 500 mg tablet Take 1 tablet by mouth two times a day as needed (for pain/inflammation). Take with food. metFORMIN ER (GLUCOPHAGE XR) 500 mg 24 hr tablet Take 1 tablet by mouth two times a day with meals. ondansetron orally disintegrating (ZOFRAN ODT) 4 mg disintegrating tablet semaglutide (OZEMPIC) 0.25 mg or 0.5 mg (2 mg/3 mL) pen Inject 0.25 mg subcutaneously one time a week. (Patient not taking: Reported on 05/26/2024) FAMILY HISTORY Problem Relation Age of Onset Diabetes Father No Ocular Disease No Family History Social History Tobacco Use Smoking status: Former Types: Cigarettes Smokeless tobacco: Current Types: Chew Vaping Use Vaping status: Never Used Substance Use Topics Alcohol use: Yes Comment: occasional Drug use: No BP 148/86 (BP Site: Left Arm, BP Position: Sitting, BP Cuff Size: Regular Adult) Pulse 86 Resp 16 Ht 173 cm (5' 8.11) Wt 101.9 kg (224 lb 10.4 oz) SpO2 96% BMI 34.05 kg/m? Physical Exam Vitals reviewed. Constitutional: Appearance: Normal appearance. Cardiovascular: Rate and Rhythm: Normal rate. Heart sounds: Normal heart sounds. No murmur heard. Pulmonary: Effort: Pulmonary effort is normal. Breath sounds: Normal breath sounds. No wheezing, rhonchi or rales. Neurological: Mental Status: He is alert. Psychiatric: Mood and Affect: Mood normal. Health maintenance reviewed with patient: Spirometry Never done Depression Screening Never done Anxiety Screening Never done Colorectal Cancer Screening Never done Urine Albumin:Creatinine Ratio due on 04/19/2023 Dilated Retinal Exam due on 03/21/2024 Hepatitis B Vaccine(1 of 3 - 19+ 3-dose series) due on 04/14/2025 Shingrix Vaccine(1 of 2) due on 04/14/2025 HbA1C due on 07/15/2024 LDL Cholesterol due on 04/14/2025 Diabetic Foot Exam due on 04/14/2025 BP Controlled (<130/80) due on 04/14/2025 Annual PCP Team Chronic Disease Visit due on 05/26/2025 DTaP,Tdap,Td Vaccine(2 - Td or Tdap) due on 09/13/2027 Prostate Cancer Screening Discussion due on 04/14/2029 Influenza Vaccine Completed Hepatitis C Screening Completed HIV Screening Completed Covid-19 Vaccine Completed Pneumococcal Vaccine Completed DATA REVIEWED: Most recent labs ASSESSMENT/PLAN: 1. Poorly controlled diabetes mellitus (HCC) - ICD9: 250.00, ICD10: E11.65 (primary diagnosis) - Uncontrolled - Barriers to control: diet adherence, lack of exercise, and cost of medication. Even with insurance the co (more content not included)... [facility] 05-26-2024 History of Presen t illness Narrative CC: Patient presents with: Physical HPI Philip Arndt is a 59 year old male who presents today for above. Diabetes: Home blood sugar readings: only checks a couple times a week, unable to afford test strips so he uses his girlfriend's. Most recent reading was one week ago, in the low 200's Hypoglycemia: No He is compliant with medication(s) and is tolerating med(s) without any side effects. IPatient's last HgA1C : Hemoglobin A1C (%) Date Value 04/14/2024 12.9 04/19/2022 13.0 12/26/2020 12.2 09/12/2017 12.0 Hemoglobin A1C (POCT) (%) Date Value 03/14/2023 12.6 09/24/2021 12.9 HTN-Medication changes:No Taking all medications as prescribed: Yes Side effects: No Home BP's: No Denies: headache, chest pain, palpitations, dyspnea, and peripheral edema. Last 3 Encounter BP Readings: Date: BP: 05/26/2024 148/86 04/14/2024 118/70 03/14/2023 142/80 Review of Systems See HPI PAST MEDICAL HISTORY Diagnosis Date Anxiety and depression 12/21/2015 Dr. 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/21/2015 Diabetic neuropathy, painful (HCC) 12/21/2015 Essential hypertension 12/21/2015 Post-traumatic osteoarthritis of right shoulder 04/24/2016 Psoriasis 12/21/2015 Psychosis (HCC) 2014 [facility] Uncontrolled type 2 diabetes mellitus with neurologic complication, with long-term current use of insulin 12/21/20152013 PAST SURGICAL HISTORY Procedure Laterality Date APPENDECTOMY 2012 ALLERGIES Penicillin MEDICATIONS insulin glargine (LANTUS SOLOSTAR U-100 INSULIN) 100 unit/mL (3 mL) Inject 30 Units subcutaneously daily at bedtime. atorvastatin (LIPITOR) 10 mg tablet Take 1 tablet by mouth daily at bedtime. For cholesterol. blood sugar diagnostic (BLOOD GLUCOSE TEST) test strip Test blood sugar(s) 2 times daily. Dx: Type 2 DM - Uncontrolled E11.65 Insulin: Yes gabapentin (NEURONTIN) 300 mg capsule Take 1 capsule by mouth daily at bedtime for 180 days. Insulin [place], Disposable, (BD ULTRA-FINE DERRELL PEN NEEDLE) 32 gauge x 32 Use one needle for each dose. 1/day. Lancets Test blood sugar(s) 2 times daily. Dx: Type 2 DM - Uncontrolled E11.65 Insulin: Yes lisinopril-hydroCHLOROthiazide (ZESTORETIC) 10-12.5 mg per tablet Take 1 tablet by mouth every morning. naproxen (NAPROSYN) 500 mg tablet Take 1 tablet by mouth two times a day as needed (for pain/inflammation). Take with food. metFORMIN ER (GLUCOPHAGE XR) 500 mg 24 hr tablet Take 1 tablet by mouth two times a day with meals. ondansetron orally disintegrating (ZOFRAN ODT) 4 mg disintegrating tablet semaglutide (OZEMPIC) 0.25 mg or 0.5 mg (2 mg/3 mL) pen Inject 0.25 mg subcutaneously one time a week. (Patient not taking: Reported on 05/26/2024) FAMILY HISTORY Problem Relation Age of Onset Diabetes Father No Ocular Disease No Family History Social History Tobacco Use Smoking status: Former Types: Cigarettes Smokeless tobacco: Current Types: Chew Vaping Use Vaping status: Never Used Substance Use Topics Alcohol use: Yes Comment: occasional Drug use: No BP 148/86 (BP Site: Left Arm, BP Position: Sitting, BP Cuff Size: Regular Adult) Pulse 86 Resp 16 Ht 173 cm (5' 8.11) Wt 101.9 kg (224 lb 10.4 oz) SpO2 96% BMI 34.05 kg/m Physical Exam Vitals reviewed. Constitutional: Appearance: Normal appearance. Cardiovascular: Rate and Rhythm: Normal rate. Heart sounds: Normal heart sounds. No murmur heard. Pulmonary: Effort: Pulmonary effort is normal. Breath sounds: Normal breath sounds. No wheezing, rhonchi or rales. Neurological: Mental Status: He is alert. Psychiatric: Mood and Affect: Mood normal. Health maintenance reviewed with patient: Spirometry Never done Depression Screening Never done Anxiety Screening Never done Colorectal Cancer Screening Never done Urine Albumin:Creatinine Ratio due on 04/19/2023 Dilated Retinal Exam due on 03/21/2024 Hepatitis B Vaccine(1 of 3 - 19+ 3-dose series) due on 04/14/2025 Shingrix Vaccine(1 of 2) due on 04/14/2025 HbA1C due on 07/15/2024 LDL Cholesterol due on 04/14/2025 Diabetic Foot Exam due on 04/14/2025 BP Controlled (<130/80) due on 04/14/2025 Annual PCP Team Chronic Disease Visit due on 05/26/2025 DTaP,Tdap,Td Vaccine(2 - Td or Tdap) due on 09/13/2027 Prostate Cancer Screening Discussion due on 04/14/2029 Influenza Vaccine Completed Hepatitis C Screening Completed HIV Screening Completed Covid-19 Vaccine Completed Pneumococcal Vaccine Completed DATA REVIEWED: Most recent labs ASSESSMENT/PLAN: 1. Poorly controlled diabetes mellitus (HCC) - ICD9: 250.00, ICD10: E11.65 (primary diagnosis) - Uncontrolled - Barriers to control: diet adherence, lack of exercise, and cost of medication. Even with insurance the cost of the insulin is around $70, patient had to borrow money to pay for the insulin glargine. Co-pay card for around $35 a month or less provided by [employer] was given to the patient to keep on file at the pharmacy. - Continue current medications - he no showed appointment with endocrinology, reschedule today. He can discuss CGM - [employer] [CONSULT TO SOCIAL WORK] for assistance with medications and testing supplies - CONSULT TO DIABETES EDUCATION DSME 2. Essential hypertension - ICD9: 401.9, ICD10: I10 - Improving control - Continue current medications - Increase Lisinopril/HCTZ to 20/25 mg daily - Recommend home blood pressure monitoring, to bring results to next visit - Encouraged sodium restriction, DASH or Mediterranean diet - Follow up in 6 weeks for hypertension visit - LISINOPRIL 10 MG-HYDROCHLOROTHIAZIDE 12.5 MG TABLET 3. Encounter for screening examination for other mental health and behavioral disorders - ICD9: V79.8, ICD10: Z13.39 - ANXIETY SCREENING 4. Screening for depression - ICD9: V79.0, ICD10: Z13.31 - DEPRESSION SCREENING 5. Screening for colon cancer - ICD9: V76.51, ICD10: Z12.11 - COLOGUARD Prescription instructions reviewed with patient as applicable. Potential red flag symptoms discussed with the patient. Reviewed appropriate action plan to take if red flag symptoms occur. Patient agreeable to treatment plan. Shahana Valenzuela APRN.GOLD LAYER documented in this encounter [facility] 05-12-2024 Telephone encounter Note Pt notified via [employer] to contact office. [facility] 05-12-2024 Miscellaneous Notes Pt notified via [employer] to contact office. Left message to call office. 05/07/2024 9:07 AM Left message to call office. 05/04/2024 9:35 AM I received [employer] papers for this patient. What is this in reference to? Shahana Valenzuela APRN.GOLD LAYER documented in this encounter [facility] 05-07-2024 Telephone encounter Note Left message to call office. 05/07/2024 9:07 AM [facility] 05-04-2024 Telephone encounter Note Left message to call office. 05/04/2024 9:35 AM [facility] 05-04-2024 Telephone encounter Note I received [employer] [facility] papers for this patient. What is this in reference to? Shahana Valenzuela APRN.GOLD LAYER [facility] 04-16-2024 Telephone encounter Note Notified via [employer]. [facility] 04-16-2024 Miscellaneous Notes Notified via [employer]. Left a message for pt to call the office and ask to speak to a nurse. Dolores Briones LPN ----- Message from Shahana Valenzuela APRN.GOLD LAYER sent at 04/16/2024 7:08 AM EDT ----- Please let the patient know PSA slightly elevated but normal for age. Recheck in one year. HgbA1c was 12.9, it is very important he keeps appointment with endocrinology next month. Shahana Valenzuela APRN.GOLD LAYER documented in this encounter [facility] 04-16-2024 Telephone encounter Note Left a message for pt to call the office and ask to speak to a nurse. Dolores Briones LPN [facility] 04-16-2024 Telephone encounter Note ----- Message from Shahana Valenzuela APRN.CNP sent at 04/16/2024 7:08 AM EDT ----- Please let the patient know PSA slightly elevated but normal for age. Recheck in one year. HgbA1c was 12.9, it is very important he keeps appointment with endocrinology next month. Shahana Valenzuela APRN.GOLD LAYER [facility] 04-14-2024 Instructions Shahana Valenzuela APRN.CNP - 04/14/2024 10:19 AM EDT Get these medications filled today or as soon as possible: insulin pen, needles, metformin. You may also want to fill the Gabapentin which will help with nerve pain. Get all of your other medications filled as soon as you are able. Check blood sugars twice a day and write down the numbers on the log I gave you documented in this encounter [facility] 04-14-2024 Note HNO ID: [id number] Author: SHAHANA VALENZUELA APRN.CNP Service: ? Author Type: Nurse Practitioner Type: Progress Notes Filed: 04/14/2024 10:52 Note Text: CC: Patient presents with: Diabetes: follow up Hospital F/U: [facility] follow up 04/04/24 for cardiac work up that was negative HPI Philip Arndt is a 59 year old male who presents today for above. He is overdue for follow-up and historically non-compliant. He has been out of all of his medications for 6 months or more. He presented to [facility] ER on 04/05 with exertional chest pain and fatigue x 1 week. EKG showed RBBB and LAD. Troponin was elevated at 88 and then 91. He was admitted for observation. Stress test and echocardiogram were unremarkable. He was discharged jose l on 04/06, no medication changes. There was an incidental finding of erythrocytosis and JAK2 ordered but not resulted at time of discharge. Today patient reports he continues to have episodes of exertional chest pain that resolves with rest. Associated with SOB and palpitations. Denies edema, PND, orthopnea, dizziness, lightheadedness, syncope or feeling faint. No new or worsening symptoms. Diabetes: Home blood sugar readings: does not check, ran out of test strips Increased thirst: Yes Urinary frequency: Yes Nocturia: Yes Fatigue: Yes Unintentional weight loss: Yes Blurred vision: Yes Numbness, tingling or pain in extremities: Yes Ulcers or sores on feet: No Last Ophthalmology exam: over one year ago Patient's last HgA1C : Hemoglobin A1C (%) Date Value 04/19/2022 13.0 12/26/2020 12.2 09/12/2017 12.0 Hemoglobin A1C (POCT) (%) Date Value 03/14/2023 12.6 09/24/2021 12.9 Review of Systems Constitutional: Negative for chills, diaphoresis and fever. Respiratory: Negative for cough and wheezing. Gastrointestinal: Negative for abdominal pain. Genitourinary: Negative for decreased urine volume, dysuria, hematuria and urgency. Neurological: Positive for headaches. Negative for weakness. Hematological: Negative for adenopathy. Does not bruise/bleed easily. PAST MEDICAL HISTORY Diagnosis Date Anxiety and depression 12/21/2015 Dr. 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/21/2015 Diabetic neuropathy, painful (HCC) 12/21/2015 Essential hypertension 12/21/2015 Post-traumatic osteoarthritis of right shoulder 04/24/2016 Psoriasis 12/21/2015 Psychosis (HCC) 2013 [facility] Uncontrolled type 2 diabetes mellitus with neurologic complication, with long-term current use of insulin 12/21/20152013 PAST SURGICAL HISTORY Procedure Laterality Date APPENDECTOMY 2012 ALLERGIES Penicillin MEDICATIONS ondansetron orally disintegrating (ZOFRAN ODT) 4 mg disintegrating tablet semaglutide (OZEMPIC) 0.25 mg or 0.5 mg (2 mg/3 mL) pen Inject 0.25 mg subcutaneously one time a week. insulin detemir U-100 (LEVEMIR FLEXPEN) 100 unit/mL (3 mL) injection pen Inject 25 Units subcutaneously daily at bedtime. lisinopril-hydroCHLOROthiazide (ZESTORETIC) 10-12.5 mg per tablet Take 1 tablet by mouth every morning. gabapentin (NEURONTIN) 300 mg capsule Take 1 capsule by mouth daily at bedtime for 90 days. atorvastatin (LIPITOR) 10 mg tablet Take 1 tablet by mouth daily at bedtime. For cholesterol. naproxen (NAPROSYN) 500 mg tablet Take 1 tablet by mouth twice daily as needed (for pain/inflammation). Take with food. metFORMIN ER (GLUCOPHAGE XR) 500 mg 24 hr tablet Take 2 tablets by mouth twice daily. blood sugar diagnostic (BLOOD GLUCOSE TEST) test strip Test blood sugar(s) 2 times daily. Dx: Type 2 DM - Uncontrolled E11.65 Insulin: Yes Lancets lancets Test blood sugar(s) 2 times daily. Dx: Type 2 DM - Uncontrolled E11.65 Insulin: Yes Insulin [place], Disposable, (BD ULTRA-FINE DERRELL PEN NEEDLE) 32 gauge x 5/32 Use one needle for each dose. 1/day. FAMILY HISTORY Problem Relation Age of Onset Diabetes Father No Ocular Disease No Family History Social History Tobacco Use Smoking status: Former Types: Cigarettes Smokeless tobacco: Current Types: Chew Vaping Use Vaping status: Never Used Substance Use Topics Alcohol use: Yes Comment: occasional Drug use: No BP 118/70 Pulse 90 Wt 101.1 kg (222 lb 14.2 oz) SpO2 97% BMI 34.91 kg/m? Physical Exam Vitals reviewed. Constitutional: Appearance: Normal appearance. HENT: Mouth/Throat: Mouth: Mucous membranes are moist. Pharynx: Oropharynx is clear. Eyes: Conjunctiva/sclera: Conjunctivae normal. Cardiovascular: Rate and Rhythm: Normal rate and regular rhythm. Pulses: Normal pulses. Dorsalis pedis pulses are 2+ on the right side and 2+ on the left side. Heart sounds: Normal heart sounds. No murmur heard. Pulmonary: Effort: Pulmonary effort is normal. Breath sounds: Normal breath sounds. No wheezing, rhonchi or rales. Musculoskeletal: Right lower leg: No edema. Left lower leg: No edema. Right foot: No deformity or Charcot foot. Left foot: No def (more content not included)... [facility] 04-14-2024 History of Presen t illness Narrative CC: Patient presents with: Diabetes: follow up Hospital F/U: [facility] follow up 04/04/24 for cardiac work up that was negative HPI Philip Arndt is a 59 year old male who presents today for above. He is overdue for follow-up and historically non-compliant. He has been out of all of his medications for 6 months or more. He presented to [facility] ER on 04/05 with exertional chest pain and fatigue x 1 week. EKG showed RBBB and LAD. Troponin was elevated at 88 and then 91. He was admitted for observation. Stress test and echocardiogram were unremarkable. He was discharged jose l on 04/06, no medication changes. There was an incidental finding of erythrocytosis and JAK2 ordered but not resulted at time of discharge. Today patient reports he continues to have episodes of exertional chest pain that resolves with rest. Associated with SOB and palpitations. Denies edema, PND, orthopnea, dizziness, lightheadedness, syncope or feeling faint. No new or worsening symptoms. Diabetes: Home blood sugar readings: does not check, ran out of test strips Increased thirst: Yes Urinary frequency: Yes Nocturia: Yes Fatigue: Yes Unintentional weight loss: Yes Blurred vision: Yes Numbness, tingling or pain in extremities: Yes Ulcers or sores on feet: No Last Ophthalmology exam: over one year ago Patient's last HgA1C : Hemoglobin A1C (%) Date Value 04/19/2022 13.0 12/26/2020 12.2 09/12/2017 12.0 Hemoglobin A1C (POCT) (%) Date Value 03/14/2023 12.6 09/24/2021 12.9 Review of Systems Constitutional: Negative for chills, diaphoresis and fever. Respiratory: Negative for cough and wheezing. Gastrointestinal: Negative for abdominal pain. Genitourinary: Negative for decreased urine volume, dysuria, hematuria and urgency. Neurological: Positive for headaches. Negative for weakness. Hematological: Negative for adenopathy. Does not bruise/bleed easily. PAST MEDICAL HISTORY Diagnosis Date Anxiety and depression 12/21/2015 Dr. 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/21/2015 Diabetic neuropathy, painful (HCC) 12/21/2015 Essential hypertension 12/21/2015 Post-traumatic osteoarthritis of right shoulder 04/24/2016 Psoriasis 12/21/2015 Psychosis (HCC) 2014 [facility] Uncontrolled type 2 diabetes mellitus with neurologic complication, with long-term current use of insulin 12/21/20152013 PAST SURGICAL HISTORY Procedure Laterality Date APPENDECTOMY 2012 ALLERGIES Penicillin MEDICATIONS ondansetron orally disintegrating (ZOFRAN ODT) 4 mg disintegrating tablet semaglutide (OZEMPIC) 0.25 mg or 0.5 mg (2 mg/3 mL) pen Inject 0.25 mg subcutaneously one time a week. insulin detemir U-100 (LEVEMIR FLEXPEN) 100 unit/mL (3 mL) injection pen Inject 25 Units subcutaneously daily at bedtime. lisinopril-hydroCHLOROthiazide (ZESTORETIC) 10-12.5 mg per tablet Take 1 tablet by mouth every morning. gabapentin (NEURONTIN) 300 mg capsule Take 1 capsule by mouth daily at bedtime for 90 days. atorvastatin (LIPITOR) 10 mg tablet Take 1 tablet by mouth daily at bedtime. For cholesterol. naproxen (NAPROSYN) 500 mg tablet Take 1 tablet by mouth twice daily as needed (for pain/inflammation). Take with food. metFORMIN ER (GLUCOPHAGE XR) 500 mg 24 hr tablet Take 2 tablets by mouth twice daily. blood sugar diagnostic (BLOOD GLUCOSE TEST) test strip Test blood sugar(s) 2 times daily. Dx: Type 2 DM - Uncontrolled E11.65 Insulin: Yes Lancets lancets Test blood sugar(s) 2 times daily. Dx: Type 2 DM - Uncontrolled E11.65 Insulin: Yes Insulin [place], Disposable, (BD ULTRA-FINE DERRELL PEN NEEDLE) 32 gauge x 5/32 Use one needle for each dose. 1/day. FAMILY HISTORY Problem Relation Age of Onset Diabetes Father No Ocular Disease No Family History Social History Tobacco Use Smoking status: Former Types: Cigarettes Smokeless tobacco: Current Types: Chew Vaping Use Vaping status: Never Used Substance Use Topics Alcohol use: Yes Comment: occasional Drug use: No BP 118/70 Pulse 90 Wt 101.1 kg (222 lb 14.2 oz) SpO2 97% BMI 34.91 kg/m Physical Exam Vitals reviewed. Constitutional: Appearance: Normal appearance. HENT: Mouth/Throat: Mouth: Mucous membranes are moist. Pharynx: Oropharynx is clear. Eyes: Conjunctiva/sclera: Conjunctivae normal. Cardiovascular: Rate and Rhythm: Normal rate and regular rhythm. Pulses: Normal pulses. Dorsalis pedis pulses are 2+ on the right side and 2+ on the left side. Heart sounds: Normal heart sounds. No murmur heard. Pulmonary: Effort: Pulmonary effort is normal. Breath sounds: Normal breath sounds. No wheezing, rhonchi or rales. Musculoskeletal: Right lower leg: No edema. Left lower leg: No edema. Right foot: No deformity or Charcot foot. Left foot: No deformity or Charcot foot. Feet: Right foot: Protective Sensation: 6 sites tested. 0 sites sensed. Skin integrity: Skin integrity normal. Toenail Condition: Right toenails are normal. Left foot: Protective Sensation: 6 sites tested. 0 sites sensed. Skin integrity: Skin integrity normal. Toenail Condition: Left toenails are normal. Comments: Vibratory perception absent bilaterally Skin: General: Skin is warm and dry. Neurological: Mental Status: He is alert. Health maintenance reviewed with patient: Spirometry Never done Depression Screening Never done Anxiety Screening Never done Prostate Cancer Screening Discussion due on 09/12/2022 Urine Albumin:Creatinine Ratio due on 04/19/2023 LDL Cholesterol due on 04/19/2023 HbA1C due on 06/13/2023 Dilated Retinal Exam due on 03/21/2024 Colorectal Cancer Screening due on 05/14/2024 Hepatitis B Vaccine(1 of 3 - 19+ 3-dose series) due on 04/14/2025 Shingrix Vaccine(1 of 2) due on 04/14/2025 Diabetic Foot Exam due on 04/14/2025 Annual PCP Team Chronic Disease Visit due on 04/14/2025 BP Controlled (<130/80) due on 04/14/2025 DTaP,Tdap,Td Vaccine(2 - Td or Tdap) due on 09/13/2027 Influenza Vaccine Completed Hepatitis C Screening Completed HIV Screening Completed Covid-19 Vaccine Completed Pneumococcal Vaccine Completed DATA REVIEWED: Most recent labs Outside chart from [facility] admission reviewed. ASSESSMENT/PLAN: 1. Poorly controlled diabetes mellitus (HCC) - ICD9: 250.00, ICD10: E11.65 (primary diagnosis) - Barriers to control: diet adherence, lack of exercise, and cost of medication. Lengthy discussion with patient regarding potential complications of uncontrolled diabetes and the need for medication adherence and follow-up appointments. - Resume Lantus and Metformin - Blood glucose monitoring on a twice daily schedule - Referral to Ophthalmology/optometry for diabetic eye exam Endocrinology for further diabetes management - Counseled on healthy diet and regular exercise - Discussed need for and benefit of weight loss. BMI 34.91 kg/(m^2) - Smoking cessation encouraged; discussed risks to health and quitting strategies. Patient is not ready to quit - Follow up in 1 month, sooner should any other issues arise. - LIPID PANEL, NONFASTING - COMPREHENSIVE METABOLIC PANEL - COMPLETE BLOOD COUNT - ALBUMIN/CREATININE RATIO, URINE - HEMOGLOBIN A1C - CONSULT TO ENDOCRINOLOGY 2. Chest pain, unspecified type - ICD9: 786.50, ICD10: R07.9 Cardiac work-up during admission unremarkable however he continues to have intermittent episodes of chest pain and high risk for heart disease. He may need heart cath. - CONSULT TO CARDIOLOGY for further evaluation and recommendations 3. Diabetic neuropathy, painful (HCC) - ICD9: 250.60, 357.2, ICD10: E11.40 Reviewed importance of checking feet daily - resume GABAPENTIN 300 MG CAPSULE 4. Erythrocytosis - ICD9: 289.0, ICD10: D75.1 JAK2 checked during admission, negative - check ERYTHROPOIETIN/EPO, further evaluation pending results 5. Palpitations - ICD9: 785.1, ICD10: R00.2 See #2 - CONSULT TO CARDIOLOGY 6. Essential hypertension - ICD9: 401.9, ICD10: I10 - Controlled - resume LISINOPRIL 10 MG-HYDROCHLOROTHIAZIDE 12.5 MG TABLET 7. Hyperlipidemia, unspecified hyperlipidemia type - ICD9: 272.4, ICD10: E78.5 - Control undetermined, due for labs - resume ATORVASTATIN 10 MG TABLET 8. Screening PSA (prostate specific antigen) - ICD9: V76.44, ICD10: Z12.5 - PSA/PROSTATE SPECIFIC ANTIGEN SCREENING 9. Encounter for immunization - ICD9: V03.89, ICD10: Z23 - PNEUMOCOCCAL VACCINE, 20 VALENT (PREVNAR 20) - V[employer]-Whotever COVID-19 VACCINE AGE 12+ YR (COMIRNATY) Prescription instructions reviewed with patient as applicable. Potential red flag symptoms discussed with the patient. Reviewed appropriate action plan to take if red flag symptoms occur. Patient agreeable to treatment plan. Shahana Valenzuela APRN.[employer] documented in this encounter [facility] 04-06-2024 Note [facility] Medical Records Department [address] [place] [address] Discharge Summary 04/06/24 1700 MR#: [id number] Acct: [id number] Name: PHILIP ARNDT Rep #: [id number] : 1965 59 From: Ofelia Donaldson DO PCP: Shahana Murray, PERFORMANCE ARCHITECT-C Status:ADM [facility] Location: [place] [address] Providers Date of Admission: 04/05/24 Primary Care Physician: CARLOS Espinoza Reason For Visit: ELEVATED TROPONIN POLYCYTHEMIA WITH Diagnosis Discharge Diagnosis (1) Elevated troponin: Status: Acute Code(s): R79.89 - Other specified abnormal findings of blood chemistry (2) Abnormal EKG: Status: Acute Code(s): R94.31 - Abnormal electrocardiogram [ECG] [EKG] (3) Stable angina pectoris: Status: Acute Code(s): I20.89 - Other forms of angina pectoris (4) Uncontrolled type 2 diabetes mellitus with hyperglycemia: Status: Acute Code(s): E11.65 - Type 2 diabetes mellitus with hyperglycemia (5) Polycythemia: Status: Acute Code(s): D75.1 - Secondary polycythemia (6) Essential hypertension: Status: Acute Code(s): I10 - Essential (primary) hypertension (7) Obesity (BMI 30.0-34.9): Status: Acute Code(s): E66.9 - Obesity, unspecified Medications at Discharge Home Medications gabapentin 300 mg capsule 600 mg PO BID nerve pain 01/16/21 hydrochlorothiazide 25 mg tablet 25 mg PO DAILY diruetic 01/16/21 insulin glargine 100 unit/mL (3 mL) subcutaneous pen (Basaglar KwikPen U-100 Insulin) 25 unit subcut BID 01/16/21 lovastatin 20 mg tablet 20 mg PO QHS cholesterol 01/16/21 metformin 1,000 mg tablet 1,000 mg PO BID diabetes 01/16/21 dicyclomine 20 mg tablet 20 mg PO TID Abdominal cramping #14 tabs 01/17/21 diazepam 5 mg tablet (Valium) 5 mg PO TID PRN muscle spasm 5 days #15 tabs 02/06/24 Hospital Course Operations None Procedures 2-D Echocardiogram, EKG and Nuclear stress test Summary of Care Provided Minutes Spent on Discharge: 37 Hospital Course: Patient is a 59-year-old male with a history of essential hypertension, hyperlipidemia and uncontrolled DM-2 and chronic medical noncompliance who presented to the emergency department at [facility] on 04/06/2024 with chest pain during exertion and fatigue. The patient is a poor historian but reported on presentation that his symptoms started about a week prior to presentation with constant chest pain with activity that was pressure-like and felt like heartburn. It was precordial and nonradiating. He reported symptoms did not improve with rest. He is very noncompliant with his medication and only takes his insulin when he feels like it. He has had no signs or symptoms consistent with infection. Vital signs on presentation showed a temperature of 98, heart rate 110, blood pressure was 108/89, respiratory was 18 and sat was 97% on room air. EKG showed RBBB and LAD. CBC showed only erythrocytosis and JAK2 was ordered and pending at the time of discharge. Coags are WNL. BMP was unremarkable except for hyperglycemia at 277. A1c was 11.5. Troponin was elevated 88-91 and 91. Given these findings he was admitted to the telemetry floor and monitored on telemetry overnight. Stress test and echocardiogram were performed given insignificant trend up on his troponin. Echocardiogram showed an EF with no evidence of diastolic dysfunction and no wall motion abnormality. Valves were normal. Stress test was unremarkable for any inducible ischemia. Given his unremarkable workup we were able to discharge him home in stable condition. He was chest pain-free and felt well at the time of discharge. I have asked him to follow-up with his primary care physician and if he has any further symptoms he needs to return to the emergency department or discussed with his primary care physician. The neck step would be for cardiac catheterization. We also discussed his hemoglobin A1c being markedly elevated and him not being compliant with his home insulin. We did discuss the importance and long-term complications related to untreated or undertreated diabetes. I have made a referral to Dr. Gamble for him to follow-up for his diabetes as an outpatient. We did not alter his insulin at all despite his elevated hemoglobin A1c due to his noncompliance and inconsistent use of his insulin and diabetic medications. He was discharged home in stable condition on 04/06/2024. I have also asked him to follow-up with his primary care physician within the next week. JAK2 again was pending at the time of discharge. Discharge diagnoses: Chest pain Troponin elevation Erythrocytosis/polycythemia-reso lved Uncontrolled DM-2 Essential hypertension Diabetic neuropathy Hyperlipidemia History of asthma History of tobacco abuse Ongoing nicotine abuse with chewing tobacco Osteoarthritis Obesity Medication noncompliance Physical Exam Narrative Patient denies any chest pain and s (more content not included)... [facility] 09-23-2023 History of Presen t illness Narrative POPULATION HEALTH NAVIGATION OUTREACH Action/FYI Reason for Outreach Care Gap/HCC or Scheduling Wellness Visits Care Gaps due: Follow-up Appointment Patient Contacted: Unable or unnecessary to reach patient: Unable to reach Patient, tried both numbers listed, getting your request can not be processed Navigation Signature: Juanita Kimble LPN September 23, 2023 1:39 PM documented in this encounter [facility] 09-17-2023 Miscellaneous Notes Sw and Nurse tried to reach out to patient via home, mobile,and significant other for diabetes ed update. Sw received messageyour request cannot be processed. This message was stated on all three lines. documented in this encounter [facility] 05-16-2023 Miscellaneous Notes 2nd attempt to reschedule. Called and lmom. Sent Innoz message. 1st attempt to reschedule. Called and lmom. Primary Care Pharmacy Rescheduling Outreach Call center, please contact patient and reschedule in person, telephone, and virtual visit for Diabetes management within ~4 week(s). (Visit length: 60 minutes - NEW VISIT) [place] patient Thank you, Dona Feng, [facility] Primary [facility] Clinical Systems Planner 05/15/2023 9:44 AM documented in this encounter [facility] 03-21-2023 History of Presen t illness Narrative 1. Type 2 diabetes mellitus without retinopathy (HCC) Risk of diabetic changes and vision loss can be minimized by tight control of blood sugar, blood pressure, and cholesterol levels. Educated patient to continue care with primary care doctor and/or label press operator to maintain optimum levels as they are important to avoid ocular complications. Encouraged patient to call the office immediately with any changes to vision or visual concerns. Advised to not wait until the next scheduled exam. 2. Combined forms of age-related cataract of both eyes Mild-monitor 3. Regular astigmatism of both eyes 4. Presbyopia Finalized spec rx Follow-up in 1 year for diabetic eye exam Vince Johnson, OD March 21, 2023 9:34 AM documented in this encounter [facility] 03-19-2023 Instructions Murray Thomas - 03/19/2023 11:22 AM EDT Diabetes Foot Care Instructions When you have diabetes, proper foot care is very important. Poor foot care may lead to amputation of a foot or leg. As a person with diabetes, you are more vulnerable to foot problems, because diabetes can damage your nerves and reduce blood flow to your feet. Here are some diabetes foot care tips to follow: Wash and Dry Your Feet Daily Use mild soaps Use warm water Pat your skin dry; do not rub. Thoroughly dry your feet. After washing, use lotion on your feet to prevent cracking. Do not put lotion between your toes. Examine Your Feet Each Day Check the tops and bottoms of your feet. Have someone else look at your feet if you cannot see them. Check for dry, cracked skin. Look for blisters, cuts, scratches, or other sores. Check for redness, increased warmth, or tenderness when touching any area of your feet. Check for ingrown toenails, corns, and calluses. If you get a blister or sore from your shoes, do not pop it. Apply a bandage and wear a different pair of shoes. Take Care of Your Toenails Cut toenails after bathing, when they are soft. Cut toenails straight across and smooth with a nail file. Avoid cutting into the corners of toes. Do not cut cuticles. If you have neuropathy (or decreased sensation in your feet) a amusement or recreation card checker should always cut your toenails. Be Careful When Exercising Walk and exercise in comfortable shoes. Do not exercise when you have open sores on your feet. Protect Your Feet With Shoes and Socks Never go barefoot. Always protect your feet by wearing shoes or hard-soled slippers or footwear. Avoid shoes with high heels and pointed toes. Avoid shoes that expose your toes or heels (such as open-toed shoes or sandals). These types of shoes increase your risk for injury and potential infections. Try on new footwear with the type of socks you usually wear. Do not wear new shoes for more than an hour at a time. Change your socks daily. Look and feel inside your shoes before putting them on to make sure there are no foreign objects or rough areas. Avoid tight socks. Wear natural-fiber socks (cotton, wool, or a cotton-wool blend). Wear special shoes if your health care provider recommends them. Wear shoes/boots that will protect your feet from various weather conditions (cold, moisture, etc.). Make sure your shoes fit properly. If you have neuropathy (nerve damage), you may not notice that your shoes are too tight. Perform the footwear test described below. Footwear Test Use this simple test to see if your shoes fit correctly: Stand on a piece of paper. (Make sure you are standing and not sitting, because your foot changes shape when you stand.) Trace the outline of your foot. Trace the outline of your shoe. Compare the tracings: Is the shoe too narrow? Is your foot crammed into the shoe? The shoe should be at least 1/2 inch longer than your longest toe and as wide as your foot. Proper Shoe Choices The following types of shoes are best for people with diabetes Closed toes and heels Leather uppers without a seam inside At least 1/2 inch extra space at the end of your longest toe Inside of shoe should be soft with no rough areas Outer sole should be made of stiff material Shoes should be at least as wide as your feet Tips for Foot Care in Diabetes Don't wait to treat a minor foot problem if you have diabetes. Follow your health care provider's guidelines and first aid guidelines. Report foot injuries and infections to your health care provider immediately. Check water temperature with your elbow, not your foot. Do not use a heating pad on your feet. Do not cross your legs. Do not self-treat your corns, calluses, or other foot problems. Go to your health care provider or amusement or recreation card checker to treat these conditions. documented in this encounter [facility] 03-19-2023 History of Presen t illness Narrative Last saw Shahana Older 03/14/23 Initial Office Visit Subjective: This 58 year old male presents to clinic for diabetic foot check. Patient has the following complaints: burning in both feet Patient presents to clinic for evaluation of b/l feet. He complains of burning in both feet. He states the burning extends to the toes. He is on gabapentin which does help but continues to have pain. Patient states that for the longest time, he did not have insurance and was unable to get medication for his diabetes. He also has diet rich in meat and potatoes. He does complain of pain to left 2nd toenail Patient admits to being diabetic for multiple years now. Patient +B/T/N in feet at this time. Patient nopain in legs when walking. No other pedal complaints at this time. No change in medications or medical history since last visit. PAIN EVALUATION 03/19/2023 1040 Pain Level: 6 Pain Location: Toe Description: Numbness;Tingling;Burning Duration Units: Years Frequency: Intermittent Intervention/Comfort measure: Relaxation;Reposition Hemoglobin A1C (%) Date Value 04/19/2022 13.0 12/26/2020 12.2 09/12/2017 12.0 02/13/2017 13.4 04/16/2016 11.1 12/28/2015 7.4 Hemoglobin A1C (POCT) (%) Date Value 03/14/2023 12.6 09/24/2021 12.9 PCP: Uday Rowe MD PAST MEDICAL HISTORY Diagnosis Date Anxiety and depression 12/21/2015 Dr. 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/21/2015 Diabetic neuropathy, painful (HCC) 12/21/2015 Essential hypertension 12/21/2015 Post-traumatic osteoarthritis of right shoulder 04/24/2016 Psoriasis 12/21/2015 Psychosis (HCC) 2013 [facility] Uncontrolled type 2 diabetes mellitus with neurologic complication, with long-term current use of insulin 12/21/20152013 Current Outpatient Medications Medication Sig semaglutide (OZEMPIC) 0.25 mg or 0.5 mg (2 mg/3 mL) pen Inject 0.25 mg subcutaneously one time a week. insulin detemir U-100 (LEVEMIR FLEXPEN) 100 unit/mL (3 mL) injection pen Inject 25 Units subcutaneously daily at bedtime. blood sugar diagnostic (BLOOD GLUCOSE TEST) test strip Test blood sugar(s) 2 times daily. Dx: Type 2 DM - Uncontrolled E11.65 Insulin: Yes Lancets lancets Test blood sugar(s) 2 times daily. Dx: Type 2 DM - Uncontrolled E11.65 Insulin: Yes lisinopril-hydroCHLOROthiazide (ZESTORETIC) 10-12.5 mg per tablet Take 1 tablet by mouth every morning. gabapentin (NEURONTIN) 300 mg capsule Take 1 capsule by mouth daily at bedtime for 90 days. Insulin [place], Disposable, (BD ULTRA-FINE DERRELL PEN NEEDLE) 32 gauge x 5/32 Use one needle for each dose. 1/day. atorvastatin (LIPITOR) 10 mg tablet Take 1 tablet by mouth daily at bedtime. For cholesterol. naproxen (NAPROSYN) 500 mg tablet Take 1 tablet by mouth twice daily as needed (for pain/inflammation). Take with food. metFORMIN ER (GLUCOPHAGE XR) 500 mg 24 hr tablet Take 2 tablets by mouth twice daily. No current facility-administered medications for this visit. ALLERGIES No Known Allergies PAST SURGICAL HISTORY Procedure Laterality Date APPENDECTOMY 2012 FAMILY HISTORY Problem Relation Age of Onset Diabetes Father Social History Tobacco Use Smoking status: Former Types: Cigarettes Smokeless tobacco: Current Types: Chew Vaping Use Vaping Use: Never used Substance Use Topics Alcohol use: Yes Comment: occasional Drug use: No REVIEW OF SYSTEMS GENERAL: Negative for Malaise, significant weight loss, fever RESPIRATORY: Negative for cough, wheezing and shortness of breath CARDIOVASCULAR: Negative for chest pain, leg swelling and palpitations GI: Negative for abdominal discomfort, blood in stools or black stools and change in bowel habits : Negative for dysuria, frequency and incontinence MUSCULOSKELETAL: Negative for joint pain or swelling, back pain, and muscle pain. SKIN: Negative for lesions, rash, and itching. HEMATOLOGY/LYMPHOLOGY Negative for prolonged bleeding, bruising easily, and swollen nodes. ENDOCRINE: Negative for cold or heat intolerance, polyuria, polydipsia and goiter. NEURO: negative The remainder of the review of systems is noncontributory. Objective: Patient presents to clinic ambulating in flip flops Constitutional: Pt is a well developed 58 year old male who is alert, oriented, cooperative and in no apparent distress. Eyes: Following during examination. No redness or drainage. Respiratory: RR normal and nonlabored. Even breathing. No evidence of distress. Psychology: Patient is engaged during conversation. Normal affect and mood. Does not appear depressed or anxious. Vasc: DP faintly palpable bilateral. PT pulses nonpalpable b/l. CFT is less than 5 seconds bilateral. Skin temperature is warm to cool proximal to distal bilateral. There is no edema or varicosities noted. Hair growth absent. Neuro: Protective sensation is decreased to the foot and toes when tested with the 5.07 SWM bilateral. Vibratory sensation is absent at the hallux bilateral. + Significant neurological defecits. Derm: Inspection and palpation performed. Nails 1-5 b/l are painful, discolored-yellow, thick, crumbly, dystrophic and with subungal debris. Skin is thin, dry, ruborous . Hyperkeratosis noted to b/l hallux. NO ulcerations, scars, verruca or other lesions noted. Ortho: Ankle joint DF is full with the knee extended and full with knee flexed. No pain or crepitus noted. STJ, MTJ ROM are full and free of pain or crepitus. Muscle strength is 5/5 for dorsiflexors, plantarflexors, inverters, everters. Digital deformities include none. Assessment: (B35.1) Onychomycosis (primary encounter diagnosis) (E11.40) Diabetic neuropathy, painful (HCC) (M79.675) Pain in toe of left foot (M79.674) Pain in toe of right foot (L84) Callus (R09.89) Diminished pulses in lower extremity Plan: 1. Patient was seen and evaluated. 2. Patient was instructed on the continued importance of diabetic foot care along with proper diet and keeping their blood sugar under control to prevent complications. Instructions given both oral and written. 3. Toenails 1-5 b/l debrided in length and thickness 4. Callus reduced with dremmel. Recommend use of lotion to feet 5. Given history of neuropathy and callus in a diabetic patient, recommend diabetic shoes 6. Pvr ordered 7. Stressed the importance of getting sugars better controlled Murray Thomas DPM AMB ROOMING INTAKE FLOWSHEET DATA Pain Pain Level: 6 Pain Location: Toe Description: Numbness, Tingling, Burning Duration Units: Years Frequency: Intermittent Intervention/Comfort measure: Relaxation, Reposition Patient presents with: Left Foot - New, Pain, Numbness Right Foot - New, Pain, Numbness Patient presents for numbness to bilateral toes. States that it has been intermittent for years, has a history of diabetic neuropathy. Was placed on gabapentin 03/14/23. Has helped some, but states that he still gets tingling when he stands a lot. Also due for diabetic foot exam. documented in this encounter [facility] 03-14-2023 History of Past i llness Narrative Problem Noted Date Diagnosed Date Resolved Date Uncontrolled type 2 diabetes mellitus with hyperglycemia 03/14/2023 04/29/2023 Anxiety and depression 12/21/201512/26 Overview: Dr. Reeves Psoriasis 12/21/2015 12/26/2020 documented as of this encounter (statuses as of 05/22/2023) [facility]09-01-2023 History of Past illness Narrative* Problem Noted Date Diagnosed Date Resolved Date Uncontrolled type 2 diabetes mellitus with hyperglycemia 03/14/2023 04/29/2023 Anxiety and depression 12/21/201512/26 Overview: Dr. Reeves Psoriasis 12/21/2015 12/26/2020 documented as of this encounter (statuses as of 09/17/2023) [facility] History of Past illness Narrative* Problem Noted Date Diagnosed Date Resolved Date Uncontrolled type 2 diabetes mellitus with hyperglycemia 03/14/2023 04/29/2023 Anxiety and depression 12/21/201512/26 Overview: Dr. Reeves Psoriasis 12/21/2015 12/26/2020 documented as of this encounter (statuses as of 09/24/2023) [facility]09-01-2023 Instructions* Patient Instructions* Shahana Murray APRN.CNP - 03/14/2023 9:27 AM EDT For diabetes: Continue with metformin as prescribed. Start Levemir insulin 25 units once a day (tryand take at the same time every day). Start Ozempic once a week injection, take on the same day of the week every week. Check your blood sugar before you eat dinner in the afternoon and when you get off work in the morning before eating breakfast. Start taking all medications as prescribed today. If you are struggling to afford your medication please let me know right away. [facility] History of Present illness Narrative* Shahana Murray APRN.CNP - 03/14/2023 9:00 AM EDT CC: Patient presents with: Follow Up: Diabetes HPI Philip Arndt is a 58 year old male who presents today for overdue follow- up. He was last seen August 2021. States he has not followed up since then because he didn't have insurance. He has a dental infection and the dentist will not do any dental procedures until his diabetes is under control. The only medication he is currently taking is metformin, denies side effects. He does not check his blood sugars because he can't afford the testing supplies. He reports blurred vision, numbness, tingling and pain in mix feet, urinary frequency, increased thirst, nocturia and fatigue. Has not been to the eye doctor in years. BP is elevated today in the office. Does not check at home. REVIEW OF SYSTEMS GENERAL: Negative for significant weight loss, fever, chills, night sweats RESPIRATORY: Negative for cough, wheezing and shortness of breath CARDIOVASCULAR: Negative for chest pain, leg swelling and palpitations PAST MEDICAL HISTORY Diagnosis Date Anxiety and depression 12/21/2015 Dr. 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/21/2015 Diabetic neuropathy, painful (HCC) 12/21/2015 Essential hypertension 12/21/2015 Post-traumatic osteoarthritis of right shoulder 04/24/2016 Psoriasis 12/21/2015 Psychosis (HCC) 2013 [facility] Uncontrolled type 2 diabetes mellitus with neurologic complication, with long- term current use of insulin 12/21/20152013 PAST SURGICAL HISTORY Procedure Laterality Date APPENDECTOMY 2012 ALLERGIES Patient has no known allergies. MEDICATIONS blood sugar diagnostic (BLOOD GLUCOSE TEST) test strip Test 2 times daily, Insulin Dep? Yes E11.9 DM 2 naproxen (NAPROSYN) 500 mg tablet Take 1 tablet by mouth twice daily as needed (for pain/inflammation). Take with food. metFORMIN ER (GLUCOPHAGE XR) 500 mg 24 hr tablet Take 2 tablets by mouth twice daily. insulin glargine (BASAGLAR KWIKPEN U-100 INSULIN) 100 unit/mL (3 mL) Inject 44 Units subcutaneouslydaily at bedtime. semaglutide (OZEMPIC) 0.25 mg or 0.5 mg(2 mg/1.5 mL) pen injector Inject 0.5 mg subcutaneously one time a week. Inject 0.5 mg weekly gabapentin (NEURONTIN) 300 mg capsule Take 1 capsule by mouth three times daily for 90 days. atorvastatin (LIPITOR) 10 mg tablet Take 1 tablet by mouth daily at bedtime. For cholesterol. lisinopril-hydroCHLOROthiazide (PRINZIDE,ZESTORETIC) 10-12.5 mg per tablet Take 1 tablet by mouth every morning. Lancets lancets Test 2 times daily, Insulin Dep? Yes E11.9 DM 2 Insulin [place], Disposable, (BD ULTRA-FINE DERRELL PEN NEEDLE) 32 gauge x 5/32 Use one needle for each dose. 1/day. FAMILY HISTORY Problem Relation Age of Onset Diabetes Father Social History Tobacco Use Smoking status: Former Types: Cigarettes Smokeless tobacco: Current Types: Chew Vaping Use Vaping Use: Never used Substance Use Topics Alcohol use: Yes Comment: occasional Drug use: No PHYSICAL EXAM BP 142/80 Pulse 92 Resp 18 Wt 108 kg (238 lb) SpO2 96% BMI 37.28 kg/m General Appearance: well appearing, in no acute distress, alert Lungs: Lungs clear to auscultation. No wheezing, rhonchi, rales. Heart: RRR without murmur, gallop, or rubs. No ectopy Health maintenance reviewed with patient: HEPATITIS B(1 of 3 - 3-dose series) Never done SPIROMETRY Never done BP CONTROLLED (<130/80) Never done COLORECTAL CANCER SCREENING Never done SHINGRIX VACCINE(1 of 2) Never done DILATED RETINAL EXAM due on 02/18/2018 PNEUMOCOCCAL(2 - PCV) due on 09/12/2018 COVID-19 VACCINE(2 - Booster for Alexandra series) due on 02/20/2021 DIABETIC FOOT EXAM due on 01/19/2022 DEPRESSION ASSESSMENT Never done HBA1C due on 07/20/2022 PROSTATE CANCER SCREENING DISCUSSION due on 09/12/2022 ANNUAL PCP TEAM CHRONIC DISEASE VISIT due on 09/24/2022 INFLUENZA(1) due on 03/14/2023 URINE ALBUMIN:CREATININE RATIO due on 04/19/2023 LDL CHOLESTEROL due on 04/19/2023 DTAP,TDAP,TD(2 - Td or Tdap) due on 09/13/2027 HEPATITIS C SCREENING Completed HIV SCREENING Completed DATA REVIEWED: Most recent labs ASSESSMENT/PLAN: 1. Uncontrolled type 2 diabetes mellitus with hyperglycemia (HCC) - ICD9: 250.02, ICD10: E11.65 (primary diagnosis) - Uncontrolled - Barriers to control: diet adherence, cost of medication, and lack of health insurance - Continue Metformin - Start semaglutide (Ozempic) 0.5 mg weekly - Start Levemir 25 units at bedtime - Statin prescribed - atorvastatin - Blood glucose monitoring on a twice daily schedule - Referral to Pharmacy for diabetic medication management Ophthalmology/optometry for diabetic eye exam Podiatry for diabetic foot complications - Counseled on healthy diet and regular exercise - Discussed need for and benefit of weight loss. BMI 37.28 kg/(m^2) - Discussed diabetic education issues of diabetes complications and monitoring required, hypoglycemic/hyperglycemic symptoms, and medication-specific side effects and monitoring - HEMOGLOBIN A1C (POC) - CONSULT TO OPHTHALMOLOGY - CONSULT TO PHARMACY 2. Essential hypertension - ICD9: 401.9, ICD10: I10 - Uncontrolled - Resume Lisinopril/HCTZ 10/12.5 mg daily - Recommend home blood pressure monitoring, to bring results to next visit - Encouraged sodium restriction, DASH or Mediterranean diet - Follow up in 6 weeks for hypertension visit - LISINOPRIL 10 MG-HYDROCHLOROTHIAZIDE 12.5 MG TABLET 3. Diabetic neuropathy, painful (HCC) - ICD9: 250.60, 357.2, ICD10: E11.40 - resume GABAPENTIN 300 MG CAPSULE once a day, can increase if needed after one week - CONSULT TO PODIATRY 4. Hyperlipidemia, unspecified hyperlipidemia type - ICD9: 272.4, ICD10: E78.5 - resume ATORVASTATIN 10 MG TABLET Prescription instructions reviewed with patient as applicable. Potential red flag symptoms discussed with the patient. Reviewed appropriate action plan to take if red flag symptoms occur. Patient agreeable to treatment plan. Shahana Murray APRN.CNP [facility] History of Present illness Narrative* Srinivasa Garrison Ma - 11/12/2022 5:14 PM EDT POPULATION HEALTH NAVIGATION OUTREACH Action/FYI Wellness/a1c Patient Identified by Name and : NO Outreach Outcome/Action Letter mailed Did you use a PCP flex slot to schedule this appointment? N/A Reason for Outreach Care Gap or Scheduling/Wellness visits Payer: Payor: ADAIR / Plan: BLUE CARD PPO OOS / Product Type: PPO / Care Gap Reviewed:: Annual Wellness visit HBA1C Reminder: Reminder note to check Health Maintenance for items below Health Maintenance items due: HEPATITIS B(1 of 3 - 3-dose series) Never done SPIROMETRY Never done BP CONTROLLED (<130/80) Never done COLORECTAL CANCER SCREENING Never done SHINGRIX VACCINE(1 of 2) Never done DILATED RETINAL EXAM due on 02/18/2018 PNEUMOCOCCAL(2 - PCV) due on 09/12/2018 COVID-19 VACCINE(2 - Booster for Alexandra series) due on 02/20/2021 DIABETIC FOOT EXAM due on 01/19/2022 DEPRESSION ASSESSMENT Never done HBA1C due on 07/20/2022 PROSTATE CANCER SCREENING DISCUSSION due on 09/12/2022 ANNUAL PCP TEAM CHRONIC DISEASE VISIT due on 09/24/2022 Navigation Signature: Srinivasa Garrison Ma November 12, 2022 5:16 PM [facility] Miscellaneous Notes* Telephone Encounter - Juanita Kimble LPN - 04/17/2022 1:08 PM EDT Spoke to Nathalie/girlfriend, advised fasting labs ordered. Patient does not want to come in because he can not afford co-pay. Juanita Kimble LPN * Telephone Encounter - Shahana Murray APRN.CNP - 04/17/2022 12:04 PM EDT He is due for other labs, needs to fast for these Shahana Murray APRN.DAPHNIE * Telephone Encounter - Barb Meyers RN - 04/17/2022 11:28 AM EDT Spoke to pts girlfriend Jolynn. She doesn't think pt is taking his insulin, as she doesn't see himgiving himself injections. States she isn't sure though. States pt. isn't very compliant. Asked herto please have pt come in for A1C blood draw and make follow up appt. with Dr. Kenyon States she will relay this to pt. Barb Meyers RN [facility] Miscellaneous Notes* Telephone Encounter - Barb Meyers RN - 02/22/2022 8:55 AM EDT Called pt for DM update. Spoke to (pt mobile number went straight to [facility]). states that pt. is stubborn and won't go to the doctor. Asked to have pt return my call for more specific updates from pt. Barb Meyers RN [facility] Miscellaneous Notes* Telephone Encounter - GRACE De León - 02/11/2022 10:50 AM EDT Roldan sent patient [employer] message to follow up regarding diabetes ed program. Roldan noted goals set during appt with SW/Nurse. Will see if patient has any further needs. * Telephone Encounter - GRACE De León - 02/06/2022 11:47 AM EDT Roldan left message for patient to return Roldan call. Roldan following up with patient regarding diabetes ed program. [facility] Miscellaneous Notes* Telephone Encounter - Steffany Wisdom RPh - 10/04/2021 1:35 PM EDT Called patient for scheduled phone appointment. Spoke with sig other, Nathalie, who said patient was sleeping and needed to reschedule. Rescheduled visit for 10/25 for an in-office visit. PharmD requested that patient bring in his glucometer for the visit for SMBG review. Steffany Wisdom PharmD, [facility] Primary Care Clinical Pharmacist Diaz Shah [facility] documented in this [facility] History of Past illness Narrative* Problem Noted Date Resolved Date Anxiety and depression 12/21/2015 Overview: Dr. Reeves Psoriasis 12/21/2015 12/26/2020 documented as of this encounter (statuses as of 10/04/2021) [facility] History of Past illness Narrative* Problem Noted Date Resolved Date Anxiety and depression 12/21/2015 Overview: Dr. Reeves Psoriasis 12/21/2015 12/26/2020 documented as of this encounter (statuses as of 02/11/2022) [facility] History of Past illness Narrative* Problem Noted Date Resolved Date Anxiety and depression 12/21/2015 Overview: Dr. Reeves Psoriasis 12/21/2015 12/26/2020 documented as of this encounter (statuses as of 02/22/2022) [facility] of Past illness Narrative* Problem Noted Date Resolved Date Anxiety and depression 12/21/2015 Overview: Dr. Reeves Psoriasis 12/21/2015 12/26/2020 documented as of this encounter (statuses as of 04/17/2022) [facility] of [facility] illness Narrative* Problem Noted Date Resolved Date Anxiety and depression 12/21/2015 Overview: Dr. Reeves Psoriasis 12/21/2015 12/26/2020 documented as of this encounter (statuses as of 04/22/2022) [facility] of [facility] illness Narrative* Problem Noted Date Resolved Date Anxiety and depression 12/21/2015 Overview: Dr. Reeves Psoriasis 12/21/2015 12/26/2020 documented as of this encounter (statuses as of 11/13/2022) [facility] of [facility] illness Narrative* Problem Noted Date Diagnosed Date Resolved Date Anxiety and depression 12/21/201512/26 Overview: Dr. Reeves Psoriasis 12/21/2015 12/26/2020 documented as of this encounter (statuses as of 03/14/2023) [facility] of [facility] illness Narrative* Problem Noted Date Diagnosed Date Resolved Date Anxiety and depression 12/21/201512/26 Overview: Dr. Reeves Psoriasis 12/21/2015 12/26/2020 documented as of this encounter (statuses as of 03/19/2023) [facility] of [facility] illness Narrative* Problem Noted Date Diagnosed Date Resolved Date Anxiety and depression 12/21/201512/26 Overview: Dr. Reeves Psoriasis 12/21/2015 12/26/2020 documented as of this encounter (statuses as of 03/21/2023) [facility] note* Diagnosis Diabetic neuropathy, painful (HCC)- Primary Type II or unspecified type diabetes mellitus with neurological manifestations, not stated as uncontrolled Uncontrolled type 2 diabetes mellitus with hyperglycemia (HCC) [facility]* Diagnosis Uncontrolled type 2 diabetes mellitus with hyperglycemia (HCC)- Primary Essential hypertension Unspecified essential hypertension Diabetic neuropathy, painful (HCC) Type II or unspecified type diabetes mellitus with neurological manifestations, not stated as uncontrolled Hyperlipidemia, unspecified hyperlipidemia type documented in this encounter [facility] noteNo assessment information availableWDiley [facility] Work Phone: Evaluation note* Diagnosis Onychomycosis- Primary Dermatophytosis of nail Diabetic neuropathy, painful (HCC) Type II or unspecified type diabetes mellitus with neurological manifestations, not stated as uncontrolled Pain in toe of left foot Pain in limb Pain in toe of right foot Pain in limb Callus Corns and callosities Diminished pulses in lower extremity Other symptoms involving cardiovascular system documented in this encounter [facility] note* Diagnosis Type 2 diabetes mellitus without retinopathy (HCC)- Primary Type II or unspecified type diabetes mellitus without mention of complication, not stated as uncontrolled Combined forms of age-related cataract of both eyes Other and combined forms of senile cataract Regular astigmatism of both eyes Regular astigmatism Presbyopia [facility]* Diagnosis Post-traumatic osteoarthritis of right shoulder Secondary localized osteoarthrosis, shoulder region documented in this encounter [facility] note* Diagnosis Poorly controlled diabetes mellitus (HCC)- Primary Type II or unspecified type diabetes mellitus without mention of complication, not stated as uncontrolled Chest pain, unspecified type Diabetic neuropathy, painful (HCC) Type II or unspecified type diabetes mellitus with neurological manifestations, not stated as uncontrolled Erythrocytosis Polycythemia, secondary Palpitations Essential hypertension Unspecified essential hypertension Hyperlipidemia, unspecified hyperlipidemia type Screening PSA (prostate specific antigen) Special screening for malignant neoplasm of prostate Encounter for immunization Need for other specified prophylactic vaccination against single bacterial disease Screening for diabetic retinopathy Screening for other eye conditions documented in this encounter [facility] note* Diagnosis Poorly controlled diabetes mellitus (HCC)- Primary Type II or unspecified type diabetes mellitus without mention of complication, not stated as uncontrolled Diabetic neuropathy, painful (HCC) Type II or unspecified type diabetes mellitus with neurological manifestations, not stated as uncontrolled documented in this encounter [facility] note* Diagnosis Poorly controlled diabetes mellitus (HCC)- Primary Type II or unspecified type diabetes mellitus without mention of complication, not stated as uncontrolled Essential hypertension Unspecified essential hypertension Encounter for screening examination for other mental health and behavioral disorders Screening for depression Screening for colon cancer Special screening for malignant neoplasms, colon documented in this encounter [facility] note* Diagnosis Poorly controlled diabetes mellitus (HCC) Type II or unspecified type diabetes mellitus without mention of complication, not stated as uncontrolled documented in this encounter [facility] note* Diagnosis Type 2 diabetes mellitus without retinopathy (HCC)- Primary Type II or unspecified type diabetes mellitus without mention of complication, not stated as uncontrolled Combined forms of age-related cataract of both eyes Other and combined forms of senile cataract Regular astigmatism of both eyes Regular astigmatism Presbyopia Poorly controlled diabetes mellitus (HCC)- Primary Type II or unspecified type diabetes mellitus without mention of complication, not stated as uncontrolled documented in this encounter [facility] note* Diagnosis Poorly controlled diabetes mellitus (HCC)- Primary Type II or unspecified type diabetes mellitus without mention of complication, not stated as uncontrolled Diabetic neuropathy, painful (HCC) Type II or unspecified type diabetes mellitus with neurological manifestations, not stated as uncontrolled documented in this encounter [facility] note* Diagnosis Diabetic neuropathy, painful (HCC)- Primary Type II or unspecified type diabetes mellitus with neurological manifestations, not stated as uncontrolled Poorly controlled diabetes mellitus (HCC) Type II or unspecified type diabetes mellitus without mention of complication, not stated as uncontrolled documented in this encounter [facility] note* Diagnosis Poorly controlled diabetes mellitus (HCC)- Primary Type II or unspecified type diabetes mellitus without mention of complication, not stated as uncontrolled Diabetic neuropathy, painful (HCC) Type II or unspecified type diabetes mellitus with neurological manifestations, not stated as uncontrolled documented in this encounter [facility] note* Diagnosis Poorly controlled diabetes mellitus (HCC) Type II or unspecified type diabetes mellitus without mention of complication, not stated as uncontrolled [facility] Additional Instructions Take antibiotics as directed, please follow-up with one of the dentist I have referred you to. Return for any worsening of your symptoms.[facility] Work Phone: Hospital Discharge instructions Additional Instructions Take anabiotic as prescribed nausea medicine as needed. Follow-up with your dentist or dental list for outpatient evaluation for definitive treatment.[facility] Work Phone: Reason for referral (narrative)* Outpatient Procedure (Routine) - Authorized Specialty Diagnoses / Procedures Referred By Margie t Referred To Contact [facility] Diagnoses Onychomycosis Diminished pulses in lower extremity Procedures PVR ANK PRESS [facility] NON-INVAS PHYSIOLOGIC STD EXTREMITY ART 2 LEVEL Murray Thomas [address] [place] [address] [facility] [place] [address] [place] [address] Referral ID Status Reason Start Date Expiration Date Visits Requested Visits Authorized [id number] Authorized Auto-Generat ed Referral 03/19/2023 03/18/2024 1 1 [facility] for referral (narrative)* Diagnostic Procedure Only (Routine) - Closed Specialty Diagnoses / Procedures Referred By Margie Referred To Contact XR IMAGING Diagnoses Post-traumatic osteoarthritis of right shoulder Procedures XR SHOULDER GENERAL 3V OR MORE AP/TRUE AP/OTHER RIGHT RADEX SHOULDER COMPLETE MINIMUM 2 VIEWS Uday Rowe MD [address] [place] [address] [place] [id number] Referral ID Status Reason Start Date Expiration Date V isits Requested Visits Authorized [id number] Closed Auto-Generate d Referral 09/24/2021 10/24/2022 1 1 [facility] for visit Narrative* Diagnostic Procedure Only (Routine) - Closed Specialty Diagnoses / Procedures Referred By Contac t Referred To Contact XR IMAGING Diagnoses Post-traumatic osteoarthritis of right shoulder Procedures XR SHOULDER GENERAL 3V OR MORE AP/TRUE AP/OTHER RIGHT RADEX SHOULDER COMPLETE MINIMUM 2 VIEWS Uday Rowe MD [address] [place] [address] [place] [id number] Referral ID Status Reason Start Date Expiration Date V isits Requested Visits Authorized [id number] Closed Auto-Generate d Referral 09/24/2021 10/24/2022 1 1 [facility] Summary Purpose Family History No Family History Records FoundNo Family History Records FoundNo Family History Records Found Advance Directives No Advanced Directives Records Found Advance Directive Response Recorded Date/ Time Living Will No March 15 023 2:38pm Power of Basketball Referee No March 15, 2023 2:38pm Advance Directive Response Recorded Date/ Time Living Will No March 18 10:59am Power of Basketball Referee No March 18, 2023 10:59am Advance Directive Response Recorded Date/ Time Living Will No March 30, 2023 7:41pm Power of Basketball Referee No March 7:41pm Reason for Referral Specialty Diagnoses / Procedures Referred By Contac t Referred To Contact Podiatry Diagnoses Diabetic neuropathy, painful (HCC) Procedures CONSULT TO PODIATRY OFFICE/OUTPATIENT [facility] 60-74 MINUTES Older, Shahana, PIGMENT SUPPLIER.G[employer] L[employer]ER [address] [place] [address] Referral ID Status Reason Start Date Expiration Date Visits Requested Visits Authorized [id number] Authorized PCP Requested Referral 03/14/2023 03/13/2024 1 1 Specialty Diagnoses / Procedures Referred By Contac t Referred To Contact Ophthalmology Diagnoses Uncontrolled type 2 diabetes mellitus with hyperglycemia (HCC) Procedures CONSULT TO OPHTHALMOLOGY OFFICE/OUTPATIENT [facility] MDM 60-74 MINUTES Older, Shahana, PIGMENT SUPPLIER.GOLD LAYER [address] [place] [address] Referral ID Status Reason Start Date Expiration Date Visits Requested Visits Authorized [id number] Authorized PCP Requested Referral 03/14/2023 03/13/2024 1 1 Specialty Diagnoses / Procedures Referred By Contac t Referred To Contact Endocrinology Diagnoses Poorly controlled diabetes mellitus (HCC) Procedures CONSULT TO ENDOCRINOLOGY OFFICE/OUTPATIENT [facility] MDM 60 MINUTES Shahana Valenzuela, PIGMENT SUPPLIER.GOLD LAYER [address] [place] [address] Referral ID Status Reason Start Date Expiration Date Visits Requested Visits Authorized [id number] Authorized PCP Requested Referral 04/14/2024 04/14/2025 1 1 Specialty Diagnoses / Procedures Referred By Contac t Referred To Contact Cardiology Diagnoses Chest pain, unspecified type Palpitations Procedures CONSULT TO CARDIOLOGY OFFICE/OUTPATIENT [facility] 60 MINUTES Shahana Valenzuela, PIGMENT SUPPLIER.GOLD LAYER [address] [place] [address] Referral ID Status Reason Start Date Expiration Date Visits Requested Visits Authorized [id number] Authorized PCP Requested Referral 04/14/2024 04/14/2025 1 1 Specialty Diagnoses / Procedures Referred By Contac t Referred To Contact Diagnoses Poorly controlled diabetes mellitus (HCC) Procedures CONSULT TO DIABETES EDUCATION DSME MEDICAL NUTRITION ASSMT&IVNTJ INDIV EACH 15 [place] MEDICAL NUTRITION ASSMT&IVNTJ INDIV EACH 15 [place] MEDICAL NUTRITION ASSMT&IVNTJ INDIV EACH 15 VT MEDICAL NUTRITION ASSMT&IVNTJ INDIV EACH 15 [place] Shahana Valenzuela, PIGMENT SUPPLIER.G[employer]ER [address] [place] [address] [facility] [address] [place] [address] Referral ID Status Reason Start Date Expiration Date Visits Requested Visits Authorized [id number] Authorized PCP Requested Referral 05/26/2025 1 1 Specialty Diagnoses / Procedures Referred By Contac t Referred To Contact Diagnoses Poorly controlled diabetes mellitus (HCC) Procedures CONSULT TO DIABETES EDUCATION DSME MEDICAL NUTRITION ASSMT&IVNTJ INDIV EACH 15 [place] MEDICAL NUTRITION ASSMT&IVNTJ INDIV EACH 15 [place] MEDICAL NUTRITION ASSMT&IVNTJ INDIV EACH 15 [place] MEDICAL NUTRITION ASSMT&IVNTJ INDIV EACH 15 [place] Amairani Youssef, PIGMENT SUPPLIER.[employer] [address] [place] [address] Referral ID Status Reason Start Date Expiration Date V isits Requested Visits Authorized [id number] Closed PCP Requested Referral 06/30/2024 06/30/2025 1 1 Specialty Diagnoses / Procedures Referred By Margie t Referred To Contact Diagnoses Poorly controlled diabetes mellitus (HCC) Procedures ENDOCRINOLOGY DIETITIAN VISIT (MNT) MEDICAL NUTRITION ASSMT&IVNTJ INDIV EACH 15 [place] MEDICAL NUTRITION ASSMT&IVNTJ INDIV EACH 15 [place] MEDICAL NUTRITION ASSMT&IVNTJ INDIV EACH 15 [place] MEDICAL NUTRITION ASSMT&IVNTJ INDIV EACH 15 [place] Amairani Youssef APRN.[employer] [address] [place] [address] Referral ID Status Reason Start Date Expiration Date Visits Requested Visits Authorized [id number] Authorized PCP Requested Referral 06/30/2025 1 1 Chief Complaint and Reason for Visit Chief Complaint PRE EMPLOYMENT/NON D OT DRUG/GOJO DENTAL Chief Complaint PRE EMPLOYMENT/NON D OT DRUG/GOJO DENTAL dental Chief Complaint PRE EMPLOYMENT/NON D OT DRUG/GOJO DENTAL dental COUGH Medications Administered Section Inactive Administered Medications - up to 3 most recent administrations Medication Order MAR Action Action Date Dose Rate Site PHENYLephrine 2.5 % 1 Drop (AK-DILATE, JAS-SYNEPHRINE) 1 Drop, BOTH EYES, ONCE, 1 dose, On Fri03/21/23 at 0930, FOR OPHTHALMIC USE ONLY PROTECT FROM LIGHT Given 03/21/2023 9:30 AM EDT 1 Drop proparacaine 0.5 % 1 Drop (ALCAINE) 1 Drop, BOTH EYES, ONCE, 1 dose, On Fri03/21/23 at 0930, FOR THE EYE Given 03/21/2023 9:30 AM EDT 1 Drop tropicamide 1 % 1 Drop (MYDRIACYL) 1 Drop, BOTH EYES, ONCE, 1 dose, On Fri03/21/23 at 0930, FOR THE EYE Given 03/21/2023 9:30 AM EDT 1 Drop Additional Source Comments (unrecognized sect ion and content) No Status Records FoundNo Status Records FoundNo Status Records Found INFORMATION SOURCE (unrecogn ized section and content) DATE CREATED AUTHOR 03/24/2018 El[place] Bell [facility] DATE CREATED AUTHOR AUTHOR'S ORGANIZ ATION 04/23/2024 [facility] DATE CREATED AUTHOR AUTHOR'S ORGANIZ ATION 2025 [facility] Source Comments (unrecognize d section and content) In the event this informatio n is protected by the Federal Confidentiality of Alcohol and Drug Abuse Patient Records regulations: The Federal rules restrict any use of the information to criminally investigate or prosecute any alcohol or drug abuse patient.[facility] Hospital[facility] the event this information is protected by the Federal Confidentiality of Alcohol and Drug Abuse Patient Records regulations: The Federal rules restrict any use of the information to criminally investigate or prosecute any alcohol or drug abuse patient.[facility] HospitalIn the event this information is protected by the Federal Confidentiality of Alcohol and Drug Abuse Patient Records regulations: The Federal rules restrict any use of the information to criminally investigate or prosecute any alcohol or drug abuse patient.[facility] HospitalIn the event this information is protected by the Federal Confidentiality of Alcohol and Drug Abuse Patient Records regulations: The Federal rules restrict any use of the information to criminally investigate or prosecute any alcohol or drug abuse patient.[facility] HospitalIn the event this information is protected by the Federal Confidentiality of Alcohol and Drug Abuse Patient Records regulations: The Federal rules restrict any use of the information to criminally investigate or prosecute any alcohol or drug abuse patient.[facility] HospitalIn the event this information is protected by the Federal Confidentiality of Alcohol and Drug Abuse Patient Records regulations: The Federal rules restrict any use of the information to criminally investigate or prosecute any alcohol or drug abuse patient.[facility] HospitalIn the event this information is protected by the Federal Confidentiality of Alcohol and Drug Abuse Patient Records regulations: The Federal rules restrict any use of the information to criminally investigate or prosecute any alcohol or drug abuse patient.[facility] HospitalIn the event this information is protected by the Federal Confidentiality of Alcohol and Drug Abuse Patient Records regulations: The Federal rules restrict any use of the information to criminally investigate or prosecute any alcohol or drug abuse patient.[facility] HospitalIn the event this information is protected by the Federal Confidentiality of Alcohol and Drug Abuse Patient Records regulations: The Federal rules restrict any use of the information to criminally investigate or prosecute any alcohol or drug abuse patient.[facility] HospitalIn the event this information is protected by the Federal Confidentiality of Alcohol and Drug Abuse Patient Records regulations: The Federal rules restrict any use of the information to criminally investigate or prosecute any alcohol or drug abuse patient.[facility] HospitalIn the event this information is protected by the Federal Confidentiality of Alcohol and Drug Abuse Patient Records regulations: The Federal rules restrict any use of the information to criminally investigate or prosecute any alcohol or drug abuse patient.[facility] HospitalIn the event this information is protected by the Federal Confidentiality of Alcohol and Drug Abuse Patient Records regulations: The Federal rules restrict any use of the information to criminally investigate or prosecute any alcohol or drug abuse patient.[facility] HospitalIn the event this information is protected by the Federal Confidentiality of Alcohol and Drug Abuse Patient Records regulations: The Federal rules restrict any use of the information to criminally investigate or prosecute any alcohol or drug abuse patient.[facility] HospitalIn the event this information is protected by the Federal Confidentiality of Alcohol and Drug Abuse Patient Records regulations: The Federal rules restrict any use of the information to criminally investigate or prosecute any alcohol or drug abuse patient.[facility] HospitalIn the event this information is protected by the Federal Confidentiality of Alcohol and Drug Abuse Patient Records regulations: The Federal rules restrict any use of the information to criminally investigate or prosecute any alcohol or drug abuse patient.[facility] HospitalIn the event this information is protected by the Federal Confidentiality of Alcohol and Drug Abuse Patient Records regulations: The Federal rules restrict any use of the information to criminally investigate or prosecute any alcohol or drug abuse patient.[facility] HospitalIn the event this information is protected by the Federal Confidentiality of Alcohol and Drug Abuse Patient Records regulations: The Federal rules restrict any use of the information to criminally investigate or prosecute any alcohol or drug abuse patient.[facility] HospitalIn the event this information is protected by the Federal Confidentiality of Alcohol and Drug Abuse Patient Records regulations: The Federal rules restrict any use of the information to criminally investigate or prosecute any alcohol or drug abuse patient.[facility] HospitalIn the event this information is protected by the Federal Confidentiality of Alcohol and Drug Abuse Patient Records regulations: The Federal rules restrict any use of the information to criminally investigate or prosecute any alcohol or drug abuse patient.[facility] HospitalIn the event this information is protected by the Federal Confidentiality of Alcohol and Drug Abuse Patient Records regulations: The Federal rules restrict any use of the information to criminally investigate or prosecute any alcohol or drug abuse patient.[facility] HospitalIn the event this information is protected by the Federal Confidentiality of Alcohol and Drug Abuse Patient Records regulations: The Federal rules restrict any use of the information to criminally investigate or prosecute any alcohol or drug abuse patient.[facility] HospitalIn the event this information is protected by the Federal Confidentiality of Alcohol and Drug Abuse Patient Records regulations: The Federal rules restrict any use of the information to criminally investigate or prosecute any alcohol or drug abuse patient.[facility] HospitalIn the event this information is protected by the Federal Confidentiality of Alcohol and Drug Abuse Patient Records regulations: The Federal rules restrict any use of the information to criminally investigate or prosecute any alcohol or drug abuse patient.[facility] HospitalIn the event this information is protected by the Federal Confidentiality of Alcohol and Drug Abuse Patient Records regulations: The Federal rules restrict any use of the information to criminally investigate or prosecute any alcohol or drug abuse patient.[facility] HospitalIn the event this information is protected by the Federal Confidentiality of Alcohol and Drug Abuse Patient Records regulations: The Federal rules restrict any use of the information to criminally investigate or prosecute any alcohol or drug abuse patient.[facility] HospitalIn the event this information is protected by the Federal Confidentiality of Alcohol and Drug Abuse Patient Records regulations: The Federal rules restrict any use of the information to criminally investigate or prosecute any alcohol or drug abuse patient.[facility] HospitalIn the event this information is protected by the Federal Confidentiality of Alcohol and Drug Abuse Patient Records regulations: The Federal rules restrict any use of the information to criminally investigate or prosecute any alcohol or drug abuse patient.[facility] HospitalIn the event this information is protected by the Federal Confidentiality of Alcohol and Drug Abuse Patient Records regulations: The Federal rules restrict any use of the information to criminally investigate or prosecute any alcohol or drug abuse patient.[facility] HospitalIn the event this information is protected by the Federal Confidentiality of Alcohol and Drug Abuse Patient Records regulations: The Federal rules restrict any use of the information to criminally investigate or prosecute any alcohol or drug abuse patient.[facility] HospitalIn the event this information is protected by the Federal Confidentiality of Alcohol and Drug Abuse Patient Records regulations: The Federal rules restrict any use of the information to criminally investigate or prosecute any alcohol or drug abuse patient.[facility] HospitalIn the event this information is protected by the Federal Confidentiality of Alcohol and Drug Abuse Patient Records regulations: The Federal rules restrict any use of the information to criminally investigate or prosecute any alcohol or drug abuse patient.[facility] Reason for Visit (unrecogniz ed section and content) Reason Comments Missed Appointment Reason Comments diabetes ed follow up Reason Comments Patient Update Reason Onset Date Comments Appointment 11/12/2022 Wellness/a1c Reason Comments Follow Up Diabetes Reason Comments New Pain Numbness Specialty Diagnoses / Procedures Referred By Contac t Referred To Contact Podiatry Diagnoses Diabetic neuropathy, painful (HCC) Procedures CONSULT TO PODIATRY OFFICE/OUTPATIENT NEW HIGH MDM 60-74 MINUTES Older, Shahana, PIGMENT SUPPLIER.[employer] [address] [place] [address] Referral ID Status Reason Start Date Expiration Date V isits Requested Visits Authorized [id number] Closed PCP Requested Referral 03/14/2023 03/13/2024 1 1 Reason Comments Diabetic Eye Exam Type 2 IDDM Specialty Diagnoses / Procedures Referred By Contac t Referred To Contact Ophthalmology Diagnoses Uncontrolled type 2 diabetes mellitus with hyperglycemia (HCC) Procedures CONSULT TO OPHTHALMOLOGY OFFICE/OUTPATIENT NEW HIGH MDM 60-74 MINUTES Older, Shahana, PIGMENT SUPPLIER.[employer] [address] [place] [address] Referral ID Status Reason Start Date Expiration Date V isits Requested Visits Authorized [id number] Closed PCP Requested Referral 03/14/2023 03/13/2024 1 1 Reason Comments Missed Appointment Pharmacy Visit Stan eduling Reason Comments Diabetes follow up Reason Comments Results Reason Comments FMLA forms Reason Comments Physical Specialty Diagnoses / Procedures Referred By Contac t Referred To Contact Diagnoses Poorly controlled diabetes mellitus (HCC) Procedures CONSULT TO DIABETES EDUCATION DSME MEDICAL NUTRITION ASSMT&IVNTJ INDIV EACH 15 [place] MEDICAL NUTRITION ASSMT&IVNTJ INDIV EACH 15 [place] MEDICAL NUTRITION ASSMT&IVNTJ INDIV EACH 15 [place] MEDICAL NUTRITION ASSMT&IVNTJ INDIV EACH 15 [place] Shahana Valenzuela M, PIGMENT SUPPLIER.[employer] [address] [place] [address] [facility] [address] [place] [address] Referral ID Status Reason Start Date Expiration Date V isits Requested Visits Authorized [id number] Closed PCP Requested Referral 05/26/2024 05/26/2025 1 1 Reason Comments High Blood Sugar Specialty Diagnoses / Procedures Referred By Contac t Referred To Contact Endocrinology Diagnoses Poorly controlled diabetes mellitus (HCC) Procedures CONSULT TO ENDOCRINOLOGY OFFICE/OUTPATIENT NEW [facility] 60 MINUTES Shahana Valenzuela, PIGMENT SUPPLIER.G[employer]ER [address] [place] [address] Referral ID Status Reason Start Date Expiration Date V isits Requested Visits Authorized [id number] Closed PCP Requested Referral 04/14/2024 04/14/2025 1 1 Specialty Diagnoses / Procedures Referred By Contac t Referred To Contact Diagnoses Poorly controlled diabetes mellitus (HCC) Procedures CONSULT TO DIABETES EDUCATION DSME MEDICAL NUTRITION ASSMT&IVNTJ INDIV EACH 15 [place] MEDICAL NUTRITION ASSMT&IVNTJ INDIV EACH 15 [place] MEDICAL NUTRITION ASSMT&IVNTJ INDIV EACH 15 [place] MEDICAL NUTRITION ASSMT&IVNTJ INDIV EACH 15 [place] Amairani Youssef, PIGMENT SUPPLIER.[employer]ER [address] [place] [address] Referral ID Status Reason Start Date Expiration Date V isits Requested Visits Authorized [id number] Closed PCP Requested Referral 06/30/2024 06/30/2025 1 1 Reason Comments Diabetes Reason Comments Medical Nutrition Therapy Type 2 Diabete s Specialty Diagnoses / Procedures Referred By Contac t Referred To Contact Diagnoses Poorly controlled diabetes mellitus (HCC) Procedures ENDOCRINOLOGY DIETITIAN VISIT (MNT) MEDICAL NUTRITION ASSMT&IVNTJ INDIV EACH 15 [place] MEDICAL NUTRITION ASSMT&IVNTJ INDIV EACH 15 [place] MEDICAL NUTRITION ASSMT&IVNTJ INDIV EACH 15 [place] MEDICAL NUTRITION ASSMT&IVNTJ INDIV EACH 15 [place] Amairani Youssef, PIGMENT SUPPLIER.[employer]ER [address] [place] [id number] Referral ID Status Reason Start Date Expiration Date V isits Requested Visits Authorized [id number] Closed PCP Requested Referral 06/30/2024 06/30/2025 1 1 Reason Onset Date Comments PHMA/Care Gap Outreach 11/10/2024 DM, HTN Care Teams (unrecognized sec tion and content) Spar Finisher Relationship Specialty Start Date End Date Uday Rowe MD [address] [facility] [place] [address] PCP - General Internal Medicine 12/26/20 [facility] [address] [facility] [place] [address] Pharmacist Pharmacy 01/11/21 Steffany Wisdom, [facility] [address] [facility] [place] [address] Pharmacist Pharmacy 03/15/21 Spar Finisher Relationship Specialty Start Date End Date Uday Rowe MD [address] [facility] [place] [address] PCP - General Internal Medicine 12/26/20 Yovany Rogerkevin, [facility] [address] [place] [address] Pharmacist Pharmacy 01/11/21 Steffany Wisdom, [facility] [address] [facility] [place] [address] Pharmacist Pharmacy 03/15/21 Spar Finisher Relationship Specialty Start Date End Date Uday Rowe MD [address] [facility] [place] [address] PCP - General Internal Medicine 12/26/20 Yovany Monica, [facility] [address] [facility] [place] [address] Pharmacist Pharmacy 01/11/21 Steffany Wisdom, [facility] [address] [place] [address] Pharmacist Pharmacy 03/15/21 Spar Finisher Relationship Specialty Start Date End Date Uday Rowe MD [address] [facility] [place] [address] PCP - General Internal Medicine 12/26/20 Monica Pedroza, [facility] [address] [facility] [place] [address] Pharmacist Pharmacy 01/11/21 Alyx, [facility] [address] [place] [address] Pharmacist Pharmacy 03/15/21 Spar Finisher Relationship Specialty Start Date End Date Uday Rowe MD [address] [place] [address] PCP - General Internal Medicine 12/26/20 Spar Finisher Relationship Specialty Start Date End Date Uday Rowe MD [address] [place] [address] PCP - General Internal Medicine 12/26/20 Spar Finisher Relationship Specialty Start Date End Date Uday Rowe MD [address] [place] [address] PCP - General Internal Medicine 12/26/20 Team Status: Active Member Role Status Dates Nathanael Davis PERFORMANCE ARCHITECT, PERFORMANCE ARCHITECT-C Family Provider Active No Primary Care Physician Primary Care Provider Active Team Status: Inactive Member Role Status Dates No Primary Care Physician Primary Care Provider, Refer ring Provider Active Josh BENTLEY, PA Attending Provider Active Team Status: Inactive Member Role Status Dates No Primary Care Physician Primary Care Provider Active Chacho Nichols MD Emergency Provider Active Team Status: Active Member Role Status Dates Nathanael Davis PERFORMANCE ARCHITECT, PERFORMANCE ARCHITECT-C Family Provider Active Shahana Older PERFORMANCE ARCHITECT, PERFORMANCE ARCHITECT-C Primary Care Provider Active Team Status: Inactive Member Role Status Dates Dr. Jules Chu DO Emergency Provider Active Shahana Older PERFORMANCE ARCHITECT, PERFORMANCE ARCHITECT-C Primary Care Provider Active Spar Finisher Relationship Specialty Start Date End Date Uday Rowe MD [address] [place] [address] PCP - General Internal Medicine 12/26/20 Spar Finisher Relationship Specialty Start Date End Date Uday Rowe MD [address] [place] [address] PCP - General Internal Medicine 12/26/20 Team Status: Inactive Member Role Status Dates No Primary Care Physician Primary Care Provider Active Chacho Nichols MD Attending Provider, Emergency Provid er Active Team Status: Inactive Member Role Status Dates Dr. Jules Chu , Attending Provider, Emergency Provide r Active Shahana Older PERFORMANCE ARCHITECT, PERFORMANCE ARCHITECT-C Primary Care Provider Active Team Status: Inactive Member Role Status Dates Shahana Older PERFORMANCE ARCHITECT, PERFORMANCE ARCHITECT-C Primary Care Provider Active Dr. Vimal Wang , DO Emergency Provider Active Spar Finisher Relationship Specialty Start Date End Date Uday Rowe MD [address] [place] [address] PCP - General Internal Medicine 12/26/20 Spar Finisher Relationship Specialty Start Date End Date Uday Rowe MD [address] [place] [address] PCP - General Internal Medicine 12/26/20 Spar Finisher Relationship Specialty Start Date End Date Uday Rowe MD [address] [place] [address] PCP - General Internal Medicine 12/26/20 Monica Pedroza, [facility] [address] [place] [address] Pharmacist Pharmacy 01/11/21 04/21/22 Steffany Wisdom, [facility] [address] [place] [address] Pharmacist Pharmacy 03/15/21 04/21/22 Spar Finisher Relationship Specialty Start Date End Date Uday Rowe MD [address] [place] [address] PCP - General Internal Medicine 12/26/20 Spar Finisher Relationship Specialty Start Date End Date Uday Rowe MD [address] [place] [address] PCP - General Internal Medicine 12/26/20 Spar Finisher Relationship Specialty Start Date End Date Uday Rowe MD [address] [facility] [place] [address] PCP - General Internal Medicine 12/26/20 Spar Finisher Relationship Specialty Start Date End Date Uday Rowe MD [address] [facility] [place] [address] PCP - General Internal Medicine 12/26/20 Spar Finisher Relationship Specialty Start Date End Date Uday Rowe MD [address] [facility] [place] [address] PCP - General Internal Medicine 12/26/20 Spar Finisher Relationship Specialty Start Date End Date Uday Rowe MD [address] [place] [address] PCP - General Internal Medicine 12/26/20 Shahana Valenzuela, PIGMENT SUPPLIER.GOLD LAYER [address] [facility] [place] [address] [facility] 06/21/24 Spar Finisher Relationship Specialty Start Date End Date Uday Rowe MD [address] [facility] [place] [address] PCP - General Internal Medicine 12/26/20 Shahana Valenzuela, PIGMENT SUPPLIER.GOLD LAYER [address] [place] [address] [facility] 06/21/24 Spar Finisher Relationship Specialty Start Date End Date Uday Rowe MD [address] [place] [address] PCP - General Internal Medicine 12/26/20 Shahana Valenzuela, PIGMENT SUPPLIER.GOLD LAYER [address] [place] [address] [facility] Internal Medicine 06/21/24 Spar Finisher Relationship Specialty Start Date End Date Uday Rowe MD [address] [place] [address] PCP - General Internal Medicine 12/26/20 Shahana Valenzuela, PIGMENT SUPPLIER.GOLD LAYER [address] [place] [address] [facility] Internal Medicine 06/21/24 Spar Finisher Relationship Specialty Start Date End Date Uday Rowe MD [address] [facility] [place] [address] PCP - General Internal Medicine 12/26/20 Shahana Valenzuela, PIGMENT SUPPLIER.GOLD LAYER [address] [place] [address] [facility] Internal Medicine 06/21/24 Spar Finisher Relationship Specialty Start Date End Date Uday Rowe MD [address] [facility] [place] [address] PCP - General Internal Medicine 12/26/20 Shahana Valenzuela, PIGMENT SUPPLIER.GOLD LAYER [address] [facility], [place] [address] [facility] Internal Medicine 06/21/24 Spar Finisher Relationship Specialty Start Date End Date Uday Rowe MD [address] [facility], [place] [address] PCP - General Internal Medicine 12/26/20 Shahana Valenzuela, PIGMENT SUPPLIER.GOLD LAYER [address] [facility], [place] [address] [facility] Internal [facility] 06/21/24 Spar Finisher Relationship Specialty Start Date End Date Uday Rowe MD [address] [place], [place] [address] PCP - General Internal Medicine 12/26/20 Shahana Valenzuela, PIGMENT SUPPLIER.GOLD LAYER [address] [facility] [place] [address] [facility] Internal [facility] 06/21/24 Goals (unrecognized section and content) Goals may be documented in a n alternate sectionGoals may be documented in an alternate sectionGoals may be documented in an alternate section FOR RECORDS PERTAINING TO PATIENTS WHO ARE OR HAVE BEEN ENROLLED IN A CHEMICAL DEPENDENCY/SUBSTANCEABUSE PROGRAM, SOME INFORMATION MAY BE OMITTED. This clinical summary was aggregated from multiple sources. Caution should be exercised in using it in the provision of clinical care. This summary normalizes information from multiple sources, and as a consequence, information in this document may materially change the coding, format and clinical context of patient data. In addition, data may be omitted in some cases. CLINICAL DECISIONS SHOULD BE BASED ON THE PRIMARY CLINICAL RECORDS. [employer] [facility]. provides no warranty or guarantee of the accuracy or completeness of information in this document.
== END 2025-07-09 11:46 | disposition home or self-care (01) ==
LOC: ED 11:41
PROVIDERS: Emergency Provider Emergency Medicine; PCP Nurse Practitioner; Visit Provider Emergency Medicine
DX: K08.89 Other specified disorders of teeth and supporting structures (principal); Z79.4 Long term (current) use of insulin; E11.9 Type 2 diabetes mellitus without complications; E78.5 Hyperlipidemia, unspecified; I10 Essential (primary) hypertension; Z79.899 Other long term (current) drug therapy; Z79.84 Long term (current) use of oral hypoglycemic drugs; K04.7 Periapical abscess without sinus; K05.10 Chronic gingivitis, plaque induced
CPT/HCPCS: 99283